=== PATIENT | male | born 1955 | race Caucasian/White ===

== ENCOUNTER 2017-06-04 13:10 | Inpatient (IN) | payer OTHER ==
[2017-06-04] MEDS ORDERED: HEPARIN SODIUM,PORCINE 5,000 UNIT/ML 1 ML VIAL IV ONE (22:07)
[2017-06-04] MEDS ORDERED: HEPARIN SODIUM,PORCINE 5,000 UNIT/ML 1 ML VIAL IV PRN (22:07)
[2017-06-04] MEDS: MIRTAZAPINE 45 MG TABLET PO SCH (22:37)
[2017-06-04] MEDS: HEPARIN SODIUM,PORCINE/D5W PMX 25,000 UNIT in DEXTROSE/WATER 1 500ML.BAG IV SCH (23:31)
[2017-06-05 04:40] LABS: Basophils # (A) 0.1 k/uL (0-0.2); Basophils % (A) 1 %; CH 32.1; CHCM 35.6; Eosinophils # (A) 0.2 k/uL (0-0.7); Eosinophils % (A) 4 %; HCT 38.9 % (39.0-53.0); HGB 13.9 gm/dL (13.0-17.5); Luc # (Auto) 0.07; Luc % (Auto) 2; Lymphocytes # (A) 1.2 k/uL (1.0-4.8); Lymphocytes % (A) 29 %; MCH 32.4 pg (25.0-35.0); MCHC 35.7 g/dL (31.0-37.0); MCV 90.7 fL (80.0-100.0); Mean Platelet Volume 7.1; Monocytes # (A) 0.3 k/uL (0-1.0); Monocytes % (A) 6 %; Neutrophils # (A) 2.5 k/uL (1.3-7.7); Neutrophils % (A) 59 %; RBC 4.29 m/uL (4.30-5.90); RDW 13.7 % (11.5-15.5); WBC 4.3 k/uL (3.8-10.6); WBC (Perox) 3.96
[2017-06-05 05:56] LABS: ALT 40 U/L (21-72); AST 45 U/L (17-59); Alkaline Phosphatase 79 U/L (38-126); Anion Gap 10 mmol/L; Blood Urea Nitrogen 19 mg/dL (9-20); Calcium 9.2 mg/dL (8.4-10.2); Carbon Dioxide 26 mmol/L (22-30); Chloride 106 mmol/L (98-107); Glucose 102 mg/dL (74-99); Non-African American GFR(MDRD) >60 (>60 ml/min/1.73 sqM); Sodium 142 mmol/L (137-145); Total Bilirubin 0.7 mg/dL (0.2-1.3); Total Protein 7.1 g/dL (6.3-8.2)
[2017-06-05] MEDS: LISINOPRIL 10 MG TAB PO SCH (05:57)
[2017-06-05] MEDS: ATENOLOL 50 MG TAB PO SCH (05:57)
[2017-06-05] MEDS: CHLORTHALIDONE 25 MG TAB PO SCH (05:57)
[2017-06-05] MEDS: amLODIPine 5 MG TAB PO SCH (05:58)
[2017-06-05] MEDS ORDERED: ASPIRIN 325 MG TAB PO ONE (07:25)
[2017-06-05] MEDS ORDERED: SODIUM CHLORIDE 0.9% 1,000 ML IV ONE (07:33)
[2017-06-05] MEDS ORDERED: diphenhydrAMINE 50 MG/ML 1 ML VIAL IVP ONE (07:35)
[2017-06-05] MEDS ORDERED: LIDOCAINE 2% INJ 20 MG/ML SQ ONE (07:40)
[2017-06-05] MEDS ORDERED: MIDAZOLAM 2 MG/2 ML VIAL IV ONE (07:40)
[2017-06-05] MEDS: VERAPAMIL SYRINGE (5 MG/10 ML) INTRAARTER ONE ×2 (07:42→07:59)
[2017-06-05] MEDS ORDERED: IOHEXOL 350 MG/ML 125ML BOTTLE INJ ONE ×2 (07:57)
[2017-06-05] MEDS ORDERED: RX INFO: IV CONTRAST WAS GIVEN 1 EACH MISC MISCELLANE PRN (08:07)
--- NOTE | 2017-06-05 08:22 | P.PCN ---
Date of Procedure: 06/05/17 Preoperative Diagnosis: Postoperative Diagnosis: Procedure(s) Performed: Implants: Indications for Procedure: Operative Findings: CARDIAC CATHETERIZATION PERFORMING PHYSICIAN: Chris Saravia MD, RPVI PROCEDURE PERFORMED: 1. Selective right and left coronary angiogram INDICATION: This is a pleasant 62-year-old gentleman with a known hypertension, dyslipidemia , significant history of smoking, and hepatitis C presented to the hospital with a chest discomfort and was ruled in for acute non-STEMI. APPROACH: Right radial artery PROCEDURE DESCRIPTION: After obtaining an informed consent and explaining the procedure benefits, risks , and complications, the patient was brought to cardiac medical lab tech instructor. Local anesthesia was performed using lidocaine subcutaneously. The right radial artery was cannulated using Seldinger technique, the guidewire passed easily, following that we advanced a 6-Chinese sheath dilator assembly, the wire and dilator were removed and sheath was flushed. Following that, 2 mg of verapamil along with 3000 unit heparin were given. Selective right and left coronary angiogram using a 6-Chinese JR4 and JL 3.5 catheters. The procedure was completed there was no complication. SELECTIVE CORONARY ANGIOGRAM: The right coronary artery: Is a large caliber vessel and its a dominant vessel. The right coronary artery is totally occluded in the midportion and fills by collateral from the left coronary system. Left main: Is heavily calcified with disease distally appears to be in the range of 60-70% . The disease involving the ostial left circumflex and LAD. The left circumflex: Is a moderate caliber vessel and its and on dominant vessel. The ostial left circumflex appeared to be disease in the range of 70%. The mid left circumflex appears to be occluded this is just after the bifurcation of the first obtuse marginal branch which is a large caliber vessel with disease in the proximal portion appears to be in the range of 70-80%. The left circumflex also gives rises into second and third obtuse marginal branches which they seemed to be subtotally occluded. The left anterior descending artery: Is a large caliber vessel. Its heavily calcified. The LAD is diffusely diseased. The proximal portion of the LAD appeared to have disease up to about 70-80%. The mid LAD has a focal lesion seems to be in the range of 90-95%. The LAD distally appears to be angiographically normal. CONCLUSION: Heavily calcified right and left coronary systems Severe triple-vessel CAD Occluded large dominant RCA fills by collaterals from the left coronary system Severe disease involving the distal left main Occluded mid left circumflex Severe disease involving the proximal and mid LAD POSTPROCEDURE MANAGEMENT: Consult surgeon for evaluation of CABG. Description of Procedure:
[2017-06-05] MEDS: SODIUM CHLORIDE 0.9% 1,000 ML IV SCH ×2 (08:28→20:24)
--- NOTE | 2017-06-05 09:24 | P.HPIM ---
History of Present Illness H&P Date: 06/05/17 Chief Complaint: chest pain 62-year-old male was transferred from [facility] for higher level of care in a patient who ruled in for non-ST elevated CA. Patient reportedly was seen in the emergency room on June 04 at [facility] facility after patient activated the EMS system the patient stated that he developed chest pain. Patient stated that for the last several months he has had intermittent episodes of anterior chest wall pain. He states the pain seemed to get worse if he exerted himself. Did indicate that the pain did radiate to the left side of his neck and did have episodes of severe diaphoresis with the last episode. He stated he also felt sensation of nausea but did not actually vomit. Patient stated the pain this time was so severe different from his other episodes in the past. Patient was seen at [facility] facility the 12-lead EKG showed evidence of ischemic changes in a mildly elevated troponin. Patient initially was admitted to the telemetry unit started on IV heparin a cardiology consultation requested. Patient does have a past medical history significant for hepatitis C active tobacco abuse hypertension. Additionally patient states he's on Suboxone for heroin addiction. Patient states he has not used heroin "in years" but does state that he sees Dr. Niels Sweeney psychiatrist who prescribes Suboxone cardiology recommended that the patient be transferred to the [facility] heart catheterization patient was transferred did undergo heart catheterization on June 05 it showed three-vessel disease 60% left main disease . Currently the patient is being seen this morning postprocedure awake alert states he is not having any chest pain is stating anxious to be discharged stating that he cannot stay in the hospital Review of Systems Essentially unremarkable except as mentioned in the present illness Past Medical History Past Medical History: Cancer, Osteoarthritis (OA) Additional Past Medical History / Comment(s): "TX FOR BOWEL INFECTION IN PAST . " ONE DR TOLD ME I HAD COLITIS BUT ANOTHER DR TOLD ME I DID'NT", "COLON CANCER" , oCC TROUBLE SWALLOWING, BROKEN RT LEG IN PAST. History of Any Multi-Drug Resistant Organisms: None Reported Past Surgical History: Bowel Resection, Hernia Repair, Orthopedic Surgery Additional Past Surgical History / Comment(s): RT LEG, LT KNEE SX D/R "BROKEN KNEE CAP", PARTIAL LT HIP REPLACEMENT Past Anesthesia/Blood Transfusion Reactions: Previous Problems w/ Anesthesia Additional Past Anesthesia/Blood Transfusion Reaction / Comment(s): DIFFICULTY WAKING Smoking Status: Current every day smoker - Past Family History Mother Family Medical History: Cancer Additional Family Medical History / Comment(s): BREAST CANCER Father Family Medical History: Congestive Heart Failure (CHF), Coronary Artery Disease (CAD) Medications and Allergies Home Medications Medication Instructions Recorded Confirmed Type Atenolol/Chlorthalidone 1 tab PO DAILY 06/04/17 06/04/17 History [Atenolol-Chlorthalidone 50-25] Buprenorphine HCl/Naloxone HCl 1.5 film SUBLINGUAL DAILY 06/04/17 06/04/17 History [Suboxone 8 mg-2 mg Sl Film] Lisinopril [Zestril] 10 mg PO DAILY 06/04/17 06/04/17 History Mirtazapine [Remeron] 45 mg PO HS 06/04/17 06/04/17 History amLODIPine [Norvasc] 5 mg PO DAILY 06/04/17 06/04/17 History Allergies Allergy/AdvReac Type Severity Reaction Status Date / Time Penicillins Allergy Unknown Verified 06/04/17 19:23 Physical Exam Vitals: Vital Signs Temp Pulse Pulse Resp BP Pulse Ox 06/05/17 08:29 97.5 F L 57 L 16 144/75 98 06/05/17 08:25 57 L 16 144/75 98 06/05/17 04:00 97.1 F L 62 18 152/79 99 06/05/17 00:00 65 16 121/71 97 06/04/17 20:00 97.2 F L 68 18 139/76 96 06/04/17 18:52 97.8 F 69 16 135/76 96 Intake and Output 06/04/17 06/05/17 06/05/17 22:59 06:59 14:59 Intake Total 100 Balance 100 Intake: IV 100 Other: # Voids 1 Weight 70.7 kg 70 kg GENERAL APPEARANCE: 62 year old patient is alert, oriented, in no acute distress. VITAL SIGNS: Reviewed HEENT: Head is normocephalic and atraumatic. Pupils are equal and reactive. The nares are patent. Oropharynx is clear without lesions. NECK: Supple without lymphadenopathy. Traches midline. HEART: S1, S2. Regular rate and rhythm. No murmur noted currently denying chest pain monitor sinus rhythm LUNGS: No crackles or wheezes are heard. Adequate air entry bilaterally no cough noted no shortness of breath on room air sats are 9193% ABDOMEN: Soft, nontender, nondistended with good bowel sounds. No peritoneal signs. No palpable organomegaly or masses. EXTREMITIES: Normal skin color and turgor. No cyanosis, rash, ulceration, clubbing or edema. Radial pedal pulses are 2/4 bilaterally. No hematoma noted NEUROLOGICAL: No focal deficits. Strength and sensation are grossly intact. Results CBC & Chem 7: 06/05/17 04:25 06/05/17 05:32 Labs: Abnormal Lab Results - Last 24 Hours (Table) 06/04/17 06/05/17 06/05/17 Range/Units 22:23 04:25 04:25 RBC 4.29 L (4.30-5.90) m/uL Hct 38.9 L (39.0-53.0) % APTT 37.1 H 53.8 H (22.0-30.0) sec Glucose (74-99) mg/dL 06/05/17 Range/Units 05:32 RBC (4.30-5.90) m/uL Hct (39.0-53.0) % APTT (22.0-30.0) sec Glucose 102 H (74-99) mg/dL Thrombosis Risk Factor Assmnt - Choose All That Apply Any of the Below Risk Factors Present?: Yes Each Factor Represents 1 point: Acute CA Other Risk Factors: Yes Each Risk Factor Represents 2 Points: Age 61-74 years, Malignancy Other congenital or acquired thrombophilia - If yes, enter type in comment: No Thrombosis Risk Factor Assessment Total Risk Factor Score: 5 Thrombosis Risk Factor Assessment Level: High Risk Assessment and Plan Plan: Impression Present on admission chest pain suspect due to acute non-ST elevated CA 3 vessel coronary artery disease per heart catheterization done 06/05/2017 Current every day smoker 1 pack a day on Suboxone for heroin addiction in remission History of hepatitis C Hypertension Present on admission hypokalemia potassium 3.3 corrected History of illicit drug use marijuana Hyperlipidemia Plan Await cardiology input pending Resume home meds as appropriate DVT and GI prophylaxis Patient's been advised to stop smoking cigarettes smoking cessation information will be provided repeat labs in the morning Further recommendations pending will follow The above impression and plan of care have been discussed and directed by signing physician. Nelly Guo nurse practitioner acting as scribe for signing physician.
[2017-06-05 10:45] LABS: Cholesterol 178 mg/dL (<200); HDL Cholesterol 59 mg/dL (40-60); Triglycerides 118 mg/dL (<150)
[2017-06-05] MEDS: FAMOTIDINE 20 MG TAB PO SCH ×2 (12:03→20:24)
[2017-06-05] MEDS ORDERED: MD COMMUNICATION TO PHARMACY 1 EACH MISC PO ONE (14:15)
--- NOTE | 2017-06-05 14:45 | P.GSCN ---
<Felicia Restrepo - Last Filed: 06/05/17 14:30> History of Present Illness Consult date: 06/05/17 Reason for Consult: Severe triple vessel coronary artery disease, need for surgical revascularization. Requesting physician: Chris Saravia History of present illness: This 62 year old gentleman presented to [facility] emergency room with complaints of anterior chest pain. Apparently he's had this pain off and on for several months however he felt it was getting worse and that he needed to come to the emergency room. He does state that its worse with exertion, he did have some radiation to his left neck, as well as diaphoresis and nausea with this episode. At [facility] he was ruled in for non-STEMI with elevated troponins of 0.54 and 1.090. He was transferred to [facility] for heart catheterization with Dr. Saravia. Heart catheterization reveals a total occlusion of the RCA with collateral circulation , left main disease 60-70%, ostial circumflex with 70% stenosis, mid circumflex occluded after the bifurcation of OM1 which was 70-80% stenosed, OM 2 and OM3 with total occlusion, proximal LAD 70-80%, mid LAD 90-95%. Because of the nature of his disease process, Dr. Larson from cardiothoracic surgery was consulted for surgical revascularization. Review of Systems 14 point review of systems was completed was negative except as noted. - Cardiovascular Reports as per HPI - Respiratory Reports as per HPI - Musculoskeletal Musculoskeleta Comment(s): Lower extremity pain with ambulation relieved with rest - Psychiatric Reports anxiety Past Medical History Past Medical History: Coronary Artery Disease (CAD), Cancer, Hyperlipidemia, Hypertension, Osteoarthritis (OA) Additional Past Medical History / Comment(s): "TX FOR BOWEL INFECTION IN PAST . " ONE DR TOLD ME I HAD COLITIS BUT ANOTHER DR TOLD ME I DID'NT", "COLON CANCER" , oCC TROUBLE SWALLOWING, BROKEN RT LEG IN PAST. Hepatitis C positive History of Any Multi-Drug Resistant Organisms: None Reported Past Surgical History: Bowel Resection, Hernia Repair, Orthopedic Surgery Additional Past Surgical History / Comment(s): RT LEG, LT KNEE SX D/R "BROKEN KNEE CAP", PARTIAL LT HIP REPLACEMENT Past Anesthesia/Blood Transfusion Reactions: Previous Problems w/ Anesthesia Additional Past Anesthesia/Blood Transfusion Reaction / Comm: DIFFICULTY WAKING Smoking Status: Current every day smoker Additional Drug Use History / Comment(s): History of heroin addiction, clean for 4 years, currently on Suboxone - Past Family History Mother Family Medical History: Cancer Additional Family Medical History / Comment(s): BREAST CANCER Father Family Medical History: Congestive Heart Failure (CHF), Coronary Artery Disease (CAD), Myocardial Infarction (OR) Additional Family Medical History / Comment(s): Father of myocardial infarction in his 50s Medications and Allergies Home Medications Medication Instructions Recorded Confirmed Type Atenolol/Chlorthalidone 1 tab PO DAILY 06/04/17 06/04/17 History [Atenolol-Chlorthalidone 50-25] Buprenorphine HCl/Naloxone HCl 1.5 film SUBLINGUAL DAILY 06/04/17 06/04/17 History [Suboxone 8 mg-2 mg Sl Film] Lisinopril [Zestril] 10 mg PO DAILY 06/04/17 06/04/17 History Mirtazapine [Remeron] 45 mg PO HS 06/04/17 06/04/17 History amLODIPine [Norvasc] 5 mg PO DAILY 06/04/17 06/04/17 History Allergies Allergy/AdvReac Type Severity Reaction Status Date / Time Penicillins Allergy Unknown Verified 06/04/17 19:23 Surgical - Exam Vital Signs Temp Pulse Resp BP Pulse Ox 97.8 F 69 16 135/76 96 06/04/17 18:52 06/04/17 18:52 06/04/17 18:52 06/04/17 18:52 06/04/17 18:52 - General no distress, no pain - Eyes PERRL, normal ocular movement - ENT no hearing loss - Neck trachea midline - Respiratory Lungs sounds diminished bilaterally. Respirations even, nonlabored. Currently on room air. - Cardiovascular Rhythm: regular Heart Sounds: normal: S1, S2 - Abdomen Abdomen: soft, non tender, bowel sounds - Genitourinary Deferred - Rectum Deferred - Integumentary no rash - Neurologic normal coordination, normal sensation - Musculoskeletal normal gait, normal posture - Psychiatric oriented to time, oriented to person, oriented to place, speech is normal, memory intact Results - Labs 06/05/17 04:25 06/05/17 05:32 Abnormal Lab Results - Last 24 Hours (Table) 06/04/17 06/05/17 06/05/17 Range/Units 22:23 04:25 04:25 RBC 4.29 L (4.30-5.90) m/uL Hct 38.9 L (39.0-53.0) % APTT 37.1 H 53.8 H (22.0-30.0) sec Glucose (74-99) mg/dL 06/05/17 Range/Units 05:32 RBC (4.30-5.90) m/uL Hct (39.0-53.0) % APTT (22.0-30.0) sec Glucose 102 H (74-99) mg/dL Diabetes panel 06/05/17 06/05/17 Range/Units 05:32 05:32 Sodium 142 (137-145) mmol/L Potassium 4.0 (3.5-5.1) mmol/L Chloride 106 (98-107) mmol/L Carbon Dioxide 26 (22-30) mmol/L BUN 19 (9-20) mg/dL Creatinine 1.20 (0.66-1.25) mg/dL Glucose 102 H (74-99) mg/dL Calcium 9.2 (8.4-10.2) mg/dL AST 45 (17-59) U/L ALT 40 (21-72) U/L Alkaline Phosphatase 79 (38-126) U/L Total Protein 7.1 (6.3-8.2) g/dL Albumin 3.9 (3.5-5.0) g/dL Triglycerides 118 (<150) mg/dL HDL Cholesterol 59 (40-60) mg/dL Calcium panel 06/05/17 Range/Units 05:32 Calcium 9.2 (8.4-10.2) mg/dL Albumin 3.9 (3.5-5.0) g/dL Pituitary panel 06/05/17 Range/Units 05:32 Sodium 142 (137-145) mmol/L Potassium 4.0 (3.5-5.1) mmol/L Chloride 106 (98-107) mmol/L Carbon Dioxide 26 (22-30) mmol/L BUN 19 (9-20) mg/dL Creatinine 1.20 (0.66-1.25) mg/dL Glucose 102 H (74-99) mg/dL Calcium 9.2 (8.4-10.2) mg/dL Adrenal panel 07/06/17 Range/Units 05:32 Sodium 142 (137-145) mmol/L Potassium 4.0 (3.5-5.1) mmol/L Chloride 106 (98-107) mmol/L Carbon Dioxide 26 (22-30) mmol/L BUN 19 (9-20) mg/dL Creatinine 1.20 (0.66-1.25) mg/dL Glucose 102 H (74-99) mg/dL Calcium 9.2 (8.4-10.2) mg/dL Total Bilirubin 0.7 (0.2-1.3) mg/dL AST 45 (17-59) U/L ALT 40 (21-72) U/L Alkaline Phosphatase 79 (38-126) U/L Total Protein 7.1 (6.3-8.2) g/dL Albumin 3.9 (3.5-5.0) g/dL - Imaging Additional studies: Cardiac cath films reviewed. Assessment and Plan (1) Hypertension Status: Acute (2) Coronary artery disease Status: Acute (3) Hyperlipidemia Status: Acute (4) Tobacco dependence Status: Acute (5) Hepatitis C Status: Acute (6) Heroin addiction Status: Acute (7) Family history of myocardial infarction in first degree male relative Status: Acute Plan: The patient was seen and examined. Chart/diagnostics were reviewed. Cardiac catheterization films were reviewed by Dr. Larson. Our recommendations are for surgical revascularization. This was discussed at length with the patient. All risks and benefits were explained in detail to the patient and he is agreeable to surgery. Preoperative testing was ordered. Preoperative teaching initiated. Our plan is for coronary artery bypass graft surgery on 06/09/2017 pending the outcome of preoperative testing. Thank you Dr. Saravia for this consult. We look forward to working with you in the care of your patient. Time with Patient: Greater than 30 <Royal Larson - Last Filed: 06/05/17 17:39> Surgical - Exam Vital Signs Temp Pulse Resp BP Pulse Ox 97.8 F 69 16 135/76 96 06/04/17 18:52 06/04/17 18:52 06/04/17 18:52 06/04/17 18:52 06/04/17 18:52 Results - Labs 06/05/17 04:25 06/05/17 05:32 Abnormal Lab Results - Last 24 Hours (Table) 0706/05/17 06/05/17 Range/Units 22:23 04:25 04:25 RBC 4.29 L (4.30-5.90) m/uL Hct 38.9 L (39.0-53.0) % APTT 37.1 H 53.8 H (22.0-30.0) sec Glucose (74-99) mg/dL Magnesium (1.6-2.3) mg/dL Troponin I (0.000-0.034) ng/mL Triglycerides (<150) mg/dL 06/05/17 06/05/17 06/05/17 Range/Units 05:32 16:26 16:26 RBC (4.30-5.90) m/uL Hct (39.0-53.0) % APTT (22.0-30.0) sec Glucose 102 H (74-99) mg/dL Magnesium 1.4 L (1.6-2.3) mg/dL Troponin I 0.299 H* (0.000-0.034) ng/mL Triglycerides 216 H (<150) mg/dL Diabetes panel 06/05/17 06/05/17 06/05/17 Range/Units 05:32 05:32 16:26 Sodium 142 (137-145) mmol/L Potassium 4.0 (3.5-5.1) mmol/L Chloride 106 (98-107) mmol/L Carbon Dioxide 26 (22-30) mmol/L BUN 19 (9-20) mg/dL Creatinine 1.20 (0.66-1.25) mg/dL Glucose 102 H (74-99) mg/dL Calcium 9.2 (8.4-10.2) mg/dL AST 45 (17-59) U/L ALT 40 (21-72) U/L Alkaline Phosphatase 79 (38-126) U/L Total Protein 7.1 (6.3-8.2) g/dL Albumin 3.9 (3.5-5.0) g/dL Triglycerides 118 216 H (<150) mg/dL HDL Cholesterol 59 56 (40-60) mg/dL Thyroid panel 06/05/17 Range/Units 16:26 TSH 0.692 (0.465-4.680) mIU/L Calcium panel 06/05/17 Range/Units 05:32 Calcium 9.2 (8.4-10.2) mg/dL Albumin 3.9 (3.5-5.0) g/dL Pituitary panel 06/05/17 06/05/17 Range/Units 05:32 16:26 Sodium 142 (137-145) mmol/L Potassium 4.0 (3.5-5.1) mmol/L Chloride 106 (98-107) mmol/L Carbon Dioxide 26 (22-30) mmol/L BUN 19 (9-20) mg/dL Creatinine 1.20 (0.66-1.25) mg/dL Glucose 102 H (74-99) mg/dL Calcium 9.2 (8.4-10.2) mg/dL TSH 0.692 (0.465-4.680) mIU/L Adrenal panel 06/05/17 Range/Units 05:32 Sodium 142 (137-145) mmol/L Potassium 4.0 (3.5-5.1) mmol/L Chloride 106 (98-107) mmol/L Carbon Dioxide 26 (22-30) mmol/L BUN 19 (9-20) mg/dL Creatinine 1.20 (0.66-1.25) mg/dL Glucose 102 H (74-99) mg/dL Calcium 9.2 (8.4-10.2) mg/dL Total Bilirubin 0.7 (0.2-1.3) mg/dL AST 45 (17-59) U/L ALT 40 (21-72) U/L Alkaline Phosphatase 79 (38-126) U/L Total Protein 7.1 (6.3-8.2) g/dL Albumin 3.9 (3.5-5.0) g/dL Assessment and Plan Plan: The patient was seen and examined. I agree with the above assessment and plan. Apparently he's been having chest pain for several months now. Cardiac catheterization performed today reveals multivessel coronary artery disease including left main disease. A coronary artery bypass is recommended. The risks, benefits, and alternatives to this procedure were discussed at length with the patient. All his questions were answered. We have initiated preoperative workup. He is currently hemodynamically stable and chest pain- free. We have scheduled him for surgery on 06/09/2017.
[2017-06-05 16:47] LABS: Partial Thromboplastin Time 24.2 sec (22.0-30.0)
[2017-06-05 16:52] LABS: INR 1.1 (<1.1); Prothrombin Time 10.6 sec (9.0-12.0)
[2017-06-05 17:00] LABS: Cholesterol 195 mg/dL (<200); HDL Cholesterol 56 mg/dL (40-60); Magnesium 1.4 mg/dL (1.6-2.3); Triglycerides 216 mg/dL (<150)
--- NOTE | 2017-06-05 17:12 | XR ---
EXAMINATION TYPE: XR chest 2V DATE OF EXAM: 06/05/2017 COMPARISON: NONE HISTORY: Pain TECHNIQUE: Frontal and lateral views of the chest are obtained. FINDINGS: Heart is normal. Lungs are clear of consolidation. There are no hilar masses. Thoracic aor ta is atheromatous. There is no pleural effusion. There are chest leads. Bones are osteopenic. IMPRESSION: No active cardiopulmonary disease. Normal heart.
[2017-06-05 17:28] LABS: Hepatitis B Surface Ag Index 0.06
[2017-06-05 17:33] LABS: Hepatitis B Core IgM Index 0.07
[2017-06-05 17:45] LABS: Hepatitis C Virus IgG Ab Reactive (Negative)
[2017-06-05 19:01] LABS: Appearance,Urine Clear (Clear); Bilirubin,Urine Negative (Negative); Glucose,Urine (UA) Negative (Negative); Ketones,Urine Negative (Negative); Leukocyte Esterase,Urine Negative (Negative); Nitrite,Urine Negative (Negative); Protein,Urine Negative (Negative); Specific Gravity,Urine 1.012 (1.001-1.035); UA Billing (MACRO vs. MICRO) CHEM; Urobilinogen,Urine <2.0 mg/dL (<2.0)
[2017-06-05] MEDS ORDERED: Magnesium Replacement Protocol 1 EACH MISC MISCELLANE PRN (19:55)
[2017-06-05] MEDS: MAGNESIUM SULFATE-D5W PMX 1 GM in DEXTROSE/WATER 1 100ML.BAG IVPB SCH ×2 (20:24→23:11)
[2017-06-05] MEDS: ATORVASTATIN 80 MG TAB PO SCH (20:24)
[2017-06-05] MEDS: MIRTAZAPINE 45 MG TABLET PO SCH (20:24)
[2017-06-05] MEDS: ALPRAZolam 0.25 MG TAB PO PRN (20:24)
[2017-06-05 21:08] LABS: Hemoglobin A1C 5.4 % (4.2-6.1)
--- NOTE | 2017-06-05 22:46 | P.CNPUL ---
History of Present Illness Consult date: 06/05/17 Requesting physician: Royal Larson Reason for consult: other (Preoperative pulmonary clearance, patient may undergo myocardial revascularization.) Chief complaint: Chest pain History of present illness: This is a 62-year-old white male, heavy smoker, no documented history of COPD, patient presented initially to [facility] facility with acute onset of chest pain. Pain was felt to be cardiac in nature, and the patient was felt to have non-ST elevation myocardial infarction. According to the patient he had intermittent episodes of chest pains over the anterior chest intermittently for the last few months. However this time, the pain was more severe. It was associated with radiation to the neck, also assure initiated with diaphoresis. Patient was found to have ischemic changes in his 12-lead EKG , troponin was mildly elevated. Started on IV heparin, and he was transferred to [facility] and cardiac catheterization was done, and it showed three-vessel coronary artery disease with 60% left main, patient was seen by surgery on consultation, and he may be scheduled for cardiac bypass surgery soon. Considering his smoking history, considering his history of nicotine addiction as well as previous history of heroin addiction, I was asked to see the patient on consultation for preoperative pulmonary clearance. Presently, the patient denies any headaches, no blurred vision, no dizziness, no chest pain no nausea no vomiting no abdominal pain. Patient denies dyspnea on exertion, he is relatively active in spite of his significant smoking history. Bedside PFT is pending at the time of this dictation. Review of Systems 14 point review of systems were obtained, please refer to pertinent positives and negatives in HPI. Past Medical History Past Medical History: Coronary Artery Disease (CAD), Cancer, Hyperlipidemia, Hypertension, Osteoarthritis (OA) Additional Past Medical History / Comment(s): "TX FOR BOWEL INFECTION IN PAST . " ONE DR TOLD ME I HAD COLITIS BUT ANOTHER DR TOLD ME I DID'NT", "COLON CANCER" , oCC TROUBLE SWALLOWING, BROKEN RT LEG IN PAST. Hepatitis C positive History of Any Multi-Drug Resistant Organisms: None Reported Past Surgical History: Bowel Resection, Hernia Repair, Orthopedic Surgery Additional Past Surgical History / Comment(s): RT LEG, LT KNEE SX D/R "BROKEN KNEE CAP", PARTIAL LT HIP REPLACEMENT Past Anesthesia/Blood Transfusion Reactions: Previous Problems w/ Anesthesia Additional Past Anesthesia/Blood Transfusion Reaction / Comment(s): DIFFICULTY WAKING Smoking Status: Current every day smoker Additional Drug Use History / Comment(s): History of heroin addiction, clean for 4 years, currently on Suboxone - Past Family History Mother Family Medical History: Cancer Additional Family Medical History / Comment(s): BREAST CANCER Father Family Medical History: Congestive Heart Failure (CHF), Coronary Artery Disease (CAD), Myocardial Infarction (AR) Additional Family Medical History / Comment(s): Father of myocardial infarction in his 50s Medications and Allergies Home Medications Medication Instructions Recorded Confirmed Type Atenolol/Chlorthalidone 1 tab PO DAILY 06/04/17 06/04/17 History [Atenolol-Chlorthalidone 50-25] Buprenorphine HCl/Naloxone HCl 1.5 film SUBLINGUAL DAILY 06/04/17 06/04/17 History [Suboxone 8 mg-2 mg Sl Film] Lisinopril [Zestril] 10 mg PO DAILY 06/04/17 06/04/17 History Mirtazapine [Remeron] 45 mg PO HS 06/04/17 06/04/17 History amLODIPine [Norvasc] 5 mg PO DAILY 06/04/17 06/04/17 History Allergies Allergy/AdvReac Type Severity Reaction Status Date / Time Penicillins Allergy Unknown Verified 06/04/17 19:23 Physical Exam Vitals: Vital Signs Temp Pulse Pulse Resp BP Pulse Ox 06/05/17 20:27 97.0 F L 76 16 137/61 97 06/05/17 16:50 97.7 F 48 L 16 113/56 96 06/05/17 12:25 64 16 152/88 98 06/05/17 12:19 56 L 16 06/05/17 11:25 56 L 16 161/89 99 06/05/17 10:49 64 16 151/66 98 06/05/17 10:25 63 16 146/89 97 06/05/17 09:25 66 16 149/89 98 06/05/17 09:10 64 16 151/87 98 06/05/17 08:55 63 16 146/85 98 06/05/17 08:40 68 16 151/90 99 06/05/17 08:29 97.5 F L 57 L 16 144/75 98 06/05/17 08:25 57 L 16 144/75 98 06/05/17 04:00 97.1 F L 62 18 152/79 99 06/05/17 00:00 65 16 121/71 97 Intake and Output 06/05/17 06/05/17 06/05/17 06:59 14:59 22:59 Intake Total 100 Output Total 700 525 Balance -600 -525 Intake: IV 100 Oral 0 Output: Urine 700 525 Other: # Voids 1 1 2 # Bowel Movements 0 0 Weight 70 kg GENERAL APPEARANCE: 62 year old patient, in no form of respiratory distress. VITAL SIGNS: Reviewed, as noted above. HEENT: Head is normocephalic and atraumatic. Pupils are equal and reactive. The nares are patent. Oropharynx is clear without lesions. NECK: Supple without lymphadenopathy. Traches midline. HEART: S1, S2. Regular rate and rhythm. No gallop, no murmur. LUNGS: Clear bilaterally, no crackles or rhonchi or wheezes ABDOMEN: Soft, nontender, nondistended with good bowel sounds. No peritoneal signs. No palpable organomegaly or masses. EXTREMITIES: Normal skin color and turgor. No cyanosis, rash, ulceration, clubbing or edema. Radial pedal pulses are 2/4 bilaterally. No hematoma noted NEUROLOGICAL: No gross focal neurologic deficit. Results - Laboratory Findings CBC and BMP: 06/05/17 04:25 06/05/17 05:32 PT/INR, D-dimer PT 10.6 sec (9.0-12.0) 06/05/17 16:26 INR 1.1 (<1.1) 06/05/17 16:26 Abnormal lab findings: Abnormal Labs 06/04/17 06/05/17 06/05/17 22:23 04:25 04:25 RBC 4.29 L Hct 38.9 L APTT 37.1 H 53.8 H Glucose Magnesium Troponin I Triglycerides 06/05/17 06/05/17 06/05/17 05:32 16:26 16:26 RBC Hct APTT Glucose 102 H Magnesium 1.4 L Troponin I 0.299 H* Triglycerides 216 H - Diagnostic Findings Chest x-ray: image reviewed Assessment and Plan Plan: Impression: 1 acute non-ST elevation myocardial infarction 2 3 vessel coronary artery disease based on cardiac catheterization from 2016. 3 history of nicotine dependence syndrome, however the patient does not have significant symptoms to suggest significant COPD, a bedside PFT will be ordered. 4 history of hepatitis C 5 history of heroin addiction! 6 history of hyperlipidemia. 7 history of hypertension 8 family history of premature coronary artery disease. Recommendation: Patient is tentatively cleared for myocardial revascularization , he is considered low to moderate operative risk, a bedside PFT will be done, chest x-ray was reviewed, patient is tentatively scheduled for bypass surgery on 06/09/2017. Preoperative testing is pending. Time with Patient: Greater than 30
[2017-06-05] MEDS: HEPARIN SODIUM,PORCINE/D5W PMX 25,000 UNIT in DEXTROSE/WATER 1 500ML.BAG IV SCH (23:26)
[2017-06-06] MEDS: MAGNESIUM SULFATE-D5W PMX 1 GM in DEXTROSE/WATER 1 100ML.BAG IVPB SCH (00:37)
[2017-06-06] MEDS: ALPRAZolam 0.25 MG TAB PO PRN ×3 (05:56→23:13)
[2017-06-06 06:02] LABS: Basophils % (A) 1 %; CHCM 35.9; Eosinophils # (A) 0.1 k/uL (0-0.7); Eosinophils % (A) 2 %; HCT 39.8 % (39.0-53.0); HDW 3.01; HGB 14.3 gm/dL (13.0-17.5); Luc # (Auto) 0.13; Luc % (Auto) 3; Lymphocytes # (A) 0.9 k/uL (1.0-4.8); Lymphocytes % (A) 18 %; MCH 32.1 pg (25.0-35.0); MCHC 35.9 g/dL (31.0-37.0); MCV 89.5 fL (80.0-100.0); Mean Platelet Volume 6.6; Monocytes # (A) 0.4 k/uL (0-1.0); Monocytes % (A) 8 %; Neutrophils # (A) 3.6 k/uL (1.3-7.7); Neutrophils % (A) 69 %; RBC 4.45 m/uL (4.30-5.90); RDW 13.5 % (11.5-15.5); WBC 5.2 k/uL (3.8-10.6); WBC (Perox) 5.15
[2017-06-06] MEDS: SODIUM CHLORIDE 0.9% 1,000 ML IV SCH ×2 (06:05→16:34)
[2017-06-06 06:27] LABS: ALT 49 U/L (21-72); AST 63 U/L (17-59); Alkaline Phosphatase 75 U/L (38-126); Anion Gap 7 mmol/L; Blood Urea Nitrogen 15 mg/dL (9-20); Calcium 9.1 mg/dL (8.4-10.2); Carbon Dioxide 27 mmol/L (22-30); Chloride 107 mmol/L (98-107); Glucose 113 mg/dL (74-99); Magnesium 2.2 mg/dL (1.6-2.3); Non-African American GFR(MDRD) >60 (>60 ml/min/1.73 sqM); Potassium 3.7 mmol/L (3.5-5.1); Sodium 141 mmol/L (137-145); Total Bilirubin 1.1 mg/dL (0.2-1.3)
--- NOTE | 2017-06-06 07:04 | US ---
EXAMINATION TYPE: US carotid duplex BILAT DATE OF EXAM: 06/05/2017 COMPARISON: NONE CLINICAL HISTORY: Ankle Brachial Index (NURY) . EXAM MEASUREMENTS: RIGHT: Peak Systolic Velocity (PSV) cm/sec ----- Right CCA: 79.0 ----- Right ICA: 85.3 ----- Right ECA: 110.4 ICA/CCA ratio: 1.1 RIGHT: End Diastole cm/sec ----- Right CCA: 12.0 ----- Right ICA: 14.9 ----- Right ECA: 0.0 LEFT: Peak Systolic Velocity (PSV) cm/sec ----- Left CCA: 83.3 ----- Left ICA: 65.1 ----- Left ECA: 161.3 ICA/CCA ratio: 0.8 LEFT: End Diastole cm/sec ----- Left CCA: 11.7 ----- Left ICA: 18.9 ----- Left ECA: 7.1 VERTEBRALS (direction of flow): Right Vertebral: Antegrade Left Vertebral: Antegrade No elevated velocities, moderate plaque. IMPRESSION: 1. I DO NOT SEE EVIDENCE OF A HEMODYNAMICALLY SIGNIFICANT STENOSIS IN EITHER CAROTID SYSTEM. 2. ELEVATED FLOW VELOCITY, LEFT ECA Criteria for Assigning % of Stenosis / Diameter reduction (Estimation based on the indirect measurements of the internal carotid artery velocities (ICA PSV). 1. Normal (no stenosis)=ICA PSV < 125 cm/s: ratio < 2.0: ICA EDV<40 cm/s. 2. Less than 50% stenosis=ICA PSV < 125 cm/s: ratio < 2.0: ICA EDV<40 cm/s. 3. 50 to 69% stenosis=ICA PSV of 125 to 230 cm/s: ration 2.0 ? 4.0: ICA EDV 40-100 cm/s. 4. Greater than 70% stenosis to near occlusion= ICA PSV > 230 cm/s: ratio > 4.0: ICA EDV > 100 cm/s. 5. Near occlusion= ICA PSV velocities may be low or undetectable: variable ratio and ICA EDV. 6. Total occlusion=unable to detect flow.
[2017-06-06] MEDS: LISINOPRIL 10 MG TAB PO SCH (08:09)
[2017-06-06] MEDS: ATENOLOL 50 MG TAB PO SCH (08:09)
[2017-06-06] MEDS: FAMOTIDINE 20 MG TAB PO SCH ×2 (08:09→20:41)
[2017-06-06] MEDS: CHLORTHALIDONE 25 MG TAB PO SCH (08:09)
[2017-06-06] MEDS: amLODIPine 5 MG TAB PO SCH (08:09)
--- NOTE | 2017-06-06 09:53 | P.PN ---
Subjective Patient is concerned about his Suboxone states he takes it 3 times at home. Instructed patient to bring his Suboxone from home will set it up that he can take his home dose of Suboxone. Patient states he does see a psychiatrist the outpatient setting is a history of anxiety and depression 62-year-old male seen and evaluated. Currently sitting up on the edge of the bed. Patient states "he feels anxious about everything that is happening" Patients being followed by pulmonary and cardiovascular surgery. Patient is scheduled surgical revascularization coronary artery bypass surgery tentatively scheduled for June 09 patient currently is denying any chest pain or shortness of breath. Patient is able to use the incentive spirometer can achieve 1500 Objective - Vital Signs Vital signs: Vital Signs Temp 97.7 F 06/06/17 08:12 Pulse 78 06/06/17 08:12 Resp 18 06/06/17 08:12 BP 137/86 06/06/17 08:12 Pulse Ox 96 06/06/17 08:12 Intake & Output 06/05/17 06/06/17 06/06/17 18:59 06:59 18:59 Intake Total 100 900 Output Total 1225 1200 Balance -1125 -300 Weight 70.2 kg Intake: IV 100 Intake, IV Titration 900 Amount Magnesium Sulfate-D5w Pmx 300 1 gm In Dextrose/Water 1 100ml.bag @ 100 mls/hr IVPB Q1H SOM Rx#: [id number] Sodium Chloride 0.9% 1, 600 000 ml @ 100 mls/hr IV . Q10H SOM Rx#:[id number] Oral 0 Output: Urine 1225 1200 Other: # Voids 2 2 # Bowel Movements 0 - Exam Physical exam 62-year-old male sitting up on the edge of the bed pleasant oriented 3 states feels anxious currently cooperative aware the plan of care Lungs essentially clear with adequate air movement on room air no cough noted Heart S1-S2 audible and regular monitor sinus rhythm no murmur denying chest pain Abdomen soft nontender reports no nausea vomiting Extremities no edema noted to the lower extremities bilateral radial pulses palpable - Labs CBC & Chem 7: 06/06/17 05:42 06/06/17 05:42 Labs: Abnormal Lab Results - Last 24 Hours (Table) 06/05/17 06/05/17 06/06/17 Range/Units 16:26 16:26 05:42 Lymphocytes # 0.9 L (1.0-4.8) k/uL Glucose (74-99) mg/dL Magnesium 1.4 L (1.6-2.3) mg/dL AST (17-59) U/L Troponin I 0.299 H* (0.000-0.034) ng/mL Triglycerides 216 H (<150) mg/dL 06/06/17 Range/Units 05:42 Lymphocytes # (1.0-4.8) k/uL Glucose 113 H (74-99) mg/dL Magnesium (1.6-2.3) mg/dL AST 63 H (17-59) U/L Troponin I (0.000-0.034) ng/mL Triglycerides (<150) mg/dL Microbiology - Last 24 Hours (Table) 06/05/17 18:30 Urine Culture - Preliminary Urine,Voided 06/05/17 16:35 Nasal Screen MRSA/MSSA (PARVEZ) - Preliminary Nasopharyngeal Swab Assessment and Plan Plan: Impression Present on admission chest pain suspect due to acute non-ST elevated UT 3 vessel coronary artery disease per heart catheterization done 06/05/2017 Current every day smoker 1 pack a day on Suboxone for heroin addiction in remission History of hepatitis C Hypertension Present on admission hypokalemia potassium 3.3 corrected History of illicit drug use marijuana Hyperlipidemia Family history of myocardial infarction in first degree male relative Heroin addiction in remission Plan Psychiatric eval requested recommendations on Suboxone anxiety Resume home meds as appropriate DVT and GI prophylaxis Patient's been advised to stop smoking cigarettes smoking cessation information will be provided repeat labs in the morning recommendations by pulmonary and cardiovascular surgery Tentatively scheduled for coronary artery bypass grafting June 09 Encourage use of incentive spirometer The above impression and plan of care have been discussed and directed by signing physician. Nelly Guo nurse practitioner acting as scribe for signing physician.
--- NOTE | 2017-06-06 11:07 | P.PN ---
Subjective This is a 62-year-old white male, heavy smoker, no documented history of COPD, patient presented initially to [facility] facility with acute onset of chest pain. Pain was felt to be cardiac in nature, and the patient was felt to have non-ST elevation myocardial infarction. According to the patient he had intermittent episodes of chest pains over the anterior chest intermittently for the last few months. However this time, the pain was more severe. It was associated with radiation to the neck, also assure initiated with diaphoresis. Patient was found to have ischemic changes in his 12-lead EKG , troponin was mildly elevated. Started on IV heparin, and he was transferred to [facility] and cardiac catheterization was done, and it showed three-vessel coronary artery disease with 60% left main, patient was seen by surgery on consultation, and he may be scheduled for cardiac bypass surgery soon. Considering his smoking history, considering his history of nicotine addiction as well as previous history of heroin addiction, I was asked to see the patient on consultation for preoperative pulmonary clearance. Presently, the patient denies any headaches, no blurred vision, no dizziness, no chest pain no nausea no vomiting no abdominal pain. Patient denies dyspnea on exertion, he is relatively active in spite of his significant smoking history. Bedside PFT is pending at the time of this dictation. The patient was seen again today in follow-up 06/06/2017 on the selective care unit. He is awake and alert in no acute distress. His bedside spirometry did reveal a FEV1 value of 79% of predicted. He denies any chest pain currently. He denies any worsening shortness of breath, cough or congestion. He is maintaining good O2 saturations in the 90s on room air. He has been hemodynamically stable. Lab results within normal limits. His chest x-ray revealed no acute cardiopulmonary disease. He is currently being worked up for possible coronary artery bypass grafting early next week. Objective - Vital Signs Vital signs: Vital Signs Temp 97.7 F 06/06/17 08:12 Pulse 78 06/06/17 08:12 Resp 18 06/06/17 08:12 BP 137/86 06/06/17 08:12 Pulse Ox 96 06/06/17 08:12 Intake & Output 06/05/17 06/06/17 06/06/17 18:59 06:59 18:59 Intake Total 100 900 120 Output Total 1225 1200 Balance -1125 -300 120 Weight 70.2 kg Intake: IV 100 Intake, IV Titration 900 Amount Magnesium Sulfate-D5w Pmx 300 1 gm In Dextrose/Water 1 100ml.bag @ 100 mls/hr IVPB Q1H SOM Rx#: [id number] Sodium Chloride 0.9% 1, 600 000 ml @ 100 mls/hr IV . Q10H SOM Rx#:[id number] Oral 0 120 Output: Urine 1225 1200 Other: # Voids 2 2 # Bowel Movements 0 - Exam GENERAL EXAM: Alert, active, comfortable in no apparent distress. HEAD: Normocephalic. EYES: Normal reaction of pupils, equal size. NOSE: Clear with pink turbinates. THROAT: No erythema or exudates. NECK: No masses, no JVD. CHEST: No chest wall deformity. LUNGS: Equal air entry with no crackles, wheeze, rhonchi or dullness. CVS: S1 and S2 normal with no audible mumurs, regular rhythm. ABDOMEN: No hepatosplenomegaly, normal bowel sounds, no guarding or rigidity. SPINE: No scoliosis or deformity SKIN: No rashes CENTRAL NERVOUS SYSTEM: No focal deficits, tone is normal in all 4 extremities. Extremities: There is no significant peripheral edema. No clubbing, no cyanosis. Peripheral pulses are intact. - Labs CBC & Chem 7: 06/06/17 05:42 06/06/17 05:42 Labs: Abnormal Lab Results - Last 24 Hours (Table) 06/05/17 06/05/17 06/06/17 Range/Units 16:26 16:26 05:42 Lymphocytes # 0.9 L (1.0-4.8) k/uL Glucose (74-99) mg/dL Magnesium 1.4 L (1.6-2.3) mg/dL AST (17-59) U/L Troponin I 0.299 H* (0.000-0.034) ng/mL Triglycerides 216 H (<150) mg/dL 06/06/17 Range/Units 05:42 Lymphocytes # (1.0-4.8) k/uL Glucose 113 H (74-99) mg/dL Magnesium (1.6-2.3) mg/dL AST 63 H (17-59) U/L Troponin I (0.000-0.034) ng/mL Triglycerides (<150) mg/dL Microbiology - Last 24 Hours (Table) 06/05/17 18:30 Urine Culture - Preliminary Urine,Voided 06/05/17 16:35 Nasal Screen MRSA/MSSA (PARVEZ) - Preliminary Nasopharyngeal Swab Assessment and Plan Plan: Impression: 1 acute non-ST elevation myocardial infarction 2 3 vessel coronary artery disease based on cardiac catheterization from 2016. 3 history of nicotine dependence syndrome, however the patient does not have significant symptoms to suggest significant COPD, FEV1 value 79% of predicted. 4 history of hepatitis C 5 history of heroin addiction 6 history of hyperlipidemia. 7 history of hypertension 8 family history of premature coronary artery disease. Plan: The patient was seen and evaluated by Dr. Meadows. His PFTs were reviewed. The patient is cleared for surgery from the pulmonary standpoint. He is again educated regarding the use of the incentive spirometer and the importance of cough and deep breathing exercises postoperatively. He is also educated regarding the importance of complete smoking cessation. We will continue to follow and make further recommendations based on his clinical status.
--- NOTE | 2017-06-06 12:57 | P.PN ---
Subjective Principal diagnosis: Severe multivessel coronary artery disease. Hypertension. Hyperlipidemia. History of colon cancer with resection and radiation. Hepatitis C positive. Current tobacco abuse. History of heroin addiction, clean for 4 years, currently on Suboxone. Family history of early age from myocardial infarction. Patient currently sitting up in bed in no acute distress. States he had no chest pain overnight, no shortness of breath. No questions at this time regarding his pending surgery. Brother is at the bedside, all of his questions answered. Objective - Vital Signs Vital signs: Vital Signs Temp 97.7 F 06/06/17 11:44 Pulse 78 06/06/17 11:44 Resp 18 06/06/17 11:44 BP 135/73 06/06/17 11:44 Pulse Ox 97 06/06/17 11:44 Intake & Output 06/05/17 06/06/17 06/06/17 18:59 06:59 18:59 Intake Total 100 900 120 Output Total 1225 1200 Balance -1125 -300 120 Weight 70.2 kg Intake: IV 100 Intake, IV Titration 900 Amount Magnesium Sulfate-D5w Pmx 300 1 gm In Dextrose/Water 1 100ml.bag @ 100 mls/hr IVPB Q1H SOM Rx#: [id number] Sodium Chloride 0.9% 1, 600 000 ml @ 100 mls/hr IV . Q10H SOM Rx#:[id number] Oral 0 120 Output: Urine 1225 1200 Other: # Voids 2 2 # Bowel Movements 0 - Constitutional General appearance: Present: cooperative, no acute distress - Respiratory Details: Lungs sounds diminished bilaterally. Respirations even, nonlabored. Currently on room air with oxygen saturation 97%. - Cardiovascular Details: S1, S2 present. Regular rate and rhythm, normal sinus rhythm on telemetry. - Gastrointestinal Gastrointestinal Comment(s): Abdomen soft, nontender, nondistended. Active bowel sounds 4 quadrants. Tolerating diet. - Genitourinary Genitourinary Comment(s): Continues to void clear, yellow urine. - Musculoskeletal Musculoskeletal: Present: gait normal, strength equal bilaterally - Psychiatric Psychiatric: Present: A&O x's 3, appropriate affect, intact judgment & insight - Allied health notes Allied health notes reviewed: nursing - Labs CBC & Chem 7: 06/06/17 05:42 06/06/17 05:42 Labs: Abnormal Lab Results - Last 24 Hours (Table) 06/05/17 06/05/17 06/06/17 Range/Units 16:26 16:26 05:42 Lymphocytes # 0.9 L (1.0-4.8) k/uL Glucose (74-99) mg/dL Magnesium 1.4 L (1.6-2.3) mg/dL AST (17-59) U/L Troponin I 0.299 H* (0.000-0.034) ng/mL Triglycerides 216 H (<150) mg/dL 06/06/17 Range/Units 05:42 Lymphocytes # (1.0-4.8) k/uL Glucose 113 H (74-99) mg/dL Magnesium (1.6-2.3) mg/dL AST 63 H (17-59) U/L Troponin I (0.000-0.034) ng/mL Triglycerides (<150) mg/dL Microbiology - Last 24 Hours (Table) 06/05/17 18:30 Urine Culture - Preliminary Urine,Voided 06/05/17 16:35 Nasal Screen MRSA/MSSA (PARVEZ) - Preliminary Nasopharyngeal Swab - Imaging and Cardiology PFTs, chest x-ray reviewed. Assessment and Plan (1) Hypertension Status: Acute (2) Coronary artery disease Status: Acute (3) Hyperlipidemia Status: Acute (4) Tobacco dependence Status: Acute (5) Hepatitis C Status: Acute (6) Heroin addiction Status: Acute (7) Family history of myocardial infarction in first degree male relative Status: Acute Plan: 1. Continue current medications. 2. Encourage incentive spirometry use. 3. Encourage ambulation. 4. Preoperative teaching reinforced. All questions answered. 5. Anticipate coronary artery bypass graft surgery on 06/09/2017. Will need to hold heparin drip pressurised container filler to the OR. Time with Patient: Greater than 30
--- NOTE | 2017-06-06 15:45 | P.CN ---
Psychiatric Consult - . Consult date: 06/06/17 Consult:: DATE OF SERVICE: 06/06/2017 IDENTIFYING DATA: This patient is a 62-year-old male on the medical floor. . HISTORY OF PRESENT ILLNESS: The patient with multivessel coronary artery disease , admitted to the medical floor for assessment and now for possible CABG. Consulted because patient is on Suboxone. Patient reports that he has been on Suboxone for approximately 7 months, prior to that he had been on methadone for 3 years. States he has now been sober from heroin for 3 years with 1 or 2 relapses. Reports that he feels it's working well and no problems with the dose. States that he takes 1-1/2 slip. States he is in treatment at [facility] and . Patient denies any other psychiatric problems states he has never been admitted to a psychiatric hospital, has been to [place]. Denies ever making a suicide attempt. Feels that he has made the right decision to have the surgery, views it as if he doesn't have the surgery he may knowing that he may also while having the surgery. . PAST PSYCHIATRIC HISTORY: Patient denies other psychiatric problems, has never been admitted to a psychiatric inpatient hospital, has not taken other medicines other than Suboxone and methadone.. PAST MEDICAL HISTORY: Per record. ALLERGIES: Penicillin. CHEMICAL DEPENDENCY HISTORY: As above patient has a history of heroin use, severe in remission. Sober for 3 years on opioid antagonist therapy OAT. FAMILY PSYCHIATRIC HISTORY: States his grandmother was "crazy" does not know any diagnosis or any medication. States that she did try to kill her self wants but she was not successful. No other family member with problems or suicide.. SOCIAL HISTORY: States that he was marriedX1 reconciled with her and then she . He is currently in a relationship, and his S so has a grandchild who he now looks at is his grandchild. MENTAL STATUS EXAM: Patient alert and oriented 3, good eye contact, poorly groomed in hospital attire. Speech normal volume, rate and production. Coherent, logical and goal directed thought process. No DONTE, no FOI. No TB/TW/ TI Denied auditory and visual hallucinations. Denied paranoid ideation, delusions or IOR. Memory intact Cognition average Mood euthymic, affect full range normal intensity, congruent with mood. Denies suicidal ideation, denies homicidal ideation. Insight partial; Judgment grossly intact for treatment purposes IMPRESSIONS: 62-year-old male with history of heroin use disorder, in remission. Was treated with methadone for several years and then in the last 7 months was involved with [facility] and now treated with Suboxone. Has been doing well has avoided use of heroin. No affective disorder, no history of leo/hypomania, no history of psychosis. No suicidal/homicidal ideation. Stable. Opioid use disorder, in remission. OAT PLAN: [Continue his buprenorphine from his home supply, states that he is taking 1-1/2 per day equaling 12 mg/3 mg. No further psychiatric issues. Please reconsult if needed
--- NOTE | 2017-06-06 15:59 | P.PN ---
Subjective Principal diagnosis: Non-STEMI this is a 62-year-old gentleman with known history of hypertension, hyperlipidemia, nicotine dependence and hepatitis C who presented to the hospital with a non-ST elevation myocardial infarction. He underwent a cardiac catheterization by Dr. Saravia and was found to have multivessel coronary artery disease. He was seen by cardiothoracic surgeon and is scheduled to undergo coronary bypass grafting surgery on Friday. was seen and examined this morning, denies any chest pain or difficulty in breathing. He has been up ambulating without any difficulty. Blood pressure 134/70 with a heart rate in the 50s. Objective - Vital Signs Vital signs: Vital Signs Temp 97.7 F 06/06/17 11:44 Pulse 78 06/06/17 11:44 Resp 18 06/06/17 11:44 BP 135/73 06/06/17 11:44 Pulse Ox 97 06/06/17 11:44 Intake & Output 06/05/17 06/06/17 06/06/17 18:59 06:59 18:59 Intake Total 100 900 120 Output Total 1225 1200 250 Balance -1125 -300 -130 Weight 70.2 kg Intake: IV 100 Intake, IV Titration 900 Amount Magnesium Sulfate-D5w Pmx 300 1 gm In Dextrose/Water 1 100ml.bag @ 100 mls/hr IVPB Q1H SOM Rx#: [id number] Sodium Chloride 0.9% 1, 600 000 ml @ 100 mls/hr IV . Q10H SOM Rx#:[id number] Oral 0 120 Output: Urine 1225 1200 250 Other: # Voids 2 2 1 # Bowel Movements 0 0 - Exam PHYSICAL EXAMINATION: HEENT: [Head is atraumatic, normocephalic. Pupils equal, round. Neck is supple. There is no elevated jugular venous pressure.] HEART EXAMINATION: [Heart S1, S2 normal. No murmur or gallop heard.] CHEST EXAMINATION:[ Lungs are clear to auscultation and precussion. No chest wall tenderness is noted on palpation or with deep breathing.] ABDOMEN: [ Soft, nontender. Bowel sounds are heard. No organomegaly noted]. EXTREMITIES:[ 2+ peripheral pulses with no evidence of peripheral edema and no calf tenderness noted]. Right radial site clean and dry, good distal pulse. NEUROLOGIC [patient is awake, alert and oriented -3.] . - Labs CBC & Chem 7: 06/06/17 05:42 06/06/17 05:42 Labs: Abnormal Lab Results - Last 24 Hours (Table) 06/05/17 06/05/17 06/06/17 Range/Units 16:26 16:26 05:42 Lymphocytes # 0.9 L (1.0-4.8) k/uL Glucose (74-99) mg/dL Magnesium 1.4 L (1.6-2.3) mg/dL AST (17-59) U/L Troponin I 0.299 H* (0.000-0.034) ng/mL Triglycerides 216 H (<150) mg/dL 06/06/17 Range/Units 05:42 Lymphocytes # (1.0-4.8) k/uL Glucose 113 H (74-99) mg/dL Magnesium (1.6-2.3) mg/dL AST 63 H (17-59) U/L Troponin I (0.000-0.034) ng/mL Triglycerides (<150) mg/dL Microbiology - Last 24 Hours (Table) 06/05/17 18:30 Urine Culture - Preliminary Urine,Voided 06/05/17 16:35 Nasal Screen MRSA/MSSA (PARVEZ) - Preliminary Nasopharyngeal Swab Assessment and Plan (1) NSTEMI (non-ST elevated myocardial infarction) Status: Acute (2) S/P cardiac cath Status: Acute (3) Triple vessel coronary artery disease Status: Acute (4) Hepatitis C Status: Acute (5) History of heroin abuse Status: Acute (6) Hyperlipemia Status: Acute (7) HTN (hypertension) Status: Acute Plan: Patient is scheduled to undergo coronary artery bypass grafting surgery Friday. We will continue to follow along with you. DNP note has been reviewed, I agree with a documented findings and plan of care. Patient was seen and examined.
[2017-06-06] MEDS: MUPIROCIN 2% OINT 22 GM TUBE NASAL SCH (20:41)
[2017-06-06] MEDS: ATORVASTATIN 80 MG TAB PO SCH (20:41)
[2017-06-06] MEDS: HEPARIN SODIUM,PORCINE/D5W PMX 25,000 UNIT in DEXTROSE/WATER 1 500ML.BAG IV SCH (20:55)
[2017-06-06] MEDS: MIRTAZAPINE 45 MG TABLET PO SCH (23:14)
[2017-06-07 06:37] LABS: Basophils % (A) 1 %; CH 31.5; CHCM 34.6; Eosinophils # (A) 0.2 k/uL (0-0.7); Eosinophils % (A) 3 %; HCT 41.5 % (39.0-53.0); HDW 3.06; HGB 14.6 gm/dL (13.0-17.5); Luc # (Auto) 0.18; Luc % (Auto) 3; Lymphocytes # (A) 1.2 k/uL (1.0-4.8); Lymphocytes % (A) 21 %; MCH 32.2 pg (25.0-35.0); MCHC 35.3 g/dL (31.0-37.0); MCV 91.4 fL (80.0-100.0); Mean Platelet Volume 6.7; Monocytes # (A) 0.4 k/uL (0-1.0); Monocytes % (A) 7 %; Neutrophils # (A) 3.7 k/uL (1.3-7.7); Neutrophils % (A) 66 %; RBC 4.54 m/uL (4.30-5.90); RDW 13.6 % (11.5-15.5); WBC 5.6 k/uL (3.8-10.6); WBC (Perox) 5.57
[2017-06-07 06:49] LABS: ALT 55 U/L (21-72); AST 67 U/L (17-59); Alkaline Phosphatase 75 U/L (38-126); Anion Gap 12 mmol/L; Blood Urea Nitrogen 25 mg/dL (9-20); Calcium 9.1 mg/dL (8.4-10.2); Carbon Dioxide 21 mmol/L (22-30); Chloride 109 mmol/L (98-107); Glucose 106 mg/dL (74-99); Non-African American GFR(MDRD) >60 (>60 ml/min/1.73 sqM); Potassium 3.9 mmol/L (3.5-5.1); Sodium 142 mmol/L (137-145); Total Bilirubin 0.9 mg/dL (0.2-1.3); Total Protein 7.3 g/dL (6.3-8.2)
[2017-06-07] MEDS: FAMOTIDINE 20 MG TAB PO SCH ×2 (08:14→22:13)
[2017-06-07] MEDS: CHLORTHALIDONE 25 MG TAB PO SCH (08:14)
[2017-06-07] MEDS: LISINOPRIL 10 MG TAB PO SCH (08:14)
[2017-06-07] MEDS: MUPIROCIN 2% OINT 22 GM TUBE NASAL SCH ×2 (08:14→22:13)
[2017-06-07] MEDS: amLODIPine 5 MG TAB PO SCH (08:14)
[2017-06-07] MEDS: ATENOLOL 50 MG TAB PO SCH (08:14)
[2017-06-07] MEDS ORDERED: IPRATROPIUM-ALBUTEROL 3 ML NEB INHALATION PRN (11:03)
--- NOTE | 2017-06-07 11:06 | P.PN ---
Subjective Principal diagnosis: Triple-vessel coronary artery disease This is a 62-year-old white male, heavy smoker, no documented history of COPD, patient presented initially to [facility] facility with acute onset of chest pain. Pain was felt to be cardiac in nature, and the patient was felt to have non-ST elevation myocardial infarction. According to the patient he had intermittent episodes of chest pains over the anterior chest intermittently for the last few months. However this time, the pain was more severe. It was associated with radiation to the neck, also assure initiated with diaphoresis. Patient was found to have ischemic changes in his 12-lead EKG , troponin was mildly elevated. Started on IV heparin, and he was transferred to [facility] and cardiac catheterization was done, and it showed three-vessel coronary artery disease with 60% left main, patient was seen by surgery on consultation, and he may be scheduled for cardiac bypass surgery soon. Considering his smoking history, considering his history of nicotine addiction as well as previous history of heroin addiction, I was asked to see the patient on consultation for preoperative pulmonary clearance. Presently, the patient denies any headaches, no blurred vision, no dizziness, no chest pain no nausea no vomiting no abdominal pain. Patient denies dyspnea on exertion, he is relatively active in spite of his significant smoking history. Bedside PFT is pending at the time of this dictation. The patient was seen again today in follow-up 06/06/2017 on the selective care unit. He is awake and alert in no acute distress. His bedside spirometry did reveal a FEV1 value of 79% of predicted. He denies any chest pain currently. He denies any worsening shortness of breath, cough or congestion. He is maintaining good O2 saturations in the 90s on room air. He has been hemodynamically stable. Lab results within normal limits. His chest x-ray revealed no acute cardiopulmonary disease. He is currently being worked up for possible coronary artery bypass grafting early next week. Patient was seen again on follow-up on 06/07/2017, doing quite well, relatively asymptomatic, bedside spirometry has been reviewed, patient is scheduled to undergo myocardial revascularization early Friday. Chest x-ray showed no acute pulmonary process. CBC is normal basic metabolic profile is normal creatinine however is 1.20. Objective - Vital Signs Vital signs: Vital Signs Temp 97.6 F 06/07/17 08:00 Pulse 58 L 06/07/17 08:22 Resp 17 06/07/17 08:22 BP 139/74 06/07/17 08:00 Pulse Ox 97 06/07/17 08:00 Intake & Output 06/06/17 06/07/17 06/07/17 18:59 06:59 18:59 Intake Total 340 230 Output Total 550 Balance -210 230 Weight 69.7 kg Intake: Oral 340 230 Output: Urine 550 Other: # Voids 1 0 # Bowel Movements 0 - Exam GENERAL EXAM: Alert, active, comfortable in no apparent distress. HEAD: Normocephalic. EYES: Normal reaction of pupils, equal size. NOSE: Clear with pink turbinates. THROAT: No erythema or exudates. NECK: No masses, no JVD. CHEST: No chest wall deformity. LUNGS: Equal air entry with no crackles, wheeze, rhonchi or dullness. CVS: S1 and S2 normal with no audible mumurs, regular rhythm. ABDOMEN: No hepatosplenomegaly, normal bowel sounds, no guarding or rigidity. SPINE: No scoliosis or deformity SKIN: No rashes CENTRAL NERVOUS SYSTEM: No focal deficits, tone is normal in all 4 extremities. Extremities: There is no significant peripheral edema. No clubbing, no cyanosis. Peripheral pulses are intact. - Labs CBC & Chem 7: 06/07/17 06:10 06/07/17 06:10 Labs: Abnormal Lab Results - Last 24 Hours (Table) 06/07/17 Range/Units 06:10 Chloride 109 H (98-107) mmol/L Carbon Dioxide 21 L (22-30) mmol/L BUN 25 H (9-20) mg/dL Glucose 106 H (74-99) mg/dL AST 67 H (17-59) U/L Microbiology - Last 24 Hours (Table) 06/05/17 18:30 Urine Culture - Final Urine,Voided Assessment and Plan Plan: Impression: 1 acute non-ST elevation myocardial infarction 2 3 vessel coronary artery disease based on cardiac catheterization from 2016. 3 history of nicotine dependence syndrome, however the patient does not have significant symptoms to suggest significant COPD, a bedside PFT will be ordered. 4 history of hepatitis C 5 history of heroin addiction! 6 history of hyperlipidemia. 7 history of hypertension 8 family history of premature coronary artery disease. Recommendation: Clear for CABG, patient is scheduled to have CABG on Friday. We 'll continue to follow. Time with Patient: Less than 30
--- NOTE | 2017-06-07 12:03 | P.PN ---
Subjective Principal diagnosis: Severe multivessel coronary artery disease. Hypertension. Hyperlipidemia. History of colon cancer with resection and radiation. Hepatitis C positive. Current tobacco abuse. History of heroin addiction, clean for 4 years, currently on Suboxone. Family history of early age from myocardial infarction. Patient currently sitting up in bed in no acute distress. States he had no chest pain overnight, no shortness of breath. No questions about upcoming surgery. Objective - Vital Signs Vital signs: Vital Signs Temp 97.6 F 06/07/17 11:26 Pulse 62 06/07/17 11:26 Resp 18 06/07/17 11:26 BP 118/65 06/07/17 11:26 Pulse Ox 96 06/07/17 11:26 Intake & Output 06/06/17 06/07/17 06/07/17 18:59 06:59 18:59 Intake Total 340 410 Output Total 550 Balance -210 410 Weight 69.7 kg Intake: Oral 340 410 Output: Urine 550 Other: # Voids 1 0 # Bowel Movements 0 - Constitutional General appearance: Present: cooperative, no acute distress - Respiratory Details: Lungs sounds diminished bilaterally. Respirations even, nonlabored. Currently on room air with oxygen saturation 97%. Able to achieve 2500 mL on his incentive spirometer. - Cardiovascular Details: S1, S2 present. Regular rate and rhythm, normal sinus rhythm on telemetry. No edema present. - Gastrointestinal Gastrointestinal Comment(s): Abdomen soft, nontender, nondistended. Active bowel sounds 4 quadrants. Tolerating diet. - Genitourinary Genitourinary Comment(s): Continue to void clear, yellow urine. - Musculoskeletal Musculoskeletal: Present: gait normal, strength equal bilaterally - Psychiatric Psychiatric: Present: A&O x's 3, appropriate affect, intact judgment & insight - Allied health notes Allied health notes reviewed: nursing - Labs CBC & Chem 7: 06/07/17 06:10 06/07/17 06:10 Labs: Abnormal Lab Results - Last 24 Hours (Table) 06/07/17 Range/Units 06:10 Chloride 109 H (98-107) mmol/L Carbon Dioxide 21 L (22-30) mmol/L BUN 25 H (9-20) mg/dL Glucose 106 H (74-99) mg/dL AST 67 H (17-59) U/L Microbiology - Last 24 Hours (Table) 06/05/17 18:30 Urine Culture - Final Urine,Voided - Imaging and Cardiology Venous mapping, arterial studies reviewed. Assessment and Plan (1) Hypertension Status: Acute (2) Coronary artery disease Status: Acute (3) Hyperlipidemia Status: Acute (4) Tobacco dependence Status: Acute (5) Hepatitis C Status: Acute (6) Heroin addiction Status: Acute (7) Family history of myocardial infarction in first degree male relative Status: Acute Plan: 1. Continue current medications. Discontinue Tay, calcium channel leonor. Change beta leonor to Lopressor. Add aspirin. 2. Encourage incentive spirometry use. 3. Encourage ambulation. 4. Preoperative teaching reinforced. All questions answered. 5. Anticipate coronary artery bypass graft surgery on 06/09/2017. Time with Patient: Greater than 30
[2017-06-07] MEDS: ASPIRIN 81 MG CHEW PO SCH (12:25)
[2017-06-07] MEDS ORDERED: HEPARIN SODIUM,PORCINE 5,000 UNIT/ML 1 ML VIAL IV PRN (13:47)
--- NOTE | 2017-06-07 13:47 | P.PN ---
Subjective Principal diagnosis: Non-STEMI this is a 62-year-old gentleman with known history of hypertension, hyperlipidemia, nicotine dependence and hepatitis C who presented to the hospital with a non-ST elevation myocardial infarction. He underwent a cardiac catheterization by Dr. Saravia and was found to have multivessel coronary artery disease. He was seen by cardiothoracic surgeon and is scheduled to undergo coronary bypass grafting surgery on Friday. was seen and examined this morning, denies any chest pain or difficulty in breathing. He has been up ambulating without any difficulty. Blood pressure 118/65 with a heart rate in the 50s. Objective - Vital Signs Vital signs: Vital Signs Temp 97.6 F 06/07/17 11:26 Pulse 62 06/07/17 11:26 Resp 18 06/07/17 11:26 BP 118/65 06/07/17 11:26 Pulse Ox 96 06/07/17 11:26 Intake & Output 06/06/17 06/07/17 06/07/17 18:59 06:59 18:59 Intake Total 340 410 Output Total 550 Balance -210 410 Weight 69.7 kg Intake: Oral 340 410 Output: Urine 550 Other: # Voids 1 0 # Bowel Movements 0 - Exam PHYSICAL EXAMINATION: HEENT: [Head is atraumatic, normocephalic. Pupils equal, round. Neck is supple. There is no elevated jugular venous pressure.] HEART EXAMINATION: [Heart S1, S2 normal. No murmur or gallop heard.] CHEST EXAMINATION:[ Lungs are clear to auscultation and precussion. No chest wall tenderness is noted on palpation or with deep breathing.] ABDOMEN: [ Soft, nontender. Bowel sounds are heard. No organomegaly noted]. EXTREMITIES:[ 2+ peripheral pulses with no evidence of peripheral edema and no calf tenderness noted]. Right radial site clean and dry, good distal pulse. NEUROLOGIC [patient is awake, alert and oriented -3.] . - Labs CBC & Chem 7: 06/07/17 06:10 06/07/17 06:10 Labs: Abnormal Lab Results - Last 24 Hours (Table) 06/07/17 Range/Units 06:10 Chloride 109 H (98-107) mmol/L Carbon Dioxide 21 L (22-30) mmol/L BUN 25 H (9-20) mg/dL Glucose 106 H (74-99) mg/dL AST 67 H (17-59) U/L Microbiology - Last 24 Hours (Table) 06/05/17 18:30 Urine Culture - Final Urine,Voided Assessment and Plan (1) NSTEMI (non-ST elevated myocardial infarction) Status: Acute (2) S/P cardiac cath Status: Acute (3) Triple vessel coronary artery disease Status: Acute (4) Hepatitis C Status: Acute (5) History of heroin abuse Status: Acute (6) Hyperlipemia Status: Acute (7) HTN (hypertension) Status: Acute Plan: Patient is scheduled to undergo coronary artery bypass grafting surgery Friday. Start the patient on a baby aspirin daily and initiate IV heparin drip. We will continue to follow along with you. DNP note has been reviewed, I agree with a documented findings and plan of care. Patient was seen and examined.
[2017-06-07 14:23] LABS: Basophils % (A) 1 %; CH 32.4; CHCM 36.1; Eosinophils # (A) 0.1 k/uL (0-0.7); Eosinophils % (A) 2 %; HCT 38.8 % (39.0-53.0); HDW 2.98; HGB 14.3 gm/dL (13.0-17.5); Luc % (Auto) 2; Lymphocytes # (A) 1.1 k/uL (1.0-4.8); Lymphocytes % (A) 19 %; MCH 33.2 pg (25.0-35.0); MCHC 36.9 g/dL (31.0-37.0); MCV 90.1 fL (80.0-100.0); Mean Platelet Volume 6.8; Monocytes # (A) 0.4 k/uL (0-1.0); Monocytes % (A) 7 %; Neutrophils # (A) 3.9 k/uL (1.3-7.7); Neutrophils % (A) 70 %; RBC 4.31 m/uL (4.30-5.90); RDW 13.7 % (11.5-15.5); WBC 5.6 k/uL (3.8-10.6); WBC (Perox) 5.68
[2017-06-07 14:26] LABS: INR 1.1 (<1.1); Partial Thromboplastin Time 23.7 sec (22.0-30.0)
--- NOTE | 2017-06-07 14:44 | HP ---
DATE OF ADMISSION: 06/04/2017 CHIEF COMPLAINT: Chest pain. HISTORY OF PRESENT ILLNESS: This gentleman was transferred from [facility] where he was admitted and treated for acute MT. He was transferred to [facility] for Cardiac Cath. This was done in my absence when I was out of town and he since has had the cardiac cath. RENE
--- NOTE | 2017-06-07 14:46 | PN ---
DATE OF SERVICE: 06/05/2017 CHIEF COMPLAINT: Acute myocardial infarction. HISTORY OF PRESENT ILLNESS: This gentleman underwent cardiac cath and he was found to have severe three vessel coronary artery obstructive disease and will be scheduled for open heart surgery on Friday. PHYSICAL EXAM: Chest is fairly clear. Cardiac exam is normal. Abdomen soft and nontender. He is depressed and he is also very anxious. IMPRESSION: 1. Acute myocardial infarction. 2. Coronary artery disease. 3. Anxiety. 4. Chronic obstructive pulmonary disease. PLAN: Prepare for open heart surgery on Friday. RENE
--- NOTE | 2017-06-07 14:49 | PN ---
DATE OF SERVICE: 06/06/17 CHIEF COMPLAINT: Coronary artery disease, acute [place] and anxiety. HISTORY OF PRESENT ILLNESS: This gentleman is comfortable and he is having no chest pain. He is anxious. PHYSICAL EXAM: Color is poor. Chest is clear and cardiac exam is normal sinus rhythm. Abdomen soft, nontender. IMPRESSION: 1. Acute myocardial infarction. 2. Coronary artery disease. 3. Chronic obstructive pulmonary disease. 4. Anxiety. PLAN: 1. Prescribe a sedative. 2. Psyche consult. 3. Surgery Friday. RENE
[2017-06-07] MEDS: HEPARIN SODIUM,PORCINE/D5W PMX 25,000 UNIT in DEXTROSE/WATER 1 500ML.BAG IV SCH (15:25)
[2017-06-07] MEDS: ATORVASTATIN 80 MG TAB PO SCH (22:13)
[2017-06-07] MEDS: MIRTAZAPINE 45 MG TABLET PO SCH (22:13)
[2017-06-07] MEDS: METOPROLOL TARTRATE 12.5 MG TAB PO SCH (22:13)
[2017-06-07] MEDS: ALPRAZolam 0.25 MG TAB PO PRN (22:18)
[2017-06-08 06:07] LABS: Basophils % (A) 1 %; CH 32.5; CHCM 36.3; Eosinophils # (A) 0.2 k/uL (0-0.7); Eosinophils % (A) 4 %; HCT 39.2 % (39.0-53.0); HDW 2.97; HGB 14.2 gm/dL (13.0-17.5); Luc % (Auto) 2; Lymphocytes # (A) 1.2 k/uL (1.0-4.8); Lymphocytes % (A) 23 %; MCH 32.7 pg (25.0-35.0); MCHC 36.3 g/dL (31.0-37.0); MCV 90.1 fL (80.0-100.0); Mean Platelet Volume 6.8; Monocytes # (A) 0.3 k/uL (0-1.0); Monocytes % (A) 7 %; Neutrophils # (A) 3.1 k/uL (1.3-7.7); Neutrophils % (A) 63 %; RBC 4.35 m/uL (4.30-5.90); RDW 13.7 % (11.5-15.5); WBC (Perox) 4.98
[2017-06-08 07:07] LABS: ALT 57 U/L (21-72); AST 66 U/L (17-59); Alkaline Phosphatase 74 U/L (38-126); Anion Gap 12 mmol/L; Blood Urea Nitrogen 23 mg/dL (9-20); Calcium 9.1 mg/dL (8.4-10.2); Carbon Dioxide 23 mmol/L (22-30); Chloride 106 mmol/L (98-107); Glucose 105 mg/dL (74-99); Non-African American GFR(MDRD) >60 (>60 ml/min/1.73 sqM); Potassium 3.7 mmol/L (3.5-5.1); Sodium 141 mmol/L (137-145); Total Bilirubin 0.9 mg/dL (0.2-1.3); Total Protein 6.9 g/dL (6.3-8.2)
[2017-06-08] MEDS ORDERED: MIDAZOLAM 2 MG/2 ML VIAL IV PRN (07:22)
[2017-06-08] MEDS: ASPIRIN 81 MG CHEW PO SCH (08:50)
[2017-06-08] MEDS: METOPROLOL TARTRATE 12.5 MG TAB PO SCH ×2 (08:51→22:40)
[2017-06-08] MEDS: MUPIROCIN 2% OINT 22 GM TUBE NASAL SCH ×2 (08:51→22:40)
[2017-06-08] MEDS: CHLORTHALIDONE 25 MG TAB PO SCH (08:51)
[2017-06-08] MEDS: FAMOTIDINE 20 MG TAB PO SCH ×2 (08:51→22:41)
[2017-06-08] MEDS ORDERED: LISINOPRIL 2.5 MG TAB PO SCH (09:00)
[2017-06-08] MEDS: LACTATED RINGERS 1,000 ML IV SCH (09:06)
[2017-06-08] MEDS ORDERED: SUBOXONE 8MG-2MG FILM SUBLINGUAL SCH (09:15)
--- NOTE | 2017-06-08 09:29 | P.PN ---
<Felicia Restrepo - Last Filed: 06/08/17 09:24> Subjective Principal diagnosis: Severe multivessel coronary artery disease, non-STEMI. Hypertension. Hyperlipidemia. History of colon cancer with resection and radiation. Hepatitis C positive. Current tobacco abuse. History of heroin addiction, clean for 4 years, currently on Suboxone. Family history of early age from myocardial infarction. Preoperative nasal swab positive for MSSA. Patient currently sitting up in bed in no acute distress. States he had no chest pain overnight, no shortness of breath. No questions about upcoming surgery. Objective - Vital Signs Vital signs: Vital Signs Temp 96.2 F L 06/08/17 04:00 Pulse 60 06/08/17 04:00 Resp 18 06/08/17 04:00 BP 153/76 06/08/17 04:00 Pulse Ox 98 06/08/17 04:00 Intake & Output 06/07/17 06/08/17 06/08/17 18:59 06:59 18:59 Intake Total 410 223.859 Output Total 900 Balance 410 -676.141 Weight 69.1 kg Intake: IV 94 Heparin Sodium,Porcine/ 94 D5w Pmx 25,000 unit In Dextrose/Water 1 500ml. bag @ 12 UNITS/KG/HR 16. 72 mls/hr IV .Q24H SOM Rx #:[id number] Intake, IV Titration 129.859 Amount Heparin Sodium,Porcine/ 129.859 D5w Pmx 25,000 unit In Dextrose/Water 1 500ml. bag @ 12 UNITS/KG/HR 16. 72 mls/hr IV .Q24H SOM Rx #:[id number] Oral 410 Output: Urine 900 Other: # Voids 1 - Constitutional General appearance: Present: cooperative, no acute distress - Respiratory Details: Lungs sounds diminished bilaterally. Respirations even, nonlabored. Currently on room air with suction saturation 90%. - Cardiovascular Details: S1, S2 present. Regular rate and rhythm, normal sinus rhythm on telemetry. - Gastrointestinal Gastrointestinal Comment(s): Abdomen soft, nontender, nondistended. Active bowel sounds 4 quadrants. Tolerating diet. - Genitourinary Genitourinary Comment(s): Continues to void clear, yellow urine. - Musculoskeletal Musculoskeletal: Present: gait normal, strength equal bilaterally - Psychiatric Psychiatric: Present: A&O x's 3, appropriate affect, intact judgment & insight - Allied health notes Allied health notes reviewed: nursing - Labs CBC & Chem 7: 06/08/17 05:32 06/08/17 05:32 Labs: Abnormal Lab Results - Last 24 Hours (Table) 06/07/17 06/08/17 06/08/17 Range/Units 14:09 05:32 05:32 Hct 38.8 L (39.0-53.0) % APTT 53.2 H (22.0-30.0) sec BUN 23 H (9-20) mg/dL Glucose 105 H (74-99) mg/dL AST 66 H (17-59) U/L Microbiology - Last 24 Hours (Table) 06/05/17 16:35 Nasal Screen MRSA/MSSA ([facility]VEZ) - Final Nasopharyngeal Swab Staphylococcus aureus,Not MRSA Assessment and Plan (1) Hypertension Status: Acute (2) Coronary artery disease Status: Acute (3) Hyperlipidemia Status: Acute (4) Tobacco dependence Status: Acute (5) Hepatitis C Status: Acute (6) Heroin addiction Status: Acute (7) Family history of myocardial infarction in first degree male relative Status: Acute Plan: 1. Continue aspirin, Lopressor, statin, heparin drip. Heparin drip to be discontinued [facility] to the OR tomorrow morning. Tay, calcium channel leonor discontinued preoperatively. 2. Encourage incentive spirometry use. 3. Encourage ambulation. 4. Preoperative teaching reinforced. All questions answered. 5. Anticipate coronary artery bypass graft surgery on 06/09/2017. 6. Per RN, patient stated he doesn't want surgery if he can't have his Suboxone after surgery. We will discuss with patient that Suboxone counteracts the pain medication he will need and that we will work with him in his best interest. Time with Patient: Greater than 30 <Royal Larson - Last Filed: 06/08/17 10:58> Objective - Vital Signs Vital signs: Vital Signs Temp 98.1 F 06/08/17 08:45 Pulse 62 06/08/17 08:45 Resp 18 06/08/17 08:45 BP 153/94 06/08/17 08:45 Pulse Ox 97 06/08/17 08:45 Intake & Output 06/07/17 06/08/17 06/08/17 18:59 06:59 18:59 Intake Total 410 223.859 Output Total 900 Balance 410 -676.141 Weight 69.1 kg Intake: IV 94 Heparin Sodium,Porcine/ 94 D5w Pmx 25,000 unit In Dextrose/Water 1 500ml. bag @ 12 UNITS/KG/HR 16. 72 mls/hr IV .Q24H SOM Rx #:[id number] Intake, IV Titration 129.859 Amount Heparin Sodium,Porcine/ 129.859 D5w Pmx 25,000 unit In Dextrose/Water 1 500ml. bag @ 12 UNITS/KG/HR 16. 72 mls/hr IV .Q24H SOM Rx #:[id number] Oral 410 Output: Urine 900 Other: # Voids 1 - Labs CBC & Chem 7: 06/08/17 05:32 06/08/17 05:32 Labs: Abnormal Lab Results - Last 24 Hours (Table) 06/07/17 06/08/17 06/08/17 Range/Units 14:09 05:32 05:32 Hct 38.8 L (39.0-53.0) % APTT (22.0-30.0) sec BUN 23 H (9-20) mg/dL Glucose 105 H (74-99) mg/dL AST 66 H (17-59) U/L Crossmatch See Detail 06/08/17 Range/Units 05:32 Hct (39.0-53.0) % APTT 53.2 H (22.0-30.0) sec BUN (9-20) mg/dL Glucose (74-99) mg/dL AST (17-59) U/L Crossmatch Microbiology - Last 24 Hours (Table) 06/05/17 16:35 Nasal Screen MRSA/MSSA (PARVEZ) - Final Nasopharyngeal Swab Staphylococcus aureus,Not MRSA Assessment and Plan Plan: Plans surgery in the morning.
--- NOTE | 2017-06-08 09:40 | P.PN ---
Subjective Principal diagnosis: Triple-vessel coronary artery disease This is a 62-year-old white male, heavy smoker, no documented history of COPD, patient presented initially to [facility] facility with acute onset of chest pain. Pain was felt to be cardiac in nature, and the patient was felt to have non-ST elevation myocardial infarction. According to the patient he had intermittent episodes of chest pains over the anterior chest intermittently for the last few months. However this time, the pain was more severe. It was associated with radiation to the neck, also assure initiated with diaphoresis. Patient was found to have ischemic changes in his 12-lead EKG , troponin was mildly elevated. Started on IV heparin, and he was transferred to [facility] and cardiac catheterization was done, and it showed three-vessel coronary artery disease with 60% left main, patient was seen by surgery on consultation, and he may be scheduled for cardiac bypass surgery soon. Considering his smoking history, considering his history of nicotine addiction as well as previous history of heroin addiction, I was asked to see the patient on consultation for preoperative pulmonary clearance. Presently, the patient denies any headaches, no blurred vision, no dizziness, no chest pain no nausea no vomiting no abdominal pain. Patient denies dyspnea on exertion, he is relatively active in spite of his significant smoking history. Bedside PFT is pending at the time of this dictation. The patient was seen again today in follow-up 06/06/2017 on the selective care unit. He is awake and alert in no acute distress. His bedside spirometry did reveal a FEV1 value of 79% of predicted. He denies any chest pain currently. He denies any worsening shortness of breath, cough or congestion. He is maintaining good O2 saturations in the 90s on room air. He has been hemodynamically stable. Lab results within normal limits. His chest x-ray revealed no acute cardiopulmonary disease. He is currently being worked up for possible coronary artery bypass grafting early next week. Patient was seen again on follow-up on 06/07/2017, doing quite well, relatively asymptomatic, bedside spirometry has been reviewed, patient is scheduled to undergo myocardial revascularization early Friday. Chest x-ray showed no acute pulmonary process. CBC is normal basic metabolic profile is normal creatinine however is 1.20. Reevaluated today on 06/08/2017, patient seems to be doing well, asymptomatic, no shortness of breath no cough no wheezing and no chest pain. Labs were reviewed they seem to be unremarkable. PTT is 53 basic metabolic profile is normal renal profile is normalizing. Objective - Vital Signs Vital signs: Vital Signs Temp 98.1 F 06/08/17 08:45 Pulse 62 06/08/17 08:45 Resp 18 06/08/17 08:45 BP 153/94 06/08/17 08:45 Pulse Ox 97 06/08/17 08:45 Intake & Output 06/07/17 06/08/17 06/08/17 18:59 06:59 18:59 Intake Total 410 223.859 Output Total 900 Balance 410 -676.141 Weight 69.1 kg Intake: IV 94 Heparin Sodium,Porcine/ 94 D5w Pmx 25,000 unit In Dextrose/Water 1 500ml. bag @ 12 UNITS/KG/HR 16. 72 mls/hr IV .Q24H SOM Rx #:[id number] Intake, IV Titration 129.859 Amount Heparin Sodium,Porcine/ 129.859 D5w Pmx 25,000 unit In Dextrose/Water 1 500ml. bag @ 12 UNITS/KG/HR 16. 72 mls/hr IV .Q24H SOM Rx #:[id number] Oral 410 Output: Urine 900 Other: # Voids 1 - Exam GENERAL EXAM: Alert, active, comfortable in no apparent distress. HEAD: Normocephalic. EYES: Normal reaction of pupils, equal size. NOSE: Clear with pink turbinates. THROAT: No erythema or exudates. NECK: No masses, no JVD. CHEST: No chest wall deformity. LUNGS: Equal air entry with no crackles, wheeze, rhonchi or dullness. CVS: S1 and S2 normal with no audible mumurs, regular rhythm. ABDOMEN: No hepatosplenomegaly, normal bowel sounds, no guarding or rigidity. SPINE: No scoliosis or deformity SKIN: No rashes CENTRAL NERVOUS SYSTEM: No focal deficits, tone is normal in all 4 extremities. Extremities: There is no significant peripheral edema. No clubbing, no cyanosis. Peripheral pulses are intact. - Labs CBC & Chem 7: 06/08/17 05:32 06/08/17 05:32 Labs: Abnormal Lab Results - Last 24 Hours (Table) 06/07/17 06/08/17 06/08/17 Range/Units 14:09 05:32 05:32 Hct 38.8 L (39.0-53.0) % APTT 53.2 H (22.0-30.0) sec BUN 23 H (9-20) mg/dL Glucose 105 H (74-99) mg/dL AST 66 H (17-59) U/L Microbiology - Last 24 Hours (Table) 06/05/17 16:35 Nasal Screen MRSA/MSSA (PARVEZ) - Final Nasopharyngeal Swab Staphylococcus aureus,Not MRSA Assessment and Plan Plan: Impression: 1 acute non-ST elevation myocardial infarction 2 3 vessel coronary artery disease based on cardiac catheterization from 2016. 3 history of nicotine dependence syndrome, however the patient does not have significant symptoms to suggest significant COPD, a bedside PFT will be ordered. 4 history of hepatitis C 5 history of heroin addiction! 6 history of hyperlipidemia. 7 history of hypertension 8 family history of premature coronary artery disease. Recommendation: Plans for CABG in a.m., patient was cleared from the pulmonary perspective. Time with Patient: Less than 30
[2017-06-08] MEDS: ALPRAZolam 0.25 MG TAB PO PRN ×2 (15:25→22:40)
[2017-06-08] MEDS: HEPARIN SODIUM,PORCINE/D5W PMX 25,000 UNIT in DEXTROSE/WATER 1 500ML.BAG IV SCH (16:43)
[2017-06-08] MEDS: MIRTAZAPINE 45 MG TABLET PO SCH (22:40)
[2017-06-08] MEDS: ATORVASTATIN 80 MG TAB PO SCH (22:41)
[2017-06-08] MEDS: BUPRENORPHINE HCL SUBLINGUAL SCH (22:46)
[2017-06-08] MEDS: NALOXONE HCL SUBLINGUAL SCH (22:46)
[2017-06-09] MEDS ORDERED: CHLORHEXIDINE GLUCONATE 15 ML CUP MUCOUS MEM ONE (05:00)
[2017-06-09] MEDS ORDERED: ALBUMIN HUMAN 25% 50 ML in EMPTY BAG 1 BAG IVPB ONE (05:00)
[2017-06-09] MEDS ORDERED: ceFAZolin 1,000 MG in SODIUM CHLORIDE 0.9% IRRIGATIO 1,000 ML IRRIGATION ONE (05:00)
[2017-06-09] MEDS ORDERED: ASPIRIN 325 MG TAB PO ONE (05:00)
[2017-06-09] MEDS ORDERED: ceFAZolin 2 GM in SODIUM CHLORIDE 0.9% 30 ML IVPB ONE (05:00)
[2017-06-09] MEDS ORDERED: DEXTROSE 5% IN WATER 1,000 ML with POTASSIUM CHLORIDE 25 MEQ, SODIUM CHLORIDE 4MEQ/ML V... IV SCH ×6 (05:00)
[2017-06-09] MEDS ORDERED: MANNITOL 25% 12.5 GM/50 ML VIAL IV ONE ×2 (05:00)
[2017-06-09] MEDS ORDERED: NITROGLYCERIN-D5W PMX 25 MG/250 ML BTL IV ONE (05:00)
[2017-06-09] MEDS ORDERED: PHENYLEPHRINE 40 MG in SODIUM CHLORIDE 0.9% 250 ML IV ONE (05:00)
[2017-06-09] MEDS ORDERED: ATORVASTATIN 10 MG TAB PO ONE (05:00)
[2017-06-09] MEDS ORDERED: HEPARIN SODIUM 1,000 UN/ML (10ML VL) IV ONE (05:00)
[2017-06-09] MEDS ORDERED: PAPAVERINE 360 MG in SODIUM CHLORIDE 0.9% 90 ML IV ONE (05:00)
[2017-06-09] MEDS ORDERED: CLEVIDIPINE BUTYRATE 25 MG in EMPTY BAG 1 BAG IV ONE (05:00)
[2017-06-09] MEDS ORDERED: AMINOCAPROIC ACID 250 MG/ML 20 ML VIAL IV ONE (05:00)
[2017-06-09] MEDS ORDERED: PROTAMINE SULFATE 250 MG in EMPTY BAG 1 BAG IV ONE (05:00)
[2017-06-09] MEDS ORDERED: PROPOFOL 500 MG in EMPTY BAG 1 BAG IV ONE (05:00)
[2017-06-09] MEDS ORDERED: PROTAMINE SULFATE 10 MG/ML 25 ML VIAL IV ONE ×2 (05:00→08:13)
[2017-06-09] MEDS ORDERED: ALBUMIN HUMAN 5% 500 ML in EMPTY BAG 1 BAG IVPB ONE ×6 (05:00)
[2017-06-09] MEDS ORDERED: METOPROLOL TARTRATE 12.5 MG TAB PO ONE (05:00)
[2017-06-09] MEDS ORDERED: CALCIUM CHLORIDE 100 MG/ML 10 ML SYRINGE IVP ONE (05:00)
[2017-06-09] MEDS ORDERED: PHENYLEPHRINE-0.9% NACL SYG 1 MG/10 ML SYRINGE IV ONE ×4 (05:00)
[2017-06-09] MEDS ORDERED: ceFAZolin 2,000 MG in SODIUM CHLORIDE 0.9% 30 ML IVPB ONE (05:00)
[2017-06-09] MEDS ORDERED: AMINOCAPROIC ACID 5,000 MG in DEXTROSE 5% IN WATER 50 ML IV ONE ×4 (05:00)
[2017-06-09] MEDS ORDERED: INSULIN REGULAR 100 UNIT in SODIUM CHLORIDE 0.9% 100 ML IV ONE (05:00)
[2017-06-09] MEDS ORDERED: NOREPINEPHRIN 4 MG-0.9% NS PMX 4 MG/250 ML ML IV SCH (05:00)
[2017-06-09] MEDS ORDERED: MAGNESIUM SULFATE SYG 4.06 MEQ/ML SYRINGE IV ONE (05:00)
[2017-06-09] MEDS ORDERED: HEPARIN SODIUM,PORCINE 5,000 UNIT in SODIUM CHLORIDE 0.9% 500 ML IV ONE (05:00)
[2017-06-09] MEDS ORDERED: DEXTROSE 5% IN WATER 1,000 ML with POTASSIUM CHLORIDE 110 MEQ, MAGNESIUM SULFATE 16 MEQ... IV SCH ×5 (05:00)
[2017-06-09] MEDS ORDERED: NITROGLYCERIN-D5W PMX 50 MG in DEXTROSE/WATER 1 250ML.BAG IV ONE (05:00)
[2017-06-09 06:20] LABS: Basophils % (A) 1 %; CH 32.5; CHCM 36.4; Eosinophils # (A) 0.2 k/uL (0-0.7); Eosinophils % (A) 4 %; HCT 38.3 % (39.0-53.0); HDW 3.04; HGB 14.1 gm/dL (13.0-17.5); Luc # (Auto) 0.14; Luc % (Auto) 3; Lymphocytes # (A) 1.3 k/uL (1.0-4.8); Lymphocytes % (A) 25 %; MCHC 36.7 g/dL (31.0-37.0); MCV 89.9 fL (80.0-100.0); Mean Platelet Volume 7.2; Monocytes # (A) 0.4 k/uL (0-1.0); Monocytes % (A) 8 %; Neutrophils # (A) 3.2 k/uL (1.3-7.7); Neutrophils % (A) 60 %; RBC 4.26 m/uL (4.30-5.90); RDW 13.8 % (11.5-15.5); WBC 5.4 k/uL (3.8-10.6); WBC (Perox) 5.12
[2017-06-09 06:48] LABS: Anion Gap 12 mmol/L; Blood Urea Nitrogen 24 mg/dL (9-20); Calcium 8.9 mg/dL (8.4-10.2); Carbon Dioxide 24 mmol/L (22-30); Chloride 104 mmol/L (98-107); Glucose 103 mg/dL (74-99); Non-African American GFR(MDRD) >60 (>60 ml/min/1.73 sqM); Potassium 3.9 mmol/L (3.5-5.1); Sodium 140 mmol/L (137-145)
[2017-06-09] MEDS ORDERED: fentaNYL (PF) 50 MCG/ML 2 ML AMP ONE (08:13)
[2017-06-09] MEDS ORDERED: MIDAZOLAM 2 MG/2 ML VIAL ONE (08:13)
[2017-06-09] MEDS ORDERED: PROPOFOL 10 MG/ML 20 ML VIAL IV ONE (08:13)
[2017-06-09] MEDS ORDERED: HEPARIN SODIUM,PORCINE 10,000 UNIT/ML 1 ML VIAL ONE (08:13)
[2017-06-09] MEDS ORDERED: VECURONIUM 10 MG VIAL IV ONE (08:13)
[2017-06-09] MEDS ORDERED: ELECTROLYTE-R (PH 7.4) 1,000 ML IV.SOLN IV ONE (08:13)
[2017-06-09] MEDS ORDERED: LIDOCAINE 2% SYG (PF) 100 MG/5 ML ONE (08:13)
[2017-06-09] MEDS ORDERED: ePHEDrine 50 MG/ML 1 ML AMP ONE (08:13)
[2017-06-09] MEDS ORDERED: fentaNYL (PF) 50 MCG/ML 50 ML VIAL ONE (08:13)
[2017-06-09] MEDS ORDERED: SODIUM CHLORIDE 0.9% IRRIG 1,000 ML BTL IRRIGATION ONE (08:13)
[2017-06-09] MEDS ORDERED: PHENYLEPHRINE-0.9% NACL SYG 1 MG/10 ML SYRINGE ONE (08:13)
[2017-06-09 09:00] LABS: Glucose,Whole Blood 136 mg/dL (75-99)
[2017-06-09] MEDS ORDERED: SUBOXONE 8MG-2MG FILM SUBLINGUAL SCH (09:00)
[2017-06-09] MEDS ORDERED: SODIUM CHLORIDE 0.9% 500 ML with HEPARIN SODIUM,PORCINE 5,000 UNIT IRRIGATION ONE ×2 (09:40)
[2017-06-09] MEDS ORDERED: PAPAVERINE 360 MG in SODIUM CHLORIDE 0.9% 90 ML IRRIGATION ONE (09:40)
[2017-06-09 10:24] LABS: Glucose,Whole Blood 158 mg/dL (75-99)
[2017-06-09 11:24] LABS: Glucose,Whole Blood 276 mg/dL (75-99)
[2017-06-09 12:15] LABS: Glucose,Whole Blood 263 mg/dL (75-99)
[2017-06-09 13:38] LABS: Glucose,Whole Blood 184 mg/dL (75-99)
--- NOTE | 2017-06-09 13:43 | PN ---
DATE OF SERVICE: 06/07/2017 CHIEF COMPLAINT: Acute NM and coronary artery disease. HISTORY OF PRESENT ILLNESS: This gentleman is doing fairly well. He has been seen by Psychiatry and he has been started on something for his anxiety and is feeling better. He is having no problems otherwise. PHYSICAL EXAM: Chest is clear. Cardiac exam is normal. Abdomen is soft, nontender. IMPRESSION: 1. Acute myocardial infarction. 2. Coronary artery disease. 3. Chronic obstructive pulmonary disease. 4. History of heroin addiction. PLAN: No change in program and surgery on Friday. RENE
[2017-06-09] MEDS ORDERED: INSULIN REGULAR 100 UNIT in SODIUM CHLORIDE 0.9% 100 ML IV SCH (14:45)
[2017-06-09] MEDS ORDERED: Phosphorus Replacement Protoco 1 EACH MISC MISCELLANE PRN (14:45)
[2017-06-09] MEDS ORDERED: Potassium Replacement Protocol 1 EACH MISC MISCELLANE PRN (14:45)
[2017-06-09] MEDS ORDERED: NITROGLYCERIN-D5W PMX 50 MG in DEXTROSE/WATER 1 250ML.BAG IV SCH (14:45)
[2017-06-09] MEDS ORDERED: METOCLOPRAMIDE 5 MG/ML 2 ML VIAL IVP PRN (14:45)
[2017-06-09] MEDS ORDERED: BENZOCAINE/MENTHOL LOZENG 1 EACH LOZENGE MUCOUS MEM PRN (14:45)
[2017-06-09] MEDS ORDERED: ALBUMIN HUMAN 5% 250 ML in EMPTY BAG 1 BAG IVPB PRN (14:45)
[2017-06-09] MEDS ORDERED: ONDANSETRON 4 MG/2 ML VIAL IVP PRN (14:45)
[2017-06-09] MEDS ORDERED: Magnesium Replacement Protocol 1 EACH MISC MISCELLANE PRN (14:45)
[2017-06-09] MEDS ORDERED: PROPOFOL 500 MG in EMPTY BAG 1 BAG IV SCH (14:45)
[2017-06-09] MEDS ORDERED: CALCIUM GLUCONATE 2,000 MG in SODIUM CHLORIDE 0.9% 100 ML IVPB PRN (14:45)
[2017-06-09 14:47] LABS: Glucose,Whole Blood 119 mg/dL (75-99)
[2017-06-09 15:07] LABS: Basophils % (A) 0 %; CH 31.6; CHCM 35.8; Eosinophils % (A) 0 %; HCT 30.9 % (39.0-53.0); HDW 3.09; HGB 11.2 gm/dL (13.0-17.5); Luc # (Auto) 0.07; Luc % (Auto) 1; Lymphocytes # (A) 0.5 k/uL (1.0-4.8); Lymphocytes % (A) 5 %; MCH 32.1 pg (25.0-35.0); MCHC 36.1 g/dL (31.0-37.0); MCV 88.7 fL (80.0-100.0); Monocytes # (A) 0.5 k/uL (0-1.0); Monocytes % (A) 6 %; Neutrophils # (A) 7.8 k/uL (1.3-7.7); Neutrophils % (A) 88 %; RBC 3.48 m/uL (4.30-5.90); RDW 13.5 % (11.5-15.5); WBC 8.9 k/uL (3.8-10.6); WBC (Perox) 8.75
--- NOTE | 2017-06-09 15:07 | XR ---
EXAMINATION TYPE: XR chest 1V portable DATE OF EXAM: 06/09/2017 Comparison: 06/05/2017 Clinical History: 62-year-old male Post Operative Cardiac Surgery Findings: ET tube is satisfactory. Mediastinal drains are present. Left-sided chest tube is seen without apprec iable pneumothorax. Right IJ Radcliff-Jabier catheter with tip at the proximal most right main pulmonary ar lorena. Median sternotomy wires. Heart is normal size. Strandy opacities at the peripheral left mid and lower lung and some patchy left basilar opacity suggests atelectasis. No significant pleural effusio n seen. Impression: Strandy and patchy areas of atelectasis in the mid and lower left lung.
[2017-06-09 15:12] LABS: Ionized Calcium 5.3 mg/dL (4.5-5.3)
[2017-06-09 15:16] LABS: INR 1.2 (<1.1); Prothrombin Time 11.7 sec (9.0-12.0)
[2017-06-09 15:18] LABS: ABG Base Excess -0.8 mmol/L; ABG HCO3 26 mmol/L (21-25); ABG PCO2 64 mmHg (35-45); ABG PH 7.23 (7.35-7.45); ABG PO2 396 mmHg (83-108); ABG TCO2 28 mmol/L (19-24)
[2017-06-09 15:24] LABS: ALT 33 U/L (21-72); AST 53 U/L (17-59); Alkaline Phosphatase 47 U/L (38-126); Anion Gap 6 mmol/L; Blood Urea Nitrogen 18 mg/dL (9-20); Calcium 8.5 mg/dL (8.4-10.2); Carbon Dioxide 25 mmol/L (22-30); Chloride 105 mmol/L (98-107); Glucose 101 mg/dL (74-99); Magnesium 2.2 mg/dL (1.6-2.3); Non-African American GFR(MDRD) >60 (>60 ml/min/1.73 sqM); Potassium 3.7 mmol/L (3.5-5.1); Sodium 136 mmol/L (137-145); Total Bilirubin 0.7 mg/dL (0.2-1.3)
[2017-06-09] MEDS: CLEVIDIPINE BUTYRATE 25 MG in EMPTY BAG 1 BAG IV SCH ×2 (15:25→21:16)
[2017-06-09] MEDS: HEPARIN SODIUM,PORCINE/D5W PMX 25,000 UNIT in DEXTROSE/WATER 1 500ML.BAG IV SCH (15:28)
[2017-06-09] MEDS: LACTATED RINGERS 1,000 ML IV SCH ×2 (15:28→15:30)
[2017-06-09] MEDS: MORPHINE SULFATE 2 MG/ML SYRINGE IVP PRN ×3 (15:30→20:10)
[2017-06-09] MEDS: IPRATROPIUM-ALBUTEROL 3 ML NEB INHALATION SCH ×2 (15:44→19:29)
[2017-06-09 16:02] LABS: Glucose,Whole Blood 112 mg/dL (75-99)
--- NOTE | 2017-06-09 16:06 | PN ---
Mr. Jimenes is a 62 year old male with history of severe triple vessel coronary artery disease scheduled to undergo coronary artery bypass grafting tomorrow. He is doing well this morning. He denies any symptoms of chest pain. His breathing has been stable. He denies any dizziness. He has been ambulating in the room without any difficulty. He is maintained on IV heparin at this point. He continues to be on aspirin, IV heparin, Lipitor 80 mg daily, Chlorthalidone 25 mg daily, Metoprolol tartrate 12.5 mg twice a day. Physical examination: Blood pressure running in the 130s with a heart rate in the 60s. Lungs clear. Heart regular rate and rhythm. S1, S2, no S3, no rub. Abdomen soft and nontender. Extremities no edema. Lab data revealed BUN and creatinine 23 and 1.04. Potassium 3.7. IMPRESSION: 1. Triple vessel coronary artery disease scheduled for coronary artery bypass grafting. 2. Status non-ST elevation myocardial infarction. 3. History of hyperlipidemia. 4. Hypertension. 5. Prior history of heroin intake. RECOMMENDATIONS: The patient will proceed with coronary artery bypass grafting tomorrow and depending on his progress, further recommendations will be made. RENE
[2017-06-09] MEDS: ceFAZolin 2 GM in SODIUM CHLORIDE 0.9% 100 ML IVPB SCH (16:25)
[2017-06-09] MEDS: POTASSIUM CHLORIDE 10 MEQ in WATER FOR INJECTION 1 100ML.BAG IVPB SCH ×2 (16:45→18:14)
[2017-06-09 17:03] LABS: Glucose,Whole Blood 124 mg/dL (75-99)
[2017-06-09 17:54] LABS: Basophils % (A) 0 %; CH 32.8; Eosinophils % (A) 0 %; HCT 34.8 % (39.0-53.0); HDW 3.06; HGB 12.5 gm/dL (13.0-17.5); Luc # (Auto) 0.14; Luc % (Auto) 1; Lymphocytes # (A) 0.7 k/uL (1.0-4.8); Lymphocytes % (A) 5 %; MCV 91.7 fL (80.0-100.0); Mean Platelet Volume 7.5; Monocytes # (A) 0.8 k/uL (0-1.0); Monocytes % (A) 6 %; Neutrophils # (A) 11.6 k/uL (1.3-7.7); Neutrophils % (A) 87 %; RBC 3.79 m/uL (4.30-5.90); WBC 13.2 k/uL (3.8-10.6); WBC (Perox) 13.44
[2017-06-09 18:10] LABS: Glucose,Whole Blood 139 mg/dL (75-99)
[2017-06-09] MEDS: ACETAMINOPHEN IV (For NPO) 1,000 MG in EMPTY BAG 1 BAG IVPB SCH (18:14)
[2017-06-09] MEDS ORDERED: DEXMEDETOMIDINE IN 0.9 % NACL 400 MCG in EMPTY BAG 1 BAG IV SCH (18:36)
[2017-06-09 18:55] LABS: Glucose,Whole Blood 168 mg/dL (75-99)
[2017-06-09 20:04] LABS: Glucose,Whole Blood 164 mg/dL (75-99)
[2017-06-09 21:01] LABS: Glucose,Whole Blood 157 mg/dL (75-99)
[2017-06-09 21:36] LABS: ABG Base Excess -4.8 mmol/L; ABG HCO3 20 mmol/L (21-25); ABG PCO2 38 mmHg (35-45); ABG PH 7.34 (7.35-7.45); ABG PO2 149 mmHg (83-108); ABG TCO2 21 mmol/L (19-24)
[2017-06-09 21:43] LABS: Basophils % (A) 0 %; CH 32.7; CHCM 36.1; Eosinophils % (A) 0 %; HCT 34.5 % (39.0-53.0); HDW 3.04; HGB 12.4 gm/dL (13.0-17.5); Luc % (Auto) 1; Lymphocytes # (A) 0.4 k/uL (1.0-4.8); Lymphocytes % (A) 3 %; MCH 32.6 pg (25.0-35.0); MCHC 35.9 g/dL (31.0-37.0); MCV 90.9 fL (80.0-100.0); Mean Platelet Volume 7.4; Monocytes # (A) 0.7 k/uL (0-1.0); Monocytes % (A) 5 %; Neutrophils % (A) 91 %; RBC 3.79 m/uL (4.30-5.90); RDW 13.8 % (11.5-15.5); WBC 14.3 k/uL (3.8-10.6); WBC (Perox) 14.36
[2017-06-09 21:53] LABS: Partial Thromboplastin Time 24.9 sec (22.0-30.0); Prothrombin Time 10.5 sec (9.0-12.0)
[2017-06-09 21:58] LABS: Glucose,Whole Blood 138 mg/dL (75-99)
[2017-06-09 22:00] LABS: Anion Gap 12 mmol/L; Blood Urea Nitrogen 19 mg/dL (9-20); Calcium 8.6 mg/dL (8.4-10.2); Carbon Dioxide 20 mmol/L (22-30); Chloride 103 mmol/L (98-107); Glucose 137 mg/dL (74-99); Non-African American GFR(MDRD) 59 (>60 ml/min/1.73 sqM); Potassium 4.7 mmol/L (3.5-5.1); Sodium 135 mmol/L (137-145)
[2017-06-09] MEDS: MUPIROCIN 2% OINT 22 GM TUBE NASAL SCH (22:31)
[2017-06-09] MEDS: HEPARIN SODIUM,PORCINE 5,000 UNIT/ML 1 ML VIAL SQ SCH (22:57)
[2017-06-09 22:58] LABS: Glucose,Whole Blood 121 mg/dL (75-99)
[2017-06-10] MEDS: ceFAZolin 2 GM in SODIUM CHLORIDE 0.9% 100 ML IVPB SCH ×2 (00:06→08:11)
[2017-06-10] MEDS: ACETAMINOPHEN IV (For NPO) 1,000 MG in EMPTY BAG 1 BAG IVPB SCH ×4 (00:08→17:12)
[2017-06-10 00:09] LABS: Glucose,Whole Blood 98 mg/dL (75-99)
[2017-06-10 01:15] LABS: Glucose,Whole Blood 101 mg/dL (75-99)
[2017-06-10 02:15] LABS: Glucose,Whole Blood 109 mg/dL (75-99)
[2017-06-10 03:22] LABS: Glucose,Whole Blood 129 mg/dL (75-99)
[2017-06-10 04:10] LABS: Glucose,Whole Blood 122 mg/dL (75-99)
[2017-06-10 04:23] LABS: Basophils % (A) 0 %; CHCM 36.1; Eosinophils % (A) 0 %; HCT 27.6 % (39.0-53.0); HDW 3.01; Luc # (Auto) 0.12; Luc % (Auto) 2; Lymphocytes # (A) 0.6 k/uL (1.0-4.8); Lymphocytes % (A) 11 %; Mean Platelet Volume 7.6; Monocytes # (A) 0.4 k/uL (0-1.0); Monocytes % (A) 7 %; Neutrophils # (A) 4.5 k/uL (1.3-7.7); Neutrophils % (A) 79 %; RDW 13.5 % (11.5-15.5); WBC 5.7 k/uL (3.8-10.6); WBC (Perox) 5.74
[2017-06-10 04:27] LABS: HGB 9.9 gm/dL (13.0-17.5)
[2017-06-10 04:32] LABS: Ionized Calcium 4.9 mg/dL (4.5-5.3)
[2017-06-10 04:35] LABS: INR 1.1 (<1.1); Partial Thromboplastin Time 29.7 sec (22.0-30.0); Prothrombin Time 10.7 sec (9.0-12.0)
[2017-06-10 04:38] LABS: ALT 43 U/L (21-72); AST 50 U/L (17-59); Alkaline Phosphatase 48 U/L (38-126); Anion Gap 8 mmol/L; Blood Urea Nitrogen 18 mg/dL (9-20); Calcium 8.4 mg/dL (8.4-10.2); Carbon Dioxide 23 mmol/L (22-30); Chloride 104 mmol/L (98-107); Glucose 109 mg/dL (74-99); Magnesium 1.6 mg/dL (1.6-2.3); Non-African American GFR(MDRD) >60 (>60 ml/min/1.73 sqM); Potassium 4.7 mmol/L (3.5-5.1); Sodium 135 mmol/L (137-145); Total Bilirubin 0.6 mg/dL (0.2-1.3); Total Protein 5.1 g/dL (6.3-8.2)
[2017-06-10 05:40] LABS: Glucose,Whole Blood 103 mg/dL (75-99)
[2017-06-10] MEDS: MAGNESIUM SULFATE-D5W PMX 1 GM in DEXTROSE/WATER 1 100ML.BAG IVPB SCH ×2 (06:21→06:46)
[2017-06-10 06:29] LABS: Glucose,Whole Blood 103 mg/dL (75-99)
--- NOTE | 2017-06-10 06:56 | XR ---
EXAMINATION TYPE: XR chest 1V portable DATE OF EXAM: 06/10/2017 CLINICAL HISTORY: Difficulty breathing progress study. Post open cardiac surgery. TECHNIQUE: Single AP portable upright view of the chest is obtained. COMPARISON: Chest x-ray from one day earlier FINDINGS: There are 2 mediastinal drainage catheters, left-sided chest tube, and right internal jugu lar [place]-Jabier catheter all redemonstrated. Post CABG changes with mediastinal clips and sternal wires is again seen. Underlying emphysematous change is felt present. There is increasing elevated left hemidiaphragm. The re is left midlung linear scarring or atelectasis and patchy left basilar atelectasis and/or infiltra te. Right lung remains clear. Trachea remains midline. Cardiac silhouette size is stable and upper li mits of normal. Old bilateral clavicular fractures are redemonstrated. IMPRESSION: Chronic emphysematous change with left mid lateral atelectasis and/or scarring and left b asilar atelectasis and/or infiltrate all redemonstrated. Increasing elevated left hemidiaphragm could reflect development of small subpulmonic effusion. No significant mediastinal shift is seen to sugge st worsening atelectatic change.
[2017-06-10 07:12] LABS: Glucose,Whole Blood 134 mg/dL (75-99)
[2017-06-10 08:07] LABS: Glucose,Whole Blood 171 mg/dL (75-99)
[2017-06-10] MEDS: ASPIRIN 325 MG TAB PO SCH (08:09)
[2017-06-10] MEDS: HEPARIN SODIUM,PORCINE 5,000 UNIT/ML 1 ML VIAL SQ SCH ×2 (08:09→17:15)
[2017-06-10] MEDS: MUPIROCIN 2% OINT 22 GM TUBE NASAL SCH ×2 (08:10→20:02)
[2017-06-10] MEDS: CLOPIDOGREL 75 MG TAB PO SCH (08:10)
[2017-06-10] MEDS ORDERED: METOPROLOL TARTRATE 12.5 MG TAB PO SCH (09:00)
[2017-06-10] MEDS ORDERED: PANTOPRAZOLE 40 MG/10 ML VIAL IVP SCH (09:00)
[2017-06-10] MEDS ORDERED: METOPROLOL TARTRATE 12.5 MG TAB PO STA (09:09)
[2017-06-10 09:11] LABS: Glucose,Whole Blood 169 mg/dL (75-99)
--- NOTE | 2017-06-10 09:49 | PN ---
DATE OF SERVICE: 06/08/2017 CHIEF COMPLAINT: Acute GA and coronary artery disease. HISTORY OF PRESENT ILLNESS: This gentleman is stable and awaits surgery tomorrow. He is having no problems. He has not pain or shortness of breath. PHYSICAL EXAM: Chest is clear. Cardiac exam is normal. Abdomen is soft and nontender. IMPRESSION: 1. Acute myocardial infarction. 2. Coronary artery disease. 3. Chronic obstructive pulmonary disease. 4. Substance abuse. PLAN: Surgery tomorrow. RENE
[2017-06-10 10:06] LABS: Glucose,Whole Blood 141 mg/dL (75-99)
--- NOTE | 2017-06-10 10:06 | P.PN ---
Subjective Principal diagnosis: Severe multivessel coronary artery disease, non-STEMI. Hypertension. Hyperlipidemia. History of colon cancer with resection and radiation. Hepatitis C positive. Current tobacco abuse. History of heroin addiction, clean for 4 years, currently on Suboxone. Family history of early age from myocardial infarction. Preoperative nasal swab positive for MSSA. POD #1 coronary artery bypass grafting, left internal mammary artery to the left anterior descending artery, reverse saphenous vein graft to the obtuse marginal artery, reverse saphenous vein graft to the posterior descending artery , endoscopic vein harvest, epi-aortic scanning, intraoperative transesophageal echocardiogram. Patient currently sitting up in a recliner in no acute distress. He was extubated last night at 2117. States his pain is controlled. Doing very well. Objective - Vital Signs Vital signs: Vital Signs Temp 97.7 F 06/09/17 23:00 Pulse 78 06/10/17 07:00 Resp 19 06/10/17 07:00 BP 122/68 06/09/17 20:30 Pulse Ox 99 06/10/17 07:00 Intake & Output 06/09/17 06/10/17 06/10/17 18:59 06:59 18:59 Intake Total 064.666 7204.507 411.703 Output Total 1583 1574 215 Balance -1077.768 -211.493 196.703 Weight 69.2 kg Intake: IV 500 1272 359 ACETAMINOPHEN IV (For NPO 100 100 100 ) 1,000 mg In Empty Bag 1 bag @ 400 mls/hr IVPB Q6HR SOM Rx#:[id number] Albumin 250 CO/CI Fluid flush 100 CeFAZolin 2gm in 0.9 NaCl 100 - Lactated Ringers 1,000 ml 200 650 50 @ 50 mls/hr IV .Q20H SOM Rx#:[id number] Magnesium 200 Potassium Chloride 10 meq 200 In Water For Injection 1 100ml.bag @ 100 mls/hr IVPB Q1H SOM Rx#: [id number] Pressure bag, 0.9NaCl- 72 9 Intake, IV Titration 5.232 90.507 52.703 Amount Clevidipine Butyrate 25 0.200 70.467 0 mg In Empty Bag 1 bag @ 1 MG/HR 2 mls/hr IV .Q24H SOM Rx#:[id number] Insulin Regular 100 unit 2.607 20.040 5.903 In Sodium Chloride 0.9% 100 ml @ Per Protocol IV .Q0M SOM Rx#:[id number] Nitroglycerin-D5w Pmx 50 2.425 46.8 mg In Dextrose/Water 1 250ml.bag @ 5 MCG/MIN 1.5 mls/hr IV .Q24H SOM Rx#: [id number] Output: Chest Tube Drainage 218 349 95 Chest Tube Bilateral 130 320 20 Mediastinal Chest Tube Left Lateral 88 29 75 Chest Urine 1165 1225 120 Estimated Blood Loss 200 Other: Voiding Method Indwelling Catheter Indwelling Catheter # Bowel Movements 0 ABP, PAP, CO, CI - Last Documented Arterial Blood Pressure 122/45 Pulmonary Artery Pressure 12/4 Cardiac Output 4.6 Cardiac Index 2.5 - Constitutional General appearance: Present: cooperative, no acute distress - Respiratory Details: Lungs sounds diminished bilaterally. Respirations even, nonlabored. Currently on 2 L nasal cannula with oxygen saturation 97%. Able to achieve 1750 mL on his incentive spirometry. Mediastinal chest tube to -20 cm wall suction, 160 mL drainage overnight, 520 mL since surgery. Left pleural chest tube to -20 cm wall suction, 10 mL drainage overnight, 165 mL since surgery. No air leaks present. - Cardiovascular Details: S1, S2 present. Regular rate and rhythm, normal sinus rhythm on telemetry. Sternum stable. Epicardial pacemaker wires present, connected to generator, VVI with a backup rate 50 bpm. Heart hugger in place with patient demonstrating appropriate use. Teds/SCDs present. No edema present. - Gastrointestinal Gastrointestinal Comment(s): Abdomen soft, nontender, nondistended. Active bowel sounds 4 quadrants. Negative for flatus yet. Tolerating diet. - Genitourinary Genitourinary Comment(s): Godoy present draining clear, yellow urine. Output 40-245 mL per hour overnight. - Integumentary Integumentary Comment(s): Anterior chest incision well approximated and covered with dry intact dressing. - Musculoskeletal Musculoskeletal: Present: gait normal, strength equal bilaterally - Psychiatric Psychiatric: Present: A&O x's 3, appropriate affect, intact judgment & insight - Allied health notes Allied health notes reviewed: nursing - Labs CBC & Chem 7: 06/10/17 04:08 06/10/17 04:08 Labs: Abnormal Lab Results - Last 24 Hours (Table) 0706/09/17 06/09/17 Range/Units 05:32 10:10 11:11 WBC (3.8-10.6) k/uL RBC (4.30-5.90) m/uL Hgb (13.0-17.5) gm/dL Hct (39.0-53.0) % Plt Count (150-450) k/uL Neutrophils # (1.3-7.7) k/uL Lymphocytes # (1.0-4.8) k/uL ABG pH (7.35-7.45) ABG pCO2 (35-45) mmHg ABG pO2 (83-108) mmHg ABG HCO3 (21-25) mmol/L ABG Total CO2 (19-24) mmol/L ABG O2 Saturation (94-97) % Sodium (137-145) mmol/L Carbon Dioxide (22-30) mmol/L Glucose (74-99) mg/dL POC Glucose (mg/dL) 158 H 276 H (75-99) mg/dL Total Protein (6.3-8.2) g/dL Albumin (3.5-5.0) g/dL Crossmatch See Detail 06/09/17 06/09/17 06/09/17 Range/Units 12:01 13:35 14:40 WBC (3.8-10.6) k/uL RBC 3.48 L (4.30-5.90) m/uL Hgb 11.2 L (13.0-17.5) gm/dL Hct 30.9 L (39.0-53.0) % Plt Count 101 L (150-450) k/uL Neutrophils # 7.8 H (1.3-7.7) k/uL Lymphocytes # 0.5 L (1.0-4.8) k/uL ABG pH (7.35-7.45) ABG pCO2 (35-45) mmHg ABG pO2 (83-108) mmHg ABG HCO3 (21-25) mmol/L ABG Total CO2 (19-24) mmol/L ABG O2 Saturation (94-97) % Sodium (137-145) mmol/L Carbon Dioxide (22-30) mmol/L Glucose (74-99) mg/dL POC Glucose (mg/dL) 263 H 184 H (75-99) mg/dL Total Protein (6.3-8.2) g/dL Albumin (3.5-5.0) g/dL Crossmatch 06/09/17 06/09/17 06/09/17 Range/Units 14:40 14:43 15:05 WBC (3.8-10.6) k/uL RBC (4.30-5.90) m/uL Hgb (13.0-17.5) gm/dL Hct (39.0-53.0) % Plt Count (150-450) k/uL Neutrophils # (1.3-7.7) k/uL Lymphocytes # (1.0-4.8) k/uL ABG pH 7.23 L (7.35-7.45) ABG pCO2 64 H (35-45) mmHg ABG pO2 396 H (83-108) mmHg ABG HCO3 26 H (21-25) mmol/L ABG Total CO2 28 H (19-24) mmol/L ABG O2 Saturation 100.0 H (94-97) % Sodium 136 L (137-145) mmol/L Carbon Dioxide (22-30) mmol/L Glucose 101 H (74-99) mg/dL POC Glucose (mg/dL) 119 H (75-99) mg/dL Total Protein 5.0 L (6.3-8.2) g/dL Albumin 2.6 L (3.5-5.0) g/dL Crossmatch 06/09/17 06/09/17 06/09/17 Range/Units 15:59 17:01 17:48 WBC 13.2 H (3.8-10.6) k/uL RBC 3.79 L (4.30-5.90) m/uL Hgb 12.5 L (13.0-17.5) gm/dL Hct 34.8 L (39.0-53.0) % Plt Count 144 L (150-450) k/uL Neutrophils # 11.6 H (1.3-7.7) k/uL Lymphocytes # 0.7 L (1.0-4.8) k/uL ABG pH (7.35-7.45) ABG pCO2 (35-45) mmHg ABG pO2 (83-108) mmHg ABG HCO3 (21-25) mmol/L ABG Total CO2 (19-24) mmol/L ABG O2 Saturation (94-97) % Sodium (137-145) mmol/L Carbon Dioxide (22-30) mmol/L Glucose (74-99) mg/dL POC Glucose (mg/dL) 112 H 124 H (75-99) mg/dL Total Protein (6.3-8.2) g/dL Albumin (3.5-5.0) g/dL Crossmatch 06/09/17 06/09/17 06/09/17 Range/Units 18:08 18:54 20:01 WBC (3.8-10.6) k/uL RBC (4.30-5.90) m/uL Hgb (13.0-17.5) gm/dL Hct (39.0-53.0) % Plt Count (150-450) k/uL Neutrophils # (1.3-7.7) k/uL Lymphocytes # (1.0-4.8) k/uL ABG pH (7.35-7.45) ABG pCO2 (35-45) mmHg ABG pO2 (83-108) mmHg ABG HCO3 (21-25) mmol/L ABG Total CO2 (19-24) mmol/L ABG O2 Saturation (94-97) % Sodium (137-145) mmol/L Carbon Dioxide (22-30) mmol/L Glucose (74-99) mg/dL POC Glucose (mg/dL) 139 H 168 H 164 H (75-99) mg/dL Total Protein (6.3-8.2) g/dL Albumin (3.5-5.0) g/dL Crossmatch 06/09/17 06/09/17 06/09/17 Range/Units 20:52 20:59 21:00 WBC 14.3 H (3.8-10.6) k/uL RBC 3.79 L (4.30-5.90) m/uL Hgb 12.4 L (13.0-17.5) gm/dL Hct 34.5 L (39.0-53.0) % Plt Count (150-450) k/uL Neutrophils # 13.0 H (1.3-7.7) k/uL Lymphocytes # 0.4 L (1.0-4.8) k/uL ABG pH 7.34 L (7.35-7.45) ABG pCO2 (35-45) mmHg ABG pO2 149 H (83-108) mmHg ABG HCO3 20 L (21-25) mmol/L ABG Total CO2 (19-24) mmol/L ABG O2 Saturation 99.0 H (94-97) % Sodium (137-145) mmol/L Carbon Dioxide (22-30) mmol/L Glucose (74-99) mg/dL POC Glucose (mg/dL) 157 H (75-99) mg/dL Total Protein (6.3-8.2) g/dL Albumin (3.5-5.0) g/dL Crossmatch 06/09/17 06/09/17 06/09/17 Range/Units 21:00 21:56 22:56 WBC (3.8-10.6) k/uL RBC (4.30-5.90) m/uL Hgb (13.0-17.5) gm/dL Hct (39.0-53.0) % Plt Count (150-450) k/uL Neutrophils # (1.3-7.7) k/uL Lymphocytes # (1.0-4.8) k/uL ABG pH (7.35-7.45) ABG pCO2 (35-45) mmHg ABG pO2 (83-108) mmHg ABG HCO3 (21-25) mmol/L ABG Total CO2 (19-24) mmol/L ABG O2 Saturation (94-97) % Sodium 135 L (137-145) mmol/L Carbon Dioxide 20 L (22-30) mmol/L Glucose 137 H (74-99) mg/dL POC Glucose (mg/dL) 138 H 121 H (75-99) mg/dL Total Protein (6.3-8.2) g/dL Albumin (3.5-5.0) g/dL Crossmatch 06/10/17 06/10/17 06/10/17 Range/Units 01:13 02:13 03:19 WBC (3.8-10.6) k/uL RBC (4.30-5.90) m/uL Hgb (13.0-17.5) gm/dL Hct (39.0-53.0) % Plt Count (150-450) k/uL Neutrophils # (1.3-7.7) k/uL Lymphocytes # (1.0-4.8) k/uL ABG pH (7.35-7.45) ABG pCO2 (35-45) mmHg ABG pO2 (83-108) mmHg ABG HCO3 (21-25) mmol/L ABG Total CO2 (19-24) mmol/L ABG O2 Saturation (94-97) % Sodium (137-145) mmol/L Carbon Dioxide (22-30) mmol/L Glucose (74-99) mg/dL POC Glucose (mg/dL) 101 H 109 H 129 H (75-99) mg/dL Total Protein (6.3-8.2) g/dL Albumin (3.5-5.0) g/dL Crossmatch 06/10/17 06/10/17 06/10/17 Range/Units 04:08 04:08 04:08 WBC (3.8-10.6) k/uL RBC 3.10 L (4.30-5.90) m/uL Hgb 9.9 L D (13.0-17.5) gm/dL Hct 27.6 L (39.0-53.0) % Plt Count 110 L (150-450) k/uL Neutrophils # (1.3-7.7) k/uL Lymphocytes # 0.6 L (1.0-4.8) k/uL ABG pH (7.35-7.45) ABG pCO2 (35-45) mmHg ABG pO2 (83-108) mmHg ABG HCO3 (21-25) mmol/L ABG Total CO2 (19-24) mmol/L ABG O2 Saturation (94-97) % Sodium 135 L (137-145) mmol/L Carbon Dioxide (22-30) mmol/L Glucose 109 H (74-99) mg/dL POC Glucose (mg/dL) 122 H (75-99) mg/dL Total Protein 5.1 L (6.3-8.2) g/dL Albumin 2.9 L (3.5-5.0) g/dL Crossmatch 06/10/17 06/10/17 06/10/17 Range/Units 05:37 06:27 07:10 WBC (3.8-10.6) k/uL RBC (4.30-5.90) m/uL Hgb (13.0-17.5) gm/dL Hct (39.0-53.0) % Plt Count (150-450) k/uL Neutrophils # (1.3-7.7) k/uL Lymphocytes # (1.0-4.8) k/uL ABG pH (7.35-7.45) ABG pCO2 (35-45) mmHg ABG pO2 (83-108) mmHg ABG HCO3 (21-25) mmol/L ABG Total CO2 (19-24) mmol/L ABG O2 Saturation (94-97) % Sodium (137-145) mmol/L Carbon Dioxide (22-30) mmol/L Glucose (74-99) mg/dL POC Glucose (mg/dL) 103 H 103 H 134 H (75-99) mg/dL Total Protein (6.3-8.2) g/dL Albumin (3.5-5.0) g/dL Crossmatch 06/10/17 06/10/17 Range/Units 08:03 09:09 WBC (3.8-10.6) k/uL RBC (4.30-5.90) m/uL Hgb (13.0-17.5) gm/dL Hct (39.0-53.0) % Plt Count (150-450) k/uL Neutrophils # (1.3-7.7) k/uL Lymphocytes # (1.0-4.8) k/uL ABG pH (7.35-7.45) ABG pCO2 (35-45) mmHg ABG pO2 (83-108) mmHg ABG HCO3 (21-25) mmol/L ABG Total CO2 (19-24) mmol/L ABG O2 Saturation (94-97) % Sodium (137-145) mmol/L Carbon Dioxide (22-30) mmol/L Glucose (74-99) mg/dL POC Glucose (mg/dL) 171 H 169 H (75-99) mg/dL Total Protein (6.3-8.2) g/dL Albumin (3.5-5.0) g/dL Crossmatch - Imaging and Cardiology Chest x-ray: report reviewed, image reviewed Assessment and Plan (1) Hypertension Status: Acute (2) Coronary artery disease Status: Acute (3) Hyperlipidemia Status: Acute (4) Tobacco dependence Status: Acute (5) Hepatitis C Status: Acute (6) Heroin addiction Status: Acute (7) Family history of myocardial infarction in first degree male relative Status: Acute Plan: 1. Continue aspirin, Plavix, Lopressor, statin. Will maximize beta leonor therapy. Will re-add SCOTT inhibitor. 2. Wean O2. Encourage incentive spirometry use. 3. Increase activity, out of bed to chair. Physical therapy to follow. 4. Will discontinue [place]. 5. Discontinue Cleviprex, nitro drip, Precedex. 6. GI/DVT prophylaxis. 7. Will monitor daily labs, x-rays. 8. More recommendations as patient progresses. Time with Patient: Greater than 30
--- NOTE | 2017-06-10 10:13 | PN ---
DATE OF SERVICE: 06/09/2017 CHIEF COMPLAINT: Coronary artery disease and acute OH. HISTORY OF PRESENT ILLNESS: This gentleman is to undergo today CABG. Physical exam is unchanged. IMPRESSION: 1. Acute myocardial infarction. 2. Triple vessel coronary artery disease. 3. Chronic obstructive pulmonary disease. 4. History of substance abuse. PLAN: CABG today. RENE
--- NOTE | 2017-06-10 10:25 | PN ---
This is a 62-year-old patient who is undergoing bypass surgery today. He is doing relatively well. He was admitted back on 06/04. He is a 62-year-old white male who is a heavy smoker. No documented history of COPD. Presented to [facility] with acute onset of chest pain. Pain was felt to be cardiac in nature and the patient was felt to have a [id number] elevation myocardial infarction. The patient was evaluated initially there and had catheterization. He is in the operating room currently. We will see him after surgery to adjust the ventilator. He is doing well and was comfortable prior to surgery. He has been seen by partner, Dr. Meadows. His bedside spirometry did reveal an FEV1 that was 79% of predicted. The patient is otherwise doing reasonably well. Current vital signs include a temperature is 98, heart rate 67, respiratory rate 18, blood pressure 126/72 and room air saturation 97%. He appears in no acute distress. HEENT examination is grossly unremarkable. Mucous membranes are moist. No oral lesions. NECK; Supple. Full range of motion. No adenopathy or thyromegaly. Neck veins are flat. Cardiovascular examination reveals regular rhythm and rate. S1, S2 normal. No S3 , S4 or murmur. Lungs reveal diminished breath sounds. No wheezes or rhonchi. Breath sounds are equal. ABDOMEN: Soft. Bowel sounds are heard. No masses or tenderness. Extremities are intact. No cyanosis, clubbing or edema. ASSESSMENT: 1. Anticipated bypass grafting. 2. Acute [id number]-[id number] elevation myocardial infarction. 3. Three-vessel coronary artery disease based on cardiac catheterization dated June 05. 4. History of nicotine dependence with minimal mild ( ) chronic obstructive pulmonary disease. 5 History of hepatitis C. 6. History of heroin addiction. 7. Hyperlipidemia. 8. Hypertension. 9. History of premature coronary artery disease. PLAN: The patient will be seen and the ventilator will be adjusted accordingly after surgery. The patient will get DuoNeb added at q.4 hours around the clock and p.r.n. No additional recommendations are made. Will continue to follow closely. Prognosis is guarded. MTDD
[2017-06-10 11:08] LABS: Glucose,Whole Blood 122 mg/dL (75-99)
[2017-06-10] MEDS: KETOROLAC 30 MG/ML 1 ML VIAL IVP SCH ×2 (11:08→17:52)
[2017-06-10 12:15] LABS: Glucose,Whole Blood 91 mg/dL (75-99)
--- NOTE | 2017-06-10 12:28 | P.PN ---
Subjective This is a 62-year-old white male, heavy smoker, no documented history of COPD, patient presented initially to [facility] facility with acute onset of chest pain. Pain was felt to be cardiac in nature, and the patient was felt to have non-ST elevation myocardial infarction. According to the patient he had intermittent episodes of chest pains over the anterior chest intermittently for the last few months. However this time, the pain was more severe. It was associated with radiation to the neck, also assure initiated with diaphoresis. Patient was found to have ischemic changes in his 12-lead EKG , troponin was mildly elevated. Started on IV heparin, and he was transferred to [facility] and cardiac catheterization was done, and it showed three-vessel coronary artery disease with 60% left main, patient was seen by surgery on consultation, and he may be scheduled for cardiac bypass surgery soon. Considering his smoking history, considering his history of nicotine addiction as well as previous history of heroin addiction, I was asked to see the patient on consultation for preoperative pulmonary clearance. Presently, the patient denies any headaches, no blurred vision, no dizziness, no chest pain no nausea no vomiting no abdominal pain. Patient denies dyspnea on exertion, he is relatively active in spite of his significant smoking history. Bedside PFT is pending at the time of this dictation. The patient was seen again today in follow-up 06/06/2017 on the selective care unit. He is awake and alert in no acute distress. His bedside spirometry did reveal a FEV1 value of 79% of predicted. He denies any chest pain currently. He denies any worsening shortness of breath, cough or congestion. He is maintaining good O2 saturations in the 90s on room air. He has been hemodynamically stable. Lab results within normal limits. His chest x-ray revealed no acute cardiopulmonary disease. He is currently being worked up for possible coronary artery bypass grafting early next week. Patient was seen again on follow-up on 06/07/2017, doing quite well, relatively asymptomatic, bedside spirometry has been reviewed, patient is scheduled to undergo myocardial revascularization early Friday. Chest x-ray showed no acute pulmonary process. CBC is normal basic metabolic profile is normal creatinine however is 1.20. Reevaluated today on 06/08/2017, patient seems to be doing well, asymptomatic, no shortness of breath no cough no wheezing and no chest pain. Labs were reviewed they seem to be unremarkable. PTT is 53 basic metabolic profile is normal renal profile is normalizing. The patient is seen again today 06/10/2017 in follow-up in the intensive care unit. He is status post coronary artery bypass grafting utilizing a MURO to the LAD, reverse saphenous vein graft to the obtuse marginal and posterior descending arteries. This is postoperative day #1. He was successfully extubated last evening. He is currently sitting up in a chair at the bedside. He is awake and alert in no acute distress. He is maintaining good O2 saturations in the 90s on 2 L/m per nasal cannula. He is doing well with the incentive spirometer pulling greater than 1500 MLS. Chest tubes remain in place to the mediastinum and left chest. Pacer wires in place. He is receiving lactated Ringer's at 50 MLS per hour. He has been on Precedex at 0.2 mg. He is also on a insulin drip at 4 units per hour. His chest x-ray shows chronic and somatic changes with left mid lateral atelectasis and basilar atelectasis/infiltrate. There is increased elevation of left hemidiaphragm. There is no leukocytosis. Hemoglobin 9.9. Objective - Vital Signs Vital signs: Vital Signs Temp 97.7 F 06/09/17 23:00 Pulse 72 06/10/17 10:00 Resp 9 L 06/10/17 10:00 BP 122/68 06/09/17 20:30 Pulse Ox 99 06/10/17 10:00 Intake & Output 06/09/17 06/10/17 06/10/17 18:59 06:59 18:59 Intake Total 999.772 8577.507 918.763 Output Total 1583 1574 750 Balance -1077.768 -211.493 168.763 Weight 69.2 kg 69.2 kg Intake: IV 500 1272 616 ACETAMINOPHEN IV (For NPO 100 100 100 ) 1,000 mg In Empty Bag 1 bag @ 400 mls/hr IVPB Q6HR SOM Rx#:[id number] Albumin 250 CO/CI Fluid flush 100 10 CeFAZolin 2gm in 0.9 NaCl 100 100 - Lactated Ringers 1,000 ml 200 650 170 @ 20 mls/hr IV .Q24H S[facility] Rx#:[id number] Magnesium 200 Potassium Chloride 10 meq 200 In Water For Injection 1 100ml.bag @ 100 mls/hr IVPB Q1H S[facility] Rx#: [id number] Pressure bag, 0.9NaCl- 72 36 Intake, IV Titration 5.232 90.507 62.763 Amount Clevidipine Butyrate 25 0.200 70.467 0 mg In Empty Bag 1 bag @ 1 MG/HR 2 mls/hr IV .Q24H S[facility] Rx#:[id number] Insulin Regular 100 unit 2.607 20.040 15.963 In Sodium Chloride 0.9% 100 ml @ Per Protocol IV .Q0M SOM Rx#:[id number] Nitroglycerin-D5w Pmx 50 2.425 46.8 mg In Dextrose/Water 1 250ml.bag @ 5 MCG/MIN 1.5 mls/hr IV .Q24H [facility] Rx#: [id number] Oral 240 Output: Chest Tube Drainage 218 349 125 Chest Tube Bilateral 130 320 40 Mediastinal Chest Tube Left Lateral 88 29 85 Chest Urine 1165 1225 625 Estimated Blood Loss 200 Other: Voiding Method Indwelling Catheter Indwelling Catheter Indwelling Catheter # Bowel Movements 0 0 ABP, PAP, CO, CI - Last Documented Arterial Blood Pressure 107/38 Pulmonary Artery Pressure 8/1 Cardiac Output 4.6 Cardiac Index 2.5 - Exam GENERAL EXAM: Alert, active, comfortable in no apparent distress. HEAD: Normocephalic. EYES: Normal reaction of pupils, equal size. NOSE: Clear with pink turbinates. THROAT: No erythema or exudates. NECK: No masses, no JVD. CHEST: Sternal dressing dry and intact. Heart hugger place. LUNGS: Equal air entry with crackles in the posterior bases. Mediastinal and left chest tubes in place. CVS: S1 and S2 normal with no audible murmurs, regular rhythm. ABDOMEN: No hepatosplenomegaly, normal bowel sounds, no guarding or rigidity. SPINE: No scoliosis or deformity SKIN: No rashes CENTRAL NERVOUS SYSTEM: No focal deficits, tone is normal in all 4 extremities. Extremities: There is no significant peripheral edema. No clubbing, no cyanosis. Peripheral pulses are intact. - Labs CBC & Chem 7: 06/10/17 04:08 06/10/17 04:08 Labs: Abnormal Lab Results - Last 24 Hours (Table) 06/08/17 06/09/17 06/09/17 Range/Units 05:32 13:35 14:40 WBC (3.8-10.6) k/uL RBC 3.48 L (4.30-5.90) m/uL Hgb 11.2 L (13.0-17.5) gm/dL Hct 30.9 L (39.0-53.0) % Plt Count 101 L (150-450) k/uL Neutrophils # 7.8 H (1.3-7.7) k/uL Lymphocytes # 0.5 L (1.0-4.8) k/uL ABG pH (7.35-7.45) ABG pCO2 (35-45) mmHg ABG pO2 (83-108) mmHg ABG HCO3 (21-25) mmol/L ABG Total CO2 (19-24) mmol/L ABG O2 Saturation (94-97) % Sodium (137-145) mmol/L Carbon Dioxide (22-30) mmol/L Glucose (74-99) mg/dL POC Glucose (mg/dL) 184 H (75-99) mg/dL Total Protein (6.3-8.2) g/dL Albumin (3.5-5.0) g/dL Crossmatch See Detail 06/09/17 06/09/17 06/09/17 Range/Units 14:40 14:43 15:05 WBC (3.8-10.6) k/uL RBC (4.30-5.90) m/uL Hgb (13.0-17.5) gm/dL Hct (39.0-53.0) % Plt Count (150-450) k/uL Neutrophils # (1.3-7.7) k/uL Lymphocytes # (1.0-4.8) k/uL ABG pH 7.23 L (7.35-7.45) ABG pCO2 64 H (35-45) mmHg ABG pO2 396 H (83-108) mmHg ABG HCO3 26 H (21-25) mmol/L ABG Total CO2 28 H (19-24) mmol/L ABG O2 Saturation 100.0 H (94-97) % Sodium 136 L (137-145) mmol/L Carbon Dioxide (22-30) mmol/L Glucose 101 H (74-99) mg/dL POC Glucose (mg/dL) 119 H (75-99) mg/dL Total Protein 5.0 L (6.3-8.2) g/dL Albumin 2.6 L (3.5-5.0) g/dL Crossmatch 06/09/17 06/09/17 06/09/17 Range/Units 15:59 17:01 17:48 WBC 13.2 H (3.8-10.6) k/uL RBC 3.79 L (4.30-5.90) m/uL Hgb 12.5 L (13.0-17.5) gm/dL Hct 34.8 L (39.0-53.0) % Plt Count 144 L (150-450) k/uL Neutrophils # 11.6 H (1.3-7.7) k/uL Lymphocytes # 0.7 L (1.0-4.8) k/uL ABG pH (7.35-7.45) ABG pCO2 (35-45) mmHg ABG pO2 (83-108) mmHg ABG HCO3 (21-25) mmol/L ABG Total CO2 (19-24) mmol/L ABG O2 Saturation (94-97) % Sodium (137-145) mmol/L Carbon Dioxide (22-30) mmol/L Glucose (74-99) mg/dL POC Glucose (mg/dL) 112 H 124 H (75-99) mg/dL Total Protein (6.3-8.2) g/dL Albumin (3.5-5.0) g/dL Crossmatch 06/09/17 06/09/17 06/09/17 Range/Units 18:08 18:54 20:01 WBC (3.8-10.6) k/uL RBC (4.30-5.90) m/uL Hgb (13.0-17.5) gm/dL Hct (39.0-53.0) % Plt Count (150-450) k/uL Neutrophils # (1.3-7.7) k/uL Lymphocytes # (1.0-4.8) k/uL ABG pH (7.35-7.45) ABG pCO2 (35-45) mmHg ABG pO2 (83-108) mmHg ABG HCO3 (21-25) mmol/L ABG Total CO2 (19-24) mmol/L ABG O2 Saturation (94-97) % Sodium (137-145) mmol/L Carbon Dioxide (22-30) mmol/L Glucose (74-99) mg/dL POC Glucose (mg/dL) 139 H 168 H 164 H (75-99) mg/dL Total Protein (6.3-8.2) g/dL Albumin (3.5-5.0) g/dL Crossmatch 06/09/17 06/09/17 06/09/17 Range/Units 20:52 20:59 21:00 WBC 14.3 H (3.8-10.6) k/uL RBC 3.79 L (4.30-5.90) m/uL Hgb 12.4 L (13.0-17.5) gm/dL Hct 34.5 L (39.0-53.0) % Plt Count (150-450) k/uL Neutrophils # 13.0 H (1.3-7.7) k/uL Lymphocytes # 0.4 L (1.0-4.8) k/uL ABG pH 7.34 L (7.35-7.45) ABG pCO2 (35-45) mmHg ABG pO2 149 H (83-108) mmHg ABG HCO3 20 L (21-25) mmol/L ABG Total CO2 (19-24) mmol/L ABG O2 Saturation 99.0 H (94-97) % Sodium (137-145) mmol/L Carbon Dioxide (22-30) mmol/L Glucose (74-99) mg/dL POC Glucose (mg/dL) 157 H (75-99) mg/dL Total Protein (6.3-8.2) g/dL Albumin (3.5-5.0) g/dL Crossmatch 06/09/17 06/09/17 06/09/17 Range/Units 21:00 21:56 22:56 WBC (3.8-10.6) k/uL RBC (4.30-5.90) m/uL Hgb (13.0-17.5) gm/dL Hct (39.0-53.0) % Plt Count (150-450) k/uL Neutrophils # (1.3-7.7) k/uL Lymphocytes # (1.0-4.8) k/uL ABG pH (7.35-7.45) ABG pCO2 (35-45) mmHg ABG pO2 (83-108) mmHg ABG HCO3 (21-25) mmol/L ABG Total CO2 (19-24) mmol/L ABG O2 Saturation (94-97) % Sodium 135 L (137-145) mmol/L Carbon Dioxide 20 L (22-30) mmol/L Glucose 137 H (74-99) mg/dL POC Glucose (mg/dL) 138 H 121 H (75-99) mg/dL Total Protein (6.3-8.2) g/dL Albumin (3.5-5.0) g/dL Crossmatch 06/10/17 06/10/17 06/10/17 Range/Units 01:13 02:13 03:19 WBC (3.8-10.6) k/uL RBC (4.30-5.90) m/uL Hgb (13.0-17.5) gm/dL Hct (39.0-53.0) % Plt Count (150-450) k/uL Neutrophils # (1.3-7.7) k/uL Lymphocytes # (1.0-4.8) k/uL ABG pH (7.35-7.45) ABG pCO2 (35-45) mmHg ABG pO2 (83-108) mmHg ABG HCO3 (21-25) mmol/L ABG Total CO2 (19-24) mmol/L ABG O2 Saturation (94-97) % Sodium (137-145) mmol/L Carbon Dioxide (22-30) mmol/L Glucose (74-99) mg/dL POC Glucose (mg/dL) 101 H 109 H 129 H (75-99) mg/dL Total Protein (6.3-8.2) g/dL Albumin (3.5-5.0) g/dL Crossmatch 06/10/17 06/10/17 06/10/17 Range/Units 04:08 04:08 04:08 WBC (3.8-10.6) k/uL RBC 3.10 L (4.30-5.90) m/uL Hgb 9.9 L D (13.0-17.5) gm/dL Hct 27.6 L (39.0-53.0) % Plt Count 110 L (150-450) k/uL Neutrophils # (1.3-7.7) k/uL Lymphocytes # 0.6 L (1.0-4.8) k/uL ABG pH (7.35-7.45) ABG pCO2 (35-45) mmHg ABG pO2 (83-108) mmHg ABG HCO3 (21-25) mmol/L ABG Total CO2 (19-24) mmol/L ABG O2 Saturation (94-97) % Sodium 135 L (137-145) mmol/L Carbon Dioxide (22-30) mmol/L Glucose 109 H (74-99) mg/dL POC Glucose (mg/dL) 122 H (75-99) mg/dL Total Protein 5.1 L (6.3-8.2) g/dL Albumin 2.9 L (3.5-5.0) g/dL Crossmatch 06/10/17 06/10/17 06/10/17 Range/Units 05:37 06:27 07:10 WBC (3.8-10.6) k/uL RBC (4.30-5.90) m/uL Hgb (13.0-17.5) gm/dL Hct (39.0-53.0) % Plt Count (150-450) k/uL Neutrophils # (1.3-7.7) k/uL Lymphocytes # (1.0-4.8) k/uL ABG pH (7.35-7.45) ABG pCO2 (35-45) mmHg ABG pO2 (83-108) mmHg ABG HCO3 (21-25) mmol/L ABG Total CO2 (19-24) mmol/L ABG O2 Saturation (94-97) % Sodium (137-145) mmol/L Carbon Dioxide (22-30) mmol/L Glucose (74-99) mg/dL POC Glucose (mg/dL) 103 H 103 H 134 H (75-99) mg/dL Total Protein (6.3-8.2) g/dL Albumin (3.5-5.0) g/dL Crossmatch 06/10/17 06/10/17 06/10/17 Range/Units 08:03 09:09 10:05 WBC (3.8-10.6) k/uL RBC (4.30-5.90) m/uL Hgb (13.0-17.5) gm/dL Hct (39.0-53.0) % Plt Count (150-450) k/uL Neutrophils # (1.3-7.7) k/uL Lymphocytes # (1.0-4.8) k/uL ABG pH (7.35-7.45) ABG pCO2 (35-45) mmHg ABG pO2 (83-108) mmHg ABG HCO3 (21-25) mmol/L ABG Total CO2 (19-24) mmol/L ABG O2 Saturation (94-97) % Sodium (137-145) mmol/L Carbon Dioxide (22-30) mmol/L Glucose (74-99) mg/dL POC Glucose (mg/dL) 171 H 169 H 141 H (75-99) mg/dL Total Protein (6.3-8.2) g/dL Albumin (3.5-5.0) g/dL Crossmatch 06/10/17 Range/Units 11:05 WBC (3.8-10.6) k/uL RBC (4.30-5.90) m/uL Hgb (13.0-17.5) gm/dL Hct (39.0-53.0) % Plt Count (150-450) k/uL Neutrophils # (1.3-7.7) k/uL Lymphocytes # (1.0-4.8) k/uL ABG pH (7.35-7.45) ABG pCO2 (35-45) mmHg ABG pO2 (83-108) mmHg ABG HCO3 (21-25) mmol/L ABG Total CO2 (19-24) mmol/L ABG O2 Saturation (94-97) % Sodium (137-145) mmol/L Carbon Dioxide (22-30) mmol/L Glucose (74-99) mg/dL POC Glucose (mg/dL) 122 H (75-99) mg/dL Total Protein (6.3-8.2) g/dL Albumin (3.5-5.0) g/dL Crossmatch Assessment and Plan Plan: Impression: 1 acute non-ST elevation myocardial infarction with significant coronary artery disease. Status post coronary artery bypass grafting utilizing a MURO to the LAD, reverse saphenous vein grafts to the obtuse marginal and PDA arteries. Postoperative day #1. 2 ventilator management as an expected outcome post surgical. Successfully extubated 06/09/2017. 3 history of nicotine dependence syndrome, however the patient does not have significant symptoms to suggest significant COPD, FEV1 value 79% of predicted. 4 history of hepatitis C 5 history of heroin addiction 6 history of hyperlipidemia. 7 history of hypertension 8 family history of premature coronary artery disease. Plan: The patient was seen and evaluated by Dr. Cutler. His chest x-ray and labs were reviewed. The patient is again encouraged regarding the increased use of the incentive spirometer and cough and deep breathing exercises. We'll continue with his current medications including bronchodilators 4 times a day and when necessary. We will increase his activity as tolerated. We'll continue to follow. Time with Patient: Greater than 30
[2017-06-10] MEDS: ATORVASTATIN 40 MG TAB PO SCH (13:12)
[2017-06-10 13:16] LABS: Glucose,Whole Blood 126 mg/dL (75-99)
[2017-06-10] MEDS ORDERED: MAGNESIUM HYDROXIDE 2,400 MG/10 ML CUP PO PRN (13:19)
[2017-06-10] MEDS ORDERED: BISACODYL 10 MG SUPP RECTAL PRN (13:19)
[2017-06-10] MEDS ORDERED: IPRATROPIUM-ALBUTEROL 3 ML NEB INHALATION PRN (13:20)
[2017-06-10 14:09] LABS: Glucose,Whole Blood 134 mg/dL (75-99)
--- NOTE | 2017-06-10 14:13 | P.PN ---
Subjective 62-year-old being seen in the intensive care unit this morning sitting up in a chair. Pleasant oriented 3 patient is status post coronary artery bypass grafting postop day 1. Patient is awake and alert maintaining currently on nasal cannula at 2 L with a sat in the 90s. Patient needs encouragement but will use the incentive spirometer can achieve 1500. Chest tubes remain in place. Patient currently is on an insulin drip with blood sugars being followed per protocol Objective - Vital Signs Vital signs: Vital Signs Temp 97.7 F 06/09/17 23:00 Pulse 83 06/10/17 13:00 Resp 17 06/10/17 13:00 BP 122/68 06/09/17 20:30 Pulse Ox 96 06/10/17 13:00 Intake & Output 06/09/17 06/10/17 06/10/17 18:59 06:59 18:59 Intake Total 303.300 6637.507 1478.763 Output Total 1583 1574 1095 Balance -1077.768 -211.493 383.763 Weight 69.2 kg 69.2 kg Intake: IV 500 1272 816 ACETAMINOPHEN IV (For NPO 100 100 200 ) 1,000 mg In Empty Bag 1 bag @ 400 mls/hr IVPB Q6HR SOM Rx#:[id number] Albumin 250 CO/CI Fluid flush 100 10 CeFAZolin 2gm in 0.9 NaCl 100 100 - Lactated Ringers 1,000 ml 200 650 270 @ 20 mls/hr IV .Q24H SOM Rx#:[id number] Magnesium 200 Potassium Chloride 10 meq 200 In Water For Injection 1 100ml.bag @ 100 mls/hr IVPB Q1H SOM Rx#: [id number] Pressure bag, 0.9NaCl- 72 36 Intake, IV Titration 5.232 90.507 62.763 Amount Clevidipine Butyrate 25 0.200 70.467 0 mg In Empty Bag 1 bag @ 1 MG/HR 2 mls/hr IV .Q24H SOM Rx#:[id number] Insulin Regular 100 unit 2.607 20.040 15.963 In Sodium Chloride 0.9% 100 ml @ Per Protocol IV .Q0M SOM Rx#:[id number] Nitroglycerin-D5w Pmx 50 2.425 46.8 mg In Dextrose/Water 1 250ml.bag @ 5 MCG/MIN 1.5 mls/hr IV .Q24H [facility] Rx#: [id number] Oral 600 Output: Chest Tube Drainage 218 349 185 Chest Tube Bilateral 130 320 90 Mediastinal Chest Tube Left Lateral 88 29 95 Chest Urine 1165 1225 910 Estimated Blood Loss 200 Other: Voiding Method Indwelling Catheter Indwelling Catheter Indwelling Catheter # Bowel Movements 0 0 ABP, PAP, CO, CI - Last Documented Arterial Blood Pressure 129/47 Pulmonary Artery Pressure 12/1 Cardiac Output 4.6 Cardiac Index 2.5 - Exam Physical exam 62-year-old male sitting up in a chair in the intensive care unit appears in no acute distress Lungs bilateral crackles at the bases upper airways adequate air movement mediastinal left chest tube in place nasal cannula 2 L keeping a sat greater than 90 Heart S1-S2 audible and regular no murmur Abdomen soft nontender reports no nausea vomiting Extremities no edema noted to the lower extremities - Labs CBC & Chem 7: 06/10/17 04:08 06/10/17 04:08 Labs: Abnormal Lab Results - Last 24 Hours (Table) 06/08/17 06/09/17 06/09/17 Range/Units 05:32 14:40 14:40 WBC (3.8-10.6) k/uL RBC 3.48 L (4.30-5.90) m/uL Hgb 11.2 L (13.0-17.5) gm/dL Hct 30.9 L (39.0-53.0) % Plt Count 101 L (150-450) k/uL Neutrophils # 7.8 H (1.3-7.7) k/uL Lymphocytes # 0.5 L (1.0-4.8) k/uL ABG pH (7.35-7.45) ABG pCO2 (35-45) mmHg ABG pO2 (83-108) mmHg ABG HCO3 (21-25) mmol/L ABG Total CO2 (19-24) mmol/L ABG O2 Saturation (94-97) % Sodium 136 L (137-145) mmol/L Carbon Dioxide (22-30) mmol/L Glucose 101 H (74-99) mg/dL POC Glucose (mg/dL) (75-99) mg/dL Total Protein 5.0 L (6.3-8.2) g/dL Albumin 2.6 L (3.5-5.0) g/dL Crossmatch See Detail 06/09/17 06/09/17 06/09/17 Range/Units 14:43 15:05 15:59 WBC (3.8-10.6) k/uL RBC (4.30-5.90) m/uL Hgb (13.0-17.5) gm/dL Hct (39.0-53.0) % Plt Count (150-450) k/uL Neutrophils # (1.3-7.7) k/uL Lymphocytes # (1.0-4.8) k/uL ABG pH 7.23 L (7.35-7.45) ABG pCO2 64 H (35-45) mmHg ABG pO2 396 H (83-108) mmHg ABG HCO3 26 H (21-25) mmol/L ABG Total CO2 28 H (19-24) mmol/L ABG O2 Saturation 100.0 H (94-97) % Sodium (137-145) mmol/L Carbon Dioxide (22-30) mmol/L Glucose (74-99) mg/dL POC Glucose (mg/dL) 119 H 112 H (75-99) mg/dL Total Protein (6.3-8.2) g/dL Albumin (3.5-5.0) g/dL Crossmatch 06/09/17 06/09/17 06/09/17 Range/Units 17:01 17:48 18:08 WBC 13.2 H (3.8-10.6) k/uL RBC 3.79 L (4.30-5.90) m/uL Hgb 12.5 L (13.0-17.5) gm/dL Hct 34.8 L (39.0-53.0) % Plt Count 144 L (150-450) k/uL Neutrophils # 11.6 H (1.3-7.7) k/uL Lymphocytes # 0.7 L (1.0-4.8) k/uL ABG pH (7.35-7.45) ABG pCO2 (35-45) mmHg ABG pO2 (83-108) mmHg ABG HCO3 (21-25) mmol/L ABG Total CO2 (19-24) mmol/L ABG O2 Saturation (94-97) % Sodium (137-145) mmol/L Carbon Dioxide (22-30) mmol/L Glucose (74-99) mg/dL POC Glucose (mg/dL) 124 H 139 H (75-99) mg/dL Total Protein (6.3-8.2) g/dL Albumin (3.5-5.0) g/dL Crossmatch 06/09/17 06/09/17 06/09/17 Range/Units 18:54 20:01 20:52 WBC (3.8-10.6) k/uL RBC (4.30-5.90) m/uL Hgb (13.0-17.5) gm/dL Hct (39.0-53.0) % Plt Count (150-450) k/uL Neutrophils # (1.3-7.7) k/uL Lymphocytes # (1.0-4.8) k/uL ABG pH 7.34 L (7.35-7.45) ABG pCO2 (35-45) mmHg ABG pO2 149 H (83-108) mmHg ABG HCO3 20 L (21-25) mmol/L ABG Total CO2 (19-24) mmol/L ABG O2 Saturation 99.0 H (94-97) % Sodium (137-145) mmol/L Carbon Dioxide (22-30) mmol/L Glucose (74-99) mg/dL POC Glucose (mg/dL) 168 H 164 H (75-99) mg/dL Total Protein (6.3-8.2) g/dL Albumin (3.5-5.0) g/dL Crossmatch 06/09/17 06/09/17 06/09/17 Range/Units 20:59 21:00 21:00 WBC 14.3 H (3.8-10.6) k/uL RBC 3.79 L (4.30-5.90) m/uL Hgb 12.4 L (13.0-17.5) gm/dL Hct 34.5 L (39.0-53.0) % Plt Count (150-450) k/uL Neutrophils # 13.0 H (1.3-7.7) k/uL Lymphocytes # 0.4 L (1.0-4.8) k/uL ABG pH (7.35-7.45) ABG pCO2 (35-45) mmHg ABG pO2 (83-108) mmHg ABG HCO3 (21-25) mmol/L ABG Total CO2 (19-24) mmol/L ABG O2 Saturation (94-97) % Sodium 135 L (137-145) mmol/L Carbon Dioxide 20 L (22-30) mmol/L Glucose 137 H (74-99) mg/dL POC Glucose (mg/dL) 157 H (75-99) mg/dL Total Protein (6.3-8.2) g/dL Albumin (3.5-5.0) g/dL Crossmatch 06/09/17 06/09/17 06/10/17 Range/Units 21:56 22:56 01:13 WBC (3.8-10.6) k/uL RBC (4.30-5.90) m/uL Hgb (13.0-17.5) gm/dL Hct (39.0-53.0) % Plt Count (150-450) k/uL Neutrophils # (1.3-7.7) k/uL Lymphocytes # (1.0-4.8) k/uL ABG pH (7.35-7.45) ABG pCO2 (35-45) mmHg ABG pO2 (83-108) mmHg ABG HCO3 (21-25) mmol/L ABG Total CO2 (19-24) mmol/L ABG O2 Saturation (94-97) % Sodium (137-145) mmol/L Carbon Dioxide (22-30) mmol/L Glucose (74-99) mg/dL POC Glucose (mg/dL) 138 H 121 H 101 H (75-99) mg/dL Total Protein (6.3-8.2) g/dL Albumin (3.5-5.0) g/dL Crossmatch 06/10/17 06/10/17 06/10/17 Range/Units 02:13 03:19 04:08 WBC (3.8-10.6) k/uL RBC 3.10 L (4.30-5.90) m/uL Hgb 9.9 L D (13.0-17.5) gm/dL Hct 27.6 L (39.0-53.0) % Plt Count 110 L (150-450) k/uL Neutrophils # (1.3-7.7) k/uL Lymphocytes # 0.6 L (1.0-4.8) k/uL ABG pH (7.35-7.45) ABG pCO2 (35-45) mmHg ABG pO2 (83-108) mmHg ABG HCO3 (21-25) mmol/L ABG Total CO2 (19-24) mmol/L ABG O2 Saturation (94-97) % Sodium (137-145) mmol/L Carbon Dioxide (22-30) mmol/L Glucose (74-99) mg/dL POC Glucose (mg/dL) 109 H 129 H (75-99) mg/dL Total Protein (6.3-8.2) g/dL Albumin (3.5-5.0) g/dL Crossmatch 06/10/17 06/10/17 06/10/17 Range/Units 04:08 04:08 05:37 WBC (3.8-10.6) k/uL RBC (4.30-5.90) m/uL Hgb (13.0-17.5) gm/dL Hct (39.0-53.0) % Plt Count (150-450) k/uL Neutrophils # (1.3-7.7) k/uL Lymphocytes # (1.0-4.8) k/uL ABG pH (7.35-7.45) ABG pCO2 (35-45) mmHg ABG pO2 (83-108) mmHg ABG HCO3 (21-25) mmol/L ABG Total CO2 (19-24) mmol/L ABG O2 Saturation (94-97) % Sodium 135 L (137-145) mmol/L Carbon Dioxide (22-30) mmol/L Glucose 109 H (74-99) mg/dL POC Glucose (mg/dL) 122 H 103 H (75-99) mg/dL Total Protein 5.1 L (6.3-8.2) g/dL Albumin 2.9 L (3.5-5.0) g/dL Crossmatch 06/10/17 06/10/17 06/10/17 Range/Units 06:27 07:10 08:03 WBC (3.8-10.6) k/uL RBC (4.30-5.90) m/uL Hgb (13.0-17.5) gm/dL Hct (39.0-53.0) % Plt Count (150-450) k/uL Neutrophils # (1.3-7.7) k/uL Lymphocytes # (1.0-4.8) k/uL ABG pH (7.35-7.45) ABG pCO2 (35-45) mmHg ABG pO2 (83-108) mmHg ABG HCO3 (21-25) mmol/L ABG Total CO2 (19-24) mmol/L ABG O2 Saturation (94-97) % Sodium (137-145) mmol/L Carbon Dioxide (22-30) mmol/L Glucose (74-99) mg/dL POC Glucose (mg/dL) 103 H 134 H 171 H (75-99) mg/dL Total Protein (6.3-8.2) g/dL Albumin (3.5-5.0) g/dL Crossmatch 06/10/17 06/10/17 06/10/17 Range/Units 09:09 10:05 11:05 WBC (3.8-10.6) k/uL RBC (4.30-5.90) m/uL Hgb (13.0-17.5) gm/dL Hct (39.0-53.0) % Plt Count (150-450) k/uL Neutrophils # (1.3-7.7) k/uL Lymphocytes # (1.0-4.8) k/uL ABG pH (7.35-7.45) ABG pCO2 (35-45) mmHg ABG pO2 (83-108) mmHg ABG HCO3 (21-25) mmol/L ABG Total CO2 (19-24) mmol/L ABG O2 Saturation (94-97) % Sodium (137-145) mmol/L Carbon Dioxide (22-30) mmol/L Glucose (74-99) mg/dL POC Glucose (mg/dL) 169 H 141 H 122 H (75-99) mg/dL Total Protein (6.3-8.2) g/dL Albumin (3.5-5.0) g/dL Crossmatch 06/10/17 Range/Units 13:15 WBC (3.8-10.6) k/uL RBC (4.30-5.90) m/uL Hgb (13.0-17.5) gm/dL Hct (39.0-53.0) % Plt Count (150-450) k/uL Neutrophils # (1.3-7.7) k/uL Lymphocytes # (1.0-4.8) k/uL ABG pH (7.35-7.45) ABG pCO2 (35-45) mmHg ABG pO2 (83-108) mmHg ABG HCO3 (21-25) mmol/L ABG Total CO2 (19-24) mmol/L ABG O2 Saturation (94-97) % Sodium (137-145) mmol/L Carbon Dioxide (22-30) mmol/L Glucose (74-99) mg/dL POC Glucose (mg/dL) 126 H (75-99) mg/dL Total Protein (6.3-8.2) g/dL Albumin (3.5-5.0) g/dL Crossmatch Assessment and Plan Plan: Impression Present on admission chest pain suspect due to acute non-ST elevated [place] 3 vessel coronary artery disease per heart catheterization done 06/05/2017 Current every day smoker 1 pack a day on Suboxone for heroin addiction in remission History of hepatitis C Hypertension Present on admission hypokalemia potassium 3.3 corrected History of illicit drug use marijuana Hyperlipidemia Family history of myocardial infarction in first degree male relative Heroin addiction in remission Status post coronary artery bypass grafting done on 06/09/2017 for three-vessel coronary artery disease Plan Continue postop surgical care Resume home meds as appropriate DVT and GI prophylaxis Patient's been advised to stop smoking cigarettes smoking cessation information will be provided Continue ICU care per the commercial manager Encourage use of incentive spirometer Monitor blood sugars address as indicated The above impression and plan of care have been discussed and directed by signing physician. Nelly Guo nurse practitioner acting as scribe for signing physician.
--- NOTE | 2017-06-10 14:28 | OP ---
DATE OF SERVICE: 06/09/2017 PREOPERATIVE DIAGNOSIS: Coronary artery disease. POSTOPERATIVE DIAGNOSIS: Coronary artery disease. PROCEDURE: 1. Coronary bypass grafting x3 vessels (left internal mammary artery to left anterior descending artery, saphenous vein graft to obtuse marginal artery, saphenous vein graft to posterior descending artery). 2. Endoscopic vein harvest right greater saphenous vein. 3. Epiaortic ultrasound. SURGEON: Royal Larson MD BOATHOUSE KEEPER: 1. Oswaldo Leahy NP. 2. CORDELL Yates. ANESTHESIA: General. SPECIMENS: None. COMPLICATIONS: None. INDICATION: The patient is a 62-year-old male with a history of multiple medical problems including a history of IVDA and heroin abuse with current hepatitis C who presented to the hospital with chest pain. Workup revealed multivessel coronary artery disease including left main disease. A coronary artery bypass was recommended. The risk, benefits, and alternatives to the procedure were discussed with the patient. All questions were answered. Consent was obtained. FINDINGS: The left internal mammary artery was a good conduit with brisk flow. The saphenous vein was a good conduit though it did get small in diameter distally. The LAD contained diffuse, heavily calcified disease and measured 1.5 mm. The OM contained diffuse calcified disease and also measured 1.5 mm. The posterior descending artery measured 1.3 cm. Of note, both the patient's upper extremities were radial dependent so the radial artery could not be utilized. In addition, multiple attempts at placing a transesophageal echocardiogram probe along with an orogastric tube were attempted by the Anesthesia Service but these were unsuccessful. PROCEDURE IN DETAIL: The patient was taken to the Operating Room and placed supine on the operating room table. After introduction of general anesthesia, he was prepped and draped in the usual sterile fashion. Multiple attempts were made by the Anesthesia Service for placing a transesophageal probe; however, this was unsuccessful. Additionally, placement of an orogastric tube was also attempted and unsuccessful. For this reason, no FABIAN was used. The patient did have a previous 2D echo which showed a preserved ejection fraction with only trace to mild mitral regurgitation. A coudet adams catheter was used as a standard catheter could not be advanced into the bladder. A median sternotomy was performed. The left internal mammary artery was harvested in the standard fashion, taking are to clip all branches. Intravenous heparin was administered and the vessel was transected distally revealing brisk flow. Simultaneously, greater saphenous vein was harvested from the right lower extremity using endoscopic technique. All branches were tied. The vein was a good conduit. A pericardial cradle was created. The ascending aorta was palpated and appeared to be soft without obvious calcific disease. Epiortic ultrasound was performed in the ascending aorta. There was some atheromatous disease but no calcified plaque noted. A soft spot was selected and an arterial cannula was placed in the distal ascending aorta. A venous cannula was placed through the right radial appendage and directed into the IVC. Both antegrade and retrograde catheters were placed as well. The patient was placed on cardiopulmonary bypass with good decompression of the heart. The aortic crossclamp was applied. Cold blood potassium cardioplegia was delivered in both retrograde and antegrade fashion to achieve arrest of the heart. Of note, cardioplegia was delivered every 15 to 20 minutes which the patient remained under crossclamp. We began by inspecting the lateral wall. The obtuse marginal #1 was identified. It did contain diffuse calcific disease but a soft spot for bypass was identified. A small arteriotomy was created. It accepted a 1.5 mm probe both proximally and distally. Using saphenous vein in a reverse fashion, an anastomosis was created. This was performed using a running 7-0 Prolene suture. The graft was hemostatic and had great flow. Additional obtuse marginal artery branches were also visualized and appeared to be too small for bypass. Next, the inferior wall was inspected. A branch of the right coronary artery system, was identified and appeared to be amenable to bypass. A small arteriotomy was created. This vessel accepted a 1.0 mm probe both proximally and distally. Using saphenous vein in a reverse fashion, an anastomosis was created. This was performed with a running 7-0 Prolene suture. The graft was hemostatic and had great flow. The anterior wall was then inspected. The LAD contained diffuse calcific disease. A soft spot for bypass was noted in the mid to distal portion. A small arteriotomy was created. This vessel accepted a 1.5 mm probe. Using the left internal mammary artery, an end-to-side anastomosis was created. This was performed using running 8-0 Prolene suture. The graft was hemostatic. The mammary pedicle was then tacked down onto the anterior surface of the heart. Attention was then turned to the proximal anastomoses. These were performed in an end-to-side fashion using running 6-0 Prolene sutures to the ascending aorta. Both grafts were hemostatic. One liter of warm blood was delivered in a retrograde fashion. Lidocaine and magnesium were administered as well. The aortic crossclamp was removed. The grafts were deaired in the standard fashion. Distal anastomoses were inspected and appeared to be hemostatic. The retrograde catheter was removed. Temporary atrial and ventricular pacing wires were placed and brought through the skin. The patient was then weaned off cardiopulmonary bypass. He without difficulty. The venous cannula was removed. Protamine was administered. There were no adverse reactions. The antegrade catheter was removed. The arterial cannula was then removed. The mediastinum was then copiously irrigated with warm saline solution. All surgical sites were inspected. Reinforcement sutures were placed as needed. Soft tissues were approximated over the ascending aorta as well over the apex of the heart. A straight 32 Surinamese chest tube was placed and directed into the left pleural space. Two additional straight 32 [place]amese chest tubes were placed and directed into the mediastinum. These were all secured to the skin using sutures. The sternum was then reapproximated with stainless steel wires in a [id number] fashion. The remainder of the wound was closed in layers. A sterile dressing was applied. The patient appeared to tolerate the procedure well. There were no immediate complications. The patient then returned to the ICU in critical but stable condition. RENE
[2017-06-10 15:29] LABS: Glucose,Whole Blood 87 mg/dL (75-99)
[2017-06-10] MEDS: LISINOPRIL 2.5 MG TAB PO SCH (16:03)
[2017-06-10 16:10] LABS: Glucose,Whole Blood 118 mg/dL (75-99)
[2017-06-10] MEDS: IPRATROPIUM-ALBUTEROL 3 ML NEB INHALATION SCH ×2 (16:54→20:07)
[2017-06-10] MEDS: LACTATED RINGERS 1,000 ML IV SCH (17:11)
[2017-06-10 17:12] LABS: Glucose,Whole Blood 118 mg/dL (75-99)
[2017-06-10 17:57] LABS: Glucose,Whole Blood 127 mg/dL (75-99)
[2017-06-10] MEDS ORDERED: HYDROcodone/APAP 5-325MG 1 EACH TAB PO PRN ×2 (18:00)
[2017-06-10 19:09] LABS: Glucose,Whole Blood 132 mg/dL (75-99)
[2017-06-10] MEDS ORDERED: HYDROcodone/APAP 7.5-325MG 1 EACH TAB PO PRN (19:49)
[2017-06-10] MEDS: METOPROLOL TARTRATE 25 MG TAB PO SCH (20:02)
[2017-06-10] MEDS: SENNOSIDES-DOCUSATE SODIUM 1 EACH TAB PO SCH (20:02)
[2017-06-10] MEDS: HYDROcodone/APAP 7.5-325MG 1 EACH TAB PO PRN ×2 (20:02→20:09)
[2017-06-10 20:08] LABS: Glucose,Whole Blood 145 mg/dL (75-99)
[2017-06-10 22:04] LABS: Glucose,Whole Blood 113 mg/dL (75-99)
[2017-06-10 23:05] LABS: Glucose,Whole Blood 130 mg/dL (75-99)
[2017-06-11] MEDS: KETOROLAC 30 MG/ML 1 ML VIAL IVP SCH ×3 (00:12→07:31)
[2017-06-11] MEDS: HEPARIN SODIUM,PORCINE 5,000 UNIT/ML 1 ML VIAL SQ SCH ×4 (00:21→23:08)
[2017-06-11 00:22] LABS: Glucose,Whole Blood 137 mg/dL (75-99)
[2017-06-11 02:03] LABS: Glucose,Whole Blood 113 mg/dL (75-99)
[2017-06-11] MEDS: ALPRAZolam 0.25 MG TAB PO PRN (02:05)
[2017-06-11 03:08] LABS: Glucose,Whole Blood 133 mg/dL (75-99)
[2017-06-11 04:46] LABS: Glucose,Whole Blood 117 mg/dL (75-99)
[2017-06-11 05:08] LABS: Basophils % (A) 0 %; CH 31.7; CHCM 35.5; Eosinophils # (A) 0.1 k/uL (0-0.7); Eosinophils % (A) 2 %; HCT 25.1 % (39.0-53.0); HDW 2.94; HGB 9.1 gm/dL (13.0-17.5); Luc # (Auto) 0.11; Luc % (Auto) 2; Lymphocytes # (A) 0.6 k/uL (1.0-4.8); Lymphocytes % (A) 13 %; MCH 32.6 pg (25.0-35.0); MCHC 36.4 g/dL (31.0-37.0); MCV 89.5 fL (80.0-100.0); Monocytes # (A) 0.4 k/uL (0-1.0); Monocytes % (A) 8 %; Neutrophils # (A) 3.5 k/uL (1.3-7.7); Neutrophils % (A) 74 %; RBC 2.81 m/uL (4.30-5.90); RDW 13.6 % (11.5-15.5); WBC 4.7 k/uL (3.8-10.6); WBC (Perox) 4.74
[2017-06-11 05:10] LABS: ALT 26 U/L (21-72); AST 48 U/L (17-59); Alkaline Phosphatase 55 U/L (38-126); Anion Gap 7 mmol/L; Blood Urea Nitrogen 24 mg/dL (9-20); Calcium 8.4 mg/dL (8.4-10.2); Carbon Dioxide 26 mmol/L (22-30); Chloride 105 mmol/L (98-107); Glucose 102 mg/dL (74-99); Magnesium 1.7 mg/dL (1.6-2.3); Non-African American GFR(MDRD) 55 (>60 ml/min/1.73 sqM); Potassium 4.3 mmol/L (3.5-5.1); Sodium 138 mmol/L (137-145); Total Bilirubin 0.9 mg/dL (0.2-1.3); Total Protein 5.3 g/dL (6.3-8.2)
[2017-06-11] MEDS: HYDROcodone/APAP 7.5-325MG 1 EACH TAB PO PRN ×5 (05:45→23:00)
[2017-06-11 06:01] LABS: Glucose,Whole Blood 127 mg/dL (75-99)
--- NOTE | 2017-06-11 07:20 | XR ---
EXAMINATION TYPE: XR chest 1V portable DATE OF EXAM: 06/11/2017 Comparison: 06/10/2017 Clinical History: 62-year-old male Post Operative Cardiac Surgery Findings: The heart remains borderline enlarged. Median sternotomy wires are present with post-CABG clips in th e mediastinum. Mediastinal drains remain in place as does a right IJ sheath after removal of the Compton -Jabier catheter. Left sided chest tube is also present. A trace left apical pneumothorax estimated at less than 5% is demonstrated. Some improved aeration at the left midlung though with increasing patch y left basilar retrocardiac opacity with continued elevation of the left hemidiaphragm. Impression: 1. Left-sided chest tube with trace left apical pneumothorax measured at less than 5%. This may have been present on prior exam as well in retrospect. 2. Increasing left basilar and retrocardiac atelectasis with continued asymmetric elevation of the le ft hemidiaphragm.
[2017-06-11 08:05] LABS: Glucose,Whole Blood 166 mg/dL (75-99)
[2017-06-11] MEDS: IPRATROPIUM-ALBUTEROL 3 ML NEB INHALATION SCH ×4 (08:06→20:46)
[2017-06-11] MEDS: CLOPIDOGREL 75 MG TAB PO SCH (08:09)
[2017-06-11] MEDS: ATORVASTATIN 40 MG TAB PO SCH (08:09)
[2017-06-11] MEDS: ASPIRIN 325 MG TAB PO SCH (08:09)
[2017-06-11] MEDS: METOPROLOL TARTRATE 25 MG TAB PO SCH ×2 (08:09→21:36)
[2017-06-11] MEDS: MAGNESIUM SULFATE-D5W PMX 1 GM in DEXTROSE/WATER 1 100ML.BAG IVPB SCH ×2 (08:10→10:11)
[2017-06-11] MEDS: MUPIROCIN 2% OINT 22 GM TUBE NASAL SCH ×3 (08:10→21:39)
[2017-06-11] MEDS: PANTOPRAZOLE 40 MG TABLET PO SCH (08:10)
[2017-06-11 08:49] LABS: ABG Base Excess 1.7 mmol/L; ABG HCO3 24 mmol/L (21-25); ABG Oxygen Saturation 99.9 % (94-97); ABG PCO2 32 mmHg (35-45); ABG PH 7.49 (7.35-7.45); ABG PO2 288 mmHg (83-108); ABG TCO2 25 mmol/L (19-24)
[2017-06-11 08:59] LABS: ABG Base Excess -0.7 mmol/L; ABG HCO3 24 mmol/L (21-25); ABG Oxygen Saturation 99.6 % (94-97); ABG PCO2 44 mmHg (35-45); ABG PH 7.36 (7.35-7.45); ABG PO2 187 mmHg (83-108); ABG TCO2 26 mmol/L (19-24)
[2017-06-11 09:00] LABS: ABG HCO3 24 mmol/L (21-25); ABG Oxygen Saturation 99.9 % (94-97); ABG PCO2 41 mmHg (35-45); ABG PH 7.38 (7.35-7.45); ABG PO2 290 mmHg (83-108); ABG TCO2 25 mmol/L (19-24)
[2017-06-11 09:01] LABS: ABG Base Excess -1.7 mmol/L; ABG HCO3 23 mmol/L (21-25); ABG Oxygen Saturation 99.9 % (94-97); ABG PCO2 44 mmHg (35-45); ABG PH 7.34 (7.35-7.45); ABG PO2 309 mmHg (83-108); ABG TCO2 25 mmol/L (19-24)
[2017-06-11 09:02] LABS: ABG Base Excess -2.1 mmol/L; ABG HCO3 23 mmol/L (21-25); ABG Oxygen Saturation 99.8 % (94-97); ABG PCO2 42 mmHg (35-45); ABG PH 7.35 (7.35-7.45); ABG PO2 229 mmHg (83-108); ABG TCO2 24 mmol/L (19-24)
[2017-06-11 09:03] LABS: ABG Base Excess -2.1 mmol/L; ABG HCO3 23 mmol/L (21-25); ABG Oxygen Saturation 99.8 % (94-97); ABG PCO2 42 mmHg (35-45); ABG PH 7.35 (7.35-7.45); ABG PO2 229 mmHg (83-108); ABG TCO2 24 mmol/L (19-24)
[2017-06-11 09:30] LABS: Glucose,Whole Blood 165 mg/dL (75-99)
--- NOTE | 2017-06-11 09:42 | P.PN ---
Subjective Principal diagnosis: Severe multivessel coronary artery disease, non-STEMI. Hypertension. Hyperlipidemia. History of colon cancer with resection and radiation. Hepatitis C positive. Current tobacco abuse. History of heroin addiction, clean for 4 years, currently on Suboxone. Family history of early age from myocardial infarction. Preoperative nasal swab positive for MSSA. POD #2 coronary artery bypass grafting, left internal mammary artery to the left anterior descending artery, reverse saphenous vein graft to the obtuse marginal artery, reverse saphenous vein graft to the posterior descending artery , endoscopic vein harvest, epi-aortic scanning, intraoperative transesophageal echocardiogram. Patient currently sitting up in a recliner in no acute distress. Had some pain issues last night, pain medication increased. Objective - Vital Signs Vital signs: Vital Signs Temp 98.2 F 06/11/17 08:00 Pulse 93 06/11/17 09:00 Resp 23 06/11/17 09:00 BP 128/69 06/11/17 09:00 Pulse Ox 93 L 06/11/17 09:00 Intake & Output 06/10/17 06/11/17 06/11/17 18:59 06:59 18:59 Intake Total 1726.113 615.298 211.323 Output Total 1481 1205 160 Balance 245.113 -589.702 51.323 Weight 69.2 kg 75.8 kg Intake: IV 1036 536 208 ACETAMINOPHEN IV (For NPO 300 ) 1,000 mg In Empty Bag 1 bag @ 400 mls/hr IVPB Q6HR SOM Rx#:[id number] CO/CI Fluid flush 10 CeFAZolin 2gm in 0.9 NaCl 100 - Lactated Ringers 1,000 ml 390 470 90 @ 20 mls/hr IV .Q24H SOM Rx#:[id number] Magnesium 200 100 Pressure bag, 0.9NaCl- 36 66 18 Intake, IV Titration 90.113 79.298 3.323 Amount Clevidipine Butyrate 25 0 mg In Empty Bag 1 bag @ 1 MG/HR 2 mls/hr IV .Q24H SOM Rx#:[id number] Insulin Regular 100 unit 23.313 19.298 3.323 In Sodium Chloride 0.9% 100 ml @ Per Protocol IV .Q0M SOM Rx#:[id number] Lactated Ringers 1,000 ml 20 @ 20 mls/hr IV .Q24H SOM Rx#:[id number] Magnesium Sulfate-D5w Pmx 60 1 gm In Dextrose/Water 1 100ml.bag @ 100 mls/hr IVPB Q1H SOM Rx#: [id number] Nitroglycerin-D5w Pmx 50 46.8 mg In Dextrose/Water 1 250ml.bag @ 5 MCG/MIN 1.5 mls/hr IV .Q24H SOM Rx#: [id number] Oral 600 Output: Chest Tube Drainage 261 270 40 Chest Tube Bilateral 150 180 30 Mediastinal Chest Tube Left Lateral 111 90 10 Chest Urine 1220 935 120 Other: Voiding Method Indwelling Catheter Indwelling Catheter Indwelling Catheter # Voids 2 # Bowel Movements 0 0 ABP, PAP, CO, CI - Last Documented Arterial Blood Pressure 145/51 Pulmonary Artery Pressure 12/1 Cardiac Output 4.6 Cardiac Index 2.5 - Constitutional General appearance: Present: cooperative, no acute distress - Respiratory Details: Lungs sounds was bilaterally. Respirations even, nonlabored. Currently on room air with oxygen saturation 94%. Able to achieve 1500 mL on his incentive spirometry. Mediastinal chest tube to -20 cm wall suction, 120 mL drainage overnight, 350 mL in the last 24 hours. Left pleural chest tube to -20 cm wall suction, 90 mL drainage overnight, 200 mL in the last 24 hours. No air leaks present. - Cardiovascular Details: S1, S2 present. Regular rate and rhythm, normal sinus rhythm on telemetry. Sternum stable. Heart hugger placed patient demonstrating appropriate use. Teds/SCDs present. No edema present. Epicardial pacemaker wires present, grounded. - Gastrointestinal Gastrointestinal Comment(s): Abdomen soft, nontender, nondistended. Active bowel sounds 4 quadrants. Tolerating diet. - Genitourinary Genitourinary Comment(s): Godoy present draining clear, yellow urine. Output 35-75 mL per hour. - Integumentary Integumentary Comment(s): Anterior chest incision well approximated, covered with dry intact dressing. - Musculoskeletal Musculoskeletal: Present: gait normal, strength equal bilaterally - Psychiatric Psychiatric: Present: A&O x's 3, appropriate affect, intact judgment & insight - Allied health notes Allied health notes reviewed: nursing - Labs CBC & Chem 7: 06/11/17 04:42 06/11/17 04:42 Labs: Abnormal Lab Results - Last 24 Hours (Table) 07/09/1606/09/17 06/09/17 Range/Units 08:58 10:08 11:11 RBC (4.30-5.90) m/uL Hgb (13.0-17.5) gm/dL Hct (39.0-53.0) % Plt Count (150-450) k/uL Lymphocytes # (1.0-4.8) k/uL ABG pH 7.49 H (7.35-7.45) ABG pCO2 32 L (35-45) mmHg ABG pO2 288 H 187 H 290 H (83-108) mmHg ABG Total CO2 25 H 26 H 25 H (19-24) mmol/L ABG O2 Saturation 99.9 H 99.6 H 99.9 H (94-97) % ABG Hematocrit 33 L 27 L (34.0-46.0) % ABG Potassium 4.6 H (3.4-4.5) mmol/L BUN (9-20) mg/dL Creatinine (0.66-1.25) mg/dL Glucose (74-99) mg/dL POC Glucose (mg/dL) (75-99) mg/dL Total Protein (6.3-8.2) g/dL Albumin (3.5-5.0) g/dL Arterial Blood Potassium 4.6 H (3.4-4.5) mmol/L 06/09/17 06/09/17 06/09/17 Range/Units 12:02 13:37 13:37 RBC (4.30-5.90) m/uL Hgb (13.0-17.5) gm/dL Hct (39.0-53.0) % Plt Count (150-450) k/uL Lymphocytes # (1.0-4.8) k/uL ABG pH 7.34 L (7.35-7.45) ABG pCO2 (35-45) mmHg ABG pO2 309 H 229 H 229 H (83-108) mmHg ABG Total CO2 25 H (19-24) mmol/L ABG O2 Saturation 99.9 H 99.8 H 99.8 H (94-97) % ABG Hematocrit 27 L 32 L 32 L (34.0-46.0) % ABG Potassium (3.4-4.5) mmol/L BUN (9-20) mg/dL Creatinine (0.66-1.25) mg/dL Glucose (74-99) mg/dL POC Glucose (mg/dL) (75-99) mg/dL Total Protein (6.3-8.2) g/dL Albumin (3.5-5.0) g/dL Arterial Blood Potassium (3.4-4.5) mmol/L 06/10/17 06/10/17 06/10/17 Range/Units 10:05 11:05 13:15 RBC (4.30-5.90) m/uL Hgb (13.0-17.5) gm/dL Hct (39.0-53.0) % Plt Count (150-450) k/uL Lymphocytes # (1.0-4.8) k/uL ABG pH (7.35-7.45) ABG pCO2 (35-45) mmHg ABG pO2 (83-108) mmHg ABG Total CO2 (19-24) mmol/L ABG O2 Saturation (94-97) % ABG Hematocrit (34.0-46.0) % ABG Potassium (3.4-4.5) mmol/L BUN (9-20) mg/dL Creatinine (0.66-1.25) mg/dL Glucose (74-99) mg/dL POC Glucose (mg/dL) 141 H 122 H 126 H (75-99) mg/dL Total Protein (6.3-8.2) g/dL Albumin (3.5-5.0) g/dL Arterial Blood Potassium (3.4-4.5) mmol/L 06/10/17 06/10/17 06/10/17 Range/Units 14:08 16:08 17:10 RBC (4.30-5.90) m/uL Hgb (13.0-17.5) gm/dL Hct (39.0-53.0) % Plt Count (150-450) k/uL Lymphocytes # (1.0-4.8) k/uL ABG pH (7.35-7.45) ABG pCO2 (35-45) mmHg ABG pO2 (83-108) mmHg ABG Total CO2 (19-24) mmol/L ABG O2 Saturation (94-97) % ABG Hematocrit (34.0-46.0) % ABG Potassium (3.4-4.5) mmol/L BUN (9-20) mg/dL Creatinine (0.66-1.25) mg/dL Glucose (74-99) mg/dL POC Glucose (mg/dL) 134 H 118 H 118 H (75-99) mg/dL Total Protein (6.3-8.2) g/dL Albumin (3.5-5.0) g/dL Arterial Blood Potassium (3.4-4.5) mmol/L 06/10/17 06/10/17 06/10/17 Range/Units 17:56 19:08 20:07 RBC (4.30-5.90) m/uL Hgb (13.0-17.5) gm/dL Hct (39.0-53.0) % Plt Count (150-450) k/uL Lymphocytes # (1.0-4.8) k/uL ABG pH (7.35-7.45) ABG pCO2 (35-45) mmHg ABG pO2 (83-108) mmHg ABG Total CO2 (19-24) mmol/L ABG O2 Saturation (94-97) % ABG Hematocrit (34.0-46.0) % ABG Potassium (3.4-4.5) mmol/L BUN (9-20) mg/dL Creatinine (0.66-1.25) mg/dL Glucose (74-99) mg/dL POC Glucose (mg/dL) 127 H 132 H 145 H (75-99) mg/dL Total Protein (6.3-8.2) g/dL Albumin (3.5-5.0) g/dL Arterial Blood Potassium (3.4-4.5) mmol/L 06/10/17 06/10/17 06/11/17 Range/Units 22:01 23:02 00:20 RBC (4.30-5.90) m/uL Hgb (13.0-17.5) gm/dL Hct (39.0-53.0) % Plt Count (150-450) k/uL Lymphocytes # (1.0-4.8) k/uL ABG pH (7.35-7.45) ABG pCO2 (35-45) mmHg ABG pO2 (83-108) mmHg ABG Total CO2 (19-24) mmol/L ABG O2 Saturation (94-97) % ABG Hematocrit (34.0-46.0) % ABG Potassium (3.4-4.5) mmol/L BUN (9-20) mg/dL Creatinine (0.66-1.25) mg/dL Glucose (74-99) mg/dL POC Glucose (mg/dL) 113 H 130 H 137 H (75-99) mg/dL Total Protein (6.3-8.2) g/dL Albumin (3.5-5.0) g/dL Arterial Blood Potassium (3.4-4.5) mmol/L 06/11/17 06/11/17 06/11/17 Range/Units 02:01 03:06 04:42 RBC (4.30-5.90) m/uL Hgb (13.0-17.5) gm/dL Hct (39.0-53.0) % Plt Count (150-450) k/uL Lymphocytes # (1.0-4.8) k/uL ABG pH (7.35-7.45) ABG pCO2 (35-45) mmHg ABG pO2 (83-108) mmHg ABG Total CO2 (19-24) mmol/L ABG O2 Saturation (94-97) % ABG Hematocrit (34.0-46.0) % ABG Potassium (3.4-4.5) mmol/L BUN 24 H (9-20) mg/dL Creatinine 1.32 H (0.66-1.25) mg/dL Glucose 102 H (74-99) mg/dL POC Glucose (mg/dL) 113 H 133 H (75-99) mg/dL Total Protein 5.3 L (6.3-8.2) g/dL Albumin 2.8 L (3.5-5.0) g/dL Arterial Blood Potassium (3.4-4.5) mmol/L 06/11/17 06/11/17 06/11/17 Range/Units 04:42 04:43 05:59 RBC 2.81 L (4.30-5.90) m/uL Hgb 9.1 L (13.0-17.5) gm/dL Hct 25.1 L (39.0-53.0) % Plt Count 103 L (150-450) k/uL Lymphocytes # 0.6 L (1.0-4.8) k/uL ABG pH (7.35-7.45) ABG pCO2 (35-45) mmHg ABG pO2 (83-108) mmHg ABG Total CO2 (19-24) mmol/L ABG O2 Saturation (94-97) % ABG Hematocrit (34.0-46.0) % ABG Potassium (3.4-4.5) mmol/L BUN (9-20) mg/dL Creatinine (0.66-1.25) mg/dL Glucose (74-99) mg/dL POC Glucose (mg/dL) 117 H 127 H (75-99) mg/dL Total Protein (6.3-8.2) g/dL Albumin (3.5-5.0) g/dL Arterial Blood Potassium (3.4-4.5) mmol/L 06/11/17 Range/Units 08:04 RBC (4.30-5.90) m/uL Hgb (13.0-17.5) gm/dL Hct (39.0-53.0) % Plt Count (150-450) k/uL Lymphocytes # (1.0-4.8) k/uL ABG pH (7.35-7.45) ABG pCO2 (35-45) mmHg ABG pO2 (83-108) mmHg ABG Total CO2 (19-24) mmol/L ABG O2 Saturation (94-97) % ABG Hematocrit (34.0-46.0) % ABG Potassium (3.4-4.5) mmol/L BUN (9-20) mg/dL Creatinine (0.66-1.25) mg/dL Glucose (74-99) mg/dL POC Glucose (mg/dL) 166 H (75-99) mg/dL Total Protein (6.3-8.2) g/dL Albumin (3.5-5.0) g/dL Arterial Blood Potassium (3.4-4.5) mmol/L - Imaging and Cardiology Chest x-ray: report reviewed, image reviewed Assessment and Plan (1) Hypertension Status: Acute (2) Coronary artery disease Status: Acute (3) Hyperlipidemia Status: Acute (4) Tobacco dependence Status: Acute (5) Hepatitis C Status: Acute (6) Heroin addiction Status: Acute (7) Family history of myocardial infarction in first degree male relative Status: Acute Plan: 1. Continue aspirin, Plavix, Lopressor, statin, SCOTT inhibitor. Will maximize beta leonor therapy. 2. Encourage incentive spirometry use. Encourage smoking cessation 3. Increase activity, ambulate in hallway. Physical therapy to follow. 4. Insulin drip/diabetic management per primary care service. 5. Discontinue Godoy. Discontinue arterial line, Cordis. 6. GI/DVT prophylaxis. 7. Will monitor daily labs, x-rays. 8. More recommendations as patient progresses. Anticipate transfer to [facility] later today. Time with Patient: Greater than 30
--- NOTE | 2017-06-11 10:17 | PN ---
Mr. Jimenes underwent aortocoronary bypass surgery yesterday with a MURO to LAD , vein graft to the obtuse marginal and also PDA branch of RCA. Post-procedure he is doing well. He is sinus rhythm, not on any pressors. He is extubated. Vital signs are stable. S1, S2, heard normally. No rub is audible. Lungs reveal fair air entry. Abdomen and lower extremities unchanged. Plan is to continue current medications, increase activity, incentive spirometry and pulmonary toilet. RENE
[2017-06-11 10:44] LABS: Glucose,Whole Blood 142 mg/dL (75-99)
--- NOTE | 2017-06-11 10:56 | P.ARTDOP ---
Arterial Doppler LOWER EXTREMITY ARTERIAL DOPPLER: DATE OF SERVICE: 06/05/2017 Reason for study: Pre-CABG. Doppler waveforms: Multiphasic throughout on the right. Multiphasic proximally on the left and atypical distally.. Pulse volume recording: Mild distal blunting, mainly on the left. Pressure gradients: None on the right and mild gradient on the left across the thigh. Ankle-brachial indices: 0.99 on the right and 0.80 and the left. Toe pressures: [] on the right, [] on the left Impression: Normal study on the right. Mild left SFA disease..
--- NOTE | 2017-06-11 11:03 | P.ARTDOP ---
Arterial Doppler Bilateral radial artery study. Date of study: 06/06/2017 Reason for study: Pre-CABG Findings: Doppler waveforms are multiphasic throughout and I find no right to left or segmental resting pressure gradients there is no specific gradient listed and I can therefore not give any specific judgment in regards to adequate perfusion if radial artery were utilized. There is no imaging given for redetermine adequacy of size for utilization. Cannot make a judgment call regarding use of radial artery as conduit based on this study
--- NOTE | 2017-06-11 11:06 | P.VSCSTY ---
Greater Saphenous Vein Mapping This is bilateral lower extremity greater saphenous vein mapping. Date of service 06/05/2017 Vein quality and ultrasound appearance normal. Vein size groin right 4.6 x 4.8 groin left 5.1 x 3.5 High thigh right 4.9 x 3.2 high thigh left 4.8 x 3.6 Mid thigh right 4.0 x 2.6 mid thigh left 3.8 x 3.5 Above-knee right 3.7 x 3.0 above- knee left 3.3 x 3.0 Below knee right 3.3 x 2.7 below-knee left 1.9 x 1.6 Mid calf right 2.2 x 1.7 mid calf left 3.6 x 2.2 Ankle right 2.8 x 2.3 ankle left 2.0 x 1.9 Impression usable bilateral greater saphenous vein. There may be areas in each lower leg to small for use..
--- NOTE | 2017-06-11 11:50 | P.PN ---
Subjective This is a 62-year-old white male, heavy smoker, no documented history of COPD, patient presented initially to [facility] facility with acute onset of chest pain. Pain was felt to be cardiac in nature, and the patient was felt to have non-ST elevation myocardial infarction. According to the patient he had intermittent episodes of chest pains over the anterior chest intermittently for the last few months. However this time, the pain was more severe. It was associated with radiation to the neck, also assure initiated with diaphoresis. Patient was found to have ischemic changes in his 12-lead EKG , troponin was mildly elevated. Started on IV heparin, and he was transferred to [facility] and cardiac catheterization was done, and it showed three-vessel coronary artery disease with 60% left main, patient was seen by surgery on consultation, and he may be scheduled for cardiac bypass surgery soon. Considering his smoking history, considering his history of nicotine addiction as well as previous history of heroin addiction, I was asked to see the patient on consultation for preoperative pulmonary clearance. Presently, the patient denies any headaches, no blurred vision, no dizziness, no chest pain no nausea no vomiting no abdominal pain. Patient denies dyspnea on exertion, he is relatively active in spite of his significant smoking history. Bedside PFT is pending at the time of this dictation. The patient was seen again today in follow-up 06/06/2017 on the selective care unit. He is awake and alert in no acute distress. His bedside spirometry did reveal a FEV1 value of 79% of predicted. He denies any chest pain currently. He denies any worsening shortness of breath, cough or congestion. He is maintaining good O2 saturations in the 90s on room air. He has been hemodynamically stable. Lab results within normal limits. His chest x-ray revealed no acute cardiopulmonary disease. He is currently being worked up for possible coronary artery bypass grafting early next week. Patient was seen again on follow-up on 06/07/2017, doing quite well, relatively asymptomatic, bedside spirometry has been reviewed, patient is scheduled to undergo myocardial revascularization early Friday. Chest x-ray showed no acute pulmonary process. CBC is normal basic metabolic profile is normal creatinine however is 1.20. Reevaluated today on 06/08/2017, patient seems to be doing well, asymptomatic, no shortness of breath no cough no wheezing and no chest pain. Labs were reviewed they seem to be unremarkable. PTT is 53 basic metabolic profile is normal renal profile is normalizing. The patient is seen again today 06/10/2017 in follow-up in the intensive care unit. He is status post coronary artery bypass grafting utilizing a MURO to the LAD, reverse saphenous vein graft to the obtuse marginal and posterior descending arteries. This is postoperative day #1. He was successfully extubated last evening. He is currently sitting up in a chair at the bedside. He is awake and alert in no acute distress. He is maintaining good O2 saturations in the 90s on 2 L/m per nasal cannula. He is doing well with the incentive spirometer pulling greater than 1500 MLS. Chest tubes remain in place to the mediastinum and left chest. Pacer wires in place. He is receiving lactated Ringer's at 50 MLS per hour. He has been on Precedex at 0.2 mg. He is also on a insulin drip at 4 units per hour. His chest x-ray shows chronic and somatic changes with left mid lateral atelectasis and basilar atelectasis/infiltrate. There is increased elevation of left hemidiaphragm. There is no leukocytosis. Hemoglobin 9.9. The patient was seen again today 06/11/2017 in follow-up in the intensive care unit. He is sitting up in a chair at the bed side currently. He is awake and alert in no acute distress. His pain is well controlled. He denies any worsening shortness of breath, cough or congestion. He is maintaining good O2 saturations in the mid 90s on room air. He is pulling approximately 1500 MLS on the incentive spirometer. Chest x-ray does show some basilar atelectasis left greater than right. He remains on the dilators 4 times a day and when necessary. His continuous a lactated Ringer's at 20 miles per hour. He has a insulin drip at 4 units per hour. He has been hemodynamically stable. Hemoglobin 9.1. Afebrile. Objective - Vital Signs Vital signs: Vital Signs Temp 98.2 F 06/11/17 08:00 Pulse 88 06/11/17 11:18 Resp 13 06/11/17 11:00 BP 108/62 06/11/17 11:00 Pulse Ox 96 06/11/17 11:00 Intake & Output 06/10/17 06/11/17 06/11/17 18:59 06:59 18:59 Intake Total 1726.113 615.298 437.464 Output Total 1481 1205 240 Balance 245.113 -589.702 197.464 Weight 69.2 kg 75.8 kg Intake: IV 1036 536 380 ACETAMINOPHEN IV (For NPO 300 ) 1,000 mg In Empty Bag 1 bag @ 400 mls/hr IVPB Q6HR SOM Rx#:[id number] CO/CI Fluid flush 10 CeFAZolin 2gm in 0.9 NaCl 100 - Lactated Ringers 1,000 ml 390 470 150 @ 20 mls/hr IV .Q24H SOM Rx#:[id number] Magnesium 200 200 Pressure bag, 0.9NaCl- 36 66 30 Intake, IV Titration 90.113 79.298 7.464 Amount Clevidipine Butyrate 25 0 mg In Empty Bag 1 bag @ 1 MG/HR 2 mls/hr IV .Q24H SOM Rx#:[id number] Insulin Regular 100 unit 23.313 19.298 7.464 In Sodium Chloride 0.9% 100 ml @ Per Protocol IV .Q0M SOM Rx#:[id number] Lactated Ringers 1,000 ml 20 @ 20 mls/hr IV .Q24H SOM Rx#:[id number] Magnesium Sulfate-D5w Pmx 60 1 gm In Dextrose/Water 1 100ml.bag @ 100 mls/hr IVPB Q1H SOM Rx#: [id number] Nitroglycerin-D5w Pmx 50 46.8 mg In Dextrose/Water 1 250ml.bag @ 5 MCG/MIN 1.5 mls/hr IV .Q24H SOM Rx#: [id number] Oral 600 50 Output: Chest Tube Drainage 261 270 120 Chest Tube Bilateral 150 180 50 Mediastinal Chest Tube Left Lateral 111 90 70 Chest Urine 1220 935 120 Other: Voiding Method Indwelling Catheter Indwelling Catheter Indwelling Catheter # Voids 2 0 # Bowel Movements 0 0 ABP, PAP, CO, CI - Last Documented Arterial Blood Pressure 108/40 Pulmonary Artery Pressure 12/1 Cardiac Output 4.6 Cardiac Index 2.5 - Exam GENERAL EXAM: Alert, active, comfortable in no apparent distress. HEAD: Normocephalic. EYES: Normal reaction of pupils, equal size. NOSE: Clear with pink turbinates. THROAT: No erythema or exudates. NECK: No masses, no JVD. CHEST: Sternal dressing dry and intact. Heart hugger place. LUNGS: Equal air entry with crackles in the posterior bases. Mediastinal and left chest tubes in place. CVS: S1 and S2 normal with no audible murmurs, regular rhythm. ABDOMEN: No hepatosplenomegaly, normal bowel sounds, no guarding or rigidity. SPINE: No scoliosis or deformity SKIN: No rashes CENTRAL NERVOUS SYSTEM: No focal deficits, tone is normal in all 4 extremities. Extremities: There is no significant peripheral edema. No clubbing, no cyanosis. Peripheral pulses are intact. - Labs CBC & Chem 7: 06/11/17 04:42 06/11/17 04:42 Labs: Abnormal Lab Results - Last 24 Hours (Table) 06/09/17 06/09/17 06/09/17 Range/Units 08:58 10:08 11:11 RBC (4.30-5.90) m/uL Hgb (13.0-17.5) gm/dL Hct (39.0-53.0) % Plt Count (150-450) k/uL Lymphocytes # (1.0-4.8) k/uL ABG pH 7.49 H (7.35-7.45) ABG pCO2 32 L (35-45) mmHg ABG pO2 288 H 187 H 290 H (83-108) mmHg ABG Total CO2 25 H 26 H 25 H (19-24) mmol/L ABG O2 Saturation 99.9 H 99.6 H 99.9 H (94-97) % ABG Hematocrit 33 L 27 L (34.0-46.0) % ABG Potassium 4.6 H (3.4-4.5) mmol/L BUN (9-20) mg/dL Creatinine (0.66-1.25) mg/dL Glucose (74-99) mg/dL POC Glucose (mg/dL) (75-99) mg/dL Total Protein (6.3-8.2) g/dL Albumin (3.5-5.0) g/dL Arterial Blood Potassium 4.6 H (3.4-4.5) mmol/L 06/09/17 06/09/17 06/09/17 Range/Units 12:02 13:37 13:37 RBC (4.30-5.90) m/uL Hgb (13.0-17.5) gm/dL Hct (39.0-53.0) % Plt Count (150-450) k/uL Lymphocytes # (1.0-4.8) k/uL ABG pH 7.34 L (7.35-7.45) ABG pCO2 (35-45) mmHg ABG pO2 309 H 229 H 229 H (83-108) mmHg ABG Total CO2 25 H (19-24) mmol/L ABG O2 Saturation 99.9 H 99.8 H 99.8 H (94-97) % ABG Hematocrit 27 L 32 L 32 L (34.0-46.0) % ABG Potassium (3.4-4.5) mmol/L BUN (9-20) mg/dL Creatinine (0.66-1.25) mg/dL Glucose (74-99) mg/dL POC Glucose (mg/dL) (75-99) mg/dL Total Protein (6.3-8.2) g/dL Albumin (3.5-5.0) g/dL Arterial Blood Potassium (3.4-4.5) mmol/L 06/10/17 06/10/17 06/10/17 Range/Units 13:15 14:08 16:08 RBC (4.30-5.90) m/uL Hgb (13.0-17.5) gm/dL Hct (39.0-53.0) % Plt Count (150-450) k/uL Lymphocytes # (1.0-4.8) k/uL ABG pH (7.35-7.45) ABG pCO2 (35-45) mmHg ABG pO2 (83-108) mmHg ABG Total CO2 (19-24) mmol/L ABG O2 Saturation (94-97) % ABG Hematocrit (34.0-46.0) % ABG Potassium (3.4-4.5) mmol/L BUN (9-20) mg/dL Creatinine (0.66-1.25) mg/dL Glucose (74-99) mg/dL POC Glucose (mg/dL) 126 H 134 H 118 H (75-99) mg/dL Total Protein (6.3-8.2) g/dL Albumin (3.5-5.0) g/dL Arterial Blood Potassium (3.4-4.5) mmol/L 06/10/17 06/10/17 06/10/17 Range/Units 17:10 17:56 19:08 RBC (4.30-5.90) m/uL Hgb (13.0-17.5) gm/dL Hct (39.0-53.0) % Plt Count (150-450) k/uL Lymphocytes # (1.0-4.8) k/uL ABG pH (7.35-7.45) ABG pCO2 (35-45) mmHg ABG pO2 (83-108) mmHg ABG Total CO2 (19-24) mmol/L ABG O2 Saturation (94-97) % ABG Hematocrit (34.0-46.0) % ABG Potassium (3.4-4.5) mmol/L BUN (9-20) mg/dL Creatinine (0.66-1.25) mg/dL Glucose (74-99) mg/dL POC Glucose (mg/dL) 118 H 127 H 132 H (75-99) mg/dL Total Protein (6.3-8.2) g/dL Albumin (3.5-5.0) g/dL Arterial Blood Potassium (3.4-4.5) mmol/L 06/10/17 06/10/17 06/10/17 Range/Units 20:07 22:01 23:02 RBC (4.30-5.90) m/uL Hgb (13.0-17.5) gm/dL Hct (39.0-53.0) % Plt Count (150-450) k/uL Lymphocytes # (1.0-4.8) k/uL ABG pH (7.35-7.45) ABG pCO2 (35-45) mmHg ABG pO2 (83-108) mmHg ABG Total CO2 (19-24) mmol/L ABG O2 Saturation (94-97) % ABG Hematocrit (34.0-46.0) % ABG Potassium (3.4-4.5) mmol/L BUN (9-20) mg/dL Creatinine (0.66-1.25) mg/dL Glucose (74-99) mg/dL POC Glucose (mg/dL) 145 H 113 H 130 H (75-99) mg/dL Total Protein (6.3-8.2) g/dL Albumin (3.5-5.0) g/dL Arterial Blood Potassium (3.4-4.5) mmol/L 06/11/17 06/11/17 06/11/17 Range/Units 00:20 02:01 03:06 RBC (4.30-5.90) m/uL Hgb (13.0-17.5) gm/dL Hct (39.0-53.0) % Plt Count (150-450) k/uL Lymphocytes # (1.0-4.8) k/uL ABG pH (7.35-7.45) ABG pCO2 (35-45) mmHg ABG pO2 (83-108) mmHg ABG Total CO2 (19-24) mmol/L ABG O2 Saturation (94-97) % ABG Hematocrit (34.0-46.0) % ABG Potassium (3.4-4.5) mmol/L BUN (9-20) mg/dL Creatinine (0.66-1.25) mg/dL Glucose (74-99) mg/dL POC Glucose (mg/dL) 137 H 113 H 133 H (75-99) mg/dL Total Protein (6.3-8.2) g/dL Albumin (3.5-5.0) g/dL Arterial Blood Potassium (3.4-4.5) mmol/L 06/11/17 06/11/17 06/11/17 Range/Units 04:42 04:42 04:43 RBC 2.81 L (4.30-5.90) m/uL Hgb 9.1 L (13.0-17.5) gm/dL Hct 25.1 L (39.0-53.0) % Plt Count 103 L (150-450) k/uL Lymphocytes # 0.6 L (1.0-4.8) k/uL ABG pH (7.35-7.45) ABG pCO2 (35-45) mmHg ABG pO2 (83-108) mmHg ABG Total CO2 (19-24) mmol/L ABG O2 Saturation (94-97) % ABG Hematocrit (34.0-46.0) % ABG Potassium (3.4-4.5) mmol/L BUN 24 H (9-20) mg/dL Creatinine 1.32 H (0.66-1.25) mg/dL Glucose 102 H (74-99) mg/dL POC Glucose (mg/dL) 117 H (75-99) mg/dL Total Protein 5.3 L (6.3-8.2) g/dL Albumin 2.8 L (3.5-5.0) g/dL Arterial Blood Potassium (3.4-4.5) mmol/L 06/11/17 06/11/17 06/11/17 Range/Units 05:59 08:04 09:28 RBC (4.30-5.90) m/uL Hgb (13.0-17.5) gm/dL Hct (39.0-53.0) % Plt Count (150-450) k/uL Lymphocytes # (1.0-4.8) k/uL ABG pH (7.35-7.45) ABG pCO2 (35-45) mmHg ABG pO2 (83-108) mmHg ABG Total CO2 (19-24) mmol/L ABG O2 Saturation (94-97) % ABG Hematocrit (34.0-46.0) % ABG Potassium (3.4-4.5) mmol/L BUN (9-20) mg/dL Creatinine (0.66-1.25) mg/dL Glucose (74-99) mg/dL POC Glucose (mg/dL) 127 H 166 H 165 H (75-99) mg/dL Total Protein (6.3-8.2) g/dL Albumin (3.5-5.0) g/dL Arterial Blood Potassium (3.4-4.5) mmol/L 06/11/17 Range/Units 10:42 RBC (4.30-5.90) m/uL Hgb (13.0-17.5) gm/dL Hct (39.0-53.0) % Plt Count (150-450) k/uL Lymphocytes # (1.0-4.8) k/uL ABG pH (7.35-7.45) ABG pCO2 (35-45) mmHg ABG pO2 (83-108) mmHg ABG Total CO2 (19-24) mmol/L ABG O2 Saturation (94-97) % ABG Hematocrit (34.0-46.0) % ABG Potassium (3.4-4.5) mmol/L BUN (9-20) mg/dL Creatinine (0.66-1.25) mg/dL Glucose (74-99) mg/dL POC Glucose (mg/dL) 142 H (75-99) mg/dL Total Protein (6.3-8.2) g/dL Albumin (3.5-5.0) g/dL Arterial Blood Potassium (3.4-4.5) mmol/L Assessment and Plan Plan: Impression: 1 acute non-ST elevation myocardial infarction with significant coronary artery disease. Status post coronary artery bypass grafting utilizing a MURO to the LAD, reverse saphenous vein grafts to the obtuse marginal and PDA arteries. Postoperative day #2. 2 ventilator management as an expected outcome post surgical. Successfully extubated 06/09/2017. 3 history of nicotine dependence syndrome, however the patient does not have significant symptoms to suggest significant COPD, FEV1 value 79% of predicted. 4 history of hepatitis C 5 history of heroin addiction 6 history of hyperlipidemia. 7 history of hypertension 8 family history of premature coronary artery disease. Plan: The patient was seen and evaluated by Dr. Beltran. His chest x-ray and labs were reviewed. The patient is again encouraged regarding the increased use of the incentive spirometer and cough and deep breathing exercises. We'll continue with his current medications including bronchodilators 4 times a day and when necessary. We will increase his activity as tolerated. He could be transferred out of the ICU later today. We'll continue to follow.
[2017-06-11 12:37] LABS: Glucose,Whole Blood 176 mg/dL (75-99)
[2017-06-11] MEDS: INSULIN LISPRO (humaLOG) 300 UNIT/3 ML VIAL SQ SCH ×3 (12:41→21:36)
[2017-06-11] MEDS: LISINOPRIL 2.5 MG TAB PO SCH (15:06)
[2017-06-11] MEDS: LACTATED RINGERS 1,000 ML IV SCH (15:06)
[2017-06-11 15:45] VITALS: BMI 24.6
--- NOTE | 2017-06-11 16:48 | PN ---
This is a gentleman with history of bypass surgery two days ago recovering nicely. Remains in sinus rhythm. Still has some chest tube that are probably going to come out today. Vital signs are stable. S1, S2 heard normally. Lungs reveal improved air entry. Abdomen and lower extremity exam is unchanged. Plan is to continue incentive spirometry. Pulmonary toilet. MTDD
[2017-06-11 17:55] LABS: Glucose,Whole Blood 125 mg/dL (75-99)
[2017-06-11] MEDS: FAMOTIDINE 20 MG TAB PO SCH (20:19)
[2017-06-11] MEDS: METOPROLOL TARTRATE 12.5 MG TAB PO SCH (20:19)
[2017-06-11] MEDS: ASPIRIN 81 MG CHEW PO SCH (20:20)
[2017-06-11] MEDS: NALOXONE HCL SUBLINGUAL SCH (20:20)
[2017-06-11] MEDS: BUPRENORPHINE HCL SUBLINGUAL SCH (20:20)
[2017-06-11] MEDS: CHLORTHALIDONE 25 MG TAB PO SCH (20:20)
[2017-06-11 20:22] VITALS: RESP 18
[2017-06-11 21:15] LABS: Glucose,Whole Blood 163 mg/dL (75-99)
[2017-06-11] MEDS: SENNOSIDES-DOCUSATE SODIUM 1 EACH TAB PO SCH (21:36)
[2017-06-12 02:13] LABS: Glucose,Whole Blood 135 mg/dL (75-99)
[2017-06-12] MEDS: HYDROcodone/APAP 7.5-325MG 1 EACH TAB PO PRN ×5 (03:18→20:41)
[2017-06-12 06:07] LABS: Glucose,Whole Blood 135 mg/dL (75-99)
[2017-06-12] MEDS: PANTOPRAZOLE 40 MG TABLET PO SCH (06:58)
[2017-06-12] MEDS: INSULIN LISPRO (humaLOG) 300 UNIT/3 ML VIAL SQ SCH ×4 (06:58→21:37)
[2017-06-12 07:28] LABS: CH 32.2; CHCM 36.5; HCT 30.5 % (39.0-53.0); HDW 2.98; HGB 11.2 gm/dL (13.0-17.5); MCH 32.6 pg (25.0-35.0); MCHC 36.7 g/dL (31.0-37.0); MCV 88.7 fL (80.0-100.0); Mean Platelet Volume 8.4; RBC 3.43 m/uL (4.30-5.90); RDW 13.7 % (11.5-15.5); WBC 10.7 k/uL (3.8-10.6)
[2017-06-12 07:51] LABS: ALT 34 U/L (21-72); AST 51 U/L (17-59); Alkaline Phosphatase 86 U/L (38-126); Anion Gap 10 mmol/L; Blood Urea Nitrogen 25 mg/dL (9-20); Calcium 9.1 mg/dL (8.4-10.2); Carbon Dioxide 25 mmol/L (22-30); Chloride 104 mmol/L (98-107); Glucose 130 mg/dL (74-99); Non-African American GFR(MDRD) 58 (>60 ml/min/1.73 sqM); Sodium 139 mmol/L (137-145); Total Bilirubin 1.5 mg/dL (0.2-1.3); Total Protein 6.7 g/dL (6.3-8.2)
[2017-06-12] MEDS: IPRATROPIUM-ALBUTEROL 3 ML NEB INHALATION SCH ×4 (07:55→20:31)
--- NOTE | 2017-06-12 08:10 | XR ---
EXAMINATION TYPE: XR chest 1V portable DATE OF EXAM: 06/12/2017 CLINICAL HISTORY: Difficulty breathing and left-sided chest tube progress study. Post open cardiac s urgery. TECHNIQUE: Single AP portable upright view of the chest is obtained. COMPARISON: Chest x-ray from one day earlier FINDINGS: There is persistent left-sided chest tube. There is interval removal of mediastinal draina ge catheters. Interval removal of right internal jugular cordis sheath. Sternal wires and mediastinal clips are redemonstrated. There is persistent elevated left hemidiaphragm with associated left basilar atelectasis and/or infil trate. Right lung is predominantly clear. No large pleural effusion or pneumothorax is seen. Cardiac silhouette size is stable and felt mildly enlarged. Osseous structures are intact. IMPRESSION: Interval removal of mediastinal drainage catheters. There is chronic emphysematous change and mild cardiomegaly with elevated left hemidiaphragm and left basilar atelectasis and/or infiltrat e all redemonstrated.
[2017-06-12 08:15] LABS: Potassium 5.5 mmol/L (3.5-5.1)
--- NOTE | 2017-06-12 08:34 | P.PN ---
<Felicia Restrepo - Last Filed: 06/12/17 08:28> Subjective Principal diagnosis: Severe multivessel coronary artery disease, non-STEMI. Hypertension. Hyperlipidemia. History of colon cancer with resection and radiation. Hepatitis C positive. Current tobacco abuse. History of heroin addiction, clean for 4 years, currently on Suboxone. Family history of early age from myocardial infarction. Preoperative nasal swab positive for MSSA. POD #3 coronary artery bypass grafting, left internal mammary artery to the left anterior descending artery, reverse saphenous vein graft to the obtuse marginal artery, reverse saphenous vein graft to the posterior descending artery , endoscopic vein harvest, epi-aortic scanning, intraoperative transesophageal echocardiogram. Patient currently sitting up in a chair eating breakfast in no acute distress. Transferred to [address] [place] [address] yesterday. States his pain is well- controlled during the day, does have more pain at night but tolerable. Ambulating in hallway. Objective - Vital Signs Vital signs: Vital Signs Temp 98.5 F 06/12/17 03:59 Pulse 100 06/12/17 08:09 Resp 18 06/12/17 03:59 BP 161/77 06/12/17 03:59 Pulse Ox 93 L 06/12/17 08:00 Intake & Output 06/11/17 06/12/17 06/12/17 18:59 06:59 18:59 Intake Total 637.464 Output Total 450 780 250 Balance 187.464 -780 -250 Weight 75.8 kg 71.8 kg Intake: IV 380 Lactated Ringers 1,000 ml 150 @ 20 mls/hr IV .Q24H SOM Rx#:[id number] Magnesium 200 Pressure bag, 0.9NaCl- 30 Intake, IV Titration 7.464 Amount Insulin Regular 100 unit 7.464 In Sodium Chloride 0.9% 100 ml @ Per Protocol IV .Q0M SOM Rx#:[id number] Oral 250 Output: Chest Tube Drainage 130 80 Chest Tube Bilateral 60 Mediastinal Chest Tube Left Lateral 70 80 Chest Urine 320 700 250 Other: Voiding Method Urinal Urinal # Voids 1 1 # Bowel Movements 0 ABP, PAP, CO, CI - Last Documented Arterial Blood Pressure 106/39 Pulmonary Artery Pressure 12/1 Cardiac Output 4.6 Cardiac Index 2.5 - Constitutional General appearance: Present: cooperative, no acute distress - Respiratory Details: Lungs sounds diminished bilaterally. Respirations even, nonlabored. Currently on room air with oxygen saturation 93%. Able to achieve 1500 mL on his incentive spirometer. Left pleural chest tube to -20 cm wall suction, 50 mL drainage overnight, 200 mL in 24 hours. No air leak present. - Cardiovascular Details: S1, S2 present. Regular rate and rhythm, normal sinus rhythm on telemetry. Sternum stable. Heart hugger in place patient demonstrating appropriate use. No edema present. Teds/SCDs present. - Gastrointestinal Gastrointestinal Comment(s): Abdomen soft, nontender, nondistended. Active bowel sounds 4 quadrants. Tolerating diet. - Genitourinary Genitourinary Comment(s): Continues to void clear, yellow urine. - Musculoskeletal Musculoskeletal: Present: gait normal, strength equal bilaterally - Psychiatric Psychiatric: Present: A&O x's 3, appropriate affect, intact judgment & insight - Allied health notes Allied health notes reviewed: nursing - Labs CBC & Chem 7: 06/12/17 07:00 06/12/17 07:00 Labs: Abnormal Lab Results - Last 24 Hours (Table) 06/09/17 06/09/17 06/09/17 Range/Units 08:58 10:08 11:11 WBC (3.8-10.6) k/uL RBC (4.30-5.90) m/uL Hgb (13.0-17.5) gm/dL Hct (39.0-53.0) % ABG pH 7.49 H (7.35-7.45) ABG pCO2 32 L (35-45) mmHg ABG pO2 288 H 187 H 290 H (83-108) mmHg ABG Total CO2 25 H 26 H 25 H (19-24) mmol/L ABG O2 Saturation 99.9 H 99.6 H 99.9 H (94-97) % ABG Hematocrit 33 L 27 L (34.0-46.0) % ABG Potassium 4.6 H (3.4-4.5) mmol/L Potassium (3.5-5.1) mmol/L BUN (9-20) mg/dL Glucose (74-99) mg/dL POC Glucose (mg/dL) (75-99) mg/dL Total Bilirubin (0.2-1.3) mg/dL Arterial Blood Potassium 4.6 H (3.4-4.5) mmol/L 06/09/17 06/09/17 06/09/17 Range/Units 12:02 13:37 13:37 WBC (3.8-10.6) k/uL RBC (4.30-5.90) m/uL Hgb (13.0-17.5) gm/dL Hct (39.0-53.0) % ABG pH 7.34 L (7.35-7.45) ABG pCO2 (35-45) mmHg ABG pO2 309 H 229 H 229 H (83-108) mmHg ABG Total CO2 25 H (19-24) mmol/L ABG O2 Saturation 99.9 H 99.8 H 99.8 H (94-97) % ABG Hematocrit 27 L 32 L 32 L (34.0-46.0) % ABG Potassium (3.4-4.5) mmol/L Potassium (3.5-5.1) mmol/L BUN (9-20) mg/dL Glucose (74-99) mg/dL POC Glucose (mg/dL) (75-99) mg/dL Total Bilirubin (0.2-1.3) mg/dL Arterial Blood Potassium (3.4-4.5) mmol/L 06/11/17 06/11/17 06/11/17 Range/Units 09:28 10:42 12:35 WBC (3.8-10.6) k/uL RBC (4.30-5.90) m/uL Hgb (13.0-17.5) gm/dL Hct (39.0-53.0) % ABG pH (7.35-7.45) ABG pCO2 (35-45) mmHg ABG pO2 (83-108) mmHg ABG Total CO2 (19-24) mmol/L ABG O2 Saturation (94-97) % ABG Hematocrit (34.0-46.0) % ABG Potassium (3.4-4.5) mmol/L Potassium (3.5-5.1) mmol/L BUN (9-20) mg/dL Glucose (74-99) mg/dL POC Glucose (mg/dL) 165 H 142 H 176 H (75-99) mg/dL Total Bilirubin (0.2-1.3) mg/dL Arterial Blood Potassium (3.4-4.5) mmol/L 06/11/17 06/11/17 06/12/17 Range/Units 17:44 21:12 02:11 WBC (3.8-10.6) k/uL RBC (4.30-5.90) m/uL Hgb (13.0-17.5) gm/dL Hct (39.0-53.0) % ABG pH (7.35-7.45) ABG pCO2 (35-45) mmHg ABG pO2 (83-108) mmHg ABG Total CO2 (19-24) mmol/L ABG O2 Saturation (94-97) % ABG Hematocrit (34.0-46.0) % ABG Potassium (3.4-4.5) mmol/L Potassium (3.5-5.1) mmol/L BUN (9-20) mg/dL Glucose (74-99) mg/dL POC Glucose (mg/dL) 125 H 163 H 135 H (75-99) mg/dL Total Bilirubin (0.2-1.3) mg/dL Arterial Blood Potassium (3.4-4.5) mmol/L 06/12/17 06/12/17 06/12/17 Range/Units 06:05 07:00 07:00 WBC 10.7 H (3.8-10.6) k/uL RBC 3.43 L (4.30-5.90) m/uL Hgb 11.2 L (13.0-17.5) gm/dL Hct 30.5 L (39.0-53.0) % ABG pH (7.35-7.45) ABG pCO2 (35-45) mmHg ABG pO2 (83-108) mmHg ABG Total CO2 (19-24) mmol/L ABG O2 Saturation (94-97) % ABG Hematocrit (34.0-46.0) % ABG Potassium (3.4-4.5) mmol/L Potassium 5.5 H (3.5-5.1) mmol/L BUN 25 H (9-20) mg/dL Glucose 130 H (74-99) mg/dL POC Glucose (mg/dL) 135 H (75-99) mg/dL Total Bilirubin 1.5 H (0.2-1.3) mg/dL Arterial Blood Potassium (3.4-4.5) mmol/L - Imaging and Cardiology Chest x-ray: report reviewed, image reviewed Assessment and Plan (1) Hypertension Status: Acute (2) Coronary artery disease Status: Acute (3) Hyperlipidemia Status: Acute (4) Tobacco dependence Status: Acute (5) Hepatitis C Status: Acute (6) Heroin addiction Status: Acute (7) Family history of myocardial infarction in first degree male relative Status: Acute Plan: 1. Continue aspirin, Plavix, statin, SCOTT inhibitor. Will increase Lopressor to 50 mg twice a day, will maximize beta leonor therapy. 2. Encourage incentive spirometry use. Encourage smoking cessation 3. Increase activity, ambulate in hallway. Physical therapy to follow. 4. Diabetic management per primary care service. 5. Will likely discontinue left pleural chest tube today. 6. GI/DVT prophylaxis. 7. Will monitor daily labs, x-rays. 8. More recommendations as patient progresses. Anticipate discharge to home with home care in 24-48 hours. Time with Patient: Greater than 30 <Royal Larson - Last Filed: 06/12/17 14:12> Objective - Vital Signs Vital signs: Vital Signs Temp 98.5 F 06/12/17 08:00 Pulse 96 06/12/17 11:20 Resp 18 06/12/17 11:00 BP 160/81 06/12/17 10:23 Pulse Ox 96 06/12/17 10:23 Intake & Output 06/11/17 06/12/17 06/12/17 18:59 06:59 18:59 Intake Total 637.464 237 Output Total 450 341 825 Balance 255.882 -720 -990 Weight 75.8 kg 71.8 kg Intake: IV 380 Lactated Ringers 1,000 ml 150 @ 20 mls/hr IV .Q24H SOM Rx#:[id number] Magnesium 200 Pressure bag, 0.9NaCl- 30 Intake, IV Titration 7.464 Amount Insulin Regular 100 unit 7.464 In Sodium Chloride 0.9% 100 ml @ Per Protocol IV .Q0M SOM Rx#:[id number] Oral 250 237 Output: Chest Tube Drainage 130 80 0 Chest Tube Bilateral 60 Mediastinal Chest Tube Left Lateral 70 80 0 Chest Urine 320 700 825 Other: Voiding Method Urinal Urinal # Voids 1 1 1 # Bowel Movements 0 ABP, PAP, CO, CI - Last Documented Arterial Blood Pressure 106/39 Pulmonary Artery Pressure 12/1 Cardiac Output 4.6 Cardiac Index 2.5 - Labs CBC & Chem 7: 06/12/17 07:00 06/12/17 07:00 Labs: Abnormal Lab Results - Last 24 Hours (Table) 06/11/17 06/11/17 06/12/17 Range/Units 17:44 21:12 02:11 WBC (3.8-10.6) k/uL RBC (4.30-5.90) m/uL Hgb (13.0-17.5) gm/dL Hct (39.0-53.0) % Potassium (3.5-5.1) mmol/L BUN (9-20) mg/dL Glucose (74-99) mg/dL POC Glucose (mg/dL) 125 H 163 H 135 H (75-99) mg/dL Total Bilirubin (0.2-1.3) mg/dL 06/12/17 06/12/17 06/12/17 Range/Units 06:05 07:00 07:00 WBC 10.7 H (3.8-10.6) k/uL RBC 3.43 L (4.30-5.90) m/uL Hgb 11.2 L (13.0-17.5) gm/dL Hct 30.5 L (39.0-53.0) % Potassium 5.5 H (3.5-5.1) mmol/L BUN 25 H (9-20) mg/dL Glucose 130 H (74-99) mg/dL POC Glucose (mg/dL) 135 H (75-99) mg/dL Total Bilirubin 1.5 H (0.2-1.3) mg/dL 06/12/17 Range/Units 11:40 WBC (3.8-10.6) k/uL RBC (4.30-5.90) m/uL Hgb (13.0-17.5) gm/dL Hct (39.0-53.0) % Potassium (3.5-5.1) mmol/L BUN (9-20) mg/dL Glucose (74-99) mg/dL POC Glucose (mg/dL) 170 H (75-99) mg/dL Total Bilirubin (0.2-1.3) mg/dL Assessment and Plan Plan: The patient was seen and examined. I agree with the above assessment and plan. We will remove his remaining chest tube today. We will also increase his Lopressor for better blood pressure control. Otherwise we will continue to encourage incentive spirometry and ambulation. He is currently on room air. His pain appears to be well controlled. He will likely be discharged home within the next 24-48 hours.
[2017-06-12] MEDS: ASPIRIN 325 MG TAB PO SCH (08:53)
[2017-06-12] MEDS: HEPARIN SODIUM,PORCINE 5,000 UNIT/ML 1 ML VIAL SQ SCH ×3 (08:53→22:37)
[2017-06-12] MEDS: ATORVASTATIN 40 MG TAB PO SCH (08:53)
[2017-06-12] MEDS: CLOPIDOGREL 75 MG TAB PO SCH (08:53)
[2017-06-12] MEDS: MUPIROCIN 2% OINT 22 GM TUBE NASAL SCH ×2 (08:54→20:42)
[2017-06-12] MEDS ORDERED: METOPROLOL TARTRATE 50 MG TAB PO SCH (09:00)
--- NOTE | 2017-06-12 11:49 | P.PN ---
Subjective Principal diagnosis: Non-STEMI this is a 62-year-old gentleman with known history of hypertension, hyperlipidemia, nicotine dependence and hepatitis C who presented to the hospital with a non-ST elevation myocardial infarction. He underwent a cardiac catheterization by Dr. Saravia and was found to have multivessel coronary artery disease. Patient underwent coronary artery bypass grafting surgery. Patient seen and examined this morning, sitting up in the chair at bedside. Denies any chest pain, breathing overall stable. He's been encouraged to use of his incentive spirometry. Remains in sinus but his heart rate appears to be in the mid 90s to low 100s. We will increase his dose of beta leonor to 75 mg one tablet by mouth twice a day. Objective - Vital Signs Vital signs: Vital Signs Temp 98.5 F 06/12/17 08:00 Pulse 96 06/12/17 11:20 Resp 18 06/12/17 08:00 BP 160/81 06/12/17 10:23 Pulse Ox 96 06/12/17 10:23 Intake & Output 06/11/17 06/12/17 06/12/17 18:59 06:59 18:59 Intake Total 637.464 237 Output Total 450 780 625 Balance 187.464 -780 -388 Weight 75.8 kg 71.8 kg Intake: IV 380 Lactated Ringers 1,000 ml 150 @ 20 mls/hr IV .Q24H SOM Rx#:[id number] Magnesium 200 Pressure bag, 0.9NaCl- 30 Intake, IV Titration 7.464 Amount Insulin Regular 100 unit 7.464 In Sodium Chloride 0.9% 100 ml @ Per Protocol IV .Q0M SOM Rx#:[id number] Oral 250 237 Output: Chest Tube Drainage 130 80 Chest Tube Bilateral 60 Mediastinal Chest Tube Left Lateral 70 80 Chest Urine 320 700 625 Other: Voiding Method Urinal Urinal # Voids 1 1 # Bowel Movements 0 ABP, PAP, CO, CI - Last Documented Arterial Blood Pressure 106/39 Pulmonary Artery Pressure 12/1 Cardiac Output 4.6 Cardiac Index 2.5 - Exam PHYSICAL EXAMINATION: HEENT: Head is atraumatic, normocephalic. Pupils equal, round. Neck is supple. There is no elevated jugular venous pressure. HEART EXAMINATION: Heart S1, S2 normal. No murmur or gallop heard. CHEST EXAMINATION: Lungs reveal diminished air entry to bilateral bases. ABDOMEN: Soft, nontender. Bowel sounds are heard. No organomegaly noted. EXTREMITIES: 2+ peripheral pulses with no evidence of peripheral edema and no calf tenderness noted. Right radial site clean and dry, good distal pulse. NEUROLOGIC patient is awake, alert and oriented -3. . - Labs CBC & Chem 7: 06/12/17 07:00 06/12/17 07:00 Labs: Abnormal Lab Results - Last 24 Hours (Table) 06/11/17 06/11/17 06/11/17 Range/Units 12:35 17:44 21:12 WBC (3.8-10.6) k/uL RBC (4.30-5.90) m/uL Hgb (13.0-17.5) gm/dL Hct (39.0-53.0) % Potassium (3.5-5.1) mmol/L BUN (9-20) mg/dL Glucose (74-99) mg/dL POC Glucose (mg/dL) 176 H 125 H 163 H (75-99) mg/dL Total Bilirubin (0.2-1.3) mg/dL 06/12/17 06/12/17 06/12/17 Range/Units 02:11 06:05 07:00 WBC (3.8-10.6) k/uL RBC (4.30-5.90) m/uL Hgb (13.0-17.5) gm/dL Hct (39.0-53.0) % Potassium 5.5 H (3.5-5.1) mmol/L BUN 25 H (9-20) mg/dL Glucose 130 H (74-99) mg/dL POC Glucose (mg/dL) 135 H 135 H (75-99) mg/dL Total Bilirubin 1.5 H (0.2-1.3) mg/dL 06/12/17 Range/Units 07:00 WBC 10.7 H (3.8-10.6) k/uL RBC 3.43 L (4.30-5.90) m/uL Hgb 11.2 L (13.0-17.5) gm/dL Hct 30.5 L (39.0-53.0) % Potassium (3.5-5.1) mmol/L BUN (9-20) mg/dL Glucose (74-99) mg/dL POC Glucose (mg/dL) (75-99) mg/dL Total Bilirubin (0.2-1.3) mg/dL Assessment and Plan (1) NSTEMI (non-ST elevated myocardial infarction) Status: Acute (2) S/P cardiac cath Status: Acute (3) Triple vessel coronary artery disease Status: Acute (4) Hepatitis C Status: Acute (5) History of heroin abuse Status: Acute (6) Hyperlipemia Status: Acute (7) HTN (hypertension) Status: Acute (8) S/P CABG (coronary artery bypass graft) Status: Acute Plan: From cardiology's perspective, patient has been encouraged regarding the use of his incentive spirometry. We will also increase his dose to 75 mg. DNP note has been reviewed, I agree with a documented findings and plan of care. Patient was seen and examined.
[2017-06-12 12:05] LABS: Glucose,Whole Blood 170 mg/dL (75-99)
[2017-06-12] MEDS: LISINOPRIL 2.5 MG TAB PO SCH (12:27)
--- NOTE | 2017-06-12 12:40 | PN ---
CHIEF COMPLAINT: Status post CABG. HISTORY OF PRESENT ILLNESS: This gentleman is doing fairly well. He is awake and alert. His ( ) has been stable and his pain is under good control. PHYSICAL EXAM: He remains pale. Head, ears, eyes, nose, mouth and throat are normal. Breath sounds are heard on both sides. He is in sinus rhythm. IMPRESSION: Status post coronary artery bypass graft. PLAN: Await return to [facility] at [facility] and in the meantime follow with Cardiology and Thoracic Surgery. RENE
--- NOTE | 2017-06-12 12:53 | PN ---
DATE OF SERVICE: 06/11/2017 CHIEF COMPLAINT: Status post CABG. HISTORY OF PRESENT ILLNESS: This gentleman is doing well without any complications so far. He remains alert and he is not particularly short of breath. PHYSICAL EXAM: His color remains poor. His chest demonstrates breath sounds on both sides with chest tubes in place. Cardiac exam is normal. IMPRESSION: 1. Status post coronary artery bypass graft. 2. Chronic obstructive pulmonary disease. 3. History of drug abuse. PLAN: No change in his medication program from my perspective at this time. RENE
--- NOTE | 2017-06-12 12:57 | PN ---
DATE OF SERVICE: 06/12/2017 CHIEF COMPLAINT: Status post CABG. HISTORY OF PRESENT ILLNESS: This gentleman is doing well. He still has one chest tube in place on the right. He is not complaining of any particular problems. PHYSICAL EXAM: Color is the same. Neck veins are distended. Breath sounds are heard on both sides. The cardiac exam is normal. The abdomen is soft. IMPRESSION: Status post coronary artery bypass graft. PLAN: Continue to follow. Hopefully, the right side chest tube will be removed today and his activity can be increased. RENE
--- NOTE | 2017-06-12 13:00 | P.PN ---
Subjective This is a 62-year-old white male, heavy smoker, no documented history of COPD, patient presented initially to [facility] facility with acute onset of chest pain. Pain was felt to be cardiac in nature, and the patient was felt to have non-ST elevation myocardial infarction. According to the patient he had intermittent episodes of chest pains over the anterior chest intermittently for the last few months. However this time, the pain was more severe. It was associated with radiation to the neck, also assure initiated with diaphoresis. Patient was found to have ischemic changes in his 12-lead EKG , troponin was mildly elevated. Started on IV heparin, and he was transferred to and cardiac catheterization was done, and it showed three-vessel coronary artery disease with 60% left main, patient was seen by surgery on consultation, and he may be scheduled for cardiac bypass surgery soon. Considering his smoking history, considering his history of nicotine addiction as well as previous history of heroin addiction, I was asked to see the patient on consultation for preoperative pulmonary clearance. Presently, the patient denies any headaches, no blurred vision, no dizziness, no chest pain no nausea no vomiting no abdominal pain. Patient denies dyspnea on exertion, he is relatively active in spite of his significant smoking history. Bedside PFT is pending at the time of this dictation. The patient was seen again today in follow-up 06/06/2017 on the selective care unit. He is awake and alert in no acute distress. His bedside spirometry did reveal a FEV1 value of 79% of predicted. He denies any chest pain currently. He denies any worsening shortness of breath, cough or congestion. He is maintaining good O2 saturations in the 90s on room air. He has been hemodynamically stable. Lab results within normal limits. His chest x-ray revealed no acute cardiopulmonary disease. He is currently being worked up for possible coronary artery bypass grafting early next week. Patient was seen again on follow-up on 06/07/2017, doing quite well, relatively asymptomatic, bedside spirometry has been reviewed, patient is scheduled to undergo myocardial revascularization early Friday. Chest x-ray showed no acute pulmonary process. CBC is normal basic metabolic profile is normal creatinine however is 1.20. Reevaluated today on 06/08/2017, patient seems to be doing well, asymptomatic, no shortness of breath no cough no wheezing and no chest pain. Labs were reviewed they seem to be unremarkable. PTT is 53 basic metabolic profile is normal renal profile is normalizing. The patient is seen again today 06/10/2017 in follow-up in the intensive care unit. He is status post coronary artery bypass grafting utilizing a MURO to the LAD, reverse saphenous vein graft to the obtuse marginal and posterior descending arteries. This is postoperative day #1. He was successfully extubated last evening. He is currently sitting up in a chair at the bedside. He is awake and alert in no acute distress. He is maintaining good O2 saturations in the 90s on 2 L/m per nasal cannula. He is doing well with the incentive spirometer pulling greater than 1500 MLS. Chest tubes remain in place to the mediastinum and left chest. Pacer wires in place. He is receiving lactated Ringer's at 50 MLS per hour. He has been on Precedex at 0.2 mg. He is also on a insulin drip at 4 units per hour. His chest x-ray shows chronic and somatic changes with left mid lateral atelectasis and basilar atelectasis/infiltrate. There is increased elevation of left hemidiaphragm. There is no leukocytosis. Hemoglobin 9.9. The patient was seen again today 06/11/2017 in follow-up in the intensive care unit. He is sitting up in a chair at the bed side currently. He is awake and alert in no acute distress. His pain is well controlled. He denies any worsening shortness of breath, cough or congestion. He is maintaining good O2 saturations in the mid 90s on room air. He is pulling approximately 1500 MLS on the incentive spirometer. Chest x-ray does show some basilar atelectasis left greater than right. He remains on the dilators 4 times a day and when necessary. His continuous a lactated Ringer's at 20 miles per hour. He has a insulin drip at 4 units per hour. He has been hemodynamically stable. Hemoglobin 9.1. Afebrile. The patient is seen again today 06/12/2017 in follow-up on the selective care unit. He is currently sitting up in the chair at the bedside. He is awake and alert in no acute distress. He is breathing easier today as compared to yesterday. His pain is well controlled. A left pleural chest tube remains in place. He is maintaining good O2 saturations in the 90s on room air. Objective - Vital Signs Vital signs: Vital Signs Temp 98.5 F 06/12/17 08:00 Pulse 96 06/12/17 11:20 Resp 18 06/12/17 11:00 BP 160/81 06/12/17 10:23 Pulse Ox 96 06/12/17 10:23 Intake & Output 06/11/17 06/12/17 06/12/17 18:59 06:59 18:59 Intake Total 637.464 237 Output Total 450 780 825 Balance 187.464 -780 -588 Weight 75.8 kg 71.8 kg Intake: IV 380 Lactated Ringers 1,000 ml 150 @ 20 mls/hr IV .Q24H SOM Rx#:[id number] Magnesium 200 Pressure bag, 0.9NaCl- 30 Intake, IV Titration 7.464 Amount Insulin Regular 100 unit 7.464 In Sodium Chloride 0.9% 100 ml @ Per Protocol IV .Q0M SOM Rx#:[id number] Oral 250 237 Output: Chest Tube Drainage 130 80 0 Chest Tube Bilateral 60 Mediastinal Chest Tube Left Lateral 70 80 0 Chest Urine 320 700 825 Other: Voiding Method Urinal Urinal # Voids 1 1 1 # Bowel Movements 0 ABP, PAP, CO, CI - Last Documented Arterial Blood Pressure 106/39 Pulmonary Artery Pressure 12/1 Cardiac Output 4.6 Cardiac Index 2.5 - Exam GENERAL EXAM: Alert, active, comfortable in no apparent distress. HEAD: Normocephalic. EYES: Normal reaction of pupils, equal size. NOSE: Clear with pink turbinates. THROAT: No erythema or exudates. NECK: No masses, no JVD. CHEST: Sternal dressing dry and intact. Heart hugger place. LUNGS: Equal air entry with crackles in the posterior bases. Mediastinal and left chest tubes in place. CVS: S1 and S2 normal with no audible murmurs, regular rhythm. ABDOMEN: No hepatosplenomegaly, normal bowel sounds, no guarding or rigidity. SPINE: No scoliosis or deformity SKIN: No rashes CENTRAL NERVOUS SYSTEM: No focal deficits, tone is normal in all 4 extremities. Extremities: There is no significant peripheral edema. No clubbing, no cyanosis. Peripheral pulses are intact. - Labs CBC & Chem 7: 06/12/17 07:00 06/12/17 07:00 Labs: Abnormal Lab Results - Last 24 Hours (Table) 06/11/17 06/11/17 06/12/17 Range/Units 17:44 21:12 02:11 WBC (3.8-10.6) k/uL RBC (4.30-5.90) m/uL Hgb (13.0-17.5) gm/dL Hct (39.0-53.0) % Potassium (3.5-5.1) mmol/L BUN (9-20) mg/dL Glucose (74-99) mg/dL POC Glucose (mg/dL) 125 H 163 H 135 H (75-99) mg/dL Total Bilirubin (0.2-1.3) mg/dL 06/12/17 06/12/17 06/12/17 Range/Units 06:05 07:00 07:00 WBC 10.7 H (3.8-10.6) k/uL RBC 3.43 L (4.30-5.90) m/uL Hgb 11.2 L (13.0-17.5) gm/dL Hct 30.5 L (39.0-53.0) % Potassium 5.5 H (3.5-5.1) mmol/L BUN 25 H (9-20) mg/dL Glucose 130 H (74-99) mg/dL POC Glucose (mg/dL) 135 H (75-99) mg/dL Total Bilirubin 1.5 H (0.2-1.3) mg/dL 06/12/17 Range/Units 11:40 WBC (3.8-10.6) k/uL RBC (4.30-5.90) m/uL Hgb (13.0-17.5) gm/dL Hct (39.0-53.0) % Potassium (3.5-5.1) mmol/L BUN (9-20) mg/dL Glucose (74-99) mg/dL POC Glucose (mg/dL) 170 H (75-99) mg/dL Total Bilirubin (0.2-1.3) mg/dL Assessment and Plan Plan: Impression: 1 acute non-ST elevation myocardial infarction with significant coronary artery disease. Status post coronary artery bypass grafting utilizing a MURO to the LAD, reverse saphenous vein grafts to the obtuse marginal and PDA arteries. Postoperative day #3. 2 ventilator management as an expected outcome post surgical. Successfully extubated 06/09/2017. 3 history of nicotine dependence syndrome, however the patient does not have significant symptoms to suggest significant COPD, FEV1 value 79% of predicted. 4 history of hepatitis C 5 history of heroin addiction 6 history of hyperlipidemia. 7 history of hypertension 8 family history of premature coronary artery disease. Plan: The patient was seen and evaluated by Dr. Beltran. His chest x-ray and labs were reviewed. The patient is again encouraged regarding the increased use of the incentive spirometer and cough and deep breathing exercises. We'll continue with his current medications including bronchodilators 4 times a day and when necessary. We will increase his activity as tolerated. We'll continue to follow.
[2017-06-12 16:51] LABS: Glucose,Whole Blood 117 mg/dL (75-99)
[2017-06-12] MEDS: SENNOSIDES-DOCUSATE SODIUM 1 EACH TAB PO SCH (20:43)
[2017-06-12] MEDS ORDERED: METOPROLOL TARTRATE 25 MG TAB PO SCH (21:00)
[2017-06-12 21:15] LABS: Glucose,Whole Blood 219 mg/dL (75-99)
[2017-06-12] MEDS: ALPRAZolam 0.25 MG TAB PO PRN (22:37)
[2017-06-13 02:18] LABS: Glucose,Whole Blood 92 mg/dL (75-99)
[2017-06-13] MEDS: HYDROcodone/APAP 7.5-325MG 1 EACH TAB PO PRN ×2 (02:48→06:42)
[2017-06-13 06:18] LABS: Glucose,Whole Blood 111 mg/dL (75-99)
[2017-06-13] MEDS: INSULIN LISPRO (humaLOG) 300 UNIT/3 ML VIAL SQ SCH ×2 (06:22→12:13)
[2017-06-13] MEDS: PANTOPRAZOLE 40 MG TABLET PO SCH (06:43)
[2017-06-13 06:50] LABS: CH 31.9; CHCM 34.7; HCT 29.7 % (39.0-53.0); HDW 3.03; HGB 10.5 gm/dL (13.0-17.5); MCH 32.9 pg (25.0-35.0); MCHC 35.5 g/dL (31.0-37.0); MCV 92.7 fL (80.0-100.0); Mean Platelet Volume 7.9; WBC 7.7 k/uL (3.8-10.6)
[2017-06-13 07:23] LABS: ALT 36 U/L (21-72); AST 50 U/L (17-59); Alkaline Phosphatase 85 U/L (38-126); Anion Gap 10 mmol/L; Blood Urea Nitrogen 31 mg/dL (9-20); Calcium 8.8 mg/dL (8.4-10.2); Carbon Dioxide 26 mmol/L (22-30); Chloride 103 mmol/L (98-107); Glucose 106 mg/dL (74-99); Non-African American GFR(MDRD) 54 (>60 ml/min/1.73 sqM); Potassium 4.5 mmol/L (3.5-5.1); Sodium 139 mmol/L (137-145); Total Bilirubin 0.9 mg/dL (0.2-1.3); Total Protein 6.2 g/dL (6.3-8.2)
--- NOTE | 2017-06-13 08:11 | XR ---
EXAMINATION TYPE: XR chest 2V DATE OF EXAM: 06/13/2017 COMPARISON: 06/12/2017 HISTORY: 62 year-old male post cardiac surgery TECHNIQUE: Frontal and lateral views FINDINGS: Heart is borderline enlarged. Continued elevation of the left hemidiaphragm with patchy left basilar opacity and trace effusions on both sides. Pulmonary vasculature appears satisfactory. Removal of the left-sided chest tube without appreciable pneumothorax. Median sternotomy wires post-CABG clips. IMPRESSION: Continued small left and trace right pleural effusions with adjacent atelectasis and/or consolidation . Asymmetric elevation of the left hemidiaphragm also stable. Left chest tube removed without appreci able pneumothorax.
[2017-06-13] MEDS ORDERED: METOPROLOL TARTRATE 50 MG TAB PO SCH (08:13)
--- NOTE | 2017-06-13 08:22 | P.PN ---
Subjective Principal diagnosis: Severe multivessel coronary artery disease, non-STEMI. Hypertension. Hyperlipidemia. History of colon cancer with resection and radiation. Hepatitis C positive. Current tobacco abuse. History of heroin addiction, clean for 4 years, currently on Suboxone. Family history of early age from myocardial infarction. Preoperative nasal swab positive for MSSA. POD #4 coronary artery bypass grafting, left internal mammary artery to the left anterior descending artery, reverse saphenous vein graft to the obtuse marginal artery, reverse saphenous vein graft to the posterior descending artery , endoscopic vein harvest, epi-aortic scanning, intraoperative transesophageal echocardiogram. Patient currently sitting up in a chair eating breakfast in no acute distress. States his pain is well-controlled after chest tube removal yesterday. I did discuss patient's pain management and resumption of Suboxone with Dr. Sweeney yesterday. Patient will be discharged with pain medication, and will follow up with Dr. Sweeney to restart his Suboxone when narcotic pain medication is no longer needed. Objective - Vital Signs Vital signs: Vital Signs Temp 98.1 F 06/13/17 03:48 Pulse 96 06/13/17 03:48 Resp 18 06/13/17 03:48 BP 141/70 06/13/17 03:48 Pulse Ox 92 L 06/13/17 03:48 Intake & Output 06/12/17 06/13/17 06/13/17 18:59 06:59 18:59 Intake Total 237 237 Output Total 1200 Balance -963 237 Weight 71.4 kg Intake: Oral 237 237 Output: Chest Tube Drainage 0 Chest Tube Left Lateral 0 Chest Urine 1200 Other: # Voids 1 # Bowel Movements 1 ABP, PAP, CO, CI - Last Documented Arterial Blood Pressure 106/39 Pulmonary Artery Pressure 12/1 Cardiac Output 4.6 Cardiac Index 2.5 - Constitutional General appearance: Present: cooperative, no acute distress - Respiratory Details: Lungs sounds diminished bilaterally. Respirations even, nonlabored. Currently on room air with oxygen saturation 92%. Able to achieve 1750 mL on his incentive spirometer. - Cardiovascular Details: S1, S2 present. Regular rate and rhythm, normal sinus rhythm to sinus tach on telemetry. Epicardial pacemaker wires discontinued this morning without incident. Sternum stable. Heart hugger in place with patient demonstrating appropriate use. Teds/SCDs present. - Gastrointestinal Gastrointestinal Comment(s): Abdomen soft, nontender, nondistended. Active bowel sounds 4 quadrants. Tolerating diet. - Genitourinary Genitourinary Comment(s): Continues to void clear, yellow urine. - Integumentary Integumentary Comment(s): Anterior chest incision well approximated. - Musculoskeletal Musculoskeletal: Present: gait normal, strength equal bilaterally - Psychiatric Psychiatric: Present: A&O x's 3, appropriate affect, intact judgment & insight - Allied health notes Allied health notes reviewed: nursing - Labs CBC & Chem 7: 06/13/17 06:34 06/13/17 06:34 Labs: Abnormal Lab Results - Last 24 Hours (Table) 06/12/17 06/12/17 06/12/17 Range/Units 07:00 11:40 16:47 RBC (4.30-5.90) m/uL Hgb (13.0-17.5) gm/dL Hct (39.0-53.0) % Potassium 5.5 H (3.5-5.1) mmol/L BUN 25 H (9-20) mg/dL Creatinine (0.66-1.25) mg/dL Glucose 130 H (74-99) mg/dL POC Glucose (mg/dL) 170 H 117 H (75-99) mg/dL Total Bilirubin 1.5 H (0.2-1.3) mg/dL Total Protein (6.3-8.2) g/dL Albumin (3.5-5.0) g/dL 06/12/17 06/13/17 06/13/17 Range/Units 21:14 06:16 06:34 RBC (4.30-5.90) m/uL Hgb (13.0-17.5) gm/dL Hct (39.0-53.0) % Potassium (3.5-5.1) mmol/L BUN 31 H (9-20) mg/dL Creatinine 1.33 H (0.66-1.25) mg/dL Glucose 106 H (74-99) mg/dL POC Glucose (mg/dL) 219 H 111 H (75-99) mg/dL Total Bilirubin (0.2-1.3) mg/dL Total Protein 6.2 L (6.3-8.2) g/dL Albumin 3.3 L (3.5-5.0) g/dL 06/13/17 Range/Units 06:34 RBC 3.20 L (4.30-5.90) m/uL Hgb 10.5 L (13.0-17.5) gm/dL Hct 29.7 L (39.0-53.0) % Potassium (3.5-5.1) mmol/L BUN (9-20) mg/dL Creatinine (0.66-1.25) mg/dL Glucose (74-99) mg/dL POC Glucose (mg/dL) (75-99) mg/dL Total Bilirubin (0.2-1.3) mg/dL Total Protein (6.3-8.2) g/dL Albumin (3.5-5.0) g/dL - Imaging and Cardiology Chest x-ray: image reviewed Assessment and Plan (1) Hypertension Status: Acute (2) Coronary artery disease Status: Acute (3) Hyperlipidemia Status: Acute (4) Tobacco dependence Status: Acute (5) Hepatitis C Status: Acute (6) Heroin addiction Status: Acute (7) Family history of myocardial infarction in first degree male relative Status: Acute Plan: 1. Continue aspirin, Plavix, statin, SCOTT inhibitor. Will increase Lopressor to 100 mg twice a day, will maximize beta lenoor therapy. 2. Encourage incentive spirometry use. Encourage smoking cessation 3. Increase activity, ambulate in hallway. Physical therapy to follow. 4. Diabetic management per primary care service. 5. Epicardial pacemaker wires discontinued today. 6. GI/DVT prophylaxis. 7. Will monitor daily labs, x-rays. 8. Discharge planning in progress. Time with Patient: Greater than 30
[2017-06-13] MEDS: ATORVASTATIN 40 MG TAB PO SCH (08:23)
[2017-06-13] MEDS: CLOPIDOGREL 75 MG TAB PO SCH (08:23)
[2017-06-13] MEDS: ASPIRIN 325 MG TAB PO SCH (08:23)
[2017-06-13] MEDS: HEPARIN SODIUM,PORCINE 5,000 UNIT/ML 1 ML VIAL SQ SCH ×2 (08:23→14:26)
[2017-06-13] MEDS: MUPIROCIN 2% OINT 22 GM TUBE NASAL SCH (08:24)
[2017-06-13] MEDS: IPRATROPIUM-ALBUTEROL 3 ML NEB INHALATION SCH ×4 (09:44→15:38)
[2017-06-13 11:40] LABS: Glucose,Whole Blood 160 mg/dL (75-99)
--- NOTE | 2017-06-13 13:17 | P.PN ---
Subjective This is a 62-year-old white male, heavy smoker, no documented history of COPD, patient presented initially to [facility] facility with acute onset of chest pain. Pain was felt to be cardiac in nature, and the patient was felt to have non-ST elevation myocardial infarction. According to the patient he had intermittent episodes of chest pains over the anterior chest intermittently for the last few months. However this time, the pain was more severe. It was associated with radiation to the neck, also assure initiated with diaphoresis. Patient was found to have ischemic changes in his 12-lead EKG , troponin was mildly elevated. Started on IV heparin, and he was transferred to [facility] and cardiac catheterization was done, and it showed three-vessel coronary artery disease with 60% left main, patient was seen by surgery on consultation, and he may be scheduled for cardiac bypass surgery soon. Considering his smoking history, considering his history of nicotine addiction as well as previous history of heroin addiction, I was asked to see the patient on consultation for preoperative pulmonary clearance. Presently, the patient denies any headaches, no blurred vision, no dizziness, no chest pain no nausea no vomiting no abdominal pain. Patient denies dyspnea on exertion, he is relatively active in spite of his significant smoking history. Bedside PFT is pending at the time of this dictation. The patient was seen again today in follow-up 06/06/2017 on the selective care unit. He is awake and alert in no acute distress. His bedside spirometry did reveal a FEV1 value of 79% of predicted. He denies any chest pain currently. He denies any worsening shortness of breath, cough or congestion. He is maintaining good O2 saturations in the 90s on room air. He has been hemodynamically stable. Lab results within normal limits. His chest x-ray revealed no acute cardiopulmonary disease. He is currently being worked up for possible coronary artery bypass grafting early next week. Patient was seen again on follow-up on 06/07/2017, doing quite well, relatively asymptomatic, bedside spirometry has been reviewed, patient is scheduled to undergo myocardial revascularization early Friday. Chest x-ray showed no acute pulmonary process. CBC is normal basic metabolic profile is normal creatinine however is 1.20. Reevaluated today on 06/08/2017, patient seems to be doing well, asymptomatic, no shortness of breath no cough no wheezing and no chest pain. Labs were reviewed they seem to be unremarkable. PTT is 53 basic metabolic profile is normal renal profile is normalizing. The patient is seen again today 06/10/2017 in follow-up in the intensive care unit. He is status post coronary artery bypass grafting utilizing a MURO to the LAD, reverse saphenous vein graft to the obtuse marginal and posterior descending arteries. This is postoperative day #1. He was successfully extubated last evening. He is currently sitting up in a chair at the bedside. He is awake and alert in no acute distress. He is maintaining good O2 saturations in the 90s on 2 L/m per nasal cannula. He is doing well with the incentive spirometer pulling greater than 1500 MLS. Chest tubes remain in place to the mediastinum and left chest. Pacer wires in place. He is receiving lactated Ringer's at 50 MLS per hour. He has been on Precedex at 0.2 mg. He is also on a insulin drip at 4 units per hour. His chest x-ray shows chronic and somatic changes with left mid lateral atelectasis and basilar atelectasis/infiltrate. There is increased elevation of left hemidiaphragm. There is no leukocytosis. Hemoglobin 9.9. The patient was seen again today 06/11/2017 in follow-up in the intensive care unit. He is sitting up in a chair at the bed side currently. He is awake and alert in no acute distress. His pain is well controlled. He denies any worsening shortness of breath, cough or congestion. He is maintaining good O2 saturations in the mid 90s on room air. He is pulling approximately 1500 MLS on the incentive spirometer. Chest x-ray does show some basilar atelectasis left greater than right. He remains on the dilators 4 times a day and when necessary. His continuous a lactated Ringer's at 20 miles per hour. He has a insulin drip at 4 units per hour. He has been hemodynamically stable. Hemoglobin 9.1. Afebrile. The patient is seen again today 06/12/2017 in follow-up on the selective care unit. He is currently sitting up in the chair at the bedside. He is awake and alert in no acute distress. He is breathing easier today as compared to yesterday. His pain is well controlled. A left pleural chest tube remains in place. He is maintaining good O2 saturations in the 90s on room air. The patient was seen again today 06/13/2017 in follow-up on the selective care unit. He is awake and alert in no acute distress. The plan is for discharge to home today. Denies any worsening shortness of breath, cough or congestion. He is maintaining good O2 saturations in the 90s on room air. His chest x-ray reveals just trace pleural effusions. Hemoglobin stable at 10.5. Objective - Vital Signs Vital signs: Vital Signs Temp 98.2 F 06/13/17 08:00 Pulse 102 H 06/13/17 09:54 Resp 18 06/13/17 08:00 BP 134/78 06/13/17 08:00 Pulse Ox 94 L 06/13/17 08:00 Intake & Output 06/12/17 06/13/17 06/13/17 18:59 06:59 18:59 Intake Total 237 237 220 Output Total 1200 Balance -963 237 220 Weight 71.4 kg Intake: Oral 237 237 220 Output: Chest Tube Drainage 0 Chest Tube Left Lateral 0 Chest Urine 1200 Other: Voiding Method Urinal # Voids 1 # Bowel Movements 1 ABP, PAP, CO, CI - Last Documented Arterial Blood Pressure 106/39 Pulmonary Artery Pressure 12/1 Cardiac Output 4.6 Cardiac Index 2.5 - Exam GENERAL EXAM: Alert, active, comfortable in no apparent distress. HEAD: Normocephalic. EYES: Normal reaction of pupils, equal size. NOSE: Clear with pink turbinates. THROAT: No erythema or exudates. NECK: No masses, no JVD. CHEST: Sternal dressing dry and intact. Heart hugger place. LUNGS: Equal air entry with crackles in the posterior bases. CVS: S1 and S2 normal with no audible murmurs, regular rhythm. ABDOMEN: No hepatosplenomegaly, normal bowel sounds, no guarding or rigidity. SPINE: No scoliosis or deformity SKIN: No rashes CENTRAL NERVOUS SYSTEM: No focal deficits, tone is normal in all 4 extremities. Extremities: There is no significant peripheral edema. No clubbing, no cyanosis. Peripheral pulses are intact. - Labs CBC & Chem 7: 06/13/17 06:34 06/13/17 06:34 Labs: Abnormal Lab Results - Last 24 Hours (Table) 06/12/17 06/12/17 06/13/17 Range/Units 16:47 21:14 06:16 RBC (4.30-5.90) m/uL Hgb (13.0-17.5) gm/dL Hct (39.0-53.0) % BUN (9-20) mg/dL Creatinine (0.66-1.25) mg/dL Glucose (74-99) mg/dL POC Glucose (mg/dL) 117 H 219 H 111 H (75-99) mg/dL Total Protein (6.3-8.2) g/dL Albumin (3.5-5.0) g/dL 06/13/17 06/13/17 06/13/17 Range/Units 06:34 06:34 11:38 RBC 3.20 L (4.30-5.90) m/uL Hgb 10.5 L (13.0-17.5) gm/dL Hct 29.7 L (39.0-53.0) % BUN 31 H (9-20) mg/dL Creatinine 1.33 H (0.66-1.25) mg/dL Glucose 106 H (74-99) mg/dL POC Glucose (mg/dL) 160 H (75-99) mg/dL Total Protein 6.2 L (6.3-8.2) g/dL Albumin 3.3 L (3.5-5.0) g/dL Assessment and Plan Plan: Impression: 1 acute non-ST elevation myocardial infarction with significant coronary artery disease. Status post coronary artery bypass grafting utilizing a MURO to the LAD, reverse saphenous vein grafts to the obtuse marginal and PDA arteries. Postoperative day #3. 2 ventilator management as an expected outcome post surgical. Successfully extubated 06/09/2017. 3 history of nicotine dependence syndrome, however the patient does not have significant symptoms to suggest significant COPD, FEV1 value 79% of predicted. 4 history of hepatitis C 5 history of heroin addiction 6 history of hyperlipidemia. 7 history of hypertension 8 family history of premature coronary artery disease. Plan: The patient was seen and evaluated by Dr. Beltran. His chest x-ray and labs were reviewed. He is cleared for discharge from the pulmonary standpoint. He will follow-up in our office in 1-2 weeks' time. We'll repeat a chest x-ray then or call sooner with any questions or concerns.
--- NOTE | 2017-06-13 13:25 | P.DS ---
Providers Date of admission: 06/04/17 18:24 Attending physician: Royal Larson Consults: 06/04/17 22:08 Consult Physician Routine Consulting Provider: Chris Saravia Consult Reason/Comments: NSTEMI Do you want consulting provider notified?: Already Contacted 06/05/17 12:51 Consult Physician Urgent Consulting Provider: Royal Larson Consult Reason/Comments: triple vessel disease Do you want consulting provider notified?: Yes 06/05/17 14:16 Consult Anesthesia Routine Consulting Provider: Anesthesia,Services Consult Reason/Comments: Cardiac Surgery Pre-Op Consult Physician Routine Consulting Provider: Radha Meadows Consult Reason/Comments: pre-op cabg Do you want consulting provider notified?: Yes 06/06/17 09:21 Consult Physician Urgent Consulting Provider: Arianna Dang Consult Reason/Comments: psy recs Suboxone Do you want consulting provider notified?: Yes 06/09/17 14:45 Consult Physician Routine Consulting Provider: Agustin Baptiste Consult Reason/Comments: medical management Do you want consulting provider notified?: Already Contacted Primary care physician: Agustin Baptiste Hospital Course: FINAL DIAGNOSIS: 1.[ Symptomatic multivessel coronary artery disease] 2.[ Non-STEMI myocardial infarction this admission] 3.[ Hypertension] 4.[ Hyperlipidemia] 5.[ History of colon cancer with resection and radiation] 6.[ Hepatitis C positive] 7.[ Chronic nicotine dependence] 8.[ History of heroin addiction, currently on Suboxone treatment] 9.[ Family history of early H from myocardial infarction] 10.[ Positive for methicillin sensitive Staphylococcus aureus nasal swab preoperatively] PRINCIPAL PROCEDURE: 1.[ Urgent coronary artery bypass grafting 3 vessels with placement of his left internal mammary artery to left anterior descending coronary artery, a greater saphenous vein graft placed to his obtuse marginal coronary artery and a greater saphenous vein graft placed to his posterior descending coronary artery.] 2.[ Endoscopic vein harvesting of his right greater saphenous vein] 3.[ Intraoperative transesophageal echocardiogram] HISTORY OF PRESENT ILLNESS: [This is a 62-year-old gentleman who follows with Dr. Agustin Tripp on an outpatient basis. The patient has a past medical history of hypertension, hyperlipidemia, history of colon cancer with resection and radiation and is currently in remission, positive for hepatitis C, current every day smoker, and he history of heroin addiction who is currently on Suboxone treatment. The patient has been having complaints of intermittent episodes of chest pain which has been coming and going for the last several months. The episodes of chest pain were present with exertion and sometimes even at rest. On 06/03/2017 the patient presented to the emergency department at [facility] with complaints of intense chest pain associated with diaphoresis and nausea. While in the emergency Department the patient had a 12-lead EKG completed which demonstrated some ST segment changes in his lateral leads. The patient also had positive troponins as high as 0.299. Due to the patient's complaints, EKG changes, and positive troponins he was evaluated by Dr. Saravia from cardiology associates and a heart catheterization was recommended. The patient consented to a heart catheterization and was subsequently transferred here to [facility] to undergo the heart catheterization.] HOSPITAL COURSE:[ The patient was admitted to the hospital and after obtaining consent was taken to the [facility] where Dr. Saravia performed a selective right and left coronary angiogram. The heart catheterization results demonstrated a 60% stenosis to his left main coronary artery, a totally occluded right coronary artery, a 70% stenosis to a circumflex coronary artery, and 80% stenosis to his proximal left anterior descending coronary artery and a 70% stenosis to his mid left anterior descending coronary artery. Patient also underwent a 2-D echocardiogram which showed a normal left ventricular size size and left ventricular function with an ejection fraction of 55-60%. Due to the heart catheterization results Dr. Larson from cardiothoracic surgery was consult that and reviewed the results of the heart catheterization with the patient and Dr. Saravia. Treatment options were discussed with the patient by Dr. Larson and an urgent coronary artery bypass grafting surgery was recommended. After obtaining consent the patient was taken to the operating room where Dr. Larson performed an urgent coronary artery bypass grafting 3 vessels with placement of his left internal mammary artery to his left anterior descending coronary artery, a greater saphenous vein graft placed to his obtuse marginal coronary artery and a later saphenous vein graft placed to his posterior descending coronary artery. He also underwent endoscopic vein harvesting of his right greater saphenous vein, and an intraoperative transesophageal echocardiogram. The patient was subsequently transferred to the cardiovascular intensive care unit where he was recovered, monitored hemodynamically, and where he progressed to cardiac rehabilitation phase 1. He was extubated without difficulty, all lines, tubes, and drips were discontinued when appropriate and he was transferred to [address] [place] [address] for further monitoring and rehabilitation. He has subsequently been weaned off his oxygen and is maintaining oxygen saturation greater than 92% on room air, and he is tolerating walking in the hallway with physical therapy. Discharge instructions were reviewed with the patient and the importance of smoking cessation were reviewed with the patient. He'll be discharged home today and followed by [facility] visiting nurses.] COMPLICATIONS: [There were no postoperative complications.] CONSULTATIONS: 1.[ Dr. Saravia for cardiology management] 2.[ Dr. Agustin Tripp for medical management] 3.[ Dr. Meadows for pulmonary and ventilator management] 4.[ Dr. Sweeney for Suboxone and pain management] DISCHARGE INSTRUCTIONS: 1. No driving for 4 weeks, or until physician gives their ok. 2. The patient should sleep in their own bed, no medical bed needed. 3. Stairs are not an issue. If the bedroom is upstairs, it is advised that the patient go up at night and down in the morning for the first week. Go slowly, using handrail and take 1 step at a time. 4. CANDACE hose are to be worn for 30 days or until physician discontinues. 5. Heart hugger is to be worn 100% of the time until physician discontinues.( except when showering) 6. No lifting, pushing, or pulling more than 10 pounds for 12 weeks. The physician will advise of any restriction changes. 7. The patient is expected to continue the prescribed walking program. 8. Continue pain control per as needed orders. 9. Continue with incentive spirometry and splinting/heart hugger until otherwise directed by the physician. 10. Must shower daily using liquid antibacterial soap and a separate white washcloth for each individual incision. 11. Routine sternal incision care, no ointments, lotions or powders on the incisions. 12. Please notify surgeon/nurse practitioner for temperature greater than 101F or purulent drainage from incisions 13. Prescriptions for first 30 days given per cardiac surgery service. After 30 days, all prescription refills obtained through cardiology/primary care physician. 14. The importance of smoking cessation was reviewed with the patient and a smoking cessation pamphlet was given to the patient. 15. The patient will be discharged home with pain medication on a when necessary basis, and will follow-up with Dr. Mango to restart his Suboxone when his narcotic pain medication is no longer required. HOME HEALTH SERVICES TO PROVIDE: RN SKILLED HOME CARE SERVICES FOR POST-OP SURGICAL PATIENTS WITH THE FOLLOWING: Coronary Artery Bypass Surgery (CABG), Mitral Valve Replacement/ Repair ( MVR), Aortic Valve Replacement/Repair (AVR) RN TO CONTINUE EDUCATION FROM ``ROAD TO A HEALTH HEART PATIENT EDUCATION MANUAL" (GIVEN TO PATIENT IN THE HOSPITAL) MEDICATION RECONCILIATION WITH EDUCATION NEEDED ON FIRST HOME VISIT EMPHASIZE IMPORTANCE OF WEARING BREAST SUPPORT/HEART HUGGER ENCOURAGE USE OF INCENTIVE SPIROMETER 10 X EVERY HOUR WHILE AWAKE ENCOURAGE UTILIZATION OF LOWER EXTREMITY COMPRESSION STOCKINGS/CANDACE HOSE and ELEVATE LEGS ABOVE LEVEL OF HEART WHILE AT REST. ENCOURAGE AMBULATION 3-5x/day INCREASING TOLERATES, WHILE AVOID EXTREMES IN TEMPERATURE FREQUENCY: RN TO OPEN THE PATIENT WITHIN 24 HOURS OF DISCHARGE FROM THE HOSPITAL WITH TELEHEALTH INSTALLED AT [facility], RN TO VISIT 2-3 X A WEEK FOR 4 WEEKS ESTABLISHED BY PATIENT NEEDS. LABORATORY: CBC, CMP TO BE DRAWN ON THE THIRD DAY HOME, on 06/16/2017 (RAN STAT) FAX RESULTS TO [phone]. TELEHEALTH PARAMETERS: WEIGHT: NOTIFY MD OF WEIGHT GAIN OF 2 LBS IN 24 HOURS OR 5 LBS IN ONE WEEK HR: NOTIFY MD OF HR <55 BPM OR HR>100 BPM BP: NOTIFY MD IF BP <90/55 OR BP>140/100 O2 SAT: NOTIFY MD IF PO2<93% ON ROOM AIR SEND TELEHEALTH REPORT TO CAR COOPER AND CARDIOVASCULAR SURGEON THE FIRST WEEK OF CARE AND THEN BI-WEEKLY. PLEASE ADDITIONALLY COMMUNICATE ANY ABNORMALS AND NEW FINDINGS TO THE SURGEONS OFFICE. Plan - Discharge Summary New Discharge Prescriptions: No Action amLODIPine [Norvasc] 5 mg PO DAILY Mirtazapine [Remeron] 45 mg PO HS Lisinopril [Zestril] 10 mg PO DAILY Buprenorphine HCl/Naloxone HCl [Suboxone 8 mg-2 mg Sl Film] 1.5 film SUBLINGUAL DAILY Atenolol/Chlorthalidone [Atenolol-Chlorthalidone 50-25] 1 tab PO DAILY Discharge Medication List Atenolol/Chlorthalidone [Atenolol-Chlorthalidone 50-25] 1 tab PO DAILY 06/04/17 [History] Buprenorphine HCl/Naloxone HCl [Suboxone 8 mg-2 mg Sl Film] 1.5 film SUBLINGUAL DAILY 06/04/17 [History] Lisinopril [Zestril] 10 mg PO DAILY 06/04/17 [History] Mirtazapine [Remeron] 45 mg PO HS 06/04/17 [History] amLODIPine [Norvasc] 5 mg PO DAILY 06/04/17 [History] Follow up Appointment(s)/Referral(s): Radha Meadows MD [STAFF PHYSICIAN] - 1 Week Agustin Baptiste MD [Primary Care Provider] - 1 Week Felicia Restrepo NPC [Nurse Practitioner] - 06/17/17 11:00 am Chris Saravia MD [STAFF PHYSICIAN] - 06/27/17 4:00 pm Tin Sweeney MD [REFERRING] - As Needed (Please call for follow up appointment when ready to transition from pain medication back to Suboxone) Royal Larson MD [STAFF PHYSICIAN] - 07/11/17 10:00 am [facility] Visiting Nurse, [NON-STAFF] - Ambulatory/Diagnostic Orders: Complete Blood Count w/diff [LAB.AMB] Time Frame: 3 Days, Location: Determined By Patient Comprehensive Metabolic Panel [LAB.AMB] Time Frame: 3 Days, Location: Determined By Patient Activity/Diet/Wound Care/Special Instructions: DISCHARGE INSTRUCTIONS: 1. No driving for 4 weeks, or until physician gives their ok. 2. The patient should sleep in their own bed, no medical bed needed. 3. Stairs are not an issue. If the bedroom is upstairs, it is advised that the patient go up at night and down in the morning for the first week. Go slowly, using handrail and take 1 step at a time. 4. CANDACE hose are to be worn for 30 days or until physician discontinues. 5. Heart hugger is to be worn 100% of the time until physician discontinues.( except when showering) 6. No lifting, pushing, or pulling more than 10 pounds for 12 weeks. The physician will advise of any restriction changes. 7. The patient is expected to continue the prescribed walking program. 8. Continue pain control per as needed orders. Will resume Suboxone when able to stop narcotic pain medication. 9. Continue with incentive spirometry and splinting/heart hugger until otherwise directed by the physician. 10. Must shower daily using liquid antibacterial soap and a separate white washcloth for each individual incision. 11. Routine sternal incision care. No powders, lotions, ointments on incisions. 12. Please call surgeon/WEAVER TIRE CORD for temp greater than 101 F or purulent drainage from incisions. 13. All prescriptions given by surgeon for 30 days. Refills need to be filled through afterschool/primary care physician. HOME HEALTH SERVICES TO PROVIDE: RN SKILLED HOME CARE SERVICES FOR POST-OP SURGICAL PATIENTS WITH THE FOLLOWING: Coronary Artery Bypass Surgery (CABG), Mitral Valve Replacement/ Repair ( MVR), Aortic Valve Replacement/Repair (AVR) RN TO CONTINUE EDUCATION FROM ``ROAD TO A HEALTH HEART PATIENT EDUCATION MANUAL (GIVEN TO PATIENT IN THE HOSPITAL) MEDICATION RECONCILIATION WITH EDUCATION NEEDED ON FIRST HOME VISIT EMPHASIZE IMPORTANCE OF WEARING BREAST SUPPORT/HEART HUGGER ENCOURAGE USE OF INCENTIVE SPIROMETER 10 X EVERY HOUR WHILE AWAKE ENCOURAGE UTILIZATION OF LOWER EXTREMITY COMPRESSION STOCKINGS/CANDACE HOSE and ELEVATE LEGS ABOVE LEVEL OF HEART WHILE AT REST. ENCOURAGE AMBULATION 3-5x/day INCREASING TOLERATES, WHILE AVOID EXTREMES IN TEMPERATURE FREQUENCY: RN TO OPEN THE PATIENT WITHIN 24 HOURS OF DISCHARGE FROM THE HOSPITAL WITH TELEHEALTH INSTALLED AT [facility] [place], RN TO VISIT 2-3 X A WEEK FOR 4 WEEKS ESTABLISHED BY PATIENT NEEDS. LABORATORY: CBC, CMP TO BE DRAWN ON THE THIRD DAY HOME, 07/18/2016 (RAN STAT ) FAX RESULTS TO [phone]. WEIGHT: NOTIFY MD OF WEIGHT GAIN OF 2 LBS IN 24 HOURS OR 5 LBS IN ONE WEEK HR: NOTIFY MD OF HR <55 BPM OR HR>100 BPM BP: NOTIFY MD IF BP <90/55 OR BP>140/100 O2 SAT: NOTIFY MD IF PO2<93% ON ROOM AIR SEND TELEHEALTH REPORT TO CAR COOPER AND CARDIOVASCULAR SURGEON THE FIRST WEEK OF CARE AND THEN BI-WEEKLY. PLEASE ADDITIONALLY COMMUNICATE ANY ABNORMALS AND NEW FINDINGS TO THE SURGEONS OFFICE. Discharge Disposition: HOME WITH HOME HEALTH SERVICES
[2017-06-13 13:33] VITALS: BP 138/65; TEMP 98
[2017-06-13 13:44] VITALS: PULSE 92
--- NOTE | 2017-06-13 14:25 | PN ---
DATE OF SERVICE: 06/13/2017 Patient is postop coronary artery bypass graft. He is seen lying in bed. He is awake, alert, feels good, is up and ambulatory. The plan is for him to be discharged home later today. Patient is hemodynamically stable, afebrile in no acute distress. On physical exam, vital signs, temp is 98.2, heart rate is 102, respiratory rate is 18, blood pressure 134/78, O2 sats 94% on room air. HEENT: Head is normocephalic, atraumatic. Neck is supple. Trachea is midline. Lungs with decreased breath sounds and a few rales to the right base. HEART: S1, S2 are heard, non-tachycardic. Abdomen is soft, bowel sounds are positive. Extremities with no edema. NEUROLOGIC: Patient is awake, alert, oriented. LABS: White count is 7.7, hemoglobin is 10.5, hematocrit is 29.7 with 197,000 platelets. Sodium is 139, potassium is 4.5, chloride is 103, CO2 is 25, anion gap is 10, BUN is 31, creatinine is 1.33, glucose is 106, calcium 8.8. Total bilirubin 0.9, AST is 50, ALT is 36, alk phos is 85, total protein 6.2 and albumin is 3.3. IMAGING: Chest x-ray done this a.m. continues small left and trace right pleural effusion with adjacent atelectasis and/or consolidation. Asymmetric elevation of the left hemidiaphragm also stable. Left chest tube removed with appreciable pneumothorax. IMPRESSION: Status post coronary artery bypass graft. PLAN: Agree with discharge home per Surgery and patient will follow up in the office to see Dr. Baptiste in the next week to 10 days. RENE
[2017-06-13] MEDS: LISINOPRIL 2.5 MG TAB PO SCH (14:26)
--- NOTE | 2017-06-13 15:14 | PN ---
DATE OF SERVICE: 06/13/2017 CHIEF COMPLAINT: Acute [place]. HISTORY OF PRESENT ILLNESS: This gentleman is doing well and expects to go home today. PHYSICAL EXAM: Breath sounds are heard on both sides. Cardiac exam reveals sinus rhythm. The abdomen is soft. Dressing is dry on the sternal incision. IMPRESSION: 1. Status post coronary artery bypass grafting. 2. Chronic obstructive pulmonary disease. PLAN: Probably home today. RENE
--- NOTE | 2017-06-13 16:32 | PN ---
Mr. Jimenes is status post bypass surgery, recovering nicely, remains in sinus rhythm. Hemodynamically stable, doing well on incentive spirometry. S1, S2 heard normally. Lungs revealed improved air entry. Abdomen and lower extremity exam is unchanged. No JVD is evident. Plan is to continue current medications. MTDD
== END 2017-06-13 15:55 | disposition home health service (06) | DRG 234 ==
LOC: 6SEL 18:24 → 6ICU 06-09 08:48 → 6SEL 06-11 16:20
PROVIDERS: ADMIT Surgery; ATTEND Surgery
PROC: 4A023N7 Measurement of Cardiac Sampling and Pressure, Left Heart, Percutaneous Approach (ICD-10-PCS; 2017-06-05)
PROC: B2111ZZ Fluoroscopy of Multiple Coronary Arteries using Low Osmolar Contrast (ICD-10-PCS; 2017-06-05)
PROC: B2151ZZ Fluoroscopy of Left Heart using Low Osmolar Contrast (ICD-10-PCS; 2017-06-05)
PROC: 4A09X1Z Measurement of Respiratory Capacity, External Approach (ICD-10-PCS; 2017-06-06)
PROC: B54DZZZ Ultrasonography of Bilateral Lower Extremity Veins (ICD-10-PCS; 2017-06-06)
PROC: B44HZZZ Ultrasonography of Bilateral Lower Extremity Arteries (ICD-10-PCS; 2017-06-06)
PROC: B34KZZZ Ultrasonography of Bilateral Upper Extremity Arteries (ICD-10-PCS; 2017-06-06)
PROC: 021109W Bypass Coronary Artery, Two Arteries from Aorta with Autologous Venous Tissue, Open Approach (ICD-10-PCS; 2017-06-09)
PROC: 06BP0ZZ Excision of Right Saphenous Vein, Open Approach (ICD-10-PCS; 2017-06-09)
PROC: 5A1221Z Performance of Cardiac Output, Continuous (ICD-10-PCS; 2017-06-09)
PROC: 02100Z9 Bypass Coronary Artery, One Artery from Left Internal Mammary, Open Approach (ICD-10-PCS; principal; 2017-06-09 08:00)
DX: I21.4 Non-ST elevation (NSTEMI) myocardial infarction (principal); I25.82 Chronic total occlusion of coronary artery; J44.9 Chronic obstructive pulmonary disease, unspecified; I10 Essential (primary) hypertension; B19.20 Unspecified viral hepatitis C without hepatic coma; E78.5 Hyperlipidemia, unspecified; E87.6 Hypokalemia; I25.10 Atherosclerotic heart disease of native coronary artery without angina pectoris; F41.9 Anxiety disorder, unspecified; E78.00 Pure hypercholesterolemia, unspecified; I34.0 Nonrheumatic mitral (valve) insufficiency; M19.90 Unspecified osteoarthritis, unspecified site; J98.6 Disorders of diaphragm; F11.21 Opioid dependence, in remission; F32.9 Major depressive disorder, single episode, unspecified; F17.210 Nicotine dependence, cigarettes, uncomplicated; F12.90 Cannabis use, unspecified, uncomplicated; Z88.0 Allergy status to penicillin; Z79.899 Other long term (current) drug therapy; Z82.49 Family history of ischemic heart disease and other diseases of the circulatory system; Z80.3 Family history of malignant neoplasm of breast; Z85.038 Personal history of other malignant neoplasm of large intestine; Z96.642 Presence of left artificial hip joint; Z86.19 Personal history of other infectious and parasitic diseases; Z87.19 Personal history of other diseases of the digestive system; Z71.3 Dietary counseling and surveillance; Z71.6 Tobacco abuse counseling; Z90.49 Acquired absence of other specified parts of digestive tract; Z81.8 Family history of other mental and behavioral disorders; Z92.3 Personal history of irradiation; Z22.321 Carrier or suspected carrier of Methicillin susceptible Staphylococcus aureus
CPT/HCPCS: 36620; 71010; 71020; 80048; 80053; 80061; 80074; 81003; 82330; 82805; 83036; 83735; 83880; 84443; 84484; 85025; 85027; 85520; 85610; 85730; 86850; 86891; 86900; 86901; 86920; 87070; 87086; 93454; 93880; 93923; 93930; 93970; 94002; 94150; 94640; 94760

== ENCOUNTER 2017-06-17 17:00 | Observation (INO) | payer OTHER ==
[2017-06-17] MEDS ORDERED: ASPIRIN 81 MG CHEW PO STA (17:11)
[2017-06-17] MEDS ORDERED: SODIUM CHLORIDE 0.9% 1,000 ML IV STA (17:11)
[2017-06-17] MEDS ORDERED: NITROGLYCERIN OINT 1 INCH/GM PACKET TOPICAL STA (17:11)
[2017-06-17] MEDS ORDERED: DILTIAZEM 125 MG in SODIUM CHLORIDE 0.9% 100 ML IV ONE (17:15)
[2017-06-17 17:25] LABS: Basophils # (A) 0.1 k/uL (0-0.2); Basophils % (A) 1 %; CHCM 34.9; Eosinophils # (A) 0.1 k/uL (0-0.7); Eosinophils % (A) 1 %; HCT 31.5 % (39.0-53.0); HDW 3.59; HGB 10.6 gm/dL (13.0-17.5); Luc # (Auto) 0.23; Luc % (Auto) 2; Lymphocytes % (A) 8 %; MCH 31.1 pg (25.0-35.0); MCHC 33.7 g/dL (31.0-37.0); MCV 92.3 fL (80.0-100.0); Mean Platelet Volume 7.3; Monocytes # (A) 0.7 k/uL (0-1.0); Monocytes % (A) 6 %; Neutrophils # (A) 9.6 k/uL (1.3-7.7); Neutrophils % (A) 83 %; Poikilocytosis Slight; RBC 3.41 m/uL (4.30-5.90); WBC 11.7 k/uL (3.8-10.6); WBC (Perox) 11.43
[2017-06-17 17:33] LABS: ALT 44 U/L (21-72); AST 42 U/L (17-59); Alkaline Phosphatase 124 U/L (38-126); Anion Gap 12 mmol/L; Blood Urea Nitrogen 21 mg/dL (9-20); Calcium 9.1 mg/dL (8.4-10.2); Carbon Dioxide 25 mmol/L (22-30); Chloride 103 mmol/L (98-107); Glucose 118 mg/dL (74-99); Magnesium 1.7 mg/dL (1.6-2.3); Non-African American GFR(MDRD) 59 (>60 ml/min/1.73 sqM); Potassium 4.6 mmol/L (3.5-5.1); Sodium 140 mmol/L (137-145); Total Bilirubin 0.9 mg/dL (0.2-1.3); Total Protein 7.1 g/dL (6.3-8.2)
[2017-06-17 17:45] LABS: INR 1.1 (<1.2); Partial Thromboplastin Time 24.9 sec (22.0-30.0); Prothrombin Time 10.7 sec (9.0-12.0)
[2017-06-17 17:58] LABS: Creatine Kinase MB 1.2 ng/mL (0.0-2.4)
[2017-06-17 18:01] LABS: Troponin I 0.1 ng/mL (0.000-0.034)
[2017-06-17] MEDS ORDERED: RX INFO: IV CONTRAST WAS GIVEN 1 EACH MISC MISCELLANE PRN (18:19)
--- NOTE | 2017-06-17 18:47 | XR ---
EXAMINATION TYPE: XR chest 2V DATE OF EXAM: 06/17/2017 COMPARISON: 06/13/2017 HISTORY: Chest pain TECHNIQUE: Frontal and lateral views of the chest are obtained. FINDINGS: There is blunting of left costophrenic angle with infiltrate at the left lung base. There is no gross heart failure. There are sternal wires. There is coarsening of interstitial markings. The re are chest leads. Bony thorax is intact. There is slight blunting of the right posterior costophren ic angle. IMPRESSION: There is combined consolidation and atelectasis and pleural thickening at the left lung base that is the same as last exam. Small right pleural effusion is slightly improved. No gross heart failure.
--- NOTE | 2017-06-17 18:56 | ED ---
Chest Pain HPI - General Chief Complaint: Chest Pain Stated Complaint: Cardiac Issues Time Seen by Provider: 06/17/17 17:06 Source: EMS Mode of arrival: EMS - History of Present Illness Initial Comments: This 62-year-old white male presents with a complaint of some chest pain. This is described as a midsternal pressure type sensation. It occurred shortly prior to arrival. He also is complaining of some palpitations. EMS relates a significant tachycardia with heart rates in the 170s. He just got out of the hospital after having a CABG. He apparently had the open-heart surgery approximately 8 days ago. This was done by Dr. Larson. He denies any leg pain or swelling or history of DVT or PE. He also had some mild shortness of breath. He denies any fevers or chills. No other complaints or modifying factors. - Related Data Home Medications Medication Instructions Recorded Confirmed HYDROcodone/APAP 7.5-325MG [[place] 1 - 2 tab PO Q6H PRN 06/17/17 06/17/17 7.5-325] Previous Rx's Medication Instructions Recorded Aspirin 325 mg PO DAILY #30 tab 06/13/17 Atorvastatin [Lipitor] 40 mg PO DAILY #30 tab 06/13/17 Clopidogrel [Plavix] 75 mg PO DAILY #30 tab 06/13/17 Lisinopril [Zestril] 2.5 mg PO DAILY@1400 #30 tab 06/13/17 Metoprolol Tartrate [Lopressor] 100 mg PO BID #120 tab 06/13/17 Allergies Allergy/AdvReac Type Severity Reaction Status Date / Time Penicillins Allergy Unknown Verified 06/17/17 17:29 Review of Systems ROS Statement: Those systems with pertinent positive or pertinent negative responses have been documented in the HPI. ROS Other: All systems not noted in ROS Statement are negative. Past Medical History Past Medical History: Coronary Artery Disease (CAD), Cancer, Hyperlipidemia, Hypertension, Osteoarthritis (OA) Additional Past Medical History / Comment(s): "TX FOR BOWEL INFECTION IN PAST . " ONE DR TOLD ME I HAD COLITIS BUT ANOTHER DR TOLD ME I DID'NT", "COLON CANCER" , oCC TROUBLE SWALLOWING, BROKEN RT LEG IN PAST. Hepatitis C positive History of Any Multi-Drug Resistant Organisms: None Reported Past Surgical History: Bowel Resection, Hernia Repair, Orthopedic Surgery Additional Past Surgical History / Comment(s): RT LEG, LT KNEE SX D/R "BROKEN KNEE CAP", PARTIAL LT HIP REPLACEMENT Past Anesthesia/Blood Transfusion Reactions: Previous Problems w/ Anesthesia Additional Past Anesthesia/Blood Transfusion Reaction / Comment(s): DIFFICULTY WAKING Past Psychological History: No Psychological Hx Reported Smoking Status: Current every day smoker - Past Family History Mother Family Medical History: Cancer Additional Family Medical History / Comment(s): BREAST CANCER Father Family Medical History: Congestive Heart Failure (CHF), Coronary Artery Disease (CAD), Myocardial Infarction ([place]) Additional Family Medical History / Comment(s): Father of myocardial infarction in his 50s General Exam - General Exam Comments Initial Comments: GENERAL: The patient is well nourished and well hydrated. VITAL SIGNS: Heart rate, blood pressure, respiratory rate reviewed as recorded in nurse's notes. EYES: Pupils are round and reactive. Extraocular movements are intact. No conjunctival / lid redness or swelling. ENT: No external evidence of injury, swelling, or ecchymosis. Airway is patent. Throat is clear. NECK: Nontender. No swelling or evidence of injury. No subcutaneous emphysema. Trachea is midline. No thyroid mass. HEART: Significant tachycardic heart rate is noted. Good peripheral pulses. No peripheral edema is, swelling, or tenderness. LUNGS/CHEST: Breath sounds clear and equal bilaterally. No rales, rhonchi, or wheezes. No ecchymosis, subcutaneous emphysema, or tenderness. ABDOMEN: Abdomen soft without tenderness. No palpable masses or organomegaly. No peritoneal signs. No abdominal wall swelling or ecchymosis. EXTREMITIES: No extremity tenderness. Normal muscle tone and function. No thoracolumbar tenderness. NEUROLOGIC: Sensation is grossly intact. Cranial nerve exam reveals face is symmetrical, tongue is midline, speech is clear. SKIN: No abrasions or ecchymosis is noted. No induration or masses noted. There is a well-healing mid sternal CABG scar noted. PSYCHIATRIC: Alert and oriented. Appropriate behavior and judgment. Course Vital Signs 06/17/17 06/17/17 06/17/17 17:12 17:33 17:38 Temperature 99.9 F H Pulse Rate 170 H 166 H 166 H Respiratory 16 16 16 Rate Blood Pressure 108/68 94/68 96/70 O2 Sat by Pulse 94 L 98 98 Oximetry 06/17/17 06/17/17 06/17/17 17:43 17:48 17:54 Temperature Pulse Rate 164 H 164 H 160 H Respiratory 16 17 17 Rate Blood Pressure 98/63 100/66 99/75 O2 Sat by Pulse 97 98 97 Oximetry 06/17/17 06/17/17 06/17/17 18:18 18:23 18:28 Temperature Pulse Rate 74 80 76 Respiratory 16 17 18 Rate Blood Pressure 95/53 112/55 110/53 O2 Sat by Pulse 97 96 96 Oximetry 06/17/17 06/17/17 06/17/17 18:33 19:08 19:45 Temperature Pulse Rate 78 85 77 Respiratory 18 18 Rate Blood Pressure 117/64 110/59 110/67 O2 Sat by Pulse 96 96 97 Oximetry 06/17/17 20:18 Temperature Pulse Rate 73 Respiratory 18 Rate Blood Pressure 108/69 O2 Sat by Pulse 96 Oximetry Chest Pain MDM - MDM The patient was seen and examined. All diagnostics were reviewed. He is placed on a surveillance system monitor does show significant tachycardia which is regular. The EKG shows a supraventricular tachycardia versus atrial flutter. The heart rate is 173. There is some associated ST T-wave changes which is likely due to the tachycardia. The ME interval is 136, QRS duration is 80, and the QTc interval is 447. The patient is started on some Cardizem intravenously. Is rate is started at 5 initially and then increased to 10. Shortly after increasing to 10 he does convert to a normal sinus rhythm with a heart rate of 86. The EKG repeat shows a normal sinus rhythm at a rate of 86 with occasional PAC. There are no ST-T wave changes noted on this repeat EKG. The ME interval is 134, QRS duration is 70, and the QTc interval is 500. The EKG from EMS also is reviewed and is similar to the initial EKG that we have. The patient is feeling improved on recheck. The x-ray of the chest shows evidence of a left pleural effusion which is similar to last EKG in. The laboratories also reviewed. This does show significant elevation of the d-dimer. A CT angiogram of the chest is completed. This does not show any evidence of pulmonary embolism. It does show some bilateral pleural effusions versus infiltrate with atelectasis. There is some postsurgical and anterior mediastinal fluid changes. The case is discussed with Dr. Hankins for Dr. Baptiste and he is agreeable with admission with cardiology and cardiothoracic surgery to consult. Case is discussed with Dr. Larson. The patient's troponin is negative but his d-dimer is elevated. The patient is mildly anemic. He is doing quite well on recheck. All of his symptoms have resolved upon conversion. He will be admitted as a observation to the telemetry unit. Approximately 40 minutes critical care time was utilized and the treatment of the patient. The case is also discussed with cardiology after he converts and they would like to stop the Cardizem drip and continue him on the Lopressor 100 mg twice a day. Disposition Clinical Impression: SVT (supraventricular tachycardia), Chest pain, Triple vessel coronary artery disease, Hepatitis C, History of heroin abuse, Anemia, CHF (congestive heart failure), Bilateral pleural effusion, History of coronary artery bypass graft x 3 Disposition: ADMITTED IP TO THIS HOSP Condition: Fair Time of Disposition: 20:22 Decision Date: 06/17/17 Decision Time: 20:22
--- NOTE | 2017-06-17 20:05 | CT ---
EXAMINATION TYPE: CT angio chest DATE OF EXAM: 06/17/2017 7:48 PM COMPARISON: NONE HISTORY: Post OP CABG 1 week. Shortness of breath and chest pain CT DLP: 555 mGycm Automated exposure control for dose reduction was used. CONTRAST: CTA scan of the thorax is performed with IV Contrast, patient injected with 80 mL of Visipaque 320, p ulmonary embolism protocol. There are 3-D post processed images.. FINDINGS: There are bilateral pleural effusions and larger on the left side. There is some consolidation and at electasis at the lung bases bilaterally. Heart appears enlarged. I see no filling defects in the pulmonary arteries. There are sternal wires. There is anterior soft t issue air adjacent to the sternum. This is recent postsurgical changes. Thoracic aorta is atheromatou s. There is no evidence of aneurysm or dissection. There are no hilar masses. There is no sign of med iastinal adenopathy. There is a small fluid collection in the anterior mediastinum that measures 3.5 x 2 cm. There is no sign of pneumothorax. IMPRESSION: BILATERAL PLEURAL EFFUSIONS WITH BASILAR MILD ATELECTASIS AND INFILTRATE. THIS PROBABLY RELATES TO CO NGESTIVE HEART FAILURE. NO EVIDENCE OF PULMONARY EMBOLISM. RETROSTERNAL POSTSURGICAL CHANGES WITH FLUID AND AIR. SMALL ANTERIOR PERICARDIAL EFFUSION.
[2017-06-17] MEDS ORDERED: METOPROLOL TARTRATE 50 MG TAB PO STA (20:28)
[2017-06-17 21:41] VITALS: BMI 22.7
[2017-06-17] MEDS: NITROGLYCERIN OINT 1 INCH/GM PACKET TOPICAL SCH (23:10)
[2017-06-18 01:16] LABS: Troponin I 0.245 ng/mL (0.000-0.034)
[2017-06-18 01:45] LABS: Creatine Kinase MB 1.3 ng/mL (0.0-2.4)
[2017-06-18] MEDS: NITROGLYCERIN OINT 1 INCH/GM PACKET TOPICAL SCH (05:08)
[2017-06-18] MEDS: METOPROLOL TARTRATE 50 MG TAB PO SCH ×2 (05:34→17:28)
[2017-06-18 06:41] LABS: Creatine Kinase MB 1.6 ng/mL (0.0-2.4)
[2017-06-18 06:43] LABS: Troponin I 0.198 ng/mL (0.000-0.034)
[2017-06-18] MEDS: ASPIRIN 325 MG TAB PO SCH (09:02)
[2017-06-18] MEDS: CLOPIDOGREL 75 MG TAB PO SCH (09:02)
[2017-06-18] MEDS: ATORVASTATIN 40 MG TAB PO SCH (09:03)
[2017-06-18] MEDS: ENOXAPARIN 40 MG/0.4 ML SYRINGE SQ SCH (09:03)
--- NOTE | 2017-06-18 09:59 | P.GSCN ---
<Felicia Restrepo - Last Filed: 06/18/17 09:39> History of Present Illness Consult date: 06/18/17 Reason for Consult: Recent CABG, known to our service. Requesting physician: Tano Garcia History of present illness: This 62-year-old gentleman presented to the emergency department last night with complaints of chest pain and elevated heart rate. He was discharged last Friday after admission for urgent coronary artery bypass graft surgery. He was supposed to follow-up in the office with me yesterday but did not show and did not answer his telephone. Apparently yesterday he couldn't feel his heart racing and did develop midsternal chest pain. He also complained of some mild shortness of breath. He denied any other associated factors. Upon presentation to the emergency room his heart rate was quite elevated, documented as high as 170 bpm, ST with conversion to normal sinus rhythm with administration of Cardizem IV. Due to his symptoms and an elevated d-dimer a CAT scan of the chest was done which ruled out pulmonary embolism. Chest x-ray and CT do demonstrate a left pleural effusion which has improved since discharge last week. The case was discussed with Dr. Larson last night by the emergency room physician as well as primary care service and the patient was placed in observation status with a consult for Dr. Larson. Review of Systems 14 point review systems was completed was negative except as noted. - Cardiovascular Reports as per HPI - Respiratory Reports as per HPI Past Medical History Past Medical History: Coronary Artery Disease (CAD), Cancer, Hyperlipidemia, Hypertension, Osteoarthritis (OA) Additional Past Medical History / Comment(s): "TX FOR BOWEL INFECTION IN PAST . " ONE DR TOLD ME I HAD COLITIS BUT ANOTHER DR TOLD ME I DID'NT", "COLON CANCER" , oCC TROUBLE SWALLOWING, BROKEN RT LEG IN PAST. Hepatitis C positive History of Any Multi-Drug Resistant Organisms: None Reported Past Surgical History: Bowel Resection, Coronary Bypass/CABG, Hernia Repair, Orthopedic Surgery Additional Past Surgical History / Comment(s): RT LEG, LT KNEE SX D/R "BROKEN KNEE CAP", PARTIAL LT HIP REPLACEMENT Past Anesthesia/Blood Transfusion Reactions: Previous Problems w/ Anesthesia Additional Past Anesthesia/Blood Transfusion Reaction / Comm: DIFFICULTY WAKING Past Psychological History: No Psychological Hx Reported Additional Psychological History / Comment(s): PT STATED HE LIVES WITH HIS NEICE AND COUSIN IN A SINGLE LEVEL HOME THAT HAS 3 PORCH STEPS. 1 PET CAT. NO OUTSIDE SERVICES RECEIVED. NO MEDICAL EQUIPMENT. PT WORKS A [employer].. 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 Smoking Status: Current every day smoker Past Alcohol Use History: None Reported Additional Past Alcohol Use History / Comment(s): history of alcohol abuse Additional Drug Use History / Comment(s): Heroin - patient states last time was 3 or more years ago. - Past Family History Mother Family Medical History: Cancer Additional Family Medical History / Comment(s): BREAST CANCER Father Family Medical History: Congestive Heart Failure (CHF), Coronary Artery Disease (CAD), Myocardial Infarction ([place]) Additional Family Medical History / Comment(s): Father of myocardial infarction in his 50s Medications and Allergies Home Medications Medication Instructions Recorded Confirmed Type HYDROcodone/APAP 7.5-325MG [[place] 1 - 2 tab PO Q6H PRN 06/17/17 06/18/17 History 7.5-325] Allergies Allergy/AdvReac Type Severity Reaction Status Date / Time Penicillins Allergy Rash/Hives Verified 06/17/17 21:41 Surgical - Exam Vital Signs Temp Pulse Resp BP Pulse Ox 99.9 F H 170 H 16 108/68 94 L 06/17/17 17:12 06/17/17 17:12 06/17/17 17:12 06/17/17 17:12 06/17/17 17:12 - General well developed, well nourished, no distress, no pain - Eyes PERRL, normal ocular movement - ENT no hearing loss, poor fci - Neck trachea midline - Respiratory Lungs sounds diminished bilaterally. Respirations even, nonlabored. Currently on room air with oxygen saturations 95%. - Cardiovascular S1, S2 present. Regular rate and rhythm, normal sinus rhythm on telemetry. No edema present. - Abdomen Abdomen: soft, non tender, bowel sounds - Genitourinary Deferred - Rectum Deferred - Integumentary Anterior chest incision well approximated with Dermabond dressing. No redness, no drainage noted. - Neurologic normal coordination, normal sensation - Musculoskeletal normal gait - Psychiatric oriented to time, oriented to person, oriented to place, speech is normal, memory intact Results - Labs 06/17/17 17:12 06/17/17 17:12 Abnormal Lab Results - Last 24 Hours (Table) 06/17/17 06/17/17 06/17/17 Range/Units 17:12 17:12 17:12 WBC 11.7 H (3.8-10.6) k/uL RBC 3.41 L (4.30-5.90) m/uL Hgb 10.6 L (13.0-17.5) gm/dL Hct 31.5 L (39.0-53.0) % Plt Count 472 H D (150-450) k/uL Neutrophils # 9.6 H (1.3-7.7) k/uL D-Dimer (<0.60) mg/L FEU BUN 21 H (9-20) mg/dL Glucose 118 H (74-99) mg/dL Troponin I 0.100 H* (0.000-0.034) ng/mL 06/17/17 06/17/17 06/18/17 Range/Units 17:12 23:49 05:38 WBC (3.8-10.6) k/uL RBC (4.30-5.90) m/uL Hgb (13.0-17.5) gm/dL Hct (39.0-53.0) % Plt Count (150-450) k/uL Neutrophils # (1.3-7.7) k/uL D-Dimer 2.02 H (<0.60) mg/L FEU BUN (9-20) mg/dL Glucose (74-99) mg/dL Troponin I 0.245 H* 0.198 H* (0.000-0.034) ng/mL Diabetes panel 06/17/17 Range/Units 17:12 Sodium 140 (137-145) mmol/L Potassium 4.6 (3.5-5.1) mmol/L Chloride 103 (98-107) mmol/L Carbon Dioxide 25 (22-30) mmol/L BUN 21 H (9-20) mg/dL Creatinine 1.24 (0.66-1.25) mg/dL Glucose 118 H (74-99) mg/dL Calcium 9.1 (8.4-10.2) mg/dL AST 42 (17-59) U/L ALT 44 (21-72) U/L Alkaline Phosphatase 124 (38-126) U/L Total Protein 7.1 (6.3-8.2) g/dL Albumin 4.0 (3.5-5.0) g/dL Calcium panel 06/17/17 Range/Units 17:12 Calcium 9.1 (8.4-10.2) mg/dL Albumin 4.0 (3.5-5.0) g/dL Pituitary panel 06/17/17 Range/Units 17:12 Sodium 140 (137-145) mmol/L Potassium 4.6 (3.5-5.1) mmol/L Chloride 103 (98-107) mmol/L Carbon Dioxide 25 (22-30) mmol/L BUN 21 H (9-20) mg/dL Creatinine 1.24 (0.66-1.25) mg/dL Glucose 118 H (74-99) mg/dL Calcium 9.1 (8.4-10.2) mg/dL Adrenal panel 06/17/17 Range/Units 17:12 Sodium 140 (137-145) mmol/L Potassium 4.6 (3.5-5.1) mmol/L Chloride 103 (98-107) mmol/L Carbon Dioxide 25 (22-30) mmol/L BUN 21 H (9-20) mg/dL Creatinine 1.24 (0.66-1.25) mg/dL Glucose 118 H (74-99) mg/dL Calcium 9.1 (8.4-10.2) mg/dL Total Bilirubin 0.9 (0.2-1.3) mg/dL AST 42 (17-59) U/L ALT 44 (21-72) U/L Alkaline Phosphatase 124 (38-126) U/L Total Protein 7.1 (6.3-8.2) g/dL Albumin 4.0 (3.5-5.0) g/dL - Imaging Chest x-ray: report reviewed, image reviewed CT scan - chest: report reviewed, image reviewed Assessment and Plan (1) History of non-ST elevation myocardial infarction (NSTEMI) Status: Acute (2) Chest pain Status: Acute (3) History of heroin abuse Status: Acute (4) Triple vessel coronary artery disease Status: Acute (5) Family history of myocardial infarction in first degree male relative Status: Acute (6) HTN (hypertension) Status: Acute (7) Hepatitis C Status: Acute (8) Hyperlipemia Status: Acute (9) Hypertension Status: Acute (10) S/P CABG (coronary artery bypass graft) Status: Acute (11) S/P cardiac cath Status: Acute (12) Tobacco dependence Status: Acute Plan: 1. Continue aspirin, Lipitor, Plavix, lisinopril, Lopressor, Lovenox. 2. Appreciate cardiology recommendations. Cardizem discontinued per cardiology , continuous Lopressor. 3. Incentive spirometer ordered. Encourage incentive spirometry use. Encourage smoking cessation. 4. Patient may shower. 5. Ambulate in hallway. SCDs when patient is in bed. 6. Sternal precautions post CABG. 7. GI/DVT prophylaxis. 8. More recommendations to follow. Time with Patient: Greater than 30 <HabRoyal melendez - Last Filed: 06/18/17 13:59> Surgical - Exam Vital Signs Temp Pulse Resp BP Pulse Ox 99.9 F H 170 H 16 108/68 94 L 06/17/17 17:12 06/17/17 17:12 06/17/17 17:12 06/17/17 17:12 06/17/17 17:12 Results - Labs 06/17/17 17:12 06/17/17 17:12 Abnormal Lab Results - Last 24 Hours (Table) 06/17/17 06/17/17 06/17/17 Range/Units 17:12 17:12 17:12 WBC 11.7 H (3.8-10.6) k/uL RBC 3.41 L (4.30-5.90) m/uL Hgb 10.6 L (13.0-17.5) gm/dL Hct 31.5 L (39.0-53.0) % Plt Count 472 H D (150-450) k/uL Neutrophils # 9.6 H (1.3-7.7) k/uL D-Dimer (<0.60) mg/L FEU BUN 21 H (9-20) mg/dL Glucose 118 H (74-99) mg/dL Troponin I 0.100 H* (0.000-0.034) ng/mL 06/17/17 06/17/17 06/18/17 Range/Units 17:12 23:49 05:38 WBC (3.8-10.6) k/uL RBC (4.30-5.90) m/uL Hgb (13.0-17.5) gm/dL Hct (39.0-53.0) % Plt Count (150-450) k/uL Neutrophils # (1.3-7.7) k/uL D-Dimer 2.02 H (<0.60) mg/L FEU BUN (9-20) mg/dL Glucose (74-99) mg/dL Troponin I 0.245 H* 0.198 H* (0.000-0.034) ng/mL Diabetes panel 06/17/17 Range/Units 17:12 Sodium 140 (137-145) mmol/L Potassium 4.6 (3.5-5.1) mmol/L Chloride 103 (98-107) mmol/L Carbon Dioxide 25 (22-30) mmol/L BUN 21 H (9-20) mg/dL Creatinine 1.24 (0.66-1.25) mg/dL Glucose 118 H (74-99) mg/dL Calcium 9.1 (8.4-10.2) mg/dL AST 42 (17-59) U/L ALT 44 (21-72) U/L Alkaline Phosphatase 124 (38-126) U/L Total Protein 7.1 (6.3-8.2) g/dL Albumin 4.0 (3.5-5.0) g/dL Calcium panel 06/17/17 Range/Units 17:12 Calcium 9.1 (8.4-10.2) mg/dL Albumin 4.0 (3.5-5.0) g/dL Pituitary panel 06/17/17 Range/Units 17:12 Sodium 140 (137-145) mmol/L Potassium 4.6 (3.5-5.1) mmol/L Chloride 103 (98-107) mmol/L Carbon Dioxide 25 (22-30) mmol/L BUN 21 H (9-20) mg/dL Creatinine 1.24 (0.66-1.25) mg/dL Glucose 118 H (74-99) mg/dL Calcium 9.1 (8.4-10.2) mg/dL Adrenal panel 06/17/17 Range/Units 17:12 Sodium 140 (137-145) mmol/L Potassium 4.6 (3.5-5.1) mmol/L Chloride 103 (98-107) mmol/L Carbon Dioxide 25 (22-30) mmol/L BUN 21 H (9-20) mg/dL Creatinine 1.24 (0.66-1.25) mg/dL Glucose 118 H (74-99) mg/dL Calcium 9.1 (8.4-10.2) mg/dL Total Bilirubin 0.9 (0.2-1.3) mg/dL AST 42 (17-59) U/L ALT 44 (21-72) U/L Alkaline Phosphatase 124 (38-126) U/L Total Protein 7.1 (6.3-8.2) g/dL Albumin 4.0 (3.5-5.0) g/dL Assessment and Plan Plan: The patient was seen and examined. I agree with the above assessment and plan. He presented last night to the emergency department with tachycardia. He was diagnosed with SVT which was treated with Cardizem. This morning he is in normal sinus rhythm and feeling well. His surgical wounds appear to be clean dry and intact. His laboratory and radiological studies were reviewed. There is no need for intervention on my part. He'll be discharged back home when cleared by cardiology and his primary care physician.
[2017-06-18] MEDS ORDERED: ALPRAZolam 0.25 MG TAB PO PRN (12:13)
[2017-06-18] MEDS: LISINOPRIL 2.5 MG TAB PO SCH (13:14)
[2017-06-18] MEDS ORDERED: VERAPAMIL 40 MG TAB PO SCH (16:00)
[2017-06-18] MEDS: ALPRAZolam 0.5 MG TAB PO SCH ×2 (16:10→21:49)
--- NOTE | 2017-06-18 16:29 | P.CRDCN ---
History of Present Illness Consult date: 06/18/17 Reason for Consult (text): SVT, elevated troponin Chief complaint: shortness of breath, rapid heart beat History of present illness: This is a pleasant 62-year-old gentleman who recently underwent coronary artery bypass graft surgery. Presented to the emergency department last night with complaints of chest discomfort, palpitations and elevated heart rate. He described chest discomfort as an odd feeling in his chest that resolved once his heart rate normalized. On admission d-dimer was elevated and a CT of the chest was done that showed no evidence of dense for PE. BNP was elevated at 10, 200. Patient's troponins were also elevated at 0.100, 0.245, 0.198. On admission patient was in SVT and is since converted to sinus rhythm. He did have one episode of a wide QRS complex tachycardia at about 5:30 this morning as well as a 7 minute episode of SVT. He is currently on metoprolol. Upon examination, patient is feeling quite a bit better. He denies further complaints of chest discomfort, shortness of breath or palpitations. Past Medical History Past Medical History: Coronary Artery Disease (CAD), Cancer, Hyperlipidemia, Hypertension, Osteoarthritis (OA) Additional Past Medical History / Comment(s): "TX FOR BOWEL INFECTION IN PAST . " ONE DR TOLD ME I HAD COLITIS BUT ANOTHER DR TOLD ME I DID'NT", "COLON CANCER" , oCC TROUBLE SWALLOWING, BROKEN RT LEG IN PAST. Hepatitis C positive History of Any Multi-Drug Resistant Organisms: None Reported Past Surgical History: Bowel Resection, Coronary Bypass/CABG, Hernia Repair, Orthopedic Surgery Additional Past Surgical History / Comment(s): RT LEG, LT KNEE SX D/R "BROKEN KNEE CAP", PARTIAL LT HIP REPLACEMENT Past Anesthesia/Blood Transfusion Reactions: Previous Problems w/ Anesthesia Additional Past Anesthesia/Blood Transfusion Reaction / Comment(s): DIFFICULTY WAKING Past Psychological History: No Psychological Hx Reported Additional Psychological History / Comment(s): PT STATED HE LIVES WITH HIS NEICE AND COUSIN IN A SINGLE LEVEL HOME THAT HAS 3 PORCH STEPS. 1 PET CAT. NO OUTSIDE SERVICES RECEIVED. NO MEDICAL EQUIPMENT. PT WORKS A [employer].. 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 Smoking Status: Current every day smoker Past Alcohol Use History: None Reported Additional Past Alcohol Use History / Comment(s): history of alcohol abuse Additional Drug Use History / Comment(s): Heroin - patient states last time was 3 or more years ago. - Past Family History Mother Family Medical History: Cancer Additional Family Medical History / Comment(s): BREAST CANCER Father Family Medical History: Congestive Heart Failure (CHF), Coronary Artery Disease (CAD), Myocardial Infarction (IA) Additional Family Medical History / Comment(s): Father of myocardial infarction in his 50s Medications and Allergies Home Medications Medication Instructions Recorded Confirmed Type HYDROcodone/APAP 7.5-325MG [[place] 1 - 2 tab PO Q6H PRN 06/17/17 06/18/17 History 7.5-325] Allergies Allergy/AdvReac Type Severity Reaction Status Date / Time Penicillins Allergy Rash/Hives Verified 06/17/17 21:41 Physical Exam Vitals: Vital Signs Temp Pulse Pulse Resp BP BP Pulse Ox 06/18/17 11:22 83 16 06/18/17 11:17 97.6 F 83 16 138/69 96 06/18/17 08:00 98.3 F 75 16 132/72 97 06/18/17 05:39 89 06/18/17 05:36 162 H 146/91 06/18/17 04:00 98.6 F 68 16 120/71 95 06/18/17 00:00 97.6 F 78 18 105/67 96 06/17/17 21:20 98.5 F 70 18 105/57 96 06/17/17 21:04 97.8 F 73 18 139/48 98 06/17/17 20:41 69 18 110/57 97 06/17/17 20:18 73 18 108/69 96 06/17/17 19:45 77 18 110/67 97 06/17/17 19:08 85 18 110/59 96 06/17/17 18:33 78 117/64 96 06/17/17 18:28 76 18 110/53 96 06/17/17 18:23 80 17 112/55 96 06/17/17 18:18 74 16 95/53 97 06/17/17 17:54 160 H 17 99/75 97 06/17/17 17:48 164 H 17 100/66 98 06/17/17 17:43 164 H 16 98/63 97 06/17/17 17:38 166 H 16 96/70 98 06/17/17 17:33 166 H 16 94/68 98 06/17/17 17:12 99.9 F H 170 H 16 108/68 94 L Intake and Output 06/18/17 06/18/17 06/18/17 06:59 14:59 22:59 Intake Total 400 130 Output Total 250 Balance 150 130 Intake: IV 400 10 0.9 10 Sodium Chloride 0.9% 1, 400 000 ml @ 50 mls/hr IV . Q20H STA Rx#:[id number] Oral 120 Output: Urine 250 PHYSICAL EXAMINATION: HEENT: Head is atraumatic, normocephalic. Pupils equal, round. Neck is supple. There is no elevated jugular venous pressure. Poor dentition HEART EXAMINATION: Heart sounds regular, S1 and S2 normal. No murmur or gallop heard. CHEST EXAMINATION: Lungs diminished bilaterally. No chest wall tenderness is noted on palpation or with deep breathing. ABDOMEN: Soft, nontender. Bowel sounds are heard. No organomegaly noted. EXTREMITIES: 2+ peripheral pulses with evidence of trace peripheral edema and no calf tenderness noted. NEUROLOGIC patient is awake, alert and oriented x3. . Results 06/17/17 17:12 06/17/17 17:12 Cardiac Enzymes 06/17/17 06/17/17 06/17/17 Range/Units 17:12 17:12 23:49 AST 42 (17-59) U/L CK-MB (CK-2) 1.2 1.3 (0.0-2.4) ng/mL Troponin I 0.100 H* 0.245 H* (0.000-0.034) ng/mL 06/18/17 Range/Units 05:38 AST (17-59) U/L CK-MB (CK-2) 1.6 (0.0-2.4) ng/mL Troponin I 0.198 H* (0.000-0.034) ng/mL Coagulation 06/17/17 Range/Units 17:12 PT 10.7 (9.0-12.0) sec APTT 24.9 (22.0-30.0) sec CBC 06/17/17 Range/Units 17:12 WBC 11.7 H (3.8-10.6) k/uL RBC 3.41 L (4.30-5.90) m/uL Hgb 10.6 L (13.0-17.5) gm/dL Hct 31.5 L (39.0-53.0) % Plt Count 472 H D (150-450) k/uL Comprehensive Metabolic Panel 06/17/17 Range/Units 17:12 Sodium 140 (137-145) mmol/L Potassium 4.6 (3.5-5.1) mmol/L Chloride 103 (98-107) mmol/L Carbon Dioxide 25 (22-30) mmol/L BUN 21 H (9-20) mg/dL Creatinine 1.24 (0.66-1.25) mg/dL Glucose 118 H (74-99) mg/dL Calcium 9.1 (8.4-10.2) mg/dL AST 42 (17-59) U/L ALT 44 (21-72) U/L Alkaline Phosphatase 124 (38-126) U/L Total Protein 7.1 (6.3-8.2) g/dL Albumin 4.0 (3.5-5.0) g/dL Current Medications Generic Name Dose Route Start Last Admin Trade Name Freq PRN Reason Stop Dose Admin Hydrocodone Bitart/Acetaminophen 2 each 06/17/17 20:32 [place] 7.5-325 PO Q6H PRN Pain Scale 1 to 5 Alprazolam 0.5 mg 06/18/17 16:00 06/18/17 16:10 Xanax PO 0.5 mg TID SOM Administration Aspirin 325 mg 06/18/17 09:00 06/18/17 09:02 Aspirin PO 325 mg DAILY SOM Administration Atorvastatin Calcium 40 mg 06/18/17 09:00 06/18/17 09:03 Lipitor PO 40 mg DAILY SOM Administration Clopidogrel Bisulfate 75 mg 06/18/17 09:00 06/18/17 09:02 Plavix PO 75 mg DAILY SOM Administration Enoxaparin Sodium 40 mg 06/18/17 09:00 06/18/17 09:03 Lovenox SQ 40 mg DAILY SOM Administration Lisinopril 2.5 mg 06/18/17 14:00 06/18/17 13:14 Zestril PO 2.5 mg DAILY@1400 SOM Administration Metoprolol Tartrate 100 mg 06/18/17 09:00 06/18/17 05:34 Lopressor PO 100 mg BID SOM Administration Miscellaneous Information 1 each 06/17/17 18:19 Rx Info: Iv Contrast Was Given MISCELLANE 06/19/17 18:19 DAILY PRN Per Protocol Nitroglycerin 0.4 mg 06/17/17 20:29 Nitrostat SUBLINGUAL Q5M PRN Chest Pain Sodium Chloride 10 ml 06/18/17 09:00 06/18/17 09:03 Saline Flush IV 10 ml BID SOM Administration Verapamil HCl 40 mg 06/18/17 16:00 06/18/17 16:10 Isoptin PO 40 mg TID SOM Administration Intake and Output 06/18/17 06/18/17 06/18/17 06:59 14:59 22:59 Intake Total 400 130 Output Total 250 Balance 150 130 Intake: IV 400 10 0.9 10 Sodium Chloride 0.9% 1, 400 000 ml @ 50 mls/hr IV . Q20H STA Rx#:[id number] Oral 120 Output: Urine 250 06/17/17 17:12 06/17/17 17:12 EKG Interpretations (text) Initially showed SVT Assessment and Plan Plan: Assessment and plan #1 SVT, currently maintaining sinus rhythm #2 wide QRS complex tachycardia #3 recent history of an non-ST elevated IA with subsequent coronary artery bypass grafting surgery #4 hypertension #5 hyperlipidemia From cardiology perspective, we will obtain a 2-D echo with Doppler to assess LV systolic function. We will check a TSH and free T4. We'll start the patient on verapamil 40 mg 3 times a day. Continue metoprolol. Continue to monitor the patient overnight. Anticipate discharge home in the next 24-48 hours. Further recommendations to follow. COMFORT STATION ATTENDANT note has been reviewed, I agree with a documented findings and plan of care. Patient was seen and examined.
[2017-06-18] MEDS ORDERED: ADENOSINE 3 MG/ML 2 ML VIAL IVP STA ×3 (17:01→17:27)
[2017-06-18] MEDS ORDERED: ADENOSINE 3 MG/ML 2 ML VIAL IVP ONE (17:02)
[2017-06-18] MEDS: MAGNESIUM SULFATE-D5W PMX 1 GM in DEXTROSE/WATER 1 100ML.BAG IVPB SCH ×2 (17:09→17:33)
[2017-06-18] MEDS ORDERED: DEXTROSE 5% IN WATER 100 ML with AMIODARONE 300 MG IV ONE (18:19)
[2017-06-18] MEDS ORDERED: DEXTROSE 5% IN WATER 250 ML with AMIODARONE 300 MG IV ONE (18:23)
[2017-06-18] MEDS: HYDROcodone/APAP 7.5-325MG 1 EACH TAB PO PRN (20:10)
[2017-06-18] MEDS: NITROGLYCERIN SL TABS 0.4 MG TAB SUBLINGUAL PRN ×2 (20:15→20:20)
[2017-06-19] MEDS: HYDROcodone/APAP 7.5-325MG 1 EACH TAB PO PRN ×4 (04:21→22:39)
[2017-06-19] MEDS ORDERED: ADENOSINE 3 MG/ML 2 ML VIAL IVP STA (04:35)
[2017-06-19] MEDS ORDERED: DEXTROSE 5% IN WATER 250 ML with AMIODARONE 300 MG IV ONE (04:35)
[2017-06-19] MEDS: CLOPIDOGREL 75 MG TAB PO SCH (08:38)
[2017-06-19] MEDS: ATORVASTATIN 40 MG TAB PO SCH (08:38)
[2017-06-19] MEDS: ASPIRIN 325 MG TAB PO SCH (08:38)
[2017-06-19] MEDS: AMIODARONE 200 MG TAB PO SCH (08:38)
[2017-06-19] MEDS: ALPRAZolam 0.5 MG TAB PO SCH ×3 (08:38→20:45)
[2017-06-19] MEDS: ENOXAPARIN 40 MG/0.4 ML SYRINGE SQ SCH (08:38)
[2017-06-19] MEDS: METOPROLOL TARTRATE 50 MG TAB PO SCH ×2 (08:39→20:45)
--- NOTE | 2017-06-19 08:59 | HP ---
Omi Jimenes is a 62-year-old male who presented to the emergency room with chest pain. He has known history of coronary artery disease, underwent recent coronary artery bypass. He was found to have a heart rate of 170 with supraventricular tachycardia. He was started on Cardizem and subsequently converted to a sinus rhythm. He is admitted for further evaluation. Upon my arrival this evening, the patient was in again supraventricular tachycardia about 170 per minute. He was given Adenosine 6 mg and converted back to sinus rhythm. He complains of mild shortness of breath and chest pain. Past medical history is positive for coronary artery disease, status post coronary artery bypass, history of colon cancer, history of hernia repair, bowel resection, broken knee cap. Family history is positive for cancer in his mother in the from of breast cancer , father had a history of congestive heart failure, coronary artery disease and myocardial infarction. Father of an IN in his 50's. SOCIAL HISTORY: Patient is a current every day smoker. Medications prior to admission were: 1. Metoprolol. 2. Lisinopril. 3. Aspirin. 4. Atorvastatin. 5. Plavix. Review of systems is noncontributory. Patient is allergic to PENICILLIN. On physical examination, his blood pressure was 136/97, heart rate was 178, that came down to 92 after Adenosine. Respiratory rate is 16, temperature 98.7. HEENT reveals pupils that are equal. Chest with increased breath sounds at the bases. Cardiovascular system reveals and S1, S2. Abdomen is soft. There is no pedal edema. Chest x-ray shows bilateral pleural effusions. CT scan of the chest shows bilateral pleural effusions with small anterior pericardial effusion. Retrosternal postsurgical changes with fluid and air. Labs reveal a white count of 11.7, hemoglobin of 10.6, sodium 140, potassium 4.6, chloride 103, bicarb 25, BUN 21, creatinine 1.24, troponin of 0.198, FT4 of 2.26 that is just above the upper limit of normal; however, the TSH is normal. IMPRESSION: 1. Supraventricular tachycardia. 2. Coronary artery disease, status post coronary artery bypass. 3. Bilateral pleural effusion secondary to postsurgical changes. 4. Medical debility. At this point in time, Cardiology has further evaluated the patient along with Cardiothoracic Surgery. The patient is on a beta leonor and had been kept on a calcium channel leonor. Patient subsequently has been started on amiodarone. Appreciate Cardiology input and intervention. RENE
--- NOTE | 2017-06-19 09:18 | P.PN ---
Subjective Principal diagnosis: SVT. History of coronary artery disease with recent non-STEMI, hyperlipidemia, hypertension, hepatitis C, IV heroin use in remission, tobacco abuse, and family history of coronary artery disease with myocardial infarction at an early age. POD #10 coronary artery bypass grafting 3 vessels, left internal mammary artery to left anterior descending artery, reverse saphenous vein graft to obtuse marginal artery, reverse saphenous vein graft to posterior descending artery. Patient's currently sitting up in bed in no acute distress. Did have another episode of SVT last night, treated with IV adenosine and amiodarone per Dr. Alvarez. Currently normal sinus rhythm. Objective - Vital Signs Vital signs: Vital Signs Temp 99.1 F 06/19/17 04:04 Pulse 88 06/19/17 04:56 Resp 19 06/19/17 04:04 BP 146/75 06/19/17 04:56 Pulse Ox 94 L 06/19/17 04:04 Intake & Output 06/18/17 06/19/17 06/19/17 18:59 06:59 18:59 Intake Total 130 200 100 Output Total 350 Balance 130 -150 100 Weight 75 kg Intake: IV 10 0.9 10 Oral 120 200 100 Output: Urine 350 Other: # Voids 2 - Constitutional General appearance: Present: cooperative, no acute distress - Respiratory Details: Lungs sounds diminished bilaterally. Respirations even, nonlabored. Currently on room air with oxygen saturation 94%. Able to achieve 1500 mL on his incentive spirometry. - Cardiovascular Details: S1, S2 present. Regular rate and rhythm, normal sinus rhythm on telemetry. Sternum stable. Heart hugger in place with patient demonstrating appropriate use. SCDs present. - Gastrointestinal Gastrointestinal Comment(s): Abdomen soft, nontender, nondistended. Active bowel sounds 4 quadrants. Tolerating diet. - Genitourinary Genitourinary Comment(s): Continues to void clear, yellow urine. - Integumentary Integumentary Comment(s): Anterior chest incision well approximated with Dermabond dressing. No redness, drainage noted. - Musculoskeletal Musculoskeletal: Present: gait normal, strength equal bilaterally - Psychiatric Psychiatric: Present: A&O x's 3, appropriate affect, intact judgment & insight - Allied health notes Allied health notes reviewed: nursing - Labs CBC & Chem 7: 06/17/17 17:12 06/17/17 17:12 Labs: Abnormal Lab Results - Last 24 Hours (Table) 06/17/17 Range/Units 17:12 Free T4 2.26 H (0.78-2.19) ng/dL Microbiology - Last 24 Hours (Table) 06/17/17 18:12 Blood Culture - Preliminary Blood No Growth after 24 hours Assessment and Plan (1) History of non-ST elevation myocardial infarction (NSTEMI) Status: Acute (2) Chest pain Status: Acute (3) History of heroin abuse Status: Acute (4) Triple vessel coronary artery disease Status: Acute (5) Family history of myocardial infarction in first degree male relative Status: Acute (6) HTN (hypertension) Status: Acute (7) Hepatitis C Status: Acute (8) Hyperlipemia Status: Acute (9) Hypertension Status: Acute (10) S/P CABG (coronary artery bypass graft) Status: Acute (11) S/P cardiac cath Status: Acute (12) Tobacco dependence Status: Acute (13) SVT (supraventricular tachycardia) Status: Acute Plan: 1. Continue aspirin, Lipitor, Plavix, lisinopril, Lovenox. Lopressor increased 150 mg twice a day per Dr. Alvarez. 2. Continue amiodarone per Dr. Alvarez's recommendations. 3. Encourage incentive spirometry use. Encourage smoking cessation. 4. Patient may shower. 5. Ambulate in hallway. SCDs when patient is in bed. 6. Sternal precautions post CABG. 7. GI/DVT prophylaxis. 8. Will defer to cardiology/electrophysiology for treatment recommendations regarding heart rhythm. 9. More recommendations to follow. Time with Patient: Greater than 30
--- NOTE | 2017-06-19 11:01 | ECHOF ---
Referral Reason:wide complex tachycardia MEASUREMENTS -------- HEIGHT: 175.3 cm WEIGHT: 69.9 kg BP: 138/69 RVIDd: 2.9 cm (< 3.3) IVSd: 0.9 cm (0.6 - 1.1) LVIDd: 3.9 cm (3.9 - 5.3) LVPWd: 1.0 cm (0.6 - 1.1) IVSs: 1.3 cm LVIDs: 3.3 cm LVPWs: 1.2 cm LAESV Index (A-L): 42.72 ml/m Ao Diam: 3.7 cm (2.0 - 3.7) AV Cusp: 1.9 cm (1.5 - 2.6) LA Diam: 3.4 cm (2.7 - 3.8) MV EXCURSION: 13.189 mm (> 18.000) MV EF SLOPE: 61 mm/s (70 - 150) EPSS: 1.8 cm MV E Saroj: 1.01 m/s MV DecT: 238 ms MV A Saroj: 0.65 m/s MV E/A Ratio: 1.56 RAP: 5.00 mmHg RVSP: 23.47 mmHg FINDINGS -------- Sinus rhythm. This was a technically good study. The left ventricular size is normal. Overall left ventricular systolic function is mildly impaired with, an EF between 45 - 50 %. Basal inferior LV wall motion is hypokinetic. Mid inferior LV wall motion is hypokinetic. The right ventricle is normal in size and function. Normal LA size by volume 22+/-6 ml/m2. The right atrium is normal in size. The aortic valve is trileaflet, and appears structurally normal. No aortic stenosis or regurgitation. There is no evidence of aortic regurgitation. The aortic pressure half-time by doppler is {AR PHT}. The mitral valve is normal. Mild mitral regurgitation is present. Trace tricuspid regurgitation present. There is no evidence of pulmonary hypertension. The right ventricular systolic pressure, as measured by Doppler, is 23.47mmHg. There is no pulmonic regurgitation present. The aortic root size is normal. Normal inferior vena cava with normal inspiratory collapse consistent with estimated right atrial pressure of 5 mmHg. There is no pericardial effusion. CONCLUSIONS -------- 1. Sinus rhythm. 2. There is no evidence of pulmonary hypertension. 3. There is no pulmonic regurgitation present. 4. The aortic root size is normal. 5. There is no pericardial effusion. 6. This was a technically good study. 7. Overall left ventricular systolic function is mildly impaired with, an EF between 45 - 50 %. 8. Basal inferior LV wall motion is hypokinetic. 9. Mid inferior LV wall motion is hypokinetic. 10. Normal LA size by volume 22+/-6 ml/m2. 11. The aortic valve is trileaflet, and appears structurally normal. No aortic stenosis or regurgitation. 12. Mild mitral regurgitation is present. 13. Trace tricuspid regurgitation present. CUBE MACHINE TENDER: Serafin العراقي RDCS
[2017-06-19] MEDS: LISINOPRIL 2.5 MG TAB PO SCH (13:20)
--- NOTE | 2017-06-19 13:50 | P.PN ---
Progress Note - Text Please see full consultation dictated Impression Recurrent supraventricular tachycardia, narrow QRS, symptomatic at greater than 160 beats a minute Experiencing palpitations since his 30s, too many episodes heart account, frequently associated with presyncope and syncope Treated by medications and Valsalva maneuver Dr. Golden in [place] for many years Coronary artery disease status post coronary artery bypass grafting, very recent Inferobasal NV Normal TSH Nondiabetic History of smoking Suggest Metoprolol tartrate 150 g twice daily Amiodarone 400 mg daily with a stop date on 20 of July Follow-up with his primary cardiology is Dr. Capellan I will see him in August in the first 2 weeks I will schedule him for an EP study and ablation in August, Prior to the procedure he will hold metoprolol for 3 days He will start amiodarone on July 20
--- NOTE | 2017-06-19 14:09 | P.CRDCN ---
History of Present Illness Chief complaint: svt History of present illness: Asked to Evaluate this patient with drug refractory supraventricular tachycardia , recurrent This is a 62-year-old male patient who presents to the emergency room with feeling of palpitations tremulousness and a sensation the chest. Twelve-lead ECG showed supraventricular tachycardia. He has had multiple episodes of narrow complex supraventricular tachycardia without clear-cut P waves that are adenosine sensitive, 12 mg. He has had multiple such episodes despite metoprolol 100 mg twice daily as well as a few doses of verapamil. On detailed questioning he has had recurrent palpitations since his 30s. He was treated by Dr. Orellana with medications and Valsalva maneuver for palpitations associated with presyncope and syncope, a watchful observation strategy. He has had so many episodes over the last few decades that he can't count state the number of episodes. He also has had syncopal episodes in the past He was recently diagnosed with coronary artery disease and underwent coronary artery bypass grafting. He has had an inferior basal ID He is nondiabetic no hypertension he does smoke Review of systems: No fever chills or rigors, no cough, phlegm or expectoration , no nausea, vomiting or diarrhea, no hematuria, dysuria, no musculoskeletal complaints, no strokes or seizures, no skin lesions. Medications reviewed ALLERGIES reviewed and include penicillin 2-D echo report reviewed and shows ejection fraction of 45-50% with basal inferior and mid inferior wall hypokinesis Labs are reviewed and his TSH is normal him a normal electrolytes On examination he is resting comfortably in bed he is in sinus rhythm Temperature 97.4F, pulse rate in the 60s, respirations 16, blood pressure 124/ 75 mmHg And neck examination is normal. Heart sounds S1 and S2 are normal no murmurs no gallop Breath sounds are reduced bilaterally but there are no crackles no rhonchi Abdomen is soft nontender Extremities are warm, no edema Impression Recurrent drug refractory symptomatic SVT without clear-cut P waves adenosine sensitive him a normal TSH Coronary artery disease coronary artery bypass grafting Old inferior wall ID History of smoking Hospital course recurrent episodes of SVT despite 100 mg twice daily of metoprolol and some doses of verapamil. Given to IV boluses of amiodarone 300 mg each time, several adenosine boluses to terminate the arrhythmia which were all successful, now metoprolol has been increased to 150 g twice daily and a one -month course of oral amiodarone 400 mg by mouth daily to be stopped after a month Suggest Metoprolol 150 g twice daily no digoxin, no verapamil no Cardizem Oral amiodarone 400 mg by mouth daily which is to be stopped on July 20 He will follow with Dr. Capellan. He will see me in the first 2 weeks of August and I will schedule him for an EP study and ablation in August by the time amiodarone has washed out Past Medical History Past Medical History: Coronary Artery Disease (CAD), Cancer, Hyperlipidemia, Hypertension, Osteoarthritis (OA) Additional Past Medical History / Comment(s): "TX FOR BOWEL INFECTION IN PAST . " ONE DR TOLD ME I HAD COLITIS BUT ANOTHER DR TOLD ME I DID'NT", "COLON CANCER" , oCC TROUBLE SWALLOWING, BROKEN RT LEG IN PAST. Hepatitis C positive History of Any Multi-Drug Resistant Organisms: None Reported Past Surgical History: Bowel Resection, Coronary Bypass/CABG, Hernia Repair, Orthopedic Surgery Additional Past Surgical History / Comment(s): RT LEG, LT KNEE SX D/R "BROKEN KNEE CAP", PARTIAL LT HIP REPLACEMENT Past Anesthesia/Blood Transfusion Reactions: Previous Problems w/ Anesthesia Additional Past Anesthesia/Blood Transfusion Reaction / Comment(s): DIFFICULTY WAKING Past Psychological History: No Psychological Hx Reported Additional Psychological History / Comment(s): PT STATED HE LIVES WITH HIS NEICE AND COUSIN IN A SINGLE LEVEL HOME THAT HAS 3 PORCH STEPS. 1 PET CAT. NO OUTSIDE SERVICES RECEIVED. NO MEDICAL EQUIPMENT. PT WORKS A [employer].. 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 Smoking Status: Current every day smoker Past Alcohol Use History: None Reported Additional Past Alcohol Use History / Comment(s): history of alcohol abuse Additional Drug Use History / Comment(s): Heroin - patient states last time was 3 or more years ago. - Past Family History Mother Family Medical History: Cancer Additional Family Medical History / Comment(s): BREAST CANCER Father Family Medical History: Congestive Heart Failure (CHF), Coronary Artery Disease (CAD), Myocardial Infarction (ID) Additional Family Medical History / Comment(s): Father of myocardial infarction in his 50s Medications and Allergies Home Medications Medication Instructions Recorded Confirmed Type HYDROcodone/APAP 7.5-325MG [[place] 1 - 2 tab PO Q6H PRN 06/17/17 06/18/17 History 7.5-325] Allergies Allergy/AdvReac Type Severity Reaction Status Date / Time Penicillins Allergy Rash/Hives Verified 06/17/17 21:41 Physical Exam Vitals: Vital Signs Temp Pulse Resp BP Pulse Ox 06/19/17 12:00 97.4 F L 68 16 124/75 93 L 06/19/17 08:00 98.7 F 88 16 143/62 94 L 06/19/17 04:56 88 146/75 06/19/17 04:04 99.1 F 84 19 143/86 94 L 06/19/17 04:00 88 18 06/19/17 00:00 98.9 F 73 17 137/70 95 06/18/17 21:00 90 140/78 06/18/17 20:30 85 141/80 06/18/17 20:15 92 138/76 06/18/17 20:00 99.5 F 87 18 149/85 95 06/18/17 17:50 92 138/80 06/18/17 17:25 100 145/77 06/18/17 17:15 178 H 136/97 06/18/17 17:11 178 H 126/84 06/18/17 17:06 152/87 06/18/17 16:40 175 H 148/99 06/18/17 16:00 98.7 F 89 16 130/84 96 Intake and Output 06/18/17 06/19/17 06/19/17 22:59 06:59 14:59 Intake Total 0 200 230 Output Total 350 250 Balance -350 200 -20 Intake: IV 10 0.9 10 Oral 0 200 220 Output: Urine 350 250 Other: Voiding Method Toilet # Voids 2 Weight 75 kg Results 06/17/17 17:12 06/17/17 17:12 Current Medications Generic Name Dose Route Start Last Admin Trade Name Freq PRN Reason Stop Dose Admin Hydrocodone Bitart/Acetaminophen 2 each 06/17/17 20:32 06/19/17 10:14 [place] 7.5-325 PO 2 each Q6H PRN Administration Pain Scale 1 to 5 Alprazolam 0.5 mg 06/18/17 16:00 06/19/17 08:38 Xanax PO 0.5 mg TID SOM Administration Amiodarone HCl 400 mg 06/19/17 09:00 06/19/17 08:38 Cordarone PO 400 mg DAILY SOM Administration Aspirin 325 mg 06/18/17 09:00 06/19/17 08:38 Aspirin PO 325 mg DAILY [facility] Administration Atorvastatin Calcium 40 mg 06/18/17 09:00 06/19/17 08:38 Lipitor PO 40 mg DAILY SOM Administration Clopidogrel Bisulfate 75 mg 06/18/17 09:00 06/19/17 08:38 Plavix PO 75 mg DAILY [facility] Administration Enoxaparin Sodium 40 mg 06/18/17 09:00 06/19/17 08:38 Lovenox SQ 40 mg DAILY [facility] Administration Lisinopril 2.5 mg 06/18/17 14:00 06/19/17 13:20 Zestril PO 2.5 mg DAILY@1400 [facility] Administration Metoprolol Tartrate 150 mg 06/19/17 09:00 06/19/17 08:39 Lopressor PO 150 mg BID [facility] Administration Miscellaneous Information 1 each 06/17/17 18:19 Rx Info: Iv Contrast Was Given MISCELLANE 06/19/17 18:19 DAILY PRN Per Protocol Nitroglycerin 0.4 mg 06/17/17 20:29 06/18/17 20:20 Nitrostat SUBLINGUAL 0.4 mg Q5M PRN Administration Chest Pain Pantoprazole Sodium 40 mg 06/20/17 07:30 Protonix PO AC-BRKFST [facility] Sodium Chloride 10 ml 06/18/17 09:00 06/19/17 08:39 Saline Flush IV 10 ml BID [facility] Administration Intake and Output 06/18/17 06/19/17 06/19/17 22:59 06:59 14:59 Intake Total 0 200 230 Output Total 350 250 Balance -350 200 -20 Intake: IV 10 0.9 10 Oral 0 200 220 Output: Urine 350 250 Other: Voiding Method Toilet # Voids 2 Weight 75 kg 06/17/17 17:12 06/17/17 17:12
--- NOTE | 2017-06-19 14:55 | P.PN ---
Subjective This is a pleasant 62-year-old gentleman who recently underwent coronary artery bypass graft surgery. Presented to the emergency department last night with complaints of chest discomfort, palpitations and elevated heart rate. He described chest discomfort as an odd feeling in his chest that resolved once his heart rate normalized. On admission d-dimer was elevated and a CT of the chest was done that showed no evidence of dense for PE. BNP was elevated at 10, 200. Patient's troponins were also elevated at 0.100, 0.245, 0.198. On admission patient was in SVT and is since converted to sinus rhythm. He did have one episode of a wide QRS complex tachycardia at about 5:30 this morning as well as a 7 minute episode of SVT. Patient again had an episode of SVT yesterday evening which converted with 6 and 12 of adenosine. He was given a 300 mg amiodarone bolus. He was stable most of the night and again had SVT at around 4 this morning which was converted with adenosine and he was given yet another 300 mg amiodarone bolus. His metoprolol has been increased 250 mg by mouth twice a day and he has been started on amiodarone 400 mg daily. In further discussing with the patient, he has apparently had episodes of SVT for many years starting back in his 30s. Objective - Vital Signs Vital signs: Vital Signs Temp 97.4 F L 06/19/17 12:00 Pulse 68 06/19/17 12:00 Resp 16 06/19/17 12:00 BP 124/75 06/19/17 12:00 Pulse Ox 93 L 06/19/17 12:00 Intake & Output 06/18/17 06/19/17 06/19/17 18:59 06:59 18:59 Intake Total 130 200 230 Output Total 350 250 Balance 130 -150 -20 Weight 75 kg Intake: IV 10 10 0.9 10 10 Oral 120 200 220 Output: Urine 350 250 Other: Voiding Method Toilet # Voids 2 - Exam PHYSICAL EXAMINATION: HEENT: Head is atraumatic, normocephalic. Pupils equal, round. Neck is supple. There is no elevated jugular venous pressure. Poor dentition HEART EXAMINATION: Heart sounds regular, S1 and S2 normal. No murmur or gallop heard. CHEST EXAMINATION: Lungs diminished bilaterally. No chest wall tenderness is noted on palpation or with deep breathing. ABDOMEN: Soft, nontender. Bowel sounds are heard. No organomegaly noted. EXTREMITIES: 2+ peripheral pulses with evidence of trace peripheral edema and no calf tenderness noted. NEUROLOGIC patient is awake, alert and oriented x3. - Labs CBC & Chem 7: 06/17/17 17:12 06/17/17 17:12 Labs: Abnormal Lab Results - Last 24 Hours (Table) 06/17/17 Range/Units 17:12 Free T4 2.26 H (0.78-2.19) ng/dL Microbiology - Last 24 Hours (Table) 06/17/17 18:12 Blood Culture - Preliminary Blood No Growth after 24 hours Assessment and Plan Plan: Assessment and plan #1 AVNRT, currently maintaining sinus rhythm #2 wide QRS complex tachycardia #3 recent history of an non-ST elevated [place] with subsequent coronary artery bypass grafting surgery #4 hypertension #5 hyperlipidemia From cardiology perspective, continue metoprolol 100 mg by mouth twice a day and amiodarone 400 mg daily. Patient will be on amiodarone 400 mg daily for at least 1 month. He will follow up with Dr. Alvarez in the office was seen him this admission and likely be scheduled for an ablation to be done later this year. He'll monitor patient on telemetry tonight. We anticipate patient will be discharged home in the next 24-48 hours. ALARM ADJUSTER note has been reviewed, I agree with a documented findings and plan of care. Patient was seen and examined.
--- NOTE | 2017-06-19 14:56 | P.PN ---
Subjective Principal diagnosis: Supraventricular Tachycardia Patient seen and examined. Patient is lying in bed, awake, alert. Patient denies any pain, denies shortness of breath. Patient states that he did have an episode of SVT last night and Cardiology continues to adjust his medications. Patient is hemodynamically stable at this time, afebrile, in no acute distress. Objective - Vital Signs Vital signs: Vital Signs Temp 97.4 F L 06/19/17 12:00 Pulse 68 06/19/17 12:00 Resp 16 06/19/17 12:00 BP 124/75 06/19/17 12:00 Pulse Ox 93 L 06/19/17 12:00 Intake & Output 06/18/17 06/19/17 06/19/17 18:59 06:59 18:59 Intake Total 130 200 230 Output Total 350 250 Balance 130 -150 -20 Weight 75 kg Intake: IV 10 10 0.9 10 10 Oral 120 200 220 Output: Urine 350 250 Other: Voiding Method Toilet # Voids 2 - Constitutional General appearance: Present: cooperative, no acute distress - Neck Neck: Present: normal ROM - Respiratory Respiratory: bilateral: diminished, prolonged expiration, negative: rales, rhonchi, wheezing - Cardiovascular Rhythm: regular Heart sounds: normal: S1, S2 - Gastrointestinal General gastrointestinal: Present: normal bowel sounds, soft - Integumentary Integumentary: Present: normal - Neurologic Neurologic: Present: CNII-XII intact - Psychiatric Psychiatric: Present: A&O x's 3, appropriate affect - Labs CBC & Chem 7: 06/17/17 17:12 06/17/17 17:12 Labs: Abnormal Lab Results - Last 24 Hours (Table) 06/17/17 Range/Units 17:12 Free T4 2.26 H (0.78-2.19) ng/dL Microbiology - Last 24 Hours (Table) 06/17/17 18:12 Blood Culture - Preliminary Blood No Growth after 24 hours Assessment and Plan (1) SVT (supraventricular tachycardia) Status: Acute (2) Debility, unspecified Status: Acute (3) Bilateral pleural effusion Status: Acute (4) Coronary artery disease Status: Acute (5) History of coronary artery bypass graft x 3 Status: Acute Plan: Continue current medications which have been reviewed. Continue GI and DVT prophylaxis. Continue and appreciated Cardiology recommendations. Continue Incentive spirometry and pulmonary hygiene. Increase activity as tolerated. Will follow closely making further changes as necessary. Time with Patient: Less than 30
[2017-06-20 04:42] VITALS: RESP 16
[2017-06-20] MEDS: HYDROcodone/APAP 7.5-325MG 1 EACH TAB PO PRN (06:14)
[2017-06-20] MEDS ORDERED: PANTOPRAZOLE 40 MG TABLET PO SCH (07:30)
[2017-06-20 07:44] LABS: Basophils % (A) 0 %; CHCM 34.7; Eosinophils # (A) 0.1 k/uL (0-0.7); Eosinophils % (A) 1 %; HCT 27.6 % (39.0-53.0); HDW 3.87; HGB 9.5 gm/dL (13.0-17.5); Hypochromasia Slight; Luc % (Auto) 2; Lymphocytes # (A) 0.7 k/uL (1.0-4.8); Lymphocytes % (A) 8 %; MCHC 34.4 g/dL (31.0-37.0); Mean Platelet Volume 6.9; Monocytes # (A) 0.5 k/uL (0-1.0); Monocytes % (A) 6 %; Neutrophils # (A) 6.9 k/uL (1.3-7.7); Neutrophils % (A) 83 %; Poikilocytosis Slight; RBC 2.97 m/uL (4.30-5.90); RDW 13.7 % (11.5-15.5); WBC 8.3 k/uL (3.8-10.6); WBC (Perox) 8.49
[2017-06-20 08:04] LABS: ALT 38 U/L (21-72); AST 33 U/L (17-59); Alkaline Phosphatase 100 U/L (38-126); Anion Gap 12 mmol/L; Blood Urea Nitrogen 17 mg/dL (9-20); Calcium 8.7 mg/dL (8.4-10.2); Carbon Dioxide 22 mmol/L (22-30); Chloride 105 mmol/L (98-107); Glucose 101 mg/dL (74-99); Non-African American GFR(MDRD) >60 (>60 ml/min/1.73 sqM); Potassium 4.1 mmol/L (3.5-5.1); Sodium 139 mmol/L (137-145); Total Bilirubin 0.7 mg/dL (0.2-1.3); Total Protein 6.4 g/dL (6.3-8.2)
[2017-06-20] MEDS: ATORVASTATIN 40 MG TAB PO SCH (08:24)
[2017-06-20] MEDS: ALPRAZolam 0.5 MG TAB PO SCH (08:24)
[2017-06-20] MEDS: AMIODARONE 200 MG TAB PO SCH (08:24)
[2017-06-20] MEDS: ASPIRIN 325 MG TAB PO SCH (08:24)
[2017-06-20] MEDS: METOPROLOL TARTRATE 50 MG TAB PO SCH (08:25)
[2017-06-20] MEDS: ENOXAPARIN 40 MG/0.4 ML SYRINGE SQ SCH (08:25)
[2017-06-20] MEDS: CLOPIDOGREL 75 MG TAB PO SCH (08:25)
--- NOTE | 2017-06-20 09:16 | P.PN ---
<Felicia Restrepo - Last Filed: 06/20/17 09:09> Subjective Principal diagnosis: SVT. History of coronary artery disease with recent non-STEMI, hyperlipidemia, hypertension, hepatitis C, IV heroin use in remission, tobacco abuse, and family history of coronary artery disease with myocardial infarction at an early age. POD #11 coronary artery bypass grafting 3 vessels, left internal mammary artery to left anterior descending artery, reverse saphenous vein graft to obtuse marginal artery, reverse saphenous vein graft to posterior descending artery. Patient's currently sitting up in bed in no acute distress. No further episodes of SVT. Patient states he's had no chest pain or shortness of breath. Objective - Vital Signs Vital signs: Vital Signs Temp 97.5 F L 06/20/17 04:00 Pulse 72 06/20/17 04:00 Resp 16 06/20/17 04:00 BP 128/76 06/20/17 04:00 Pulse Ox 95 06/20/17 04:00 Intake & Output 06/19/17 06/20/17 06/20/17 18:59 06:59 18:59 Intake Total 350 360 Output Total 250 450 Balance 100 -90 Weight 67.1 kg Intake: IV 10 0.9 10 Oral 340 360 Output: Urine 250 450 Other: Voiding Method Toilet Toilet - Constitutional General appearance: Present: cooperative, no acute distress - Respiratory Details: Lung sounds much bilaterally. Respirations even, nonlabored. Currently on room air with oxygen saturation 95%. Able to achieve 1500 mL on his incentive spirometry. - Cardiovascular Details: S1, S2 present. Regular rate and rhythm, normal sinus rhythm on telemetry. No further episodes of SVT for greater than 24 hours. Sternum stable. Heart hugger in place with patient demonstrate appropriate use. SCDs present. - Gastrointestinal Gastrointestinal Comment(s): Abdomen soft, nontender, nondistended. Active bowel sounds 4 quadrants. Tolerating diet. - Genitourinary Genitourinary Comment(s): Continues to void clear, yellow urine. - Integumentary Integumentary Comment(s): Anterior chest wall approximated with Dermabond dressing. No drainage, redness noted. - Musculoskeletal Musculoskeletal: Present: gait normal, strength equal bilaterally - Psychiatric Psychiatric: Present: A&O x's 3, appropriate affect, intact judgment & insight - Allied health notes Allied health notes reviewed: nursing - Labs CBC & Chem 7: 06/20/17 06:48 06/20/17 06:48 Labs: Abnormal Lab Results - Last 24 Hours (Table) 06/20/17 06/20/17 Range/Units 06:48 06:48 RBC 2.97 L (4.30-5.90) m/uL Hgb 9.5 L (13.0-17.5) gm/dL Hct 27.6 L (39.0-53.0) % Lymphocytes # 0.7 L (1.0-4.8) k/uL Glucose 101 H (74-99) mg/dL Albumin 3.3 L (3.5-5.0) g/dL Microbiology - Last 24 Hours (Table) 06/17/17 18:12 Blood Culture - Preliminary Blood No Growth after 48 hours Assessment and Plan (1) History of non-ST elevation myocardial infarction (NSTEMI) Status: Acute (2) Chest pain Status: Acute (3) History of heroin abuse Status: Acute (4) Triple vessel coronary artery disease Status: Acute (5) Family history of myocardial infarction in first degree male relative Status: Acute (6) HTN (hypertension) Status: Acute (7) Hepatitis C Status: Acute (8) Hyperlipemia Status: Acute (9) Hypertension Status: Acute (10) S/P CABG (coronary artery bypass graft) Status: Acute (11) S/P cardiac cath Status: Acute (12) Tobacco dependence Status: Acute (13) SVT (supraventricular tachycardia) Status: Acute Plan: 1. Continue aspirin, Lipitor, Plavix, lisinopril, Lovenox, Lopressor, amiodarone. 2. Encourage incentive spirometry use. Encourage smoking cessation. 3. Patient may shower. 4. Ambulate in hallway. SCDs when patient is in bed. 5. Sternal precautions post CABG. 6. GI/DVT prophylaxis. 7. Will defer to cardiology/electrophysiology for treatment recommendations regarding heart rhythm. 8. Patient is to remain on amiodarone 1 month, we will follow with Dr. Alvarez in early August, will plan for possible ablation in August. 9. More recommendations to follow. Time with Patient: Greater than 30 <Royal Larson - Last Filed: 06/20/17 16:00> Objective - Vital Signs Vital signs: Vital Signs Temp 98.6 F 06/20/17 12:00 Pulse 73 06/20/17 12:00 Resp 16 06/20/17 12:00 BP 132/83 06/20/17 12:00 Pulse Ox 96 06/20/17 12:00 Intake & Output 06/19/17 06/20/17 06/20/17 18:59 06:59 18:59 Intake Total 350 360 135 Output Total 250 450 Balance 100 -90 135 Weight 67.1 kg Intake: IV 10 10 0.9 10 10 Oral 340 360 125 Output: Urine 250 450 Other: Voiding Method Toilet Toilet Toilet - Labs CBC & Chem 7: 06/20/17 06:48 06/20/17 06:48 Labs: Abnormal Lab Results - Last 24 Hours (Table) 06/20/17 06/20/17 Range/Units 06:48 06:48 RBC 2.97 L (4.30-5.90) m/uL Hgb 9.5 L (13.0-17.5) gm/dL Hct 27.6 L (39.0-53.0) % Lymphocytes # 0.7 L (1.0-4.8) k/uL Glucose 101 H (74-99) mg/dL Albumin 3.3 L (3.5-5.0) g/dL Microbiology - Last 24 Hours (Table) 06/17/17 18:12 Blood Culture - Preliminary Blood No Growth after 48 hours Assessment and Plan Plan: The patient remains in normal sinus rhythm this morning. He is being treated medically by cardiology. He is cleared to go from my standpoint when deemed appropriate by the medical service. He will follow up with Dr. Alvarez from EP for possible ablation as an outpatient.
--- NOTE | 2017-06-20 13:03 | P.PN ---
Subjective This is a pleasant 62-year-old gentleman who recently underwent coronary artery bypass graft surgery. Presented to the emergency department last night with complaints of chest discomfort, palpitations and elevated heart rate. He described chest discomfort as an odd feeling in his chest that resolved once his heart rate normalized. On admission d-dimer was elevated and a CT of the chest was done that showed no evidence of dense for PE. BNP was elevated at 10, 200. Patient's troponins were also elevated at 0.100, 0.245, 0.198. On admission patient was in SVT and is since converted to sinus rhythm. He did have one episode of a wide QRS complex tachycardia at about 5:30 this morning as well as a 7 minute episode of SVT. Patient again had an episode of SVT yesterday evening which converted with 6 and 12 of adenosine. He was given a 300 mg amiodarone bolus. He was stable most of the night and again had SVT at around 4 this morning which was converted with adenosine and he was given yet another 300 mg amiodarone bolus. His metoprolol has been increased 150 mg by mouth twice a day and he has been started on amiodarone 400 mg daily. In further discussing with the patient, he has apparently had episodes of SVT for many years starting back in his 30s. The patient has been on [place] 150 mg by mouth twice a day as well as amiodarone 40 mg daily and has not had SVT in over 24 hours. On examination this morning, he is feeling well. Objective - Vital Signs Vital signs: Vital Signs Temp 98.4 F 06/20/17 08:00 Pulse 82 06/20/17 08:00 Resp 16 06/20/17 08:00 BP 139/87 06/20/17 08:00 Pulse Ox 94 L 06/20/17 08:00 Intake & Output 06/19/17 06/20/17 06/20/17 18:59 06:59 18:59 Intake Total 350 360 Output Total 250 450 Balance 100 -90 Weight 67.1 kg Intake: IV 10 0.9 10 Oral 340 360 Output: Urine 250 450 Other: Voiding Method Toilet Toilet Toilet - Exam PHYSICAL EXAMINATION: HEENT: Head is atraumatic, normocephalic. Pupils equal, round. Neck is supple. There is no elevated jugular venous pressure. Poor dentition HEART EXAMINATION: Heart sounds regular, S1 and S2 normal. No murmur or gallop heard. CHEST EXAMINATION: Lungs diminished bilaterally. No chest wall tenderness is noted on palpation or with deep breathing. ABDOMEN: Soft, nontender. Bowel sounds are heard. No organomegaly noted. EXTREMITIES: 2+ peripheral pulses with evidence of trace peripheral edema and no calf tenderness noted. NEUROLOGIC patient is awake, alert and oriented x3. - Labs CBC & Chem 7: 06/20/17 06:48 06/20/17 06:48 Labs: Abnormal Lab Results - Last 24 Hours (Table) 06/20/17 06/20/17 Range/Units 06:48 06:48 RBC 2.97 L (4.30-5.90) m/uL Hgb 9.5 L (13.0-17.5) gm/dL Hct 27.6 L (39.0-53.0) % Lymphocytes # 0.7 L (1.0-4.8) k/uL Glucose 101 H (74-99) mg/dL Albumin 3.3 L (3.5-5.0) g/dL Microbiology - Last 24 Hours (Table) 06/17/17 18:12 Blood Culture - Preliminary Blood No Growth after 48 hours Assessment and Plan Plan: Assessment and plan #1 AVNRT, currently maintaining sinus rhythm #2 wide QRS complex tachycardia #3 recent history of an non-ST elevated [place] with subsequent coronary artery bypass grafting surgery #4 hypertension #5 hyperlipidemia From cardiology perspective, continue metoprolol 150 mg by mouth twice a day and amiodarone 400 mg daily for one month. He will follow up with Dr. Alvarez in the office was seen him this admission and likely be scheduled for an ablation to be done later this year. From our standpoint, patient is stable for discharge. The above dictated assessment and findings were discussed with signing physician. The impression and plan of care have been directed as dictated. Leana Do, Nurse Practitioner, acting as scribe for signing physician.
[2017-06-20 14:01] VITALS: BP 132/83; PULSE 73; TEMP 98.6
[2017-06-20] MEDS: LISINOPRIL 2.5 MG TAB PO SCH (14:17)
== END 2017-06-20 14:59 | disposition home or self-care (01) ==
LOC: EC 17:00 → 6SEL 20:29
PROVIDERS: ADMIT Family Medicine; ATTEND Family Medicine
DX: I47.1 Supraventricular tachycardia (principal); R07.9 Chest pain, unspecified; I25.10 Atherosclerotic heart disease of native coronary artery without angina pectoris; B19.20 Unspecified viral hepatitis C without hepatic coma; F11.10 Opioid abuse, uncomplicated; D64.9 Anemia, unspecified; I50.9 Heart failure, unspecified; E78.5 Hyperlipidemia, unspecified; Z95.1 Presence of aortocoronary bypass graft; I25.2 Old myocardial infarction; M19.90 Unspecified osteoarthritis, unspecified site; R00.2 Palpitations; Z79.82 Long term (current) use of aspirin; Z82.49 Family history of ischemic heart disease and other diseases of the circulatory system; Z85.038 Personal history of other malignant neoplasm of large intestine; Z88.0 Allergy status to penicillin; Z96.642 Presence of left artificial hip joint; R06.02 Shortness of breath; Z79.899 Other long term (current) drug therapy; Z79.02 Long term (current) use of antithrombotics/antiplatelets; F17.200 Nicotine dependence, unspecified, uncomplicated; Z80.3 Family history of malignant neoplasm of breast; I11.0 Hypertensive heart disease with heart failure
CPT/HCPCS: 96366 ×5; 96365 ×2; 99285 ×2; 96361 ×2; 96367; 96372 ×3; 36415; 93005; 93306; 85379; 84439; 83880; 80053 ×2; 82550 ×2; 82553 ×2; 83735; 84443; 84484 ×2; 85025 ×2; 85610; 85730; 87040; 71020; 71275; G0378 ×4; J0282 ×2; Q9967; J1650 ×3; J0153 ×2; J3475

== ENCOUNTER → 2017-08-21 | Outpatient (CLI) | payer OTHER ==
--- NOTE | 2017-08-21 15:02 | XR ---
EXAMINATION TYPE: XR chest 2V DATE OF EXAM: 08/21/2017 COMPARISON: NONE HISTORY: Localized edema. Effusions. TECHNIQUE: Frontal and lateral views of the chest are obtained. FINDINGS: Linear subsegmental left mid lung and left basilar atelectasis are seen, platelike. Simila r moderate peripheral lower lung platelike atelectasis is also present. There is resolution of the pr eviously seen small left pleural effusion and persistence of blunting of the right costophrenic angle compatible with a trace pleural effusion. Midline mediastinal clips and cardiomegaly remain. Lungs are hyperinflated with flattening of the carlos a phragms on lateral image compatible with underlying COPD. Degenerative changes are seen of the thorac ic spine. IMPRESSION: Resolution of the previously seen left pleural effusion with persistent trace right pleu ral effusion and new platelike subsegmental bibasilar scattered areas of atelectasis.
[2017-08-21 15:33] LABS: Anion Gap 11 mmol/L; Blood Urea Nitrogen 15 mg/dL (9-20); Carbon Dioxide 30 mmol/L (22-30); Chloride 100 mmol/L (98-107); Non-African American GFR(MDRD) >60 (>60 ml/min/1.73 sqM); Potassium 3.4 mmol/L (3.5-5.1); Sodium 141 mmol/L (137-145)
== END | disposition home or self-care (01) ==
LOC: RADXRMAIN 14:30
PROVIDERS: ATTEND Family Medicine
DX: R60.0 Localized edema (principal); R06.02 Shortness of breath
CPT/HCPCS: 36415; 71020; 80051; 82565; 83880; 84520

== ENCOUNTER 2020-08-10 17:26 | Observation (INO) | payer MEDICARE, OTHER ==
--- NOTE | 2020-08-10 17:49 | ED ---
Weakness HPI - General Chief complaint: Fall Stated complaint: Fall,Dizziness Time Seen by Provider: 08/10/20 17:45 Source: patient, EMS, RN notes reviewed, old records reviewed Mode of arrival: EMS Limitations: no limitations - History of Present Illness Initial comments: This is a 65-year-old male DF for evaluation patient was being severely weak possibly dehydrated. He does have a headache from a fall patient has syncopal event prior to arrival 5 for landing on his head hitting his head. Patient denying any fevers, other than the headache he has no chest pain shortness of breath or abdominal pain, does admit to diminished appetite MD Complaint: generalized weakness, lack of energy -: minutes(s) Location: generalized Severity: moderate Severity scale (1-10): 7 Improves with: none Worsens with: none Context: recent illness, trauma/injury (Patient did have a fall hitting himself in the face), history of similar Associated Symptoms: nausea/vomiting, syncope - Related Data Home Medications Medication Instructions Recorded Confirmed Buprenorphine HCl/Naloxone HCl 0.5 film SL DAILY 08/10/20 08/10/20 [Suboxone 2 mg-0.5 mg Sl Film] Doxazosin [Cardura] 4 mg PO DAILY 08/10/20 08/10/20 Multivitamins, Thera [Multivitamin 1 tab PO DAILY 08/10/20 08/10/20 (formulary)] lisinopriL 40 mg PO DAILY 08/10/20 08/10/20 Previous Rx's Medication Instructions Recorded Aspirin 81 mg PO DAILY #30 chewable 08/12/20 Atorvastatin Calcium [Lipitor] 40 mg PO HS #30 tablet 08/12/20 Metoprolol Tartrate [Lopressor] 50 mg PO BID #60 tab 08/12/20 Allergies Allergy/AdvReac Type Severity Reaction Status Date / Time Penicillins Allergy Rash/Hives Verified 08/10/20 20:55 Review of Systems ROS Statement: Those systems with pertinent positive or pertinent negative responses have been documented in the HPI. ROS Other: All systems not noted in ROS Statement are negative. Past Medical History Past Medical History: Coronary Artery Disease (CAD), Cancer, Hyperlipidemia, Hypertension, Osteoarthritis (OA) Additional Past Medical History / Comment(s): "TX FOR BOWEL INFECTION IN PAST ." ONE DR TOLD ME I HAD COLITIS BUT ANOTHER DR TOLD ME I DID'NT", "COLON CANCER", oCC TROUBLE SWALLOWING, BROKEN RT LEG IN PAST. Hepatitis C positive History of Any Multi-Drug Resistant Organisms: None Reported Past Surgical History: Bowel Resection, Coronary Bypass/CABG, Hernia Repair, Orthopedic Surgery Additional Past Surgical History / Comment(s): RT LEG, LT KNEE SX D/R "BROKEN KNEE CAP", PARTIAL LT HIP REPLACEMENT Past Anesthesia/Blood Transfusion Reactions: Previous Problems w/ Anesthesia Additional Past Anesthesia/Blood Transfusion Reaction / Comment(s): DIFFICULTY WAKING Past Psychological History: No Psychological Hx Reported Past Alcohol Use History: None Reported Past Drug Use History: Marijuana - Past Family History Mother Family Medical History: Cancer Additional Family Medical History / Comment(s): BREAST CANCER Father Family Medical History: Congestive Heart Failure (CHF), Coronary Artery Disease (CAD), Myocardial Infarction (DC) Additional Family Medical History / Comment(s): Father of myocardial infarction in his 50s General Exam Limitations: no limitations General appearance: alert, in no apparent distress Head exam: Present: atraumatic, normocephalic, normal inspection Eye exam: Present: normal appearance, PERRL, EOMI. Absent: scleral icterus, conjunctival injection, periorbital swelling ENT exam: Present: normal exam, mucous membranes moist Neck exam: Present: normal inspection. Absent: tenderness, meningismus, lymphadenopathy Respiratory exam: Present: normal lung sounds bilaterally. Absent: respiratory distress, wheezes, rales, rhonchi, stridor Cardiovascular Exam: Present: regular rate, normal rhythm, normal heart sounds. Absent: systolic murmur, diastolic murmur, rubs, gallop, clicks GI/Abdominal exam: Present: soft, normal bowel sounds. Absent: distended, tenderness, guarding, rebound, rigid Extremities exam: Present: normal inspection, full ROM, normal capillary refill. Absent: tenderness, pedal edema, joint swelling, calf tenderness Back exam: Present: normal inspection Neurological exam: Present: alert, oriented X3, CN II-XII intact Psychiatric exam: Present: normal affect, normal mood Skin exam: Present: warm, dry, intact, normal color. Absent: rash Course Vital Signs 08/10/20 08/10/20 17:41 20:28 Temperature 97.7 F 97.9 F Pulse Rate 76 72 Respiratory 18 18 Rate Blood Pressure 120/86 131/72 O2 Sat by Pulse 94 L 96 Oximetry - Reevaluation(s) Reevaluation #1: Medical record is reviewed Patient reevaluated, symptoms are significantly improved Patient informed of results and questions are answered EKG Findings - EKG Comments: EKG Findings:: EKG shows sinus rhythm 79 MN 158 QRS 72 QTC 452 Medical Decision Making - Medical Decision Making 65 male presents today for evaluation of a syncopal event syncope secondary to weakness of position change. No headache chest pain shortness with abdominal pain. Patient is significantly emaciated [place] for IV hydration and further monitoring - Lab Data Result diagrams: 08/11/20 05:41 08/11/20 05:41 Lab Results 08/10/20 08/10/20 08/10/20 Range/Units 17:51 17:51 17:51 WBC 11.4 H (3.8-10.6) k/uL RBC 3.70 L (4.30-5.90) m/uL Hgb 11.4 L (13.0-17.5) gm/dL Hct 35.2 L (39.0-53.0) % MCV 95.3 (80.0-100.0) fL MCH 30.9 (25.0-35.0) pg MCHC 32.4 (31.0-37.0) g/dL RDW 13.5 (11.5-15.5) % Plt Count 228 (150-450) k/uL Neutrophils % 88 % Lymphocytes % 6 % Monocytes % 5 % Eosinophils % 0 % Basophils % 0 % Neutrophils # 10.0 H (1.3-7.7) k/uL Lymphocytes # 0.7 L (1.0-4.8) k/uL Monocytes # 0.6 (0-1.0) k/uL Eosinophils # 0.1 (0-0.7) k/uL Basophils # 0.0 (0-0.2) k/uL PT 9.8 (9.0-12.0) sec INR 0.9 (<1.2) APTT 22.9 (22.0-30.0) sec D-Dimer 7.87 H (<0.60) mg/L FEU Sodium 137 (137-145) mmol/L Potassium 4.0 (3.5-5.1) mmol/L Chloride 102 (98-107) mmol/L Carbon Dioxide 21 L (22-30) mmol/L Anion Gap 14 mmol/L BUN 33 H (9-20) mg/dL Creatinine 1.92 H (0.66-1.25) mg/dL Est GFR (CKD-EPI)AfAm 41 (>60 ml/min/1.73 sqM) Est GFR (CKD-EPI)NonAf 36 (>60 ml/min/1.73 sqM) Glucose 155 H (74-99) mg/dL Calcium 9.5 (8.4-10.2) mg/dL Phosphorus 4.1 (2.5-4.5) mg/dL Magnesium 1.8 (1.6-2.3) mg/dL Total Bilirubin 1.3 (0.2-1.3) mg/dL AST 28 (17-59) U/L ALT 19 (4-49) U/L Alkaline Phosphatase 123 (38-126) U/L Creatine Kinase 58 (55-170) U/L Troponin I (0.000-0.034) ng/mL NT-Pro-B Natriuret Pep pg/mL Total Protein 7.6 (6.3-8.2) g/dL Albumin 4.3 (3.5-5.0) g/dL 08/10/20 08/10/20 Range/Units 17:51 17:52 WBC (3.8-10.6) k/uL RBC (4.30-5.90) m/uL Hgb (13.0-17.5) gm/dL Hct (39.0-53.0) % MCV (80.0-100.0) fL MCH (25.0-35.0) pg MCHC (31.0-37.0) g/dL RDW (11.5-15.5) % Plt Count (150-450) k/uL Neutrophils % % Lymphocytes % % Monocytes % % Eosinophils % % Basophils % % Neutrophils # (1.3-7.7) k/uL Lymphocytes # (1.0-4.8) k/uL Monocytes # (0-1.0) k/uL Eosinophils # (0-0.7) k/uL Basophils # (0-0.2) k/uL PT (9.0-12.0) sec INR (<1.2) APTT (22.0-30.0) sec D-Dimer (<0.60) mg/L FEU Sodium (137-145) mmol/L Potassium (3.5-5.1) mmol/L Chloride (98-107) mmol/L Carbon Dioxide (22-30) mmol/L Anion Gap mmol/L BUN (9-20) mg/dL Creatinine (0.66-1.25) mg/dL Est GFR (CKD-EPI)AfAm (>60 ml/min/1.73 sqM) Est GFR (CKD-EPI)NonAf (>60 ml/min/1.73 sqM) Glucose (74-99) mg/dL Calcium (8.4-10.2) mg/dL Phosphorus (2.5-4.5) mg/dL Magnesium (1.6-2.3) mg/dL Total Bilirubin (0.2-1.3) mg/dL AST (17-59) U/L ALT (4-49) U/L Alkaline Phosphatase (38-126) U/L Creatine Kinase (55-170) U/L Troponin I <0.012 (0.000-0.034) ng/mL NT-Pro-B Natriuret Pep 6030 pg/mL Total Protein (6.3-8.2) g/dL Albumin (3.5-5.0) g/dL - Radiology Data Radiology results: report reviewed (CT chest negative for acute disease CT brain C-spine negative for acute disease), image reviewed Disposition Clinical Impression: Fall, Syncope, Weakness, ARF (acute renal failure) Disposition: ADMITTED IP TO THIS HOSP Condition: Stable Is patient prescribed a controlled substance at d/c from ED?: No
[2020-08-10 18:23] LABS: Basophils % (A) 0 %; Eosinophils # (A) 0.1 k/uL (0-0.7); Eosinophils % (A) 0 %; HCT 35.2 % (39.0-53.0); HGB 11.4 gm/dL (13.0-17.5); Lymphocytes # (A) 0.7 k/uL (1.0-4.8); Lymphocytes % (A) 6 %; MCH 30.9 pg (25.0-35.0); MCHC 32.4 g/dL (31.0-37.0); MCV 95.3 fL (80.0-100.0); Mean Platelet Volume 7.2; Monocytes # (A) 0.6 k/uL (0-1.0); Monocytes % (A) 5 %; Neutrophils % (A) 88 %; Platelet Count 228 k/uL (150-450); RDW 13.5 % (11.5-15.5); WBC 11.4 k/uL (3.8-10.6)
[2020-08-10 18:36] LABS: Albumin 4.3 g/dL (3.5-5.0); Calcium 9.5 mg/dL (8.4-10.2); Magnesium 1.8 mg/dL (1.6-2.3); Phosphorus 4.1 mg/dL (2.5-4.5); Total Bilirubin 1.3 mg/dL (0.2-1.3); Total Protein 7.6 g/dL (6.3-8.2)
[2020-08-10 18:49] LABS: INR 0.9 (<1.2); Partial Thromboplastin Time 22.9 sec (22.0-30.0); Prothrombin Time 9.8 sec (9.0-12.0)
--- NOTE | 2020-08-10 18:50 | XR ---
EXAMINATION TYPE: XR chest 2V DATE OF EXAM: 08/10/2020 COMPARISON: 08/21/2017 HISTORY: Edema TECHNIQUE: 2 views FINDINGS: Heart is normal. Lungs are clear of infiltrate. There is no heart failure. There are sterna l wires. Costophrenic angles are clear. IMPRESSION: No active cardiopulmonary disease. There is clearing of the patchy atelectasis and pleura l reaction compared to old exam.
[2020-08-10 18:55] LABS: D-Dimer 7.87 mg/L FEU (<0.60)
--- NOTE | 2020-08-10 20:11 | CT ---
EXAMINATION TYPE: CT brain jemima platt con DATE OF EXAM: 08/10/2020 COMPARISON: None HISTORY: Fall and dizziness. CT DLP: 1388.8 mGycm Automated exposure control for dose reduction was used. There is some cerebral cortical atrophy. There is no mass effect nor midline shift. There is no sign of intracranial hemorrhage. Calvarium is intact. Cervical vertebra have normal alignment. There is disc space narrowing from C4 to C7 with mild spurri ng of the endplates. Posterior elements are intact. Facet joints are intact. There is normal aeration of the mastoid sinuses. Temporal bones appear normal. There is 5 mm lacunar infarct in the anterior left internal capsule. IMPRESSION: Spondylotic changes in the lower cervical spine. No fracture. Mild cerebral atrophy. No acute intracranial abnormality. Small lacunar infarct anterior left interna l capsule.
--- NOTE | 2020-08-10 20:16 | CT ---
EXAMINATION TYPE: CT angio chest DATE OF EXAM: 08/10/2020 COMPARISON: 06/17/2017 HISTORY: Fall and dizziness. CT DLP: 426.6 mGycm Automated exposure control for dose reduction was used. CONTRAST: Performed with IV Contrast, patient injected with 80ml mL of Isovue 370. There are 3-D post processed images. There is 1 cm noncalcified nodule in the anterior left upper lobe. There is minimal subsegmental atel ectasis at the lung bases. There is no pleural effusion. Heart is enlarged. There is no pericardial e ffusion. There is no mediastinal adenopathy. There is 3.6 cm ascending thoracic aorta. There is no aneurysm. T here is no evidence of aortic dissection. There are no hilar masses. There is normal contrast opacification of the pulmonary arteries. There ar e no filling defect. The bony thorax is intact. There are sternal wires. There is no thoracic alfreda deshaun fracture. The ribs appear intact. IMPRESSION: No evidence of pulmonary embolism. Small hiatal hernia. Left upper lobe nodule is nonspecific. Nodule appears new compared to old CT scan. Follow-up recommen ded.
[2020-08-10] MEDS ORDERED: ASPIRIN 81 MG PO STA (20:23)
[2020-08-10] MEDS ORDERED: NITROGLYCERIN SL TABS 0.4 MG TAB SUBLINGUAL PRN (20:23)
--- NOTE | 2020-08-11 04:56 | P.HPIM ---
History of Present Illness H&P Date: 08/10/20 The patient is a 65-year-old male with a PMH of coronary artery disease status post CABG, colon cancer (in remission), hypertension, and hyperlipidemia who presented to the ED after an episode of syncope and fall. The patient notes that he had not been eating well for the past several weeks and as a result had felt more tired over the past few days, with occasional palpitations. He was visiting a friend's home earlier today when he attempted to use the restroom, became severely dizzy while standing, and subsequently lost consciousness, for an unknown duration. She denied experiencing bladder or bowel incontinence, tongue biting, chest discomfort, shortness of breath, or diaphoresis. At time of interview, he reported that he continues to feel lethargic. He otherwise denied abdominal pain, nausea, vomiting, fever, or chills. In the emergency room, a CT angiogram of the chest revealed a left upper lobe nonspecific nodule with follow-up recommended and no evidence of PE. CT brain and cervical spine was unremarkable. Chest x-ray was also unremarkable with EKG showing normal sinus rhythm at 79 bpm with no acute ST/T-wave changes noted as reviewed by me. Laboratory evaluation revealed a troponin less than 0.012, WBC count 11.4, hemoglobin 11.4, BUN 33, creatinine 1.92, and d-dimer 7.87. Review of Systems Pertinent positives and negatives as discussed in HPI, a complete review of systems was performed and all other systems are negative. Past Medical History Past Medical History: Coronary Artery Disease (CAD), Cancer, Hyperlipidemia, Hypertension, Osteoarthritis (OA) Additional Past Medical History / Comment(s): "TX FOR BOWEL INFECTION IN PAST ." ONE DR TOLD ME I HAD COLITIS BUT ANOTHER DR TOLD ME I DID'NT", "COLON CANCER", oCC TROUBLE SWALLOWING, BROKEN RT LEG IN PAST. Hepatitis C positive History of Any Multi-Drug Resistant Organisms: None Reported Past Surgical History: Bowel Resection, Coronary Bypass/CABG, Hernia Repair, Orthopedic Surgery Additional Past Surgical History / Comment(s): RT LEG, LT KNEE SX D/R "BROKEN KNEE CAP", PARTIAL LT HIP REPLACEMENT Past Anesthesia/Blood Transfusion Reactions: Previous Problems w/ Anesthesia Additional Past Anesthesia/Blood Transfusion Reaction / Comment(s): DIFFICULTY WAKING Past Psychological History: No Psychological Hx Reported Past Alcohol Use History: None Reported Past Drug Use History: Marijuana - Past Family History Mother Family Medical History: Cancer Additional Family Medical History / Comment(s): BREAST CANCER Father Family Medical History: Congestive Heart Failure (CHF), Coronary Artery Disease (CAD), Myocardial Infarction ([place]) Additional Family Medical History / Comment(s): Father of myocardial infarction in his 50s Medications and Allergies Home Medications Medication Instructions Recorded Confirmed Type Buprenorphine HCl/Naloxone HCl 0.5 film SL DAILY 08/10/20 08/10/20 History [Suboxone 2 mg-0.5 mg Sl Film] Doxazosin [Cardura] 4 mg PO DAILY 08/10/20 08/10/20 History Metoprolol Tartrate [Lopressor] 100 mg PO BID 08/10/20 08/10/20 History Multivitamins, Thera [Multivitamin 1 tab PO DAILY 08/10/20 08/10/20 History (formulary)] amLODIPine [Norvasc] 5 mg PO BID 08/10/20 08/10/20 History cloNIDine HCL 0.3 mg PO HS 08/10/20 08/10/20 History hydrALAZINE HCL [Apresoline] 100 mg PO TID 08/10/20 08/10/20 History lisinopriL 40 mg PO DAILY 08/10/20 08/10/20 History Allergies Allergy/AdvReac Type Severity Reaction Status Date / Time Penicillins Allergy Rash/Hives Verified 08/10/20 20:55 Physical Exam Vitals: Vital Signs Temp Pulse Resp BP Pulse Ox 08/10/20 20:28 97.9 F 72 18 131/72 96 08/10/20 17:41 97.7 F 76 18 120/86 94 L Intake and Output 08/10/20 08/10/20 08/10/20 06:59 14:59 22:59 Other: Weight 64.864 kg General: non toxic, no distress, appears at stated age, normal weight Derm: Nasal bridge abrasion noted, no unusual ecchymoses, warm, dry Head: atraumatic, normocephalic, symmetric Eyes: EOMI, no lid lag, anicteric sclera, pupils equal round reactive to light ENT: Nose and ears atraumatic, no thrush, no pharyngeal erythema Neck: No thyromegaly, no cervical lymphadenopathy, trachea midline, supple Mouth: no lip lesion, mucus membranes moist Cardiovascular: S1S2 reg, no murmur, positive posterior tibial pulse bilateral, no edema, capillary refill less than 2 seconds Lungs: CTA bilateral, no rhonchi, no rales , no accessory muscle use Abdominal: soft, nontender to palpation, no guarding, no appreciable organom egaly, normal bowel sounds Ext: no gross muscle atrophy, muscle strength 4 out of 5 in all 4 extremities grossly, no contractures, Neuro: CN II-XI grossly intact, light touch intact all 4 extremities, finger to nose within normal limits, Psych: Alert, oriented, appropriate affect Results CBC & Chem 7: 08/10/20 17:51 08/10/20 17:51 Labs: Abnormal Lab Results - Last 24 Hours (Table) 08/10/20 08/10/20 08/10/20 Range/Units 17:51 17:51 17:51 WBC 11.4 H (3.8-10.6) k/uL RBC 3.70 L (4.30-5.90) m/uL Hgb 11.4 L (13.0-17.5) gm/dL Hct 35.2 L (39.0-53.0) % Neutrophils # 10.0 H (1.3-7.7) k/uL Lymphocytes # 0.7 L (1.0-4.8) k/uL D-Dimer 7.87 H (<0.60) mg/L FEU Carbon Dioxide 21 L (22-30) mmol/L BUN 33 H (9-20) mg/dL Creatinine 1.92 H (0.66-1.25) mg/dL Glucose 155 H (74-99) mg/dL Assessment and Plan Plan: Syncope, possibly orthostatic versus cardiogenic -Obtain echocardiogram -Cardiac monitoring -Fall precautions -Check orthostatics SALUD, likely due to poor oral intake -Continue with IV fluids -Monitor BMP Failure to thrive -Dietitian consult -Consult to physical therapy DVT prophylaxis -Heparin The patient is admitted with an anticipated greater than 2 midnight stay for evaluation of syncope CODE STATUS: Full Code Discussed with: Patient Anticipated discharge date: 2-[address]: Home A total of 40 minutes was spent on the care of this complex patient more than 50% of the time was spent in counseling and care coordination.
[2020-08-11 05:32] LABS: Appearance,Urine Clear (Clear); Bilirubin,Urine Negative (Negative); Blood,Urine Negative (Negative); Color,Urine Yellow; Glucose,Urine (UA) Negative (Negative); Ketones,Urine Negative (Negative); Leukocyte Esterase,Urine Negative (Negative); Nitrite,Urine Negative (Negative); Protein,Urine Trace (Negative); Specific Gravity,Urine 1.035 (1.001-1.035); Urobilinogen,Urine <2.0 mg/dL (<2.0)
[2020-08-11 06:33] LABS: HGB 10.1 gm/dL (13.0-17.5); MCH 31.9 pg (25.0-35.0); MCHC 33.6 g/dL (31.0-37.0); Mean Platelet Volume 7.4; Platelet Count 159 k/uL (150-450); RBC 3.16 m/uL (4.30-5.90); RDW 13.5 % (11.5-15.5); WBC 8.5 k/uL (3.8-10.6)
[2020-08-11 06:45] LABS: Calcium 8.8 mg/dL (8.4-10.2); Potassium 3.7 mmol/L (3.5-5.1)
[2020-08-11] MEDS: HEPARIN SODIUM,PORCINE 5,000 UNIT/ML 1 ML VIAL SQ SCH ×3 (09:05→23:50)
[2020-08-11] MEDS: ASPIRIN 325 MG TAB PO SCH (09:05)
--- NOTE | 2020-08-11 10:20 | ECHOF ---
Referral Reason:syncope MEASUREMENTS -------- HEIGHT: 175.3 cm WEIGHT: 56.7 kg BP: 122/64 IVSd: 0.9 cm (0.6 - 1.1) LVIDd: 5.0 cm (3.9 - 5.3) LVPWd: 0.7 cm (0.6 - 1.1) IVSs: 1.6 cm LVIDs: 3.8 cm LVPWs: 1.0 cm LAESV Index (A-L): 43.61 ml/m Ao Diam: 3.4 cm (2.0 - 3.7) AV Cusp: 1.8 cm (1.5 - 2.6) LA Diam: 2.8 cm (2.7 - 3.8) MV EXCURSION: 17.007 mm (> 18.000) MV EF SLOPE: 107 mm/s (70 - 150) EPSS: 0.9 cm MV E Saroj: 0.87 m/s MV DecT: 229 ms MV A Saroj: 1.02 m/s MV E/A Ratio: 0.85 RAP: 5.00 mmHg RVSP: 30.55 mmHg FINDINGS -------- This was a technically good study. The left ventricular size is normal. Left ventricular wall thickness is normal. Overall left vent ricular systolic function is low-normal with, an EF between 50 - 55 %. The right ventricle is normal in size. LA is severely dilated >40 ml/m2 The right atrial size is normal. The aortic valve is trileaflet and appears structurally normal. The mitral valve is normal. The mitral valve leaflets are mildly thickened. Mild mitral regurgita tion is present. The tricuspid valve appears structurally normal. Mild tricuspid regurgitation present. Right vent ricular systolic pressure is normal at < 35 mmHg. There is no pulmonic regurgitation present. The aortic root size is normal. IVC Not well visulized. There is no pericardial effusion. CONCLUSIONS -------- 1. The left ventricular size is normal. 2. Left ventricular wall thickness is normal. 3. Overall left ventricular systolic function is low-normal with, an EF between 50 - 55 %. 4. LA is severely dilated >40 ml/m2 5. The mitral valve leaflets are mildly thickened. 6. Mild mitral regurgitation is present. 7. Mild tricuspid regurgitation present. 8. There is no pericardial effusion. CASHIER WRAPPER: Felicia Lea RDCS
[2020-08-11 14:13] VITALS: BMI 18.5
[2020-08-11] MEDS ORDERED: NON FORMULARY DRUG (Buprenorphine Hcl/Naloxone Hcl [Suboxone 2 Mg-0.5 Mg Sl Film] 1 EACH F SUBLINGUAL SCH (15:15)
[2020-08-11] MEDS: NICOTINE 14MG/24HR PATCH TRANSDERM SCH (17:09)
--- NOTE | 2020-08-11 17:17 | P.PN ---
Subjective Progress Note Date: 08/11/20 Patient was seen and examined. No acute events overnight. Patient complains of fatigue. Requesting to start home medications Suboxone. He denies any dizziness. He denies any chest pain, shortness breath or palpitations. No nausea or vomiting. No fever chills. Objective - Vital Signs Vital signs: Vital Signs Temp 97.7 F 08/11/20 08:00 Pulse 77 08/11/20 15:02 Resp 16 08/11/20 16:00 BP 150/77 08/11/20 15:02 Pulse Ox 96 08/11/20 15:02 Intake & Output 08/10/20 08/11/20 08/11/20 18:59 06:59 18:59 Intake Total 1360 Output Total 300 300 Balance -300 1060 Weight 64.864 kg 57 kg 57 kg Intake: Intake, IV Titration 1000 Amount Sodium Chloride 0.9% 1, 1000 000 ml @ 100 mls/hr IV . Q10H [facility] Rx#:[id number] Oral 360 Output: Urine 300 300 Other: Voiding Method Diaper Diaper # Voids 1 1 # Bowel Movements 1 1 - Exam General: [non toxic], [no distress], [appears at stated age] Derm: [warm], [dry], abrasion over the nasal bridge Head: [atraumatic], [normocephalic], [symmetric] Eyes: [EOMI], [no lid lag], [anicteric sclera] Mouth: [no lip lesion], [mucus membranes moist] Cardiovascular: [S1S2 reg], [no murmur], [positive posterior tibial pulse bilateral], Lungs: [CTA bilateral], [no rhonchi, no rales] , [no accessory muscle use] Abdominal: [soft], [ nontender to palpation], [no guarding], [no appreciable organomegaly] Ext: [no gross muscle atrophy], [no edema], [no contractures] Neuro: [ CN II-XI grossly intact], [no focal neuro deficits] Psych: [Alert], [oriented], [appropriate affect] - Labs CBC & Chem 7: 08/11/20 05:41 08/11/20 05:41 Labs: Abnormal Lab Results - Last 24 Hours (Table) 08/10/20 08/10/20 08/10/20 Range/Units 17:51 17:51 17:51 WBC 11.4 H (3.8-10.6) k/uL RBC 3.70 L (4.30-5.90) m/uL Hgb 11.4 L (13.0-17.5) gm/dL Hct 35.2 L (39.0-53.0) % Neutrophils # 10.0 H (1.3-7.7) k/uL Lymphocytes # 0.7 L (1.0-4.8) k/uL D-Dimer 7.87 H (<0.60) mg/L FEU Sodium (137-145) mmol/L Carbon Dioxide 21 L (22-30) mmol/L BUN 33 H (9-20) mg/dL Creatinine 1.92 H (0.66-1.25) mg/dL Glucose 155 H (74-99) mg/dL Triglycerides (<150) mg/dL HDL Cholesterol (40-60) mg/dL Urine Protein (Negative) 08/11/20 08/11/20 08/11/20 Range/Units 05:15 05:41 05:41 WBC (3.8-10.6) k/uL RBC 3.16 L (4.30-5.90) m/uL Hgb 10.1 L (13.0-17.5) gm/dL Hct 30.0 L (39.0-53.0) % Neutrophils # (1.3-7.7) k/uL Lymphocytes # (1.0-4.8) k/uL D-Dimer (<0.60) mg/L FEU Sodium 134 L (137-145) mmol/L Carbon Dioxide (22-30) mmol/L BUN 33 H (9-20) mg/dL Creatinine 1.72 H (0.66-1.25) mg/dL Glucose 115 H (74-99) mg/dL Triglycerides 209 H (<150) mg/dL HDL Cholesterol 33 L (40-60) mg/dL Urine Protein Trace H (Negative) Assessment and Plan Assessment: Syncope, possibly orthostatic versus cardiogenic -Echocardiogram shows EF 50-55% -Cardiac monitoring -Fall precautions -Orthostats positive, 1 L bolus and continue normal saline at 100 mL/h SALUD, likely due to poor oral intake -Continue with IV fluids -Monitor BMP Failure to thrive -Dietitian consult -Consult to physical therapy DVT prophylaxis -Heparin [Patient admitted after syncopal episode. Appears to be vasovagal versus orthostatic. Continue IVF. Repeat orthostats tomorrow. He is pending clinical improvement. Likely DC in 1-2 days.]
[2020-08-11] MEDS: PATIENT'S OWN (Buprenorphine Hcl/Naloxone Hcl [Suboxone 2 Mg-0.5 Mg Sl Film] 1 EACH F SUBLINGUAL SCH (19:34)
[2020-08-11] MEDS: SODIUM CHLORIDE 0.9% 1,000 ML IV SCH ×2 (23:41→23:50)
[2020-08-12] MEDS ORDERED: ACETAMINOPHEN TAB 325 MG TAB PO PRN (00:26)
[2020-08-12 01:17] VITALS: RESP 17
[2020-08-12] MEDS: HEPARIN SODIUM,PORCINE 5,000 UNIT/ML 1 ML VIAL SQ SCH (09:53)
[2020-08-12] MEDS: ASPIRIN 325 MG TAB PO SCH (09:53)
[2020-08-12] MEDS: NICOTINE 14MG/24HR PATCH TRANSDERM SCH (09:53)
--- NOTE | 2020-08-12 11:33 | P.DS ---
Providers Date of admission: 08/10/20 20:23 Expected date of discharge: 08/12/20 Attending physician: Jeffry Ybarra MD Primary care physician: [facility] Hospital Course: The patient is a 65-year-old male with a PMH of coronary artery disease status post CABG, colon cancer (in remission), hypertension, and hyperlipidemia who presented to the ED after an episode of syncope and fall. The patient notes that he had not been eating well for the past several weeks and as a result had felt more tired over the past few days, with occasional palpitations. He was visiting a friend's home earlier today when he attempted to use the restroom, became severely dizzy while standing, and subsequently lost consciousness, for an unknown duration. She denied experiencing bladder or bowel incontinence, tongue biting, chest discomfort, shortness of breath, or diaphoresis. At time of interview, he reported that he continues to feel lethargic. He otherwise denied abdominal pain, nausea, vomiting, fever, or chills. In the emergency room, a CT angiogram of the chest revealed a left upper lobe nonspecific nodule with follow-up recommended and no evidence of PE. CT brain and cervical spine was unremarkable. Chest x-ray was also unremarkable with EKG showing normal sinus rhythm at 79 bpm with no acute ST/T-wave changes noted as reviewed by me. Laboratory evaluation revealed a troponin less than 0.012, WBC count 11.4, hemoglobin 11.4, BUN 33, creatinine 1.92, and d-dimer 7.87. Patient was orthostatic positive. He was started on 1 L bolus of normal saline at 100 mL per hour. Echocardiogram was ordered which showed EF50-55%. Repeat orthostats were negative. His antihypertensive medication or cut down for discharge. Patient was seen and examined. No acute events overnight. Patient denies any chest pain, shortness breath or palpitations. No nausea or vomiting. No fever or chills. Able to ambulate without any difficulties. Using the washroom without any difficulties. He denies any dizziness. General: [non toxic], [no distress], [appears at stated age] Derm: [warm], [dry], abrasion over the nasal bridge Head: [atraumatic], [normocephalic], [symmetric] Eyes: [EOMI], [no lid lag], [anicteric sclera] Mouth: [no lip lesion], [mucus membranes moist] Cardiovascular: [S1S2 reg], [no murmur], [positive posterior tibial pulse bilateral], Lungs: [CTA bilateral], [no rhonchi, no rales] , [no accessory muscle use] Abdominal: [soft], [ nontender to palpation], [no guarding], [no appreciable organomegaly] Ext: [no gross muscle atrophy], [no edema], [no contractures] Neuro: [no focal neuro deficits] Psych: [Alert], [oriented], [appropriate affect] Syncope, possibly orthostatic versus cardiogenic -Echocardiogram shows EF 50-55% -Cardiac monitoring -Fall precautions -Orthostats negative this morning SALUD, likely due to poor oral intake -Continue with IV fluids -Monitor BMP Failure to thrive -Dietitian consult -Consult to physical therapy DVT prophylaxis -Heparin [Patient admitted after syncopal episode. Appears to be vasovagal versus orthostatic. Continue IVF. Repeat orthostats negative. Will cut down BP meds for discharge. Advise follow-up with PCP within 3 days.] Pertinent Studies: Chest x-ray, head CT, CT C-spine, chest CTA, echocardiogram Patient Condition at Discharge: Stable Plan - Discharge Summary Discharge Rx Participant: No New Discharge Prescriptions: New Metoprolol Tartrate [Lopressor] 50 mg PO BID #60 tab Aspirin 81 mg PO DAILY #30 chewable Atorvastatin Calcium [Lipitor] 40 mg PO HS #30 tablet Continue lisinopriL 40 mg PO DAILY Buprenorphine HCl/Naloxone HCl [Suboxone 2 mg-0.5 mg Sl Film] 0.5 film SL DAILY Doxazosin [Cardura] 4 mg PO DAILY Multivitamins, Thera [Multivitamin (formulary)] 1 tab PO DAILY Discontinued hydrALAZINE HCL [Apresoline] 100 mg PO TID Metoprolol Tartrate [Lopressor] 100 mg PO BID cloNIDine HCL 0.3 mg PO HS amLODIPine [Norvasc] 5 mg PO BID Discharge Medication List Buprenorphine HCl/Naloxone HCl [Suboxone 2 mg-0.5 mg Sl Film] 0.5 film SL DAILY 08/10/20 [History] Doxazosin [Cardura] 4 mg PO DAILY 08/10/20 [History] Multivitamins, Thera [Multivitamin (formulary)] 1 tab PO DAILY 08/10/20 [History] lisinopriL 40 mg PO DAILY 08/10/20 [History] Aspirin 81 mg PO DAILY #30 chewable 08/12/20 [Rx] Atorvastatin Calcium [Lipitor] 40 mg PO HS #30 tablet 08/12/20 [Rx] Metoprolol Tartrate [Lopressor] 50 mg PO BID #60 tab 08/12/20 [Rx] Follow up Appointment(s)/Referral(s): Robert Carroll DO [Primary Care Provider] - 1-2 days Activity/Diet/Wound Care/Special Instructions: Diet: Cardiac Follow-up with PCP within 2 days of discharge. Take all medications as advised. Come back to the ED or call 911 for worsening chest pain, shortness breath, palpitations or dizziness. Discharge Disposition: HOME SELF-CARE
[2020-08-12 12:11] VITALS: BP 176/75; PULSE 82; TEMP 97.9
[2020-08-12] MEDS: SODIUM CHLORIDE 0.9% 1,000 ML IV SCH (12:11)
[2020-08-12] MEDS: PATIENT'S OWN (Buprenorphine Hcl/Naloxone Hcl [Suboxone 2 Mg-0.5 Mg Sl Film] 1 EACH F SUBLINGUAL SCH (12:11)
== END 2020-08-12 13:17 | disposition home or self-care (01) ==
LOC: EC 17:26 → INTOOBSV 20:23 → 3SCARD 20:23
PROVIDERS: ADMIT Internal Medicine; ATTEND Internal Medicine
DX: R55 Syncope and collapse (principal); N17.9 Acute kidney failure, unspecified; R62.7 Adult failure to thrive; E41 Nutritional marasmus; Z68.1 Body mass index [BMI] 19.9 or less, adult; I25.10 Atherosclerotic heart disease of native coronary artery without angina pectoris; I10 Essential (primary) hypertension; E78.5 Hyperlipidemia, unspecified; M19.90 Unspecified osteoarthritis, unspecified site; B19.20 Unspecified viral hepatitis C without hepatic coma; R13.10 Dysphagia, unspecified; R91.1 Solitary pulmonary nodule; K44.9 Diaphragmatic hernia without obstruction or gangrene; R42 Dizziness and giddiness; Z79.891 Long term (current) use of opiate analgesic; Z79.82 Long term (current) use of aspirin; Z79.899 Other long term (current) drug therapy; Z88.0 Allergy status to penicillin; Z85.038 Personal history of other malignant neoplasm of large intestine; Z95.1 Presence of aortocoronary bypass graft; Z96.642 Presence of left artificial hip joint; Z90.49 Acquired absence of other specified parts of digestive tract; Z82.49 Family history of ischemic heart disease and other diseases of the circulatory system; Z80.3 Family history of malignant neoplasm of breast; W19.XXXA Unspecified fall, initial encounter; Y92.002 Bathroom of unspecified non-institutional (private) residence as the place of occurrence of the external cause
CPT/HCPCS: 96372 ×2; 93005 ×2; 99285; 36415; 93306; 97161; 85379; 83880; 80061; 80053; 80048; 82550; 83735; 84100; 84484; 85025; 85027; 85610; 85730; 81003; 71046; 72125; 70450; 71275; G0378 ×2; S4990 ×2; J1644 ×2; Q9967

== ENCOUNTER → 2020-11-10 | Day surgery (SDC) | payer MEDICARE, OTHER ==
[2020-11-09 09:32] VITALS: BMI 21.2
[~2020-11-10] MED LIST: LACTATED RINGERS 1,000 ML IV ONE; LACTATED RINGERS 1,000 ML IV SCH; LIDOCAINE 1% (10MG/ML) FOR IV START INTRADERMA ONE; LIDOCAINE 1% (10MG/ML) FOR IV START INTRADERMA PRN; LIDOCAINE 1% INJ 10MG/ML (20 ML MDV) ONE; PROPOFOL 10 MG/ML 20 ML VIAL IV ONE
[2020-11-10 10:44] VITALS: TEMP 97.4
--- NOTE | 2020-11-10 11:45 | P.PCN ---
Date of Procedure: 11/10/20 Procedure(s) Performed: BRIEF HISTORY: Patient is a 65-year-old pleasant male scheduled for an elective colonoscopy as a part of evaluation of chronic diarrhea for the last 6 weeks duration. He has bowel movements anywhere from 8-10 a day which are loose to watery in consistency. He has prior history of rectal cancer in 2011 for which she underwent radiation and chemo followed by surgery. PROCEDURE PERFORMED: Colonoscopy. PREOPERATIVE DIAGNOSIS: Chronic diarrhea and prior history of colon cancer. IV sedation per Anesthesia. PROCEDURE: After informed consent was obtained, the patient, was brought into the endoscopy unit. IV sedation was administered by Anesthesia under continuous monitoring. Digital rectal examination was normal. Initially the Olympus CF-160 flexible video colonoscope was then inserted in the rectum, and there was no anastomotic stricture noted at 3-4 cm from the anal verge. The scope could not be advanced. At this time a pediatric colonoscopy was then inserted into the rectum and gradually advanced through the stricture upto 20 cm and I could not advance the scope any further. At this time the scope was removed and the upper endoscopy was introduced into the rectum gradually advanced into the hepatic flexure and further advancement was not possible as an upper scope was used. The visualized portions of the hepatic flexure, transverse colon, descending colon, appeared normal. Random biopsies were done from the descending colon and transverse colon. The sigmoid colon was extremely tortuous. There was anastomotic stricture located at 70 cm from the anal verge. The The mucosa at the anastomosis was extremely friable which was located about 7 cm from the anal verge with severe erythema friability and biopsies were done from this area. The distal rectum had severe scarring consistent with radiation proctitis. The patient tolerated the procedure well. IMPRESSION: Findings rectal anastomotic stricture with mucosal inflammation and friability, status post biopsy Tortous sigmoid colon Scarring of the distal rectum with mucosal erythema and friability. RECOMMENDATIONS: Findings of this examination were discussed with the patient as well as his family. He was advised to follow with the biopsy result. He'll be seen in office in one to 2 weeks.
[2020-11-10 11:46] VITALS: RESP 17
[2020-11-10 12:16] VITALS: BP 125/69; PULSE 62
== END ==
LOC: ORWHC2ENDO 09:11
PROVIDERS: ATTEND Internal Medicine Gastroenterology
DX: K52.9 Noninfective gastroenteritis and colitis, unspecified (principal); I25.10 Atherosclerotic heart disease of native coronary artery without angina pectoris; I10 Essential (primary) hypertension; E78.5 Hyperlipidemia, unspecified; K21.9 Gastro-esophageal reflux disease without esophagitis; Z86.19 Personal history of other infectious and parasitic diseases; Z85.048 Personal history of other malignant neoplasm of rectum, rectosigmoid junction, and anus; Z92.3 Personal history of irradiation; Q43.8 Other specified congenital malformations of intestine; Z95.1 Presence of aortocoronary bypass graft; K91.89 Other postprocedural complications and disorders of digestive system; K62.89 Other specified diseases of anus and rectum; Z79.899 Other long term (current) drug therapy; Z79.82 Long term (current) use of aspirin; Z88.0 Allergy status to penicillin
CPT/HCPCS: 45380; J2001; J2704; 88305

== ENCOUNTER → 2020-11-18 | Outpatient (CLI) | payer MEDICARE, OTHER ==
--- NOTE | 2020-11-22 17:07 | PE ---
Nuclear medicine PET/CT HISTORY: Colorectal carcinoma Patient received 13.2 mCi F-18 FDG intravenously and delayed scanning was performed from the skull ba se to the mid thighs. Localization and attenuation correction CT scan was performed. Correlation to CT of the chest 08/10/2020 Chest and neck: There is no suspicious uptake. No supraclavicular or cervical adenopathy. There is no mediastinal, axillary, or hilar adenopathy. Coronary artery calcifications are extensive, patient is post median sternotomy. No pleural or pericardial effusion. There is soft tissue mass present measur ing approximately 8 to 9 mm in the left upper lobe, axial image 91 with SUV of only 0.74 possibly due to small size, additional nodule is present in the left upper lobe towards the apex posterior to the left subclavian artery measuring 6 mm in size, no associated uptake. Subpleural focus of soft tissue on axial image 97 may represent some focal scarring Emphysematous changes are present within the raffi gs. Some basilar atelectatic changes are present. There are coronary artery calcifications. ABDOMEN: There is no evident liver mass. Gallbladder is somewhat hydropic. There is hydronephrosis bi laterally within the kidneys. Uptake along the right colon may be physiologic. There is abnormal upta ke associated with the patient's surgical bed at the rectosigmoid level, SUV is 6.2. Anterior abdomin al hernia contains fat at the level the umbilicus. Osseous structures: There is streak artifact due to patient's left hip arthroplasty. No suspicious up take. IMPRESSION: Findings compatible with patient's history of rectal carcinoma within the pelvis. Abnorma l uptake within the right colon is indeterminate. There are indeterminate pulmonary nodules which are too small to characterize, follow-up is recommended to assess for possible metastatic disease.
== END | disposition home or self-care (01) ==
LOC: RADPETMAIN 09:24
PROVIDERS: ATTEND Internal Medicine Gastroenterology
DX: C20 Malignant neoplasm of rectum (principal)
CPT/HCPCS: 78815; A9552

== ENCOUNTER 2021-02-17 13:48 | Inpatient (IN) | payer MEDICARE, OTHER ==
[2021-02-17] MEDS ORDERED: SODIUM CHLORIDE 0.9% 1,000 ML IV STA (14:22)
[2021-02-17] MEDS ORDERED: ONDANSETRON 4 MG/2 ML VIAL IVP STA (14:22)
[2021-02-17] MEDS ORDERED: PANTOPRAZOLE 40 MG/10 ML VIAL IVP STA (14:22)
[2021-02-17 15:07] LABS: Anisocytosis Moderate; Basophils % (A) 0 %; Eosinophils # (A) 0.1 k/uL (0-0.7); Eosinophils % (A) 2 %; Hypochromasia Marked; Lymphocytes # (A) 0.3 k/uL (1.0-4.8); Lymphocytes % (A) 6 %; MCH 22.5 pg (25.0-35.0); MCHC 29.3 g/dL (31.0-37.0); MCV 76.7 fL (80.0-100.0); Microcytosis Moderate; Monocytes # (A) 0.4 k/uL (0-1.0); Monocytes % (A) 8 %; Neutrophils # (A) 4.3 k/uL (1.3-7.7); Neutrophils % (A) 82 %; Platelet Count 325 k/uL (150-450); Poikilocytosis Slight; RBC 2.09 m/uL (4.30-5.90); RDW 21.4 % (11.5-15.5); WBC 5.2 k/uL (3.8-10.6)
[2021-02-17 15:14] LABS: Albumin 3.4 g/dL (3.5-5.0); Calcium 8.4 mg/dL (8.4-10.2); HGB 4.7 gm/dL (13.0-17.5); Potassium 4.1 mmol/L (3.5-5.1); Total Bilirubin 0.3 mg/dL (0.2-1.3); Total Protein 7.2 g/dL (6.3-8.2)
[2021-02-17] MEDS ORDERED: HYDROcodone/APAP 5-325MG 1 EACH TAB PO STA (16:11)
[2021-02-17 16:43] LABS: INR 0.9 (<1.2); Partial Thromboplastin Time 22.6 sec (22.0-30.0); Prothrombin Time 10.1 sec (9.0-12.0)
[2021-02-17] MEDS ORDERED: ONDANSETRON 4 MG/2 ML VIAL IVP PRN (17:02)
[2021-02-17] MEDS ORDERED: HYDROcodone/APAP 5-325MG 1 EACH TAB PO PRN (17:02)
[2021-02-17] MEDS ORDERED: MORPHINE SULFATE 4 MG/ML SYRINGE IV PRN (17:02)
[2021-02-17] MEDS ORDERED: traMADol 50 MG TAB PO PRN (17:02)
[2021-02-17] MEDS ORDERED: NALOXONE 0.4 MG/ML 1 ML VIAL IV PRN (17:02)
[2021-02-17] MEDS ORDERED: ACETAMINOPHEN TAB 325 MG TAB PO PRN (17:02)
--- NOTE | 2021-02-17 17:02 | ED ---
Nausea/Vomiting/Diarrhea HPI - General Chief complaint: Nausea/Vomiting/Diarrhea Stated complaint: Diarrhea,Hx Colon Ca Time Seen by Provider: 02/17/21 14:10 Source: patient Mode of arrival: ambulatory Limitations: no limitations - History of Present Illness Initial comments: 65-year-old male with history of rectal cancer presents to the emergency Depar tment with a chief complaint of abdominal pain and diarrhea. States the lower abdominal pain has been ongoing for the past 2 months with progressively feeling weaker. Patient is not been able to make it to his doctor's appointments due to increased weakness. Also reports continuous diarrhea but denies any nausea or vomiting. Denies any hematuria, hematochezia or melena. States the pain is not postprandial. Denies any fevers or chills. States the child surgeon recommended colostomy but he refused. Denies any chest pain back pain shortness of breath. - Related Data Home Medications Medication Instructions Recorded Confirmed Doxazosin [Cardura] 4 mg PO DAILY 08/10/20 11/10/20 Multivitamins, Thera [Multivitamin 1 tab PO DAILY 08/10/20 11/10/20 (formulary)] lisinopriL 40 mg PO DAILY 08/10/20 11/10/20 Previous Rx's Medication Instructions Recorded Aspirin 81 mg PO DAILY #30 chewable 08/12/20 Atorvastatin Calcium [Lipitor] 40 mg PO HS #30 tablet 08/12/20 Metoprolol Tartrate [Lopressor] 50 mg PO BID #60 tab 08/12/20 Allergies Allergy/AdvReac Type Severity Reaction Status Date / Time Penicillins Allergy Rash/Hives Verified 02/17/21 13:54 Review of Systems ROS Statement: Those systems with pertinent positive or pertinent negative responses have been documented in the HPI. ROS Other: All systems not noted in ROS Statement are negative. Past Medical History Past Medical History: Coronary Artery Disease (CAD), Cancer, GERD/Reflux, Hyperlipidemia, Hypertension, Osteoarthritis (OA) Additional Past Medical History / Comment(s): POSSIBLE COLITIS . "COLON CANCER", oCC TROUBLE SWALLOWING, BROKEN RT LEG IN PAST. Hepatitis C positive, History of Any Multi-Drug Resistant Organisms: None Reported Past Surgical History: Bowel Resection, Coronary Bypass/CABG, Heart Catheterization, Hernia Repair, Orthopedic Surgery Additional Past Surgical History / Comment(s): RT LEG, LT KNEE SX D/R "BROKEN KNEE CAP", PARTIAL LT HIP REPLACEMENT Past Anesthesia/Blood Transfusion Reactions: Previous Problems w/ Anesthesia Additional Past Anesthesia/Blood Transfusion Reaction / Comment(s): TOOK LONGER WAKING UP Past Psychological History: Depression Smoking Status: Current every day smoker Past Alcohol Use History: None Reported Past Drug Use History: Marijuana - Past Family History Mother Family Medical History: Cancer Additional Family Medical History / Comment(s): BREAST CANCER Father Family Medical History: Congestive Heart Failure (CHF), Coronary Artery Disease (CAD), Myocardial Infarction (DC) Additional Family Medical History / Comment(s): Father of myocardial infarction in his 50s General Exam Limitations: no limitations General appearance: alert, in no apparent distress Head exam: Present: atraumatic, normocephalic, normal inspection Eye exam: Present: normal appearance, PERRL, EOMI, other (pale conjunctiva and mucous membranes) Pupils: Present: normal accommodation ENT exam: Present: normal exam, normal oropharynx, mucous membranes moist Neck exam: Present: normal inspection, full ROM. Absent: tenderness Respiratory exam: Present: normal lung sounds bilaterally. Absent: respiratory distress Cardiovascular Exam: Present: regular rate, normal rhythm, normal heart sounds GI/Abdominal exam: Present: soft, tenderness (Mild lower abdominal tenderness). Absent: distended Extremities exam: Present: normal inspection, full ROM, normal capillary refill. Absent: tenderness Back exam: Present: normal inspection, full ROM. Absent: tenderness, CVA tenderness (R), CVA tenderness (L) Neurological exam: Present: alert, oriented X3 Psychiatric exam: Present: normal affect, normal mood Skin exam: Present: warm, dry, intact, normal color Course Vital Signs 02/17/21 02/17/21 02/17/21 13:49 14:52 16:15 Temperature 97.7 F 98.7 F 98.3 F Pulse Rate 85 80 85 Respiratory 18 16 18 Rate Blood Pressure 127/69 131/69 138/60 O2 Sat by Pulse 100 100 100 Oximetry 02/17/21 02/17/21 02/17/21 16:25 16:55 17:57 Temperature 98.2 F 98.4 F 98.5 F Pulse Rate 82 82 81 Respiratory 18 18 18 Rate Blood Pressure 137/76 155/88 136/76 O2 Sat by Pulse 100 100 100 Oximetry Medical Decision Making - Medical Decision Making 65-year-old male with history of rectal cancer presents to emergency Department with a chief complaint of abdominal pain and diarrhea. On physical examination, he has pale mucous membranes. I have a concern for anemia. Mild lower abdominal tenderness. CBC reveals a hemoglobin of 4.7, hematocrit of 16. Coags within normal limits. Negative troponin. Elevated BUN and creatinine compared to his most recent laboratory work. He still able to urinate. CT noncontrast of abdomen and pelvis reveals bilateral hydronephrosis. Possibility for a ureteral tumor causing the obstruction Which could explain the elevated BUN/creatinine levels. Was able to insert a Godoy catheter and appears to be draining pyuria. Patient will be started on 1 g of Rocephin. Urine culture is pending. Blood cultures pending. Patient was started on 2 units of blood transfusion. Patient also given IV fluids. Patient will be admitted for further medical management. Case discussed with I spoke with Radha Pope NP who will admit for Dr. Marcus. GI consult Nephrology consult Urology consult - Lab Data Result diagrams: 02/17/21 14:38 02/17/21 14:38 Lab Results 02/17/21 02/17/21 02/17/21 Range/Units 14:38 14:38 14:45 WBC 5.2 (3.8-10.6) k/uL RBC 2.09 L (4.30-5.90) m/uL Hgb 4.7 L* (13.0-17.5) gm/dL Hct 16.0 L* (39.0-53.0) % MCV 76.7 L (80.0-100.0) fL MCH 22.5 L (25.0-35.0) pg MCHC 29.3 L (31.0-37.0) g/dL RDW 21.4 H (11.5-15.5) % Plt Count 325 (150-450) k/uL MPV 6.0 Neutrophils % 82 % Lymphocytes % 6 % Monocytes % 8 % Eosinophils % 2 % Basophils % 0 % Neutrophils # 4.3 (1.3-7.7) k/uL Lymphocytes # 0.3 L (1.0-4.8) k/uL Monocytes # 0.4 (0-1.0) k/uL Eosinophils # 0.1 (0-0.7) k/uL Basophils # 0.0 (0-0.2) k/uL Hypochromasia Marked Poikilocytosis Slight Anisocytosis Moderate Microcytosis Moderate PT (9.0-12.0) sec INR (<1.2) APTT (22.0-30.0) sec Sodium 138 (137-145) mmol/L Potassium 4.1 (3.5-5.1) mmol/L Chloride 106 (98-107) mmol/L Carbon Dioxide 20 L (22-30) mmol/L Anion Gap 12 mmol/L BUN 62 H (9-20) mg/dL Creatinine 3.40 H (0.66-1.25) mg/dL Est GFR (CKD-EPI)AfAm 21 (>60 ml/min/1.73 sqM) Est GFR (CKD-EPI)NonAf 18 (>60 ml/min/1.73 sqM) Glucose 130 H (74-99) mg/dL Calcium 8.4 (8.4-10.2) mg/dL Total Bilirubin 0.3 (0.2-1.3) mg/dL AST 24 (17-59) U/L ALT 11 (4-49) U/L Alkaline Phosphatase 112 (38-126) U/L Troponin I (0.000-0.034) ng/mL Total Protein 7.2 (6.3-8.2) g/dL Albumin 3.4 L (3.5-5.0) g/dL Lipase 112 (23-300) U/L Urine Color Urine Appearance (Clear) Urine pH (5.0-8.0) Ur Specific Frederick (1.001-1.035) Urine Protein (Negative) Urine Glucose (UA) (Negative) Urine Ketones (Negative) Urine Blood (Negative) Urine Nitrite (Negative) Urine Bilirubin (Negative) Urine Urobilinogen (<2.0) mg/dL Ur Leukocyte Esterase (Negative) Urine WBC (0-5) /hpf Urine WBC Clumps (None) /hpf Blood Type A Positive Blood Type Recheck A Pos Bld Type Recheck Status No Antibody Screen NEGATIVE Crossmatch See Detail Spec Expiration Date 02/20/2021 - 234402/17/21 02/17/21 02/17/21 Range/Units 14:47 14:52 17:12 WBC (3.8-10.6) k/uL RBC (4.30-5.90) m/uL Hgb (13.0-17.5) gm/dL Hct (39.0-53.0) % MCV (80.0-100.0) fL MCH (25.0-35.0) pg MCHC (31.0-37.0) g/dL RDW (11.5-15.5) % Plt Count (150-450) k/uL MPV Neutrophils % % Lymphocytes % % Monocytes % % Eosinophils % % Basophils % % Neutrophils # (1.3-7.7) k/uL Lymphocytes # (1.0-4.8) k/uL Monocytes # (0-1.0) k/uL Eosinophils # (0-0.7) k/uL Basophils # (0-0.2) k/uL Hypochromasia Poikilocytosis Anisocytosis Microcytosis PT 10.1 (9.0-12.0) sec INR 0.9 (<1.2) APTT 22.6 (22.0-30.0) sec Sodium (137-145) mmol/L Potassium (3.5-5.1) mmol/L Chloride (98-107) mmol/L Carbon Dioxide (22-30) mmol/L Anion Gap mmol/L BUN (9-20) mg/dL Creatinine (0.66-1.25) mg/dL Est GFR (CKD-EPI)AfAm (>60 ml/min/1.73 sqM) Est GFR (CKD-EPI)NonAf (>60 ml/min/1.73 sqM) Glucose (74-99) mg/dL Calcium (8.4-10.2) mg/dL Total Bilirubin (0.2-1.3) mg/dL AST (17-59) U/L ALT (4-49) U/L Alkaline Phosphatase (38-126) U/L Troponin I <0.012 (0.000-0.034) ng/mL Total Protein (6.3-8.2) g/dL Albumin (3.5-5.0) g/dL Lipase (23-300) U/L Urine Color Yellow Urine Appearance Turbid (Clear) Urine pH 6.0 (5.0-8.0) Ur Specific Frederick >1.050 H (1.001-1.035) Urine Protein 2+ H (Negative) Urine Glucose (UA) Negative (Negative) Urine Ketones Negative (Negative) Urine Blood Moderate H (Negative) Urine Nitrite Positive (Negative) Urine Bilirubin Negative (Negative) Urine Urobilinogen <2.0 (<2.0) mg/dL Ur Leukocyte Esterase Large H (Negative) Urine WBC >182 H (0-5) /hpf Urine WBC Clumps Many H (None) /hpf Blood Type Blood Type Recheck Bld Type Recheck Status Antibody Screen Crossmatch Spec Expiration Date - EKG Data EKG Comments: Sinus rhythm A controlled rate 79, [place] 172, QRS 80, QTC 472. Disposition Clinical Impression: Symptomatic anemia, Weakness, Acute kidney injury, Hydronephrosis, Urinary tract infection Disposition: ADMITTED IP TO THIS HOSP Condition: Fair Is patient prescribed a controlled substance at d/c from ED?: No Referrals: Robert Carroll DO [Primary Care Provider] - 1-2 days Time of Disposition: 17:01
[2021-02-17 17:25] LABS: Appearance,Urine Turbid (Clear); Bilirubin,Urine Negative (Negative); Blood,Urine Moderate (Negative); Color,Urine Yellow; Glucose,Urine (UA) Negative (Negative); Ketones,Urine Negative (Negative); Leukocyte Esterase,Urine Large (Negative); Nitrite,Urine Positive (Negative); Protein,Urine 2+ (Negative); Specific Gravity,Urine >1.050 (1.001-1.035); Urobilinogen,Urine <2.0 mg/dL (<2.0); WBC,Urine >182 /hpf (0-5)
--- NOTE | 2021-02-17 17:30 | CT ---
EXAMINATION TYPE: CT abdomen pelvis wo con DATE OF EXAM: 02/17/2021 COMPARISON: PET CT scan 11/18/2020 HISTORY: Lower abdominal pain, diarrhea and weakness. CT DLP: 464.2 mGycm Automated exposure control for dose reduction was used. Images obtained from the diaphragm to the floor the pelvis with no contrast. There is some patchy linear infiltrate and atelectasis at the lung bases. There is no pleural effusio n. There is no pericardial effusion. Liver shows no focal defect. The bile ducts are not dilated. Spleen is intact. Stomach is intact. The re is no sign of pancreatic mass. There is extensive vascular calcification. There is no adrenal mass. There is bilateral hydronephrosis. There is fluid level in the urinary blad kristen apparently from catheterization. I see no free fluid in the pelvis. There is contrast material in the large bowel. There is no sign of a bowel obstruction. There is no mesenteric edema. There is no free air. There is right inguinal hernia contains apparently some distal small bowel. Unchanged. The lumbar vertebra have normal alignment. There is no compression fracture. Bony pelvis is intact. T he hip joints are intact. There is left hip prosthesis. I see no evidence of a pelvic mass. There is perirectal wall thickening. IMPRESSION: Perirectal thickening unchanged. There is bilateral moderate hydronephrosis without significant renal atrophy. This could relate to chronic bladder outlet obstruction. Kidneys unchanged compared to old exam. Tumor involvement of the distal ureters is possible. No bowel obstruction.
[2021-02-17] MEDS ORDERED: cefTRIAXone IN SWFI 1,000 MG/10 ML SYRINGE IVP STA (17:37)
[2021-02-17] MEDS: ATORVASTATIN 40 MG TAB PO SCH (21:48)
[2021-02-17] MEDS: METOPROLOL TARTRATE 50 MG TAB PO SCH (21:48)
[2021-02-18 00:10] LABS: Anisocytosis Moderate; Basophils % (A) 0 %; Eosinophils # (A) 0.2 k/uL (0-0.7); Eosinophils % (A) 3 %; HCT 22.5 % (39.0-53.0); Hypochromasia Marked; Lymphocytes # (A) 0.5 k/uL (1.0-4.8); Lymphocytes % (A) 9 %; MCH 25.1 pg (25.0-35.0); MCHC 30.6 g/dL (31.0-37.0); MCV 81.9 fL (80.0-100.0); Mean Platelet Volume 6.4; Microcytosis Slight; Monocytes # (A) 0.4 k/uL (0-1.0); Monocytes % (A) 8 %; Neutrophils # (A) 4.3 k/uL (1.3-7.7); Neutrophils % (A) 78 %; Platelet Count 295 k/uL (150-450); Poikilocytosis Moderate; RBC 2.75 m/uL (4.30-5.90); RDW 20.2 % (11.5-15.5); WBC 5.5 k/uL (3.8-10.6)
[2021-02-18 00:25] LABS: HGB 6.9 gm/dL (13.0-17.5)
[2021-02-18 08:36] LABS: Anisocytosis Slight; HCT 25.3 % (39.0-53.0); HGB 7.9 gm/dL (13.0-17.5); Hypochromasia Marked; MCH 25.2 pg (25.0-35.0); MCHC 31.1 g/dL (31.0-37.0); MCV 81.1 fL (80.0-100.0); Mean Platelet Volume 6.9; Microcytosis Slight; Platelet Count 315 k/uL (150-450); Poikilocytosis Moderate; RBC 3.13 m/uL (4.30-5.90); RDW 19.7 % (11.5-15.5); WBC 6.2 k/uL (3.8-10.6)
[2021-02-18 08:43] LABS: Albumin 3.1 g/dL (3.5-5.0); Calcium 8.5 mg/dL (8.4-10.2); Phosphorus 4.6 mg/dL (2.5-4.5); Potassium 4.3 mmol/L (3.5-5.1); Total Bilirubin 0.5 mg/dL (0.2-1.3); Total Protein 6.7 g/dL (6.3-8.2)
[2021-02-18] MEDS: METOPROLOL TARTRATE 50 MG TAB PO SCH ×2 (09:25→20:25)
[2021-02-18] MEDS: PANTOPRAZOLE 40 MG/10 ML VIAL IVP SCH ×2 (09:25→20:25)
[2021-02-18] MEDS: MULTIVITAMINS, THERA 1 EACH TAB PO SCH (09:25)
[2021-02-18] MEDS: SODIUM CHLORIDE 0.9% 1,000 ML IV SCH ×2 (09:26→20:21)
--- NOTE | 2021-02-18 10:10 | P.HPIM ---
History of Present Illness Patient is a 69-year-old male came in with complaints of dark tarry stools going on for about the few days she cannot give me the exact onset of symptoms multiple episodes a day. Patient is more found to be severely anemic with hemo globin of around 4.7 received a 3 units of PRBC transfusion after 2 units patient's immobility 6.8. Patient didn't have any dark stools today morning. Patient denied any hematemesis patient is comparing of lower abdominal pain mostly in the superpubic area and bilateral lower quadrants patient denied any nausea vomiting. Patient had a urinalysis which is significantly abnormal with hematuria found to have bilateral hydronephrosis and CT with perirectal thickening. And on the CT there is a possibility of tumor involvement of the distal ureters leading to bilateral hydronephrosis moderate hydronephrosis. Urinalysis is significant for large leukocyte esterase, white blood cells. Patient denied any dysuria doesn't have any fever doesn't have any leukocytosis. Patient is coming of generalized weakness patient the also has creatinine of 3.4 baseline is around 1. Nephrology, gastroenterology and urology were consulted. Patient had history of rectal cancer for which patient received r adiation therapy which was years ago. Review of Systems REVIEW OF SYSTEMS: CONSTITUTIONAL: No fever, no malaise, no fatigue. HEENT: No recent visual problems or hearing problems. Denied any sore throat. CARDIOVASCULAR: No chest pain, orthopnea, PND, no palpitations, no syncope. PULMONARY: No shortness of breath, no cough, no hemoptysis. GASTROINTESTINAL: As mentioned in HPI NEUROLOGICAL: No headaches, no weakness, no numbness. HEMATOLOGICAL: Denies any bleeding or petechiae. GENITOURINARY: Denies any burning micturition, frequency, or urgency. Patient does have suprapubic pain MUSCULOSKELETAL/RHEUMATOLOGICAL: Denies any joint pain, swelling, or any muscle pain. ENDOCRINE: Denies any polyuria or polydipsia. The rest of the 14-point review of systems is negative. Past Medical History Past Medical History: Coronary Artery Disease (CAD), Cancer, GERD/Reflux, Hyperlipidemia, Hypertension, Osteoarthritis (OA) Additional Past Medical History / Comment(s): POSSIBLE COLITIS . "COLON CA NCER", oCC TROUBLE SWALLOWING, BROKEN RT LEG IN PAST. Hepatitis C positive, History of Any Multi-Drug Resistant Organisms: None Reported Past Surgical History: Bowel Resection, Coronary Bypass/CABG, Heart Catheterization, Hernia Repair, Orthopedic Surgery Additional Past Surgical History / Comment(s): RT LEG, LT KNEE SX D/R "BROKEN KNEE CAP", PARTIAL LT HIP REPLACEMENT Past Anesthesia/Blood Transfusion Reactions: Previous Problems w/ Anesthesia Additional Past Anesthesia/Blood Transfusion Reaction / Comment(s): TOOK LONGER WAKING UP Past Psychological History: Depression Additional Psychological History / Comment(s): PT STATED HE LIVES WITH HIS NEICE AND COUSIN IN A SINGLE LEVEL HOME THAT HAS 3 PORCH STEPS. 1 PET CAT. NO OUTSIDE SERVICES RECEIVED. NO MEDICAL EQUIPMENT. PT WORKS A [employer].. 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 Smoking Status: Current every day smoker Past Alcohol Use History: None Reported Additional Past Alcohol Use History / Comment(s): history of alcohol abuse QUIT AT AGE 39. STARTED SMOKING AT AGE 14 SMOKED 1PPD Past Drug Use History: Marijuana Additional Drug Use History / Comment(s): Heroin - patient states last time was 2009. MARIJUANA DAILY - Past Family History Mother Family Medical History: Cancer Additional Family Medical History / Comment(s): BREAST CANCER Father Family Medical History: Congestive Heart Failure (CHF), Coronary Artery Disease (CAD), Myocardial Infarction ([place]) Additional Family Medical History / Comment(s): Father of myocardial infarction in his 50s Medications and Allergies Home Medications Medication Instructions Recorded Confirmed Type Doxazosin [Cardura] 4 mg PO DAILY 08/10/20 02/17/21 History Multivitamins, Thera [Multivitamin 1 tab PO DAILY 08/10/20 02/17/21 History (formulary)] lisinopriL 40 mg PO DAILY 08/10/20 02/17/21 History Aspirin 81 mg PO DAILY #30 chewable 08/12/20 02/17/21 Rx Atorvastatin Calcium [Lipitor] 40 mg PO HS #30 tablet 08/12/20 02/17/21 Rx Metoprolol Tartrate [Lopressor] 50 mg PO BID #60 tab 08/12/20 02/17/21 Rx Allergies Allergy/AdvReac Type Severity Reaction Status Date / Time Penicillins Allergy Rash/Hives Verified 02/17/21 19:43 Physical Exam Vitals: Vital Signs Temp Pulse Pulse Resp BP BP Pulse Ox 02/18/21 06:40 97.8 F 85 18 143/70 96 02/18/21 03:53 98.4 F 85 85 17 139/68 139/68 95 02/18/21 03:23 98.3 F 84 18 131/68 95 02/18/21 03:13 98.5 F 85 18 132/63 97 02/17/21 23:40 97.8 F 76 17 131/68 100 02/17/21 19:53 97.9 F 79 18 135/70 99 02/17/21 19:45 97.9 F 78 18 139/69 100 02/17/21 19:03 98.3 F 80 18 130/75 100 02/17/21 19:02 98.3 F 80 16 130/75 100 02/17/21 19:01 98.3 F 80 18 130/75 100 02/17/21 18:33 98.3 F 84 16 136/70 100 02/17/21 18:23 98.4 F 79 18 135/73 100 02/17/21 17:57 98.5 F 81 18 136/76 100 02/17/21 16:55 98.4 F 82 18 155/88 100 02/17/21 16:25 98.2 F 82 18 137/76 100 02/17/21 16:15 98.3 F 85 18 138/60 100 02/17/21 14:52 98.7 F 80 16 131/69 100 02/17/21 13:49 97.7 F 85 18 127/69 100 Intake and Output 02/17/21 02/18/21 02/18/21 22:59 06:59 14:59 Intake Total 620 310 Output Total 600 575 Balance 20 -265 Intake: Blood Product 620 310 As-1 Unit 310 [id number] As-1 Unit 310 [id number] As-1 Unit 310 [id number] Output: Urine 600 575 Other: Voiding Method Indwelling Catheter Indwelling Catheter # Bowel Movements 1 Weight 56.699 kg 59 kg PHYSICAL EXAMINATION: GENERAL: The patient is alert and oriented x3, not in any acute distress. Well developed, well nourished. HEENT: Pupils are round and equally reacting to light. EOMI. No scleral icterus. Does have conjunctival pallor. Normocephalic, atraumatic. No pharyngeal erythema. No thyromegaly. CARDIOVASCULAR: S1 and S2 present. No murmurs, rubs, or gallops. PULMONARY: Chest is clear to auscultation, no wheezing or crackles. ABDOMEN: Soft, nontender, nondistended, normoactive bowel sounds. No palpable organomegaly. MUSCULOSKELETAL: No joint swelling or deformity. EXTREMITIES: No cyanosis, clubbing, or pedal edema. NEUROLOGICAL: Gross neurological examination did not reveal any focal deficits. SKIN: No rashes. Results CBC & Chem 7: 02/18/21 08:16 02/18/21 08:16 Labs: Abnormal Lab Results - Last 24 Hours (Table) 02/17/21 02/17/21 02/17/21 Range/Units 14:38 14:38 14:45 RBC 2.09 L (4.30-5.90) m/uL Hgb 4.7 L* (13.0-17.5) gm/dL Hct 16.0 L* (39.0-53.0) % MCV 76.7 L (80.0-100.0) fL MCH 22.5 L (25.0-35.0) pg MCHC 29.3 L (31.0-37.0) g/dL RDW 21.4 H (11.5-15.5) % Lymphocytes # 0.3 L (1.0-4.8) k/uL Chloride (98-107) mmol/L Carbon Dioxide 20 L (22-30) mmol/L BUN 62 H (9-20) mg/dL Creatinine 3.40 H (0.66-1.25) mg/dL Glucose 130 H (74-99) mg/dL Phosphorus (2.5-4.5) mg/dL Albumin 3.4 L (3.5-5.0) g/dL Ur Specific [place] (1.001-1.035) Urine Protein (Negative) Urine Blood (Negative) Ur Leukocyte Esterase (Negative) Urine WBC (0-5) /hpf Urine WBC Clumps (None) /hpf Crossmatch See Detail 02/17/21 02/17/21 02/18/21 Range/Units 17:12 23:50 08:16 RBC 2.75 L 3.13 L (4.30-5.90) m/uL Hgb 6.9 L* D 7.9 L (13.0-17.5) gm/dL Hct 22.5 L 25.3 L (39.0-53.0) % MCV (80.0-100.0) fL MCH (25.0-35.0) pg MCHC 30.6 L (31.0-37.0) g/dL RDW 20.2 H 19.7 H (11.5-15.5) % Lymphocytes # 0.5 L (1.0-4.8) k/uL Chloride (98-107) mmol/L Carbon Dioxide (22-30) mmol/L BUN (9-20) mg/dL Creatinine (0.66-1.25) mg/dL Glucose (74-99) mg/dL Phosphorus (2.5-4.5) mg/dL Albumin (3.5-5.0) g/dL Ur Specific [place] >1.050 H (1.001-1.035) Urine Protein 2+ H (Negative) Urine Blood Moderate H (Negative) Ur Leukocyte Esterase Large H (Negative) Urine WBC >182 H (0-5) /hpf Urine WBC Clumps Many H (None) /hpf Crossmatch 02/18/21 Range/Units 08:16 RBC (4.30-5.90) m/uL Hgb (13.0-17.5) gm/dL Hct (39.0-53.0) % MCV (80.0-100.0) fL MCH (25.0-35.0) pg MCHC (31.0-37.0) g/dL RDW (11.5-15.5) % Lymphocytes # (1.0-4.8) k/uL Chloride 113 H (98-107) mmol/L Carbon Dioxide 17 L (22-30) mmol/L BUN 52 H (9-20) mg/dL Creatinine 3.28 H (0.66-1.25) mg/dL Glucose 100 H (74-99) mg/dL Phosphorus 4.6 H (2.5-4.5) mg/dL Albumin 3.1 L (3.5-5.0) g/dL Ur Specific [place] (1.001-1.035) Urine Protein (Negative) Urine Blood (Negative) Ur Leukocyte Esterase (Negative) Urine WBC (0-5) /hpf Urine WBC Clumps (None) /hpf Crossmatch Microbiology - Last 24 Hours (Table) 03/20/21 17:12 Urine Culture - Preliminary Urine,Voided Thrombosis Risk Factor Assmnt - Choose All That Apply Each Risk Factor Represents 2 Points: Age 61-74 years Thrombosis Risk Factor Assessment Total Risk Factor Score: 2 Thrombosis Risk Factor Assessment Level: Low Risk Assessment and Plan Plan: -Acute blood loss anemia from possibly acute upper GI bleed: Patient will be started on Protonix, gastric body will evaluated the patient patient received 2 units of PRBC transfusion of his hemoglobin has not to 7.9. Patient may need u pper GI endoscopy as well as colonoscopy patient does have colonic thickening with concerns of recurrence of rectal cancer/colon cancer. Patient may need biopsies. Patient may need oncology consultation or follow-up with oncology eventually as an outpatient. -Possible iron deficiency anemia patient has low MCV we'll obtain iron panel -Bilateral hydronephrosis: Neurology was consulted -Acute renal failure possibility of obstructive uropathy appears to be chronic obstruction with significant structural changes in the kidneys. Nephrology was consulted patient will be continued on IV fluids will monitor kidney function -Possibly of urinary tract infection considering his suprapubic pain and u rinalysis findings patient will be started on Rocephin. Patient may have colitis as well which I cannot completely rule out. -Coronary artery disease and CABG in the past -Gastroesophageal reflux disease -Hyperlipidemia -Hypertension -History of colon cancer. -History of hepatitis C
--- NOTE | 2021-02-18 10:53 | P.GSCN ---
History of Present Illness Consult date: 02/18/21 Reason for Consult: Bilateral hydronephrosis History of present illness: This is 65-year-old male with hx of rectal cancer presents to the emergency department with chief complaint of abdominal pain and diarrhea. He's also been complaining of worsening his for the past 2 months, on presentation his hemoglobin was 4.7. On presentation he underwent a CT scan that showed evidence of bilateral hydronephrosis. For his rectal cancer he underwent colon resection and radiation approximetely 10 years ago. Of note he had PET done in 10/2020 th at showed evidence of bilateral hydronephrosis. A Adams catheter was placed in the ED. Denies any dysuria or gross hematuria On presentation his UA is concerning for UTI. He indicated at baseline he is has urinary incontinence, but denies any difficulty voiding. He indicated this has been ongoing for more than 1 year. On presentation his creat was 3.4, repeat this a.m. is 3.28, of note his creat was 1.7 in 08/2020. a Adams catheter was placed in the ED Review of Systems - Constitutional Reports weakness, Denies chills, Denies fever - EENT Ears, nose, mouth and throat: Denies dysphagia - Cardiovascular Denies chest pain, Denies shortness of breath - Respiratory Denies cough, Denies 7 - Gastrointestinal Reports abdominal pain, Reports diarrhea - Genitourinary Reports incontinence, Denies dysuria, Denies flank pain - Neurological Denies headaches, Denies syncope - Hematologic/Lymphatic Denies easy bleeding, Denies easy bruising Past Medical History Past Medical History: Coronary Artery Disease (CAD), Cancer, GERD/Reflux, Hyperlipidemia, Hypertension, Osteoarthritis (OA) Additional Past Medical History / Comment(s): POSSIBLE COLITIS . "COLON CANCER", oCC TROUBLE SWALLOWING, BROKEN RT LEG IN PAST. Hepatitis C positive, History of Any Multi-Drug Resistant Organisms: None Reported Past Surgical History: Bowel Resection, Coronary Bypass/CABG, Heart Catheterization, Hernia Repair, Orthopedic Surgery Additional Past Surgical History / Comment(s): RT LEG, LT KNEE SX D/R "BROKEN KNEE CAP", PARTIAL LT HIP REPLACEMENT Past Anesthesia/Blood Transfusion Reactions: Previous Problems w/ Anesthesia Additional Past Anesthesia/Blood Transfusion Reaction / Comm: TOOK LONGER WAKING UP Past Psychological History: Depression Additional Psychological History / Comment(s): PT STATED HE LIVES WITH HIS NEICE AND COUSIN IN A SINGLE LEVEL HOME THAT HAS 3 PORCH STEPS. 1 PET CAT. NO OUTSIDE SERVICES RECEIVED. NO MEDICAL EQUIPMENT. PT WORKS A [employer].. 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 Smoking Status: Current every day smoker Past Alcohol Use History: None Reported Additional Past Alcohol Use History / Comment(s): history of alcohol abuse QUIT AT AGE 39. STARTED SMOKING AT AGE 14 SMOKED 1PPD Past Drug Use History: Marijuana Additional Drug Use History / Comment(s): Heroin - patient states last time was 2009. MARIJUANA DAILY - Past Family History Mother Family Medical History: Cancer Additional Family Medical History / Comment(s): BREAST CANCER Father Family Medical History: Congestive Heart Failure (CHF), Coronary Artery Disease (CAD), Myocardial Infarction ([place]) Additional Family Medical History / Comment(s): Father of myocardial infarction in his 50s Medications and Allergies Home Medications Medication Instructions Recorded Confirmed Type Doxazosin [Cardura] 4 mg PO DAILY 08/10/20 02/17/21 History Multivitamins, Thera [Multivitamin 1 tab PO DAILY 08/10/20 02/17/21 History (formulary)] lisinopriL 40 mg PO DAILY 08/10/20 02/17/21 History Aspirin 81 mg PO DAILY #30 chewable 08/12/20 02/17/21 Rx Atorvastatin Calcium [Lipitor] 40 mg PO HS #30 tablet 08/12/20 02/17/21 Rx Metoprolol Tartrate [Lopressor] 50 mg PO BID #60 tab 08/12/20 02/17/21 Rx Allergies Allergy/AdvReac Type Severity Reaction Status Date / Time Penicillins Allergy Rash/Hives Verified 02/17/21 19:43 Surgical - Exam Vital Signs Temp Pulse Resp BP Pulse Ox 97.7 F 85 18 127/69 100 02/17/21 13:49 02/17/21 13:49 02/17/21 13:49 02/17/21 13:49 02/17/21 13:49 - General no distress, no pain - Eyes PERRL, normal ocular movement - ENT normal nares, normal mucosa - Abdomen Abdomen: soft, non tender - Genitourinary adams draining clear yellow urine - Psychiatric oriented to time, oriented to person, oriented to place, speech is normal Results - Labs 02/18/21 08:16 02/18/21 08:16 Abnormal Lab Results - Last 24 Hours (Table) 02/17/21 02/17/21 02/17/21 Range/Units 14:38 14:38 14:45 RBC 2.09 L (4.30-5.90) m/uL Hgb 4.7 L* (13.0-17.5) gm/dL Hct 16.0 L* (39.0-53.0) % MCV 76.7 L (80.0-100.0) fL MCH 22.5 L (25.0-35.0) pg MCHC 29.3 L (31.0-37.0) g/dL RDW 21.4 H (11.5-15.5) % Lymphocytes # 0.3 L (1.0-4.8) k/uL Carbon Dioxide 20 L (22-30) mmol/L BUN 62 H (9-20) mg/dL Creatinine 3.40 H (0.66-1.25) mg/dL Glucose 130 H (74-99) mg/dL Albumin 3.4 L (3.5-5.0) g/dL Ur Specific [place] (1.001-1.035) Urine Protein (Negative) Urine Blood (Negative) Ur Leukocyte Esterase (Negative) Urine WBC (0-5) /hpf Urine WBC Clumps (None) /hpf Crossmatch See Detail 02/17/21 02/17/21 Range/Units 17:12 23:50 RBC 2.75 L (4.30-5.90) m/uL Hgb 6.9 L* D (13.0-17.5) gm/dL Hct 22.5 L (39.0-53.0) % MCV (80.0-100.0) fL MCH (25.0-35.0) pg MCHC 30.6 L (31.0-37.0) g/dL RDW 20.2 H (11.5-15.5) % Lymphocytes # 0.5 L (1.0-4.8) k/uL Carbon Dioxide (22-30) mmol/L BUN (9-20) mg/dL Creatinine (0.66-1.25) mg/dL Glucose (74-99) mg/dL Albumin (3.5-5.0) g/dL Ur Specific [place] >1.050 H (1.001-1.035) Urine Protein 2+ H (Negative) Urine Blood Moderate H (Negative) Ur Leukocyte Esterase Large H (Negative) Urine WBC >182 H (0-5) /hpf Urine WBC Clumps Many H (None) /hpf Crossmatch Microbiology - Last 24 Hours (Table) 02/17/21 17:12 Urine Culture - Preliminary Urine,Voided Diabetes panel 02/17/21 Range/Units 14:38 Sodium 138 (137-145) mmol/L Potassium 4.1 (3.5-5.1) mmol/L Chloride 106 (98-107) mmol/L Carbon Dioxide 20 L (22-30) mmol/L BUN 62 H (9-20) mg/dL Creatinine 3.40 H (0.66-1.25) mg/dL Glucose 130 H (74-99) mg/dL Calcium 8.4 (8.4-10.2) mg/dL AST 24 (17-59) U/L ALT 11 (4-49) U/L Alkaline Phosphatase 112 (38-126) U/L Total Protein 7.2 (6.3-8.2) g/dL Albumin 3.4 L (3.5-5.0) g/dL Calcium panel 02/17/21 Range/Units 14:38 Calcium 8.4 (8.4-10.2) mg/dL Albumin 3.4 L (3.5-5.0) g/dL Pituitary panel 02/17/21 Range/Units 14:38 Sodium 138 (137-145) mmol/L Potassium 4.1 (3.5-5.1) mmol/L Chloride 106 (98-107) mmol/L Carbon Dioxide 20 L (22-30) mmol/L BUN 62 H (9-20) mg/dL Creatinine 3.40 H (0.66-1.25) mg/dL Glucose 130 H (74-99) mg/dL Calcium 8.4 (8.4-10.2) mg/dL Adrenal panel 02/17/21 Range/Units 14:38 Sodium 138 (137-145) mmol/L Potassium 4.1 (3.5-5.1) mmol/L Chloride 106 (98-107) mmol/L Carbon Dioxide 20 L (22-30) mmol/L BUN 62 H (9-20) mg/dL Creatinine 3.40 H (0.66-1.25) mg/dL Glucose 130 H (74-99) mg/dL Calcium 8.4 (8.4-10.2) mg/dL Total Bilirubin 0.3 (0.2-1.3) mg/dL AST 24 (17-59) U/L ALT 11 (4-49) U/L Alkaline Phosphatase 112 (38-126) U/L Total Protein 7.2 (6.3-8.2) g/dL Albumin 3.4 L (3.5-5.0) g/dL - Imaging CT scan - abdomen: image reviewed (Bilateral hydronephrosis) Assessment and Plan Assessment: 65-year-old male admitted to the hospital with anemia, hemoglobin of 4.7 on presentation and SALUD his creatinine is 3.4 , creat was 1.7 in 2020. History of rectal cancer, treated with surgical resection and radiation approximately 10 years ago, had a recent PET scan in 10/2020 that showed evidence of recurrence, and bilateral hydronephrosis. Repeat CT on presentation showed evidence of per sistent bilateral hydronephrosis. The catheter was placed in the ER his creatinine slightly trending down to 3.28 from 3.4. At baseline he is incontinent of urine, is unknown whether this is from overflow incontinence or urge incontinence. At this time recommend keeping the Adams in place, continue to trend creatinine. We'll plan on repeating an a renal bladder ultrasound in 72 hours to assess for improvement of hydronephrosis with catheter placement. But given his history of radiation there is a concern of distal ureteral strictures as the cause of his hydronephrosis. At this time if his creatinine doesn't improve back to baseline or there is persistent Spurgeon despite catheter placement then we'll proceed with bilateral retrograde pyelograms and possible stent placement Time with Patient: Greater than 30
[2021-02-18 11:44] LABS: Calcium 8.3 mg/dL (8.4-10.2); Potassium 4.4 mmol/L (3.5-5.1)
--- NOTE | 2021-02-18 16:22 | CONS ---
CONSULTATION DATE OF SERVICE: 02/18/2021 REQUESTING PHYSICIAN: Dr. Robert Carroll. REASON FOR CONSULTATION: Rectal bleeding. HISTORY OF PRESENT ILLNESS: The patient is a 65-year-old pleasant white male who was diagnosed with recurrent rectal cancer in October of 2020. He was originally diagnosed with rectal cancer in 2011 and he underwent radiation and chemo followed by surgery. He presented with severe diarrhea of 6 weeks duration and on November 10 he underwent a colonoscopy by [facility] that revealed rectal anastomotic stricture with severe mucosal inflammation and friability and multiple biopsies done from that area showed rectal adenocarcinoma. The patient was subsequently referred to surgery and in fact has seen a surgeon at [place] and apparently was scheduled for a surgical resection on February 14. However, he was not doing well. He was feeling weak and tired and hence instead came to the emergency room and subsequently admitted to the hospital for further evaluation. At the time of admission the hospital, his hemoglobin was 4.5 g/dL. He received 3 units of PRBC transfusion. He has been having intermittent rectal bleeding for the last 3 months. He had about 3 or 4 bowel movements daily with blood and mucus in the stool. He also complains of some cramping lower abdominal pain. He denies any nausea, vomiting. No fever, chills, or night sweats. PAST MEDICAL HISTORY: Significant for recurrent rectal cancer diagnosed in October of 2021, currently being followed by surgeon in [place], history of hypertension, hypercholesteremia. MEDICATIONS: Medications at home include Cardura, lisinopril, aspirin, Lipitor, Lopressor. ALLERGIES: PENICILLIN. PAST SURGICAL HISTORY: Rectal cancer diagnosed in 2011, status post surgery with low anterior resection, history of CABG, cardiac catheterization, hernia repair. SOCIAL HISTORY: Chronic smoker. No alcohol use. FAMILY HISTORY: Mother had breast cancer. REVIEW OF SYSTEMS: CARDIOPULMONARY: No chest pain or shortness of breath. GENITOURINARY: No dysuria or hematuria. MUSCULOSKELETAL: Unremarkable. SKIN: Unremarkable. ENDOCRINE: Unremarkable. PSYCHIATRIC: Unremarkable. NEUROLOGY: Unremarkable. ENT/VISION: Unremarkable. CONSTITUTIONAL: Fatigue, weakness and weight loss. PHYSICAL EXAMINATION: GENERAL: He appears comfortable. No apparent distress. VITAL SIGNS: Stable. Blood pressure 135/68, pulse rate 80, temperature 98.4. HEENT: Examination unremarkable. Conjunctivae are pink. Sclerae anicteric. Oral cavity no lesions. NECK: No JVD or lymph node enlargement. CHEST: Clear to auscultation. HEART: Regular rate and rhythm. ABDOMEN: Soft, bowel sounds were positive, no organomegaly. EXTREMITIES: No pedal edema noted. SKIN: No rashes. NEURO: He is alert and oriented x3. No focal deficits. LABS: Labs done at the time of admission to the hospital hemoglobin is 4.7, WBC 5.2, platelets are normal. After 3 units hemoglobin 7.9 g/dL. BUN is 62, creatinine 3.40. CT of the abdomen and pelvis done in the ER yesterday did show evidence of perirectal thickening, bilateral moderate hydronephrosis. IMPRESSION: 1. Recurrent rectal cancer diagnosed in October of 2020. The patient was originally diagnosed with rectal cancer in 2011, at which time he underwent chemo radiation followed by surgery. He continues to have ongoing rectal bleeding for the last 3 months duration. Colonoscopy done by me on November 10, 2020 showed severe friability of the mucosa in the rectal anastomosis with stricture and biopsies revealed adenocarcinoma. The patient is currently being evaluated by a surgeon at [place] and he was scheduled for surgery February 14, but patient was not feeling well and hence he canceled the surgery. Now admitted with ongoing rectal bleeding and severe anemia requiring 3 units of PRBC transfusion. Most likely the bleeding is from rectal adenocarcinoma. 2. Severe symptomatic anemia secondary to gastrointestinal blood loss from rectal bleeding, status post 3 units of PRBC transfusion. 3. Acute kidney injury secondary to bilateral hydronephrosis. Urology following the patient closely. RECOMMENDATIONS: 1. Agree with PRBC transfusion. 2. No need for any endoscopy intervention at the present time. 3. Continue with symptomatic and supportive care. 4. Patient advised to contact his surgeon tomorrow to reschedule the surgery. 5. We will follow with you closely. Thank you for this consultation. MMODL / IJN: [id number] /
--- NOTE | 2021-02-18 17:16 | CONS ---
CONSULTATION REASON FOR CONSULT: Renal failure. HISTORY OF PRESENT ILLNESS: Patient is a 65-year-old male who was admitted to the hospital with complaints of increased weakness. He had dark colored stools as well. He was found to have a hemoglobin of 4.7 g/dL. Patient has been transfused packed RBCs 3 units and his hemoglobin now is at 7.9. Blood pressure has not been significantly low. It is mostly around 120s to 130s mmHg systolic. Serum creatinine was 3.28 mg/dL which is down from 3.4 yesterday. Review of previous labs shows a serum creatinine of 1.0 and 1.7 mg/dL in August of 2020. The patient denies having seen a sweet pickled fruit maker previously. However, he has been told that his renal function has been borderline. There is no history of use of nonsteroidal anti- inflammatory agents prior to admission. Patient was maintained on lisinopril. He was complaining of lightheadedness and dizziness prior to admission. The patient has a diagnosis of rectal cancer for which he was scheduled for surgery in the next 3-4 days. However, he was progressively getting weaker with ongoing bleeding, that is why he was admitted to the hospital. CT scan done yesterday showed evidence of moderate bilateral hydronephrosis. PAST MEDICAL HISTORY: Coronary artery disease, recent diagnosis of colorectal cancer, hyperlipidemia, gastroesophageal reflux disease, osteoarthritis, hypertension. PAST SURGICAL HISTORY: Coronary artery bypass surgery, cardiac catheterization, hernia repair, knee cap surgery and a partial left hip arthroplasty. SOCIAL HISTORY: Positive for smoking, alcohol abuse as well as use of marijuana. PHYSICAL EXAMINATION: On examination today blood pressure was 143/70, heart rate 85 per minute, patient is afebrile. Examination of the heart S1, S2. Examination of the lungs, bilateral breath sounds are heard. Abdomen is soft, nontender. Examination of lower extremities shows no significant edema. EDUCATION MANAGERS exam grossly intact. LABS: Show hemoglobin 7.9 sodium 139, potassium 4.3, chloride 113, CO2 17, BUN 52, creatinine 3.28. UA shows 2+ protein, more than 182 WBCs. Coronavirus PCR is negative. ASSESSMENT: 1. Acute kidney injury associated with severe anemia as well as obstructive uropathy with evidence of bilateral moderate hydronephrosis noted on CT scan. Godoy catheter was placed post hospitalization. We will continue to monitor the renal function. Currently patient has good urine output. Creatinine is slightly lower than yesterday although still quite elevated. There is probably a component of acute tubular necrosis from severe anemia as well. Concern for some degree of adhesions given the history of radiation therapy. 2. Metabolic acidosis associated with renal failure and obstructive uropathy. Add oral sodium bicarb. 3. Gastrointestinal bleed associated with underlying colorectal cancer, details not available. The patient was scheduled for surgery in the next 3-4 days per patient. 4. Acute blood loss anemia status post packed RBCs transfusion. 5. Pyuria. Urine culture is currently pending. PLAN: Continue with Godoy catheter. Appreciate Urology input. Add oral sodium bicarb. Follow up on urine cultures and continue with IV fluids. Avoid nephrotoxic agents. Thank you for this consultation. Will continue to follow the patient with you during his hospitalization. MMODL / IJN: [id number] /
[2021-02-18] MEDS: ATORVASTATIN 40 MG TAB PO SCH (20:25)
[2021-02-18] MEDS: SODIUM BICARBONATE TAB 650 MG TAB PO SCH (20:25)
[2021-02-19] MEDS: SODIUM CHLORIDE 0.9% 1,000 ML IV SCH ×2 (04:30→20:19)
[2021-02-19 07:54] LABS: Anisocytosis Slight; HCT 26.3 % (39.0-53.0); HGB 8.1 gm/dL (13.0-17.5); Hypochromasia Marked; MCH 25.2 pg (25.0-35.0); MCHC 30.8 g/dL (31.0-37.0); MCV 81.9 fL (80.0-100.0); Mean Platelet Volume 6.1; Microcytosis Slight; Platelet Count 323 k/uL (150-450); Poikilocytosis Moderate; RBC 3.22 m/uL (4.30-5.90); WBC 6.9 k/uL (3.8-10.6)
[2021-02-19 08:08] LABS: Calcium 8.2 mg/dL (8.4-10.2); Magnesium 1.8 mg/dL (1.6-2.3); Potassium 3.8 mmol/L (3.5-5.1)
[2021-02-19] MEDS: MULTIVITAMINS, THERA 1 EACH TAB PO SCH (10:14)
[2021-02-19] MEDS: METOPROLOL TARTRATE 50 MG TAB PO SCH ×2 (10:15→20:19)
[2021-02-19] MEDS: PANTOPRAZOLE 40 MG/10 ML VIAL IVP SCH ×2 (10:15→20:19)
[2021-02-19] MEDS: SODIUM BICARBONATE TAB 650 MG TAB PO SCH ×2 (10:16→20:19)
--- NOTE | 2021-02-19 12:55 | P.PN ---
Subjective Progress Note Date: 02/19/21 No acute overnight event denies any flank pain or gross hematuria. His creat this am 3.02 from 3.32. Objective - Vital Signs Vital signs: Vital Signs Temp 98 F 02/19/21 04:20 Pulse 75 02/19/21 04:20 Resp 18 02/19/21 08:00 BP 150/72 02/19/21 04:20 Pulse Ox 97 02/18/21 23:45 Intake & Output 02/18/21 02/19/21 02/19/21 18:59 06:59 18:59 Intake Total 240 920 Output Total 1999 1200 1250 Balance -1760 -1200 -330 Weight 60.8 kg Intake: Oral 240 920 Output: Urine 1999 1200 1250 Other: Voiding Method Indwelling Catheter Indwelling Catheter Indwelling Catheter # Bowel Movements 1 1 1 - Constitutional General appearance: Present: no acute distress - Genitourinary Genitourinary Comment(s): adams draining clear yellow urine - Psychiatric Psychiatric: Present: A&O x's 3 - Labs CBC & Chem 7: 02/19/21 07:24 02/19/21 07:24 Labs: Abnormal Lab Results - Last 24 Hours (Table) 02/19/21 02/19/21 Range/Units 07:24 07:24 RBC 3.22 L (4.30-5.90) m/uL Hgb 8.1 L (13.0-17.5) gm/dL Hct 26.3 L (39.0-53.0) % MCHC 30.8 L (31.0-37.0) g/dL RDW 20.0 H (11.5-15.5) % Sodium 136 L (137-145) mmol/L Chloride 109 H (98-107) mmol/L Carbon Dioxide 17 L (22-30) mmol/L BUN 42 H (9-20) mg/dL Creatinine 3.02 H (0.66-1.25) mg/dL Calcium 8.2 L (8.4-10.2) mg/dL Microbiology - Last 24 Hours (Table) 02/17/21 17:12 Urine Culture - Preliminary Urine,Voided Gram Neg Bacilli 02/17/21 17:55 Blood Culture - Preliminary Blood No Growth after 24 hours Assessment and Plan Assessment: 65-year-old male admitted to the hospital with anemia, hemoglobin of 4.7 on presentation and SALUD his creatinine is 3.4 , creat was 1.7 in 2020. This am cre at 3.02 History of rectal cancer, treated with surgical resection and radiation approximately 10 years ago, had a recent PET scan in 10/2020 that showed evidence of recurrence, and bilateral hydronephrosis. Repeat CT on presentation showed evidence of persistent bilateral hydronephrosis. The catheter was placed in the ER his creatinine slightly trending down to 3.02 from 3.4. At baseline he is incontinent of urine, is unknown whether this is from overflow incontinence or urge incontinence. -keep the Adams in place, continue to trend creatinine. Will keep NPO past MN, if creat trends up or no significant improvement then will proceed with bilateral RP possible stent placement. But if there is continued improvement in creat tomorrow will continue to trend. This was discussed with the patient and he was agreeable with the plan
--- NOTE | 2021-02-19 14:25 | PN ---
PROGRESS NOTE Patient is seen for followup for acute kidney injury. Renal function has been slowly improving although not significantly improved. Patient was admitted with a creatinine of 3.4 and hemoglobin was 4.7 on initial admission. The patient has been transfused packed RBCs. Hemoglobin is up to 8.1. Currently patient has an indwelling Godoy catheter. He was noticed to have bilateral hydronephrosis on the CAT scan. Urine output is good at about 3.2 L for 24 hours. The patient denies any previous history of kidney diseases, however, we do have a creatinine of 1.7 and 1.9 in August of 2020. Currently patient is maintained on IV fluids. PHYSICAL EXAMINATION: Patient is comfortable. Blood pressure this morning was 150/72, heart rate 75 per minute. He is afebrile. EXAMINATION OF THE HEART: S1, S2. EXAMINATION OF THE LUNGS: Bilateral breath sounds are heard. Abdomen is soft, nontender. Examination of lower extremities shows no significant edema. BLANKET MAKER exam grossly intact. LABS: Labs show sodium 136, potassium 3.8, chloride 109, CO2 is 17, BUN 32, creatinine 3.0, hemoglobin 8.1 g/dL. ASSESSMENT: 1. Acute kidney injury, acute tubular necrosis as well as obstructive uropathy with serum creatinine slowly decreasing. The patient has had a history of radiation therapy 11 years ago for colon cancer and he may have developed some retroperitoneal fibrosis and scarring. Continue with the Godoy catheter for now. Urine output is good. 2. Chronic kidney disease. Previous creatinine 1.7-1.9 in August of 2020. NKF stage 3B. 3. Metabolic acidosis associated with renal failure, maintained on oral sodium bicarb. 4. Severe anemia on admission secondary to gastrointestinal bleed. The patient has a history of recurrent colon cancer with plans for possible surgery. 5. Urinary tract infection. Urine culture growing Gram-negative bacilli, maintained on antibiotics. PLAN: Continue with antibiotics. Continue with IV fluids. Continue Godoy catheter as well as sodium bicarb tablets. Repeat labs in a.m. Avoid hypotension. The patient will need outpatient followup. MMODL / IJN: [id number] /
--- NOTE | 2021-02-19 15:07 | P.PN ---
Subjective Progress Note Date: 02/19/21 Principal diagnosis: Anemia, Rectal bleeding This is a 65-year-old gentleman who was diagnosed recently with recurrent rectal cancer in October 2020. He is supposed to follow-up with a surgeon in [place], however states he was not feeling well so canceled the appointment. He came in for rectal bleeding. Patient was seen and examined lying in bed. No acute changes through the night. He states he did have a bowel movement today however was no blood noted. Hemoglobin is stable at 8.1 he is status post 3 units of PRBC transfusion. Objective - Vital Signs Vital signs: Vital Signs Temp 98 F 02/19/21 04:20 Pulse 75 02/19/21 04:20 Resp 18 02/19/21 04:20 BP 150/72 02/19/21 04:20 Pulse Ox 97 02/18/21 23:45 Intake & Output 02/18/21 02/19/21 02/19/21 18:59 06:59 18:59 Intake Total 240 920 Output Total 2000 1200 700 Balance -1760 -1200 220 Weight 60.8 kg Intake: Oral 240 920 Output: Urine 2000 1200 700 Other: Voiding Method Indwelling Catheter Indwelling Catheter # Bowel Movements 1 1 1 - Exam General appearance: The patient is alert, oriented, appears in no acute distress. HET: Head is normocephalic and atraumatic. Conjunctiva pink. Sclera anicteric. Neck: Supple without lymphadenopathy. Abdomen: Soft, nontender, nondistended with bowel sounds. No guarding or rigidity. Extremities: Normal skin color and turgor. No pedal edema Skin: No rashes, no jaundice Neurological: No focal deficits. Alert and oriented 3. - Labs CBC & Chem 7: 02/19/21 07:24 02/19/21 07:24 Labs: Abnormal Lab Results - Last 24 Hours (Table) 02/18/21 02/19/21 02/19/21 Range/Units 11:06 07:24 07:24 RBC 3.22 L (4.30-5.90) m/uL Hgb 8.1 L (13.0-17.5) gm/dL Hct 26.3 L (39.0-53.0) % MCHC 30.8 L (31.0-37.0) g/dL RDW 20.0 H (11.5-15.5) % Sodium 136 L (137-145) mmol/L Chloride 114 H 109 H (98-107) mmol/L Carbon Dioxide 17 L 17 L (22-30) mmol/L BUN 51 H 42 H (9-20) mg/dL Creatinine 3.32 H 3.02 H (0.66-1.25) mg/dL Glucose 101 H (74-99) mg/dL Calcium 8.3 L 8.2 L (8.4-10.2) mg/dL Microbiology - Last 24 Hours (Table) 02/17/21 17:12 Urine Culture - Preliminary Urine,Voided Gram Neg Bacilli 02/17/21 17:55 Blood Culture - Preliminary Blood No Growth after 24 hours Assessment and Plan (1) Rectal cancer Narrative/Plan: This is a 65-year-old pleasant male with recurrent rectal cancer diagnosed in October 2020. The patient was originally diagnosed with rectal cancer in 2011 at which time he underwent chemoradiation followed by surgery. He continues to have ongoing rectal bleeding for the last 3 months duration. Colonoscopy done by Dr. Mccarty on 11/10/2020 showed severe friability of the mucosa in the rectal anastomosis with stricture and biopsies revealing adenocarcinoma. The patient is currently being evaluated by a surgeon in [place] he was scheduled for surgery February 14, but patient was not feeling well and hence canceled the surgery. He is now admitted with ongoing rectal bleeding and severe anemia requiring 3 units of PRBC transfusion. Most likely the bleeding is from rectal adenocarcinoma. No plans for endoscopic evaluation. Current Visit: Yes Status: Acute Code(s): C20 - MALIGNANT NEOPLASM OF RECTUM SNOMED Code(s): 588762923 (2) Anemia Narrative/Plan: Patient has severe symptomatic anemia secondary to gastrointestinal blood loss from rectal bleeding and is status post 3 units of PRBC transfusion Current Visit: No Status: Acute Code(s): D64.9 - ANEMIA, UNSPECIFIED SNOMED Code(s): 266304811 Plan: 1. Supportive care 2. No plans for any endoscopic intervention at the present time 3. CBC daily, transfuse for hemoglobin less than 7 4. Patient is scheduled for cystoscopy with possible bilateral stents tomorrow with urology 5. Patient to contact surgeon and reschedule surgery as soon as possible Thank you for this consultation we will continue to follow Dr. Disla I agree with the dictator's note, documented as a scribe by Lena Felix.
--- NOTE | 2021-02-19 17:15 | P.PN ---
Subjective Progress Note Date: 02/19/21 Principal diagnosis: Acute blood loss anemia Mr. Jimenes is a 65-year-old male with a past medical history of coronary artery disease, hypertension, hyperlipidemia, colon cancer, hepatitis C admitted to the hospital for dark tarry stools . Patient was found to have severe anemia with hemoglobin of 4.7 and he received 3 units of PRBCs. He had urine analysis showing hematuria and urine culture is positive for gram-negative bacilli. Patient had a CAT scan of the abdomen showing bilateral hydronephrosis and perirectal thickening with possibility of tumor involvement. Nephrology, GI and urology currently on board and following the patient closely. On 02/19/2021 -was seen and examined at bedside. He was lying comfortably in bed appears to be no acute distress. Patient still reports dark colored stool. Hemoglobin from this morning is 8.1. Patient was apparently diagnosed with recurrence of rectal cancer and was supposed to follow up with general surgery and never followed up with them. On reviewing the labs from this morning's hemoglobin is 8.1, creatinine is 3.02. On review of systems: CONSTITUTIONAL: No fever, no malaise, no fatigue. CARDIOVASCULAR: No chest pain, orthopnea, PND, no palpitations, no syncope. PULMONARY: No shortness of breath, no cough, no hemoptysis. GASTROINTESTINAL: No abdominal pain, no nausea or vomiting,positive for dark colored stool Active Medications Acetaminophen (Acetaminophen Tab 325 Mg Tab) 650 mg PO Q6HR PRN PRN Reason: Mild Pain or Fever > 100.5 Hydrocodone Bitart/Acetaminophen (Hydrocodone/Apap 5-325mg 1 Each Tab) 1 each PO Q4HR PRN PRN Reason: Moderate Pain Atorvastatin Calcium (Atorvastatin 40 Mg Tab) 40 mg PO HS [facility] Last Admin: 02/18/21 20:25 Dose: 40 mg Documented by: Sodium Chloride (Saline 0.9%) 1,000 mls @ 100 mls/hr IV .Q10H [facility] Last Admin: 02/19/21 04:30 Dose: 100 mls/hr Documented by: Ceftriaxone Sodium 1 gm/ (Sodium Chloride) 50 mls @ 100 mls/hr IVPB Q24HR [facility] Last Admin: 02/19/21 10:14 Dose: 100 mls/hr Documented by: Metoprolol Tartrate (Metoprolol Tartrate 50 Mg Tab) 50 mg PO BID [facility] Last Admin: 02/19/21 10:15 Dose: 50 mg Documented by: Multivitamins (Multivitamins, Thera 1 Each Tab) 1 each PO DAILY [facility] Last Admin: 02/19/21 10:14 Dose: 1 each Documented by: Naloxone HCl (Naloxone 0.4 Mg/Ml 1 Ml Vial) 0.2 mg IV Q2M PRN PRN Reason: Opioid Reversal Ondansetron HCl (Ondansetron 4 Mg/2 Ml Vial) 4 mg IVP Q8HR PRN PRN Reason: Nausea And Vomiting Pantoprazole Sodium (Pantoprazole 40 Mg/10 Ml Vial) 40 mg IVP BID [facility] Last Admin: 02/19/21 10:15 Dose: 40 mg Documented by: Sodium Bicarbonate (Sodium Bicarbonate Tab 650 Mg Tab) 650 mg PO BID [facility] Last Admin: 02/19/21 10:16 Dose: 650 mg Documented by: Tramadol HCl (Tramadol 50 Mg Tab) 50 mg PO Q6H PRN PRN Reason: Moderate Pain Objective - Vital Signs Vital signs: Vital Signs Temp 98 F 02/19/21 04:20 Pulse 75 02/19/21 04:20 Resp 18 02/19/21 08:00 BP 150/72 02/19/21 04:20 Pulse Ox 97 02/18/21 23:45 Intake & Output 02/18/21 02/19/21 02/19/21 18:59 06:59 18:59 Intake Total 240 1340 Output Total 2000 1200 1250 Balance -1760 -1200 90 Weight 60.8 kg Intake: Oral 240 1340 Output: Urine 1999 1200 1250 Other: Voiding Method Indwelling Catheter Indwelling Catheter Indwelling Catheter # Bowel Movements 1 1 1 - Exam PHYSICAL EXAMINATION: GENERAL: The patient is alert and oriented x3, not in any acute distress. Emaciated HEENT: Pupils are round and equally reacting to light. EOMI. No scleral icterus. Does have conjunctival pallor. Normocephalic, atraumatic. No pharyngeal erythema. No thyromegaly. CARDIOVASCULAR: S1 and S2 present. No murmurs, rubs, or gallops. PULMONARY: Chest is clear to auscultation, no wheezing or crackles. ABDOMEN: Soft, tenderness in the lower abdomen, nondistended, normoactive bowel sounds. MUSCULOSKELETAL: No joint swelling or deformity. EXTREMITIES: No cyanosis, clubbing, or pedal edema. NEUROLOGICAL: Gross neurological examination did not reveal any focal deficits. SKIN: No rashes. - Labs CBC & Chem 7: 02/20/21 07:06 02/20/21 07:06 Labs: Abnormal Lab Results - Last 24 Hours (Table) 02/19/21 02/19/21 Range/Units 07:24 07:24 RBC 3.22 L (4.30-5.90) m/uL Hgb 8.1 L (13.0-17.5) gm/dL Hct 26.3 L (39.0-53.0) % MCHC 30.8 L (31.0-37.0) g/dL RDW 20.0 H (11.5-15.5) % Sodium 136 L (137-145) mmol/L Chloride 109 H (98-107) mmol/L Carbon Dioxide 17 L (22-30) mmol/L BUN 42 H (9-20) mg/dL Creatinine 3.02 H (0.66-1.25) mg/dL Calcium 8.2 L (8.4-10.2) mg/dL Microbiology - Last 24 Hours (Table) 02/17/21 17:12 Urine Culture - Preliminary Urine,Voided Gram Neg Bacilli 02/17/21 17:55 Blood Culture - Preliminary Blood No Growth after 24 hours Assessment and Plan Assessment: Assessment Acute blood loss anemia-possible GI bleed Bilateral hydronephrosis Acute kidney injury secondary to obstructive uropathy Urinary tract infection with gram-negative organisms coronary artery disease status post CABG GERD Hypertension Hyperlipidemia Recurrence of rectal cancer History of hepatitis C Plan: hemoglobin has been stable around 8 continue with the Protonix, GI on board and following the patient no plans for endoscopy. Urology on board planning for cystoscopy with possible bilateral stent placement. Continue with ceftriaxone for UTI. Consult oncology as the patient has recurrence of rectal cancer. Continue with the rest of the current medication regimen. Further recommendations to follow depending on the progress of the patient.
[2021-02-19] MEDS: ATORVASTATIN 40 MG TAB PO SCH (20:19)
[2021-02-19] MEDS: ALPRAZolam 0.5 MG TAB PO PRN (23:05)
[2021-02-20] MEDS: SODIUM CHLORIDE 0.9% 1,000 ML IV SCH (02:16)
[2021-02-20] MEDS: LACTATED RINGERS 1,000 ML IV SCH (05:27)
[2021-02-20] MEDS ORDERED: fentaNYL (PF) 50 MCG/ML 2 ML AMP IV PRN (07:00)
[2021-02-20] MEDS ORDERED: HYDROmorphone 0.5 MG/0.5 ML SYRINGE IVP PRN (07:00)
[2021-02-20 08:07] LABS: Calcium 7.9 mg/dL (8.4-10.2); Potassium 3.9 mmol/L (3.5-5.1)
[2021-02-20 08:23] LABS: Anisocytosis Slight; Basophils % (A) 0 %; Eosinophils # (A) 0.4 k/uL (0-0.7); Eosinophils % (A) 6 %; HCT 25.9 % (39.0-53.0); HGB 8.1 gm/dL (13.0-17.5); Hypochromasia Marked; Lymphocytes # (A) 0.4 k/uL (1.0-4.8); Lymphocytes % (A) 5 %; MCH 25.8 pg (25.0-35.0); MCHC 31.4 g/dL (31.0-37.0); MCV 82.2 fL (80.0-100.0); Mean Platelet Volume 6.7; Microcytosis Slight; Monocytes # (A) 0.5 k/uL (0-1.0); Monocytes % (A) 8 %; Neutrophils # (A) 5.5 k/uL (1.3-7.7); Neutrophils % (A) 80 %; Platelet Count 287 k/uL (150-450); Poikilocytosis Moderate; RBC 3.15 m/uL (4.30-5.90); RDW 19.9 % (11.5-15.5); WBC 6.9 k/uL (3.8-10.6)
[2021-02-20] MEDS: METOPROLOL TARTRATE 50 MG TAB PO SCH ×2 (11:47→22:45)
[2021-02-20] MEDS: MULTIVITAMINS, THERA 1 EACH TAB PO SCH (11:48)
[2021-02-20] MEDS: SODIUM BICARBONATE TAB 650 MG TAB PO SCH ×2 (11:49→22:45)
--- NOTE | 2021-02-20 11:53 | PN ---
PROGRESS NOTE Patient is seen for followup for acute kidney injury, obstructive uropathy as well as a prerenal component. Patient was found to have bilateral hydronephrosis. He currently has an indwelling Godoy catheter and is scheduled for a cystoscopy and ureteral stent placement. 1. History of colorectal cancer with previous history of radiation therapy with possibility of retroperitoneal fibrosis and ureteral obstruction. 2. Gastrointestinal bleed on initial admission, status post packed RBCs transfusion. 3. Metabolic acidosis maintained on IV bicarb. Etiology underlying renal failure and obstructive uropathy. PLAN: Continue with oral sodium bicarb tablets. Continue with the IV bicarb as well. Repeat labs in a.m. I agree with the plans for cystoscopy and stent placement. MMODL / IJN: [id number] /
[2021-02-20] MEDS: PANTOPRAZOLE 40 MG/10 ML VIAL IVP SCH ×2 (11:57→22:46)
--- NOTE | 2021-02-20 12:05 | P.PN ---
Subjective Progress Note Date: 02/20/21 Principal diagnosis: Anemia, Rectal bleeding Patient seen and examined. No acute changes through the night. She denies any abdominal pain, nausea, or vomiting. And a bowel movement this morning which he reports was started. No active bleeding. He is scheduled for cystoscopy today with urology. Hemoglobin is stable at 8.1. Objective - Vital Signs Vital signs: Vital Signs Temp 97.8 F 02/20/21 11:42 Pulse 81 02/20/21 11:42 Resp 18 02/20/21 11:42 BP 172/83 02/20/21 11:42 Pulse Ox 100 02/20/21 11:42 Intake & Output 02/19/21 02/20/21 02/20/21 18:59 06:59 18:59 Intake Total 1580 10 Output Total 1924 1999 Balance -345 -1989 Weight 63.5 kg Intake: IV 10 Invasive Line 1 10 Oral 1580 Output: Urine 1924 1999 Other: Voiding Method Indwelling Catheter Indwelling Catheter Indwelling Catheter # Bowel Movements 1 3 1 - Exam General appearance: The patient is alert, oriented, appears in no acute distress. HET: Head is normocephalic and atraumatic. Conjunctiva pink. Sclera anicteric. Neck: Supple without lymphadenopathy. Abdomen: Soft, nontender, nondistended with bowel sounds. No guarding or rigidity. Extremities: Normal skin color and turgor. No pedal edema Skin: No rashes, no jaundice Neurological: No focal deficits. Alert and oriented 3. - Labs CBC & Chem 7: 02/20/21 07:06 02/20/21 07:06 Labs: Abnormal Lab Results - Last 24 Hours (Table) 02/20/21 02/20/21 Range/Units 07:06 07:06 RBC 3.15 L (4.30-5.90) m/uL Hgb 8.1 L (13.0-17.5) gm/dL Hct 25.9 L (39.0-53.0) % RDW 19.9 H (11.5-15.5) % Lymphocytes # 0.4 L (1.0-4.8) k/uL Chloride 113 H (98-107) mmol/L Carbon Dioxide 15 L (22-30) mmol/L BUN 38 H (9-20) mg/dL Creatinine 2.89 H (0.66-1.25) mg/dL Glucose 112 H (74-99) mg/dL Calcium 7.9 L (8.4-10.2) mg/dL Microbiology - Last 24 Hours (Table) 02/17/21 17:55 Blood Culture - Preliminary Blood No Growth after 48 hours 02/17/21 17:12 Urine Culture - Final Urine,Voided Escherichia coli Assessment and Plan (1) Rectal cancer Narrative/Plan: This is a 65-year-old pleasant male with recurrent rectal cancer diagnosed in October 2020. The patient was originally diagnosed with rectal cancer in 2011 at which time he underwent chemoradiation followed by surgery. He continues to have ongoing rectal bleeding for the last 3 months duration. Colonoscopy done by Dr. Mccarty on 11/10/2020 showed severe friability of the mucosa in the rectal anastomosis with stricture and biopsies revealing adenocarcinoma. The patient is currently being evaluated by a surgeon in [place] he was scheduled for surgery February 14, but patient was not feeling well and hence canceled the surgery. He is now admitted with ongoing rectal bleeding and severe anemia requiring 3 units of PRBC transfusion. Most likely the bleeding is from rectal adenocarcinoma. No plans for endoscopic evaluation. No further rectal bleeding, hemoglobin stable. Current Visit: Yes Status: Acute Code(s): C20 - MALIGNANT NEOPLASM OF RECTUM SNOMED Code(s): 838716554 (2) Anemia Narrative/Plan: Patient has severe symptomatic anemia secondary to gastrointestinal blood loss from rectal bleeding and is status post 3 units of PRBC transfusion. No further rectal bleeding, hemoglobin stable. Current Visit: No Status: Acute Code(s): D64.9 - ANEMIA, UNSPECIFIED SNOMED Code(s): 002327848 Plan: 1. Supportive care 2. No plans for any endoscopic intervention at the present time 3. CBC daily, transfuse for hemoglobin less than 7 4. Patient is scheduled for cystoscopy with possible bilateral stents today with urology 5. Patient to contact surgeon and reschedule surgery as soon as possible Thank you for this consultation we will sign off at this time Dr. Disla I agree with the dictator's note, documented as a scribe by Lena Felix.
--- NOTE | 2021-02-20 13:07 | P.PN ---
Subjective Progress Note Date: 02/20/21 Principal diagnosis: Acute blood loss anemia Mr. Jimenes is a 65-year-old male with a past medical history of coronary artery disease, hypertension, hyperlipidemia, colon cancer, hepatitis C admitted to the hospital for dark tarry stools . Patient was found to have severe anemia with hemoglobin of 4.7 and he received 3 units of PRBCs. He had urine analysis showing hematuria and urine culture is positive for gram-negative bacilli. Patient had a CAT scan of the abdomen showing bilateral hydronephrosis and perirectal thickening with possibility of tumor involvement. Nephrology, GI and urology currently on board and following the patient closely. On 02/19/2021 - was seen and examined at bedside. He was lying comfortably in bed appears to be no acute distress. Patient still reports dark colored stool. Hemoglobin from this morning is 8.1. Patient was apparently diagnosed with recurrence of rectal cancer and was supposed to follow up with general surgery and never followed up with them. On reviewing the labs from this morning's hemoglobin is 8.1, creatinine is 3.02. On 02/20/2021 - patient was seen and examined at bedside. Patient still complains of dark-colored stool. No bright red blood per rectum. Hemoglobin has been stable around 8.1. Patient still complains of lower abdominal discomfort. Patient is scheduled for cystoscopy with possible bilateral stent placement today by urology. His creatinine is been trending down today this at 2.89. He is on ceftriaxone for his UTI as her urine cultures are positive for E. coli. On review of systems: CONSTITUTIONAL: No fever, no malaise, no fatigue. CARDIOVASCULAR: No chest pain, orthopnea, PND, no palpitations, no syncope. PULMONARY: No shortness of breath, no cough, no hemoptysis. GASTROINTESTINAL: no nausea or vomiting,positive for dark colored stool Active Medications Acetaminophen (Acetaminophen Tab 325 Mg Tab) 650 mg PO Q6HR PRN PRN Reason: Mild Pain or Fever > 100.5 Hydrocodone Bitart/Acetaminophen (Hydrocodone/Apap 5-325mg 1 Each Tab) 1 each PO Q4HR PRN PRN Reason: Moderate Pain Alprazolam (Alprazolam 0.5 Mg Tab) 0.5 mg PO BID PRN PRN Reason: Anxiety Last Admin: 02/19/21 23:05 Dose: 0.5 mg Documented by: Atorvastatin Calcium (Atorvastatin 40 Mg Tab) 40 mg PO HS [facility] Last Admin: 02/19/21 20:19 Dose: 40 mg Documented by: Fentanyl Citrate (Fentanyl (Pf) 50 Mcg/Ml 2 Ml Amp) 50 mcg IV Q3M PRN PRN Reason: Pain Control Stop: 02/20/21 23:00 Hydromorphone HCl (Hydromorphone 0.5 Mg/0.5 Ml Syringe) 0.5 mg IVP Q5M PRN PRN Reason: Pain Control Stop: 02/20/21 23:00 Ceftriaxone Sodium 1 gm/ (Sodium Chloride) 50 mls @ 100 mls/hr IVPB Q24HR [facility] Last Admin: 02/20/21 11:56 Dose: 100 mls/hr Documented by: Lactated Ringer's (Lactated Ringers) 1,000 mls @ 20 mls/hr IV .Q24H [facility] Last Admin: 02/20/21 05:27 Dose: 20 mls/hr Documented by: Sodium Bicarbonate 150 ml/ (Dextrose/Water) 1,150 mls @ 75 mls/hr IV .[id number] [facility] Metoprolol Tartrate (Metoprolol Tartrate 50 Mg Tab) 50 mg PO BID [facility] Last Admin: 02/20/21 11:47 Dose: 50 mg Documented by: Multivitamins (Multivitamins, Thera 1 Each Tab) 1 each PO DAILY [facility] Last Admin: 02/20/21 11:48 Dose: 1 each Documented by: Naloxone HCl (Naloxone 0.4 Mg/Ml 1 Ml Vial) 0.2 mg IV Q2M PRN PRN Reason: Opioid Reversal Ondansetron HCl (Ondansetron 4 Mg/2 Ml Vial) 4 mg IVP Q8HR PRN PRN Reason: Nausea And Vomiting Pantoprazole Sodium (Pantoprazole 40 Mg/10 Ml Vial) 40 mg IVP BID [facility] Last Admin: 02/20/21 11:57 Dose: 40 mg Documented by: Sodium Bicarbonate (Sodium Bicarbonate Tab 650 Mg Tab) 650 mg PO BID [facility] Last Admin: 02/20/21 11:49 Dose: 650 mg Documented by: Tramadol HCl (Tramadol 50 Mg Tab) 50 mg PO Q6H PRN PRN Reason: Moderate Pain Objective - Vital Signs Vital signs: Vital Signs Temp 97.8 F 02/20/21 11:42 Pulse 81 02/20/21 11:42 Resp 18 02/20/21 11:42 BP 172/83 02/20/21 11:42 Pulse Ox 100 02/20/21 11:42 Intake & Output 02/19/21 02/20/21 02/20/21 18:59 06:59 18:59 Intake Total 1580 10 Output Total 1924 1999 Balance -345 -1989 Weight 63.5 kg Intake: IV 10 Invasive Line 1 10 Oral 1580 Output: Urine 1924 1999 Other: Voiding Method Indwelling Catheter Indwelling Catheter Indwelling Catheter # Bowel Movements 1 3 1 - Exam PHYSICAL EXAMINATION: GENERAL: The patient is alert and oriented x3, not in any acute distress. Emaciated HEENT: Pupils are round and equally reacting to light. EOMI. No scleral icterus. Does have conjunctival pallor. CARDIOVASCULAR: S1 and S2 present. No murmurs, rubs, or gallops. PULMONARY: Chest is clear to auscultation, no wheezing or crackles. ABDOMEN: Soft, tenderness in the lower abdomen, nondistended, normoactive bowel sounds. MUSCULOSKELETAL: No joint swelling or deformity. EXTREMITIES: No cyanosis, clubbing, or pedal edema. NEUROLOGICAL: Gross neurological examination did not reveal any focal deficits. - Labs CBC & Chem 7: 02/20/21 07:06 02/20/21 07:06 Labs: Abnormal Lab Results - Last 24 Hours (Table) 02/20/21 02/20/21 Range/Units 07:06 07:06 RBC 3.15 L (4.30-5.90) m/uL Hgb 8.1 L (13.0-17.5) gm/dL Hct 25.9 L (39.0-53.0) % RDW 19.9 H (11.5-15.5) % Lymphocytes # 0.4 L (1.0-4.8) k/uL Chloride 113 H (98-107) mmol/L Carbon Dioxide 15 L (22-30) mmol/L BUN 38 H (9-20) mg/dL Creatinine 2.89 H (0.66-1.25) mg/dL Glucose 112 H (74-99) mg/dL Calcium 7.9 L (8.4-10.2) mg/dL Microbiology - Last 24 Hours (Table) 02/17/21 17:55 Blood Culture - Preliminary Blood No Growth after 48 hours 02/17/21 17:12 Urine Culture - Final Urine,Voided Escherichia coli Assessment and Plan Assessment: Assessment Acute blood loss anemia-possible GI bleed Bilateral hydronephrosis - due to possible retroperitoneal fibrosis Acute kidney injury secondary to obstructive uropathy Urinary tract infection with gram-negative organisms coronary artery disease status post CABG GERD Hypertension Hyperlipidemia Recurrence of rectal cancer History of hepatitis C Plan: hemoglobin has been stable around 8 continue with the Protonix, GI on board and following the patient no plans for endoscopy. Urology on board planning for cystoscopy with possible bilateral stent placement today. Patient's creatinine has been trending down. Nephrology on board. Continue with ceftriaxone for UTI. Consulted oncology as the patient has recurrence of rectal cancer and needs follow up. Continue with the rest of the current medication regimen. Further recommendations to follow depending on the progress of the patient.
[2021-02-20] MEDS: ALPRAZolam 0.5 MG TAB PO PRN (14:17)
--- NOTE | 2021-02-20 16:49 | P.CONS ---
History of Present Illness - Reason for Consult Consult date: 02/20/21 malignancy hx and anemia Requesting physician: Lena Monahan - Chief Complaint symptomatic anemia - History of Present Illness Mr Jimenes is known dr. Mina for treatment of colon cancer. He initially presenting with h/o loose stools, bleeding in the stool, appetite and wt loss ( 15-16 lbs) over 5-7 weeks. He was seen by Dr Liz and had a colonoscopy on 06/26 with detection of a near obstructing mass in the rectosigmoid area. He had a CT which revealed no evidence of metastatic disease. He had resection on 07/13/12 with a good post-op course. The pathology was consistent with a T2N0 rectal cancer. The pt completed adjuvant chemo-radiation with Xeloda in 09/11. patient also had a history of chronic hepatitis C, specifically no megaly, as well as history of prostate cancer. as above the patient was last seen in the office in 12/[address] scans at that time revealing no evidence of metastatic disease. He was then placed on surveillance with recommendation for periodic office visits and scans, as well as colonoscopies. However he did not follow-up in the office after 12/13. -The patient was referre in 12/21, and seen on 12/26/20. It appears that follow- up in general after his last visit here has been somewhat spotty. He did have C T scans done in 2015 that were negative. The patient states that in March 2020 he developed persistent loose bowel movements, along with abdominal cramping involving the entire abdomen, as well as the perianal area. Symptoms were slowly progressive in nature. There appeared to be worsened by eating. He lost about 40 pounds in weight. He ultimately sought attention for the same, and had a scope in 11/10/20. This showed anastomotic stricture about 3-4 cm from the anal worse. A pediatric scope was advanced beyond that until about 20 cm, but could not be advance further. With an upper endoscope, the colon was evaluated up to the hepatic flexure but not further. And the biopsies were done from the descending and transverse colon. As to how to stricture was located from about 3 cm up in about 70 cm from the anal verge. Mucosa was quite friable around 7 cm from anal verge which was biopsied. There was also evidence of severe scarring in the distal rectum consistent with radiation proctitis. Biopsies from the hepatic flexure and descending colon were negative. Biopsy from 15 cm showed also an inflamed granulation tissue. Biopsy from the 7 cm I will area did show evidence of adenocarcinoma in a background of inflammation. The patient had a PET scan on 11/18/21 that showed abnormal uptake in the surgical bed in the rectosigmoid 11 with SUV of 6.2. There was a lung nodule, 8-9 mm in the left upper lobe with SUV of only 0.74. Bilateral hydronephrosis was seen. There was some uptake along the right colon that is felt to be physiologic. CT of the abdomen and pelvis in 09/19 had shown moderate bilateral hydronephrosis and hydroureter. There was some splenic enlargement at 16 cm. Echocardiogram in 09/19 had showed normal LV function and mild to moderate TR, and moderate MR. CT anterior chest in 08/20 had shown a nonspecific left upper lobe nodule and no evidence of PE. CT of the brain and C-spine 08/20 was consistent with mild cerebral atrophy and a small lacunar infarct in the anterior left IC. He was last seen December 2020: at that time Dr. Mina stated - the patient is being seen for a new diagnosis of adenocarcinoma in the region of the anastomotic stricture in his distal rectum. He is having symptoms associated with the same. PET scan did not show any obvious evidence of metastatic disease. - The pathology, the results of imaging studies, and implications were discussed in detail. Patient was advised that in the absence of obvious metastatic disease, usually the treatment for rectal cancer would include additional local staging with pelvic MRI or EUS, followed by chemoradiation for locally advanced disease and then surgery. However in this patient, it is highly unlikely that he will be candidate for any additional conventional radiation given the site of recurrence. This was discussed with the surgical service and with GI. In this situation it is most appropriate that he be evaluated for surgical resection. - The patient was quite anxious to avoid a colostomy. It was discussed with him that this may not be possible with surgery in his situation, given his prior treatments, and the location of the recurrence. He has been referred to colorectal surgery, Dr. Lucio, with appointment scheduled for 01/01/21. We will await his opinion. - There is some concern for locally advanced disease given development of bilateral hydronephrosis. This, however, could also be due to progressive fibrosis. Check labs today, including CBC, CMP, CEA and iron studies. Patient thinks that he has been referred to a "kidney doctor". I will check to ensure that he has had an urology referral. the patient is found to have low iron store s, he will be supplemented with IV iron. - If there is concern for locally disease that could preclude upfront surgery, then we will need to discuss with colorectal surgery about cytoreduction with ch emotherapy alone, or potential for utilizing proton beam radiation. - Case was also discussed with radiation oncology, to review that her prior treatment thompson and confirm if the patient can receive any further conventional IMR T or not. we will let me know after reviewing their records. He now presents to the emergency department with chief complaint of light hea dedness, abdominal pain, and diarrhea. His hemoglobin was 4.[address] scan was performed in ED and showed bilateral hydronephrosis. For his rectal cancer he underwent colon resection and radiation approximetely 10 years ago. Although after seeing Dr. Mina in December to review PET done in 10/2020, there was concern for recurrence and he was referred to outside for colorectal surgery (see above). He has been having blood dark stools, today improved. Denies any dysuria or gross hematuria. He was suppose to follow-up with surgeon last week however was "too tired" to undergo surgery, therefore he presented to hospital. Past Medical History Past Medical History: Coronary Artery Disease (CAD), Cancer, GERD/Reflux, Hyperlipidemia, Hypertension, Osteoarthritis (OA) Additional Past Medical History / Comment(s): POSSIBLE COLITIS . "COLON CANCER", oCC TROUBLE SWALLOWING, BROKEN RT LEG IN PAST. Hepatitis C positive, History of Any Multi-Drug Resistant Organisms: None Reported Past Surgical History: Bowel Resection, Coronary Bypass/CABG, Heart Catheteriza tion, Hernia Repair, Orthopedic Surgery Additional Past Surgical History / Comment(s): RT LEG, LT KNEE SX D/R "BROKEN KNEE CAP", PARTIAL LT HIP REPLACEMENT Past Anesthesia/Blood Transfusion Reactions: Previous Problems w/ Anesthesia Additional Past Anesthesia/Blood Transfusion Reaction / Comm: TOOK LONGER WAKING UP Past Psychological History: Depression Additional Psychological History / Comment(s): PT STATED HE LIVES WITH HIS NEICE AND COUSIN IN A SINGLE LEVEL HOME THAT HAS 3 PORCH STEPS. 1 PET CAT. NO OUTSIDE SERVICES RECEIVED. NO MEDICAL EQUIPMENT. PT WORKS A [employer] 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 Smoking Status: Current every day smoker Past Alcohol Use History: None Reported Additional Past Alcohol Use History / Comment(s): history of alcohol abuse QUIT AT AGE 39. STARTED SMOKING AT AGE 14 SMOKED 1PPD Past Drug Use History: Marijuana Additional Drug Use History / Comment(s): Heroin - patient states last time was 2009. MARIJUANA DAILY - Past Family History Mother Family Medical History: Cancer Additional Family Medical History / Comment(s): BREAST CANCER Father Family Medical History: Congestive Heart Failure (CHF), Coronary Artery Disease (CAD), Myocardial Infarction (GA) Additional Family Medical History / Comment(s): Father of myocardial infarction in his 50s Medications and Allergies Home Medications Medication Instructions Recorded Confirmed Type Doxazosin [Cardura] 4 mg PO DAILY 08/10/20 02/17/21 History Multivitamins, Thera [Multivitamin 1 tab PO DAILY 08/10/20 02/17/21 History (formulary)] lisinopriL 40 mg PO DAILY 08/10/20 02/17/21 History Aspirin 81 mg PO DAILY #30 chewable 08/12/20 02/17/21 Rx Atorvastatin Calcium [Lipitor] 40 mg PO HS #30 tablet 08/12/20 02/17/21 Rx Metoprolol Tartrate [Lopressor] 50 mg PO BID #60 tab 08/12/20 02/17/21 Rx Allergies Allergy/AdvReac Type Severity Reaction Status Date / Time Penicillins Allergy Rash/Hives Verified 02/17/21 19:43 Physical Exam Vitals: Vital Signs Temp Pulse Resp BP Pulse Ox 02/20/21 14:32 98.4 F 83 18 171/85 02/20/21 11:42 97.8 F 81 18 172/83 100 02/20/21 10:52 77 18 166/73 02/20/21 09:00 81 20 02/20/21 08:00 97.5 F L 82 20 165/80 98 02/20/21 04:00 97.8 F 83 17 166/87 98 02/20/21 01:50 17 02/19/21 23:40 97.9 F 80 18 154/85 98 02/19/21 20:00 97.5 F L 88 18 166/78 98 Intake and Output 03/02/20/21 02/20/21 06:59 14:59 22:59 Output Total 1999 Balance -1999 Output: Urine 1999 Other: Voiding Method Indwelling Catheter Indwelling Catheter # Bowel Movements 3 1 Weight 63.5 kg - Constitutional General appearance: cooperative, no acute distress - EENT Eyes: EOMI, PERRLA ENT: NA/AT - Neck Neck: normal ROM - Respiratory Respiratory: bilateral: diminished - Cardiovascular Rhythm: regularly irregular - Gastrointestinal General gastrointestinal: soft, tenderness - Integumentary Integumentary: pale - Neurologic Neurologic: CNII-XII intact - Musculoskeletal Musculoskeletal: generalized weakness - Psychiatric Psychiatric: A&O x's 3, appropriate affect Results CBC & Chem 7: 02/20/21 07:06 02/20/21 07:06 Labs: Abnormal Lab Results - Last 24 Hours (Table) 02/20/21 02/20/21 Range/Units 07:06 07:06 RBC 3.15 L (4.30-5.90) m/uL Hgb 8.1 L (13.0-17.5) gm/dL Hct 25.9 L (39.0-53.0) % RDW 19.9 H (11.5-15.5) % Lymphocytes # 0.4 L (1.0-4.8) k/uL Chloride 113 H (98-107) mmol/L Carbon Dioxide 15 L (22-30) mmol/L BUN 38 H (9-20) mg/dL Creatinine 2.89 H (0.66-1.25) mg/dL Glucose 112 H (74-99) mg/dL Calcium 7.9 L (8.4-10.2) mg/dL Microbiology - Last 24 Hours (Table) 02/17/21 17:55 Blood Culture - Preliminary Blood No Growth after 48 hours 02/17/21 17:12 Urine Culture - Final Urine,Voided Escherichia coli CT scan - abdomen: report reviewed CT scan - pelvis: report reviewed Assessment and Plan (1) Acute kidney injury Current Visit: Yes Status: Acute Code(s): N17.9 - ACUTE KIDNEY FAILURE, UNSPECIFIED SNOMED Code(s): 28033969 (2) Hydronephrosis Current Visit: Yes Status: Acute Code(s): N13.30 - UNSPECIFIED HYDRONEPHROSIS SNOMED Code(s): 26356286 (3) Rectal cancer Current Visit: Yes Status: Acute Code(s): C20 - MALIGNANT NEOPLASM OF RECTUM SNOMED Code(s): 153759422 (4) Symptomatic anemia Current Visit: Yes Status: Acute Code(s): D64.9 - ANEMIA, UNSPECIFIED SNOMED Code(s): 871800052 Plan: Unable to perform staging CTs due to kidney function, therefore will assess without contrast Replace PRBC hemoglobin less than 7, control bleeding and plan for patient to follow-up with Surgeon that was scheduled outpatient prior to presentation here. Consider transfer if needed Check pre-transfused Iron levels for Iron infusion Physician aattest: I have completed the full history and physical and agree with above dictation, dictated as a scribe.
[2021-02-20] MEDS ORDERED: IV FLUID CONTINUATION 800 ML IV ONE (19:13)
--- NOTE | 2021-02-20 20:13 | CT ---
EXAMINATION TYPE: CT chest wo con DATE OF EXAM: 02/20/2021 COMPARISON: 11/18/2020 and prior. HISTORY: Restage. History colon cancer. CT DLP: 252.4 mGycm. Automated Exposure Control for Dose Reduction was Utilized. TECHNIQUE: CT scan of the thorax is performed without IV contrast. FINDINGS: LUNGS: There is a 1.2 cm left upper lobe nodule (previously measured 9 mm). There is a 5 mm right upp er lobe nodule. There are additional multiple smaller nodules in the right upper middle lobes measuri ng up to 3 mm, increased in size and number. There is also a new 4 mm right lower lobe nodule. There are small bilateral pleural effusions with adjacent small opacities. There is small consolidation in the left lower lobe no pneumothorax. MEDIASTINUM: Lack of IV contrast is noted to limit evaluation for mediastinal and especially hilar ad enopathy. There are scattered small to borderline-enlarged mediastinal lymph nodes. No cardiomegaly or pericardial effusion is seen. OTHER: No additional significant abnormality is seen. IMPRESSION: Several bilateral pulmonary nodules increased in size and number compared to prior PET/CT and concern ing for progression of metastatic disease. Small bilateral pleural effusions with adjacent atelectasis. Additional small left lower lobe consoli dation, correlate clinically for superimposed infection.
[2021-02-20] MEDS ORDERED: IOPAMIDOL-370 50ML BTL MISCELLANE ONE (20:49)
--- NOTE | 2021-02-20 21:32 | P.PN ---
Subjective Progress Note Date: 02/20/21 No acute overnight event denies any flank pain or gross hematuria. His creat this am 2.89 from 3.02. Discussed with him he hasn't been significant improvement in his creatinine, next step is to to proceed with bilateral ureteral stent placements Objective - Vital Signs Vital signs: Vital Signs Temp 97.9 F 02/20/21 18:58 Pulse 81 02/20/21 18:58 Resp 16 02/20/21 18:58 BP 179/92 02/20/21 18:58 Pulse Ox 96 02/20/21 18:58 Intake & Output 02/20/21 02/20/21 02/21/21 06:59 18:59 06:59 Intake Total 10 700 Output Total 1999 1400 200 Balance -1989 -1399 Weight 63.5 kg Intake: IV 10 700 Invasive Line 1 10 Output: Urine 1999 1400 200 Other: Voiding Method Indwelling Catheter Indwelling Catheter # Bowel Movements 3 1 - Constitutional General appearance: Present: no acute distress - Gastrointestinal General gastrointestinal: Present: soft. Absent: distended - Psychiatric Psychiatric: Present: A&O x's 3 - Labs CBC & Chem 7: 02/20/21 07:06 02/20/21 07:06 Labs: Abnormal Lab Results - Last 24 Hours (Table) 02/20/21 02/20/21 Range/Units 07:06 07:06 RBC 3.15 L (4.30-5.90) m/uL Hgb 8.1 L (13.0-17.5) gm/dL Hct 25.9 L (39.0-53.0) % RDW 19.9 H (11.5-15.5) % Lymphocytes # 0.4 L (1.0-4.8) k/uL Chloride 113 H (98-107) mmol/L Carbon Dioxide 15 L (22-30) mmol/L BUN 38 H (9-20) mg/dL Creatinine 2.89 H (0.66-1.25) mg/dL Glucose 112 H (74-99) mg/dL Calcium 7.9 L (8.4-10.2) mg/dL Microbiology - Last 24 Hours (Table) 02/17/21 17:55 Blood Culture - Preliminary Blood No Growth after 72 hours 02/17/21 17:12 Urine Culture - Final Urine,Voided Escherichia coli Assessment and Plan Assessment: 65-year-old male admitted to the hospital with anemia, hemoglobin of 4.7 on presentation and SALUD his creatinine is 3.4 , creat was 1.7 in 2020. This am creat 2.89 History of rectal cancer, treated with surgical resection and radiation approximately 10 years ago, had a recent PET scan in 10/2020 that shawn wed evidence of recurrence, and bilateral hydronephrosis. Repeat CT on presentation showed evidence of persistent bilateral hydronephrosis. No significant improvement with bladder decompression correction of the anemia. Discussed with him the next visit proceed with cystoscopy with bilateral retr ograde possible stent placement. He was agreeable with this plan
--- NOTE | 2021-02-20 21:42 | P.OP ---
Date of Procedure: 02/20/21 Preoperative Diagnosis: Bilateral hydronephrosis Postoperative Diagnosis: Bilateral hydronephrosis, bilateral ureteral strictures Procedure(s) Performed: Cystoscopy, bilateral retrograde pyelogram, ureteral balloon dilations, and stent placement Implants: 7-Haitian by 26 cm on the right, 6-Haitian by 26 cm on the left Anesthesia: CLARICE Surgeon: Vu Israel Estimated Blood Loss (ml): 5 Pathology: none sent Condition: stable Disposition: PACU Indications for Procedure: This is a 65-year-old male with history of rectal cancer, status post surgical resection and external beam radiation therapy approximately 10 years ago. He had evidence of recurrence of his rectal cancer. Patient presented with acute kidney injury and acute blood loss anemia. CT was obtained and that time that showed evidence of bilateral hydronephrosis, a Godoy catheter was placed on admission, and anemia was corrected. He has not had significant improvement in his creatinine despite that. Discussed with him the next step is to proceed with bilateral retrograde pyelograms and possible stent placement. Discussed with him the risk which includes but not limited to bleeding, infection, injury to ureter. Discussed also with him that there is a potential that he might not have improvement in creatinine even with stent placement. Discussed with him that if his creatinine successfully improves with stent placement, then he might require chronic stent changes. Discussed with him stents need to be changed every 3-4 months, if it stays longer than that, then there is risk of encrustation. He understood all the risk and agreed to proceed Operative Findings: Bilateral distal ureteral strictures with severe hydroureteronephrosis proximal to that Description of Procedure: Patient was brought to the operating room, general anesthesia was induced. He was prepped and draped in sterile fashion and placed in dorsal lithotomy position. Cystoscopy fitted with a 22-Haitian sheath was inserted per urethra, cystoscopy was performed which showed no abnormality within the bladder. Attention was then carried to the right ureteral orifice, I was able to intubated with a 6-Haitian open-ended catheter, retrograde pyelogram showed a distal ureteral stricture measured approximately 3 centimeters with severe hydroureteronephrosis proximal to that. I attempted to advance a sensor wire through the catheter but resistance was met. At this time I switched to an angled sensor but was still unsuccessful. At this time I switched to a 0.025 Glidewire and I was able to advance it past the area of narrowing and into the collecting system. Next catheter was passed over the wire, retrograde pyelogram was performed which confirmed the wire was indeed in the collecting system. Retrograde pyelogram did show severe hydronephrosis, with torturous proximal ureter. At this time a sensor wire was advanced through the catheter and the catheter was removed with the wire in place. Next a ureteral balloon dilator was passed over the wire and the area of stricture was dilated under fluoroscopy using the ureteral balloon dilator. Next a 7-Haitian by 26 cm stent was passed over the wire, the proximal curl was visualized on fluoroscopy and the distal curl was visualized using the cystoscope. Attention was then carried to the left ureteral orifice, which was intubated with a 6-Haitian open-ended catheter, retrograde pyelogram was performed which showed that 3 cm distal ureteral stricture with(severe proximal hydroureteronephrosis . The area of stricture was similar to the right side. A wire was advanced through the catheter and the catheter was removed with the wire in place. Next a ureteral balloon dilator was passed over the wire and the area of stricture was dilated under fluoroscopy using the ureteral balloon dilator. The balloon dilator was removed and a 6-Haitian by 26 cm stent was passed over the wire, the proximal curl was visualized on fluoroscopy and the distal curl was visualized using cystoscope. The bladder was emptied at the end of the case. an 18-Haitian Godoy was placed and the balloon was inflated with 10 mL. The patient was awakened from anesthesia and taken to recovery in stable condition
[2021-02-20] MEDS: DEXTROSE 5% IN WATER 1,000 ML with SODIUM BICARB (1 MEQ/ML) 150 ML IV SCH (22:29)
[2021-02-20] MEDS: ATORVASTATIN 40 MG TAB PO SCH (22:45)
[2021-02-21] MEDS: DEXTROSE 5% IN WATER 1,000 ML with SODIUM BICARB (1 MEQ/ML) 150 ML IV SCH (00:52)
[2021-02-21] MEDS: LACTATED RINGERS 1,000 ML IV SCH (04:07)
[2021-02-21 04:33] LABS: Ferritin 89.9 ng/mL (22.0-322.0)
[2021-02-21 04:58] LABS: % Iron Saturation 5.51 (15.00-50.00)
--- NOTE | 2021-02-21 08:11 | FL ---
Fluoroscopy INDICATION: Pain FINDINGS: Fluoroscopy time: 1 minute 44 seconds. Images obtained: 1. IMPRESSIONS: 1. Documentation of fluoroscopy.
[2021-02-21] MEDS ORDERED: ALPRAZolam 0.5 MG TAB PO PRN (09:35)
[2021-02-21 10:13] LABS: Calcium 7.9 mg/dL (8.4-10.2); Potassium 3.4 mmol/L (3.5-5.1)
[2021-02-21 10:48] LABS: Anisocytosis Moderate; Basophils % (A) 0 %; Eosinophils # (A) 0.1 k/uL (0-0.7); Eosinophils % (A) 1 %; HCT 25.3 % (39.0-53.0); HGB 8.2 gm/dL (13.0-17.5); Hypochromasia Marked; Lymphocytes # (A) 0.4 k/uL (1.0-4.8); Lymphocytes % (A) 5 %; MCH 26.1 pg (25.0-35.0); MCHC 32.3 g/dL (31.0-37.0); MCV 80.8 fL (80.0-100.0); Mean Platelet Volume 6.9; Microcytosis Slight; Monocytes # (A) 0.6 k/uL (0-1.0); Monocytes % (A) 7 %; Neutrophils # (A) 6.9 k/uL (1.3-7.7); Neutrophils % (A) 86 %; Platelet Count 309 k/uL (150-450); Poikilocytosis Moderate; RBC 3.13 m/uL (4.30-5.90); RDW 20.1 % (11.5-15.5)
[2021-02-21] MEDS: METOPROLOL TARTRATE 50 MG TAB PO SCH ×2 (10:51→20:48)
[2021-02-21] MEDS: SODIUM BICARBONATE TAB 650 MG TAB PO SCH ×2 (10:52→20:49)
[2021-02-21] MEDS: MULTIVITAMINS, THERA 1 EACH TAB PO SCH (10:52)
[2021-02-21] MEDS: PANTOPRAZOLE 40 MG/10 ML VIAL IVP SCH ×2 (11:06→20:49)
--- NOTE | 2021-02-21 11:24 | P.PN ---
Subjective Progress Note Date: 02/21/21 Principal diagnosis: progressive cancer, SALUD, ANemia Status post cystoscopy and stent placement for bilateral hydronephrosis, CT chest with bilateral increasing pulmonary nodules, Iron saturation 5% - IV Iron ordered Objective - Vital Signs Vital signs: Vital Signs Temp 99.3 F 02/21/21 03:45 Pulse 92 02/21/21 08:00 Resp 19 02/21/21 08:00 BP 172/84 02/21/21 07:38 Pulse Ox 95 02/21/21 07:38 Intake & Output 02/20/21 02/21/21 02/21/21 18:59 06:59 18:59 Intake Total 710 250 Output Total 1400 1200 1100 Balance -1400 -490 -850 Weight 63 kg Intake: IV 710 10 Invasive Line 3 10 10 Oral 240 Output: Urine 1400 1200 1100 Other: Voiding Method Indwelling Catheter Indwelling Catheter Indwelling Catheter # Bowel Movements 1 1 - Exam - Constitutional General appearance: cooperative, no acute distress - EENT Eyes: EOMI, PERRLA ENT: NA/AT - Neck Neck: normal ROM - Respiratory Respiratory: bilateral: diminished - Cardiovascular Rhythm: regularly irregular - Gastrointestinal General gastrointestinal: soft, tenderness - Integumentary Integumentary: pale - Neurologic Neurologic: CNII-XII intact - Musculoskeletal Musculoskeletal: generalized weakness - Psychiatric Psychiatric: A&O x's 3, appropriate affect - Labs CBC & Chem 7: 02/21/21 09:06 02/21/21 09:06 Labs: Abnormal Lab Results - Last 24 Hours (Table) 02/20/21 02/21/21 02/21/21 Range/Units 07:06 09:06 09:06 RBC 3.13 L (4.30-5.90) m/uL Hgb 8.2 L (13.0-17.5) gm/dL Hct 25.3 L (39.0-53.0) % RDW 20.1 H (11.5-15.5) % Lymphocytes # 0.4 L (1.0-4.8) k/uL Sodium 136 L (137-145) mmol/L Potassium 3.4 L (3.5-5.1) mmol/L Carbon Dioxide 17 L (22-30) mmol/L BUN 33 H (9-20) mg/dL Creatinine 2.63 H (0.66-1.25) mg/dL Glucose 190 H (74-99) mg/dL Calcium 7.9 L (8.4-10.2) mg/dL Iron 14 L (65-175) ug/dL % Saturation 5.51 L (15.00-50.00) Microbiology - Last 24 Hours (Table) 02/17/21 17:55 Blood Culture - Preliminary Blood No Growth after 72 hours Assessment and Plan (1) Acute kidney injury Current Visit: Yes Status: Acute Code(s): N17.9 - ACUTE KIDNEY FAILURE, UNSPECIFIED SNOMED Code(s): 68729825 (2) Hydronephrosis Current Visit: Yes Status: Acute Code(s): N13.30 - UNSPECIFIED HYDRONEPHROSIS SNOMED Code(s): 81628542 (3) Rectal cancer Current Visit: Yes Status: Acute Code(s): C20 - MALIGNANT NEOPLASM OF RECTUM SNOMED Code(s): 522562880 (4) Symptomatic anemia Current Visit: Yes Status: Acute Code(s): D64.9 - ANEMIA, UNSPECIFIED SNOMED Code(s): 890572866 Plan: Unable to perform staging CTs due to kidney function, therefore CT chest without contrast and reveals worsening bilateral pulmonary nodules concerning for metastatic disease. Replace PRBC hemoglobin less than 7, control bleeding and plan for patient to follow-up with Surgeon that was scheduled outpatient prior to presentation here. Consider transfer if needed Check pre-transfused Iron levels for Iron infusion, which are decreased saturation 5% - IV Iron ordered x3 days Physician aattest: I have completed the full history and physical and agree with above dictation, dictated as a scribe.
--- NOTE | 2021-02-21 11:28 | PN ---
PROGRESS NOTE Patient is seen for followup for acute kidney injury. He is currently being considered for discharge. No significant complaints today. PHYSICAL EXAMINATION: Blood pressure was 172/84, heart rate 92 per minute. He is afebrile. EXAMINATION OF THE HEART: S1, S2. EXAMINATION OF THE LUNGS: Bilateral breath sounds are heard. Abdomen is soft, nontender. Examination of lower extremities shows no evidence of edema. [employer] exam grossly intact. LABS: Labs show sodium 136, potassium 3.4, chloride 106, CO2 of 17, BUN 33, creatinine 2.63. ASSESSMENT: 1. Acute kidney injury mostly obstructive uropathy currently improved. The patient is status post cystoscopy and bilateral ureteral stent placement. 2. Hypokalemia, status post replacement. 3. History of colon cancer with radiation therapy. 4. Obstructive uropathy with bilateral hydronephrosis, status post cystoscopy and bilateral ureteral stent placement. PLAN: Patient can be discharged follow up as outpatient in about 2 weeks time. Continue to avoid NSAIDs post discharge. MMODL / IJN: [id number] /
--- NOTE | 2021-02-21 11:34 | PN ---
PROGRESS NOTE DATE OF SERVICE: 02/20/2021 Patient is seen for followup for acute kidney injury mostly obstructive uropathy. He is scheduled for cystoscopy today. He was found to have bilateral hydronephrosis. Patient has an indwelling Godoy catheter. Serum creatinine has been slowly decreasing. PHYSICAL EXAMINATION: On examination today, blood pressure was 172/94, heart rate of 80 per minute. Patient is afebrile. EXAMINATION OF THE HEART: S1, S2. EXAMINATION OF THE LUNGS: Bilateral breath sounds are heard. Abdomen is soft, nontender. Examination of lower extremities shows no evidence of edema. [employer] APPRAISER exam grossly intact. LABS: Labs show sodium 138, potassium 3.9, chloride 113, CO2 is 15, BUN 38, creatinine 2.89, hemoglobin 8.1 g/dL. ASSESSMENT: 1. Acute kidney injury obstructive uropathy status post Godoy catheter placement, going for cystoscopy and possible stent placement today. 2. Metabolic acidosis, maintained on oral sodium bicarb and patient is also on IV bicarb. 3. Colon cancer with history of radiation therapy previously. 4. Hypertension, uncontrolled. PLAN: Continue IV bicarb as well as oral sodium bicarb. Patient will need to continue with oral sodium bicarb once he is discharged. Follow up as outpatient. Repeat labs in a.m. Avoid nephrotoxic agents. Again, the date of service on this dictation is for 02/20/2021. MMODL / IJN: [id number] /
--- NOTE | 2021-02-21 11:49 | US ---
EXAMINATION TYPE: US kidneys/renal and bladder DATE OF EXAM: 02/21/2021 COMPARISON: 05/01/2015 CLINICAL HISTORY: f/u SALUD. Exam done portable. EXAM MEASUREMENTS: Right Kidney: 10.3 x 4.3 x 5.2 cm Left Kidney: 10.3 x 5.3 x 5.0 cm Right Kidney: hydronephrosis, small 1.0cm cortical cystic lesion medial mid pole, inferior pole limit ed by overlying bowel gas Left Kidney: hydronephrosis, inferior pole limited by overlying bowel gas Bladder: not distended, adams catheter Hydronephrosis is an interval finding comparison 2014 IMPRESSION: 1. Bilateral mild hydronephrosis
--- NOTE | 2021-02-21 16:16 | P.PN ---
Subjective Progress Note Date: 02/21/21 No acute overnight events, underwent bilateral stent placements yesterday, creatinine is 2.63 from 2.89. Having good urine output Objective - Vital Signs Vital signs: Vital Signs Temp 98.7 F 02/21/21 11:36 Pulse 73 02/21/21 11:36 Resp 18 02/21/21 11:36 BP 164/82 02/21/21 11:36 Pulse Ox 95 02/21/21 11:36 Intake & Output 02/20/21 02/21/21 02/21/21 18:59 06:59 18:59 Intake Total 710 480 Output Total 1400 1200 1900 Balance -1400 490 -1420 Weight 63 kg Intake: IV 710 20 Invasive Line 3 10 20 Oral 460 Output: Urine 1400 1200 1900 Other: Voiding Method Indwelling Catheter Indwelling Catheter Indwelling Catheter # Bowel Movements 1 1 - Constitutional General appearance: Present: no acute distress - Gastrointestinal General gastrointestinal: Present: soft. Absent: distended - Psychiatric Psychiatric: Present: A&O x's 3 - Labs CBC & Chem 7: 02/21/21 09:06 02/21/21 09:06 Labs: Abnormal Lab Results - Last 24 Hours (Table) 02/20/21 02/21/21 02/21/21 Range/Units 07:06 09:06 09:06 RBC 3.13 L (4.30-5.90) m/uL Hgb 8.2 L (13.0-17.5) gm/dL Hct 25.3 L (39.0-53.0) % RDW 20.1 H (11.5-15.5) % Lymphocytes # 0.4 L (1.0-4.8) k/uL Sodium 136 L (137-145) mmol/L Potassium 3.4 L (3.5-5.1) mmol/L Carbon Dioxide 17 L (22-30) mmol/L BUN 33 H (9-20) mg/dL Creatinine 2.63 H (0.66-1.25) mg/dL Glucose 190 H (74-99) mg/dL Calcium 7.9 L (8.4-10.2) mg/dL Iron 14 L (65-175) ug/dL % Saturation 5.51 L (15.00-50.00) Microbiology - Last 24 Hours (Table) 02/17/21 17:55 Blood Culture - Preliminary Blood No Growth after 72 hours Assessment and Plan Assessment: 65-year-old male admitted to the hospital with anemia, hemoglobin of 4.7 on presentation and SALUD his creatinine is 3.4 , creat was 1.7 in 2020. History of rectal cancer, treated with surgical resection and radiation approximately 10 years ago, had a recent PET scan in 10/2020 that showed evidence of recurrence, and bilateral hydronephrosis. Repeat CT on presentation showed evidence of persistent bilateral hydronephrosis. No significant improvement with bladder decompression correction of the anemia. Status post bilateral stent placement on February 20, creatinine is 2.63 from 2.89. Having good urine output -Continue to trend creatinine, will repeat BMP tomorrow -If creatinine continues to trend down, can remove Godoy tomorrow
--- NOTE | 2021-02-21 16:59 | P.PN ---
Subjective Progress Note Date: 02/21/21 Principal diagnosis: Acute blood loss anemia Mr. Jimenes is a 65-year-old male with a past medical history of coronary artery disease, hypertension, hyperlipidemia, colon cancer, hepatitis C admitted to the hospital for dark tarry stools . Patient was found to have severe anemia with hemoglobin of 4.7 and he received 3 units of PRBCs. He had urine analysis showing hematuria and urine culture is positive for gram-negative bacilli. Patient had a CAT scan of the abdomen showing bilateral hydronephrosis and perirectal thickening with possibility of tumor involvement. Nephrology, GI and urology currently on board and following the patient closely. On 02/19/2021 -was seen and examined at bedside. He was lying comfortably in bed appears to be no acute distress. Patient still reports dark colored stool. Hemoglobin from this morning is 8.1. Patient was apparently diagnosed with recurrence of rectal cancer and was supposed to follow up with general surgery and never followed up with them. On reviewing the labs from this morning's hemoglobin is 8.1, creatinine is 3.02. On 02/20/2021 - patient was seen and examined at bedside. Patient still complains of dark-colored stool. No bright red blood per rectum. Hemoglobin has been stable around 8.1. Patient still complains of lower abdominal discomfort. Patient is scheduled for cystoscopy with possible bilateral stent placement today by urology. His creatinine is been trending down today this at 2.89. He is on ceftriaxone for his UTI as her urine cultures are positive for E. coli. On 02/21/2021 - patient was seen and examined at the bedside. He states that he wants to go home. Patient had bilateral ureteral stents placed by urology yesterday. He denies having any abdominal pain or low back pain. No fevers or chills or rigors. Patient has good urinary output and his creatinine is 2.63 today. Godoy's catheter in place. On reviewing his labs hemoglobin is 8.2, white count of 8, platelets 309. Sodium 136, potassium 3.4, chloride 106, bicarb 17, BUN 33, creatinine 2.63. On review of systems: CONSTITUTIONAL: No fever, no malaise, no fatigue. CARDIOVASCULAR: No chest pain, orthopnea, PND, no palpitations, no syncope. PULMONARY: No shortness of breath, no cough, no hemoptysis. GASTROINTESTINAL: No abdominal pain, no nausea or vomiting,positive for dark colored stool Active Medications Acetaminophen (Acetaminophen Tab 325 Mg Tab) 650 mg PO Q6HR PRN PRN Reason: Mild Pain or Fever > 100.5 Hydrocodone Bitart/Acetaminophen (Hydrocodone/Apap 5-325mg 1 Each Tab) 1 each PO Q4HR PRN PRN Reason: Moderate Pain Last Admin: 02/21/21 02:11 Dose: 1 each Documented by: Alprazolam (Alprazolam 0.5 Mg Tab) 0.5 mg PO DAILY PRN PRN Reason: Anxiety Atorvastatin Calcium (Atorvastatin 40 Mg Tab) 40 mg PO HS [facility] Last Admin: 02/20/21 22:45 Dose: 40 mg Documented by: Ceftriaxone Sodium 1 gm/ (Sodium Chloride) 50 mls @ 100 mls/hr IVPB Q24HR [facility] Last Admin: 02/21/21 11:05 Dose: 100 mls/hr Documented by: Lactated Ringer's (Lactated Ringers) 1,000 mls @ 20 mls/hr IV .Q24H [facility] Last Admin: 02/21/21 04:07 Dose: Not Given Documented by: Sodium Bicarbonate 150 ml/ (Dextrose/Water) 1,150 mls @ 75 mls/hr IV .[id number] [facility] Last Admin: 02/21/21 00:52 Dose: Not Given Documented by: Ferric Sodium Gluconate 125 mg (/ Sodium Chloride) 110 mls @ 100 mls/hr IVPB DAILY [facility] Stop: 02/24/21 10:05 Metoprolol Tartrate (Metoprolol Tartrate 50 Mg Tab) 50 mg PO BID [facility] Last Admin: 02/21/21 10:51 Dose: 50 mg Documented by: Multivitamins (Multivitamins, Thera 1 Each Tab) 1 each PO DAILY [facility] Last Admin: 02/21/21 10:52 Dose: 1 each Documented by: Naloxone HCl (Naloxone 0.4 Mg/Ml 1 Ml Vial) 0.2 mg IV Q2M PRN PRN Reason: Opioid Reversal Ondansetron HCl (Ondansetron 4 Mg/2 Ml Vial) 4 mg IVP Q8HR PRN PRN Reason: Nausea And Vomiting Pantoprazole Sodium (Pantoprazole 40 Mg/10 Ml Vial) 40 mg IVP BID [facility] Last Admin: 02/21/21 11:06 Dose: 40 mg Documented by: Sodium Bicarbonate (Sodium Bicarbonate Tab 650 Mg Tab) 650 mg PO BID [facility] Last Admin: 02/21/21 10:52 Dose: 650 mg Documented by: Tramadol HCl (Tramadol 50 Mg Tab) 50 mg PO Q6H PRN PRN Reason: Moderate Pain Objective - Vital Signs Vital signs: Vital Signs Temp 98.7 F 02/21/21 11:36 Pulse 73 02/21/21 11:36 Resp 18 02/21/21 11:36 BP 164/82 02/21/21 11:36 Pulse Ox 95 02/21/21 11:36 Intake & Output 02/20/21 02/21/21 02/21/21 18:59 06:59 18:59 Intake Total 710 480 Output Total 1400 1200 1900 Balance -1400 -490 -1420 Weight 63 kg Intake: IV 710 20 Invasive Line 3 10 20 Oral 460 Output: Urine 1400 1200 1900 Other: Voiding Method Indwelling Catheter Indwelling Catheter Indwelling Catheter # Bowel Movements 1 1 - Exam PHYSICAL EXAMINATION: GENERAL: The patient is alert and oriented x3, not in any acute distress. Emaciated HEENT: Pupils are round and equally reacting to light. EOMI. No scleral icterus. Does have conjunctival pallor. CARDIOVASCULAR: S1 and S2 present. No murmurs, rubs, or gallops. PULMONARY: Chest is clear to auscultation, no wheezing or crackles. ABDOMEN: Soft, tenderness in the lower abdomen, nondistended, normoactive bowel sounds. Godoy's catheter in place. MUSCULOSKELETAL: No joint swelling or deformity. EXTREMITIES: No cyanosis, clubbing, or pedal edema. NEUROLOGICAL: Gross neurological examination did not reveal any focal deficits. SKIN: No rashes. - Labs CBC & Chem 7: 02/22/21 09:19 02/22/21 09:19 Labs: Abnormal Lab Results - Last 24 Hours (Table) 02/20/21 02/21/21 02/21/21 Range/Units 07:06 09:06 09:06 RBC 3.13 L (4.30-5.90) m/uL Hgb 8.2 L (13.0-17.5) gm/dL Hct 25.3 L (39.0-53.0) % RDW 20.1 H (11.5-15.5) % Lymphocytes # 0.4 L (1.0-4.8) k/uL Sodium 136 L (137-145) mmol/L Potassium 3.4 L (3.5-5.1) mmol/L Carbon Dioxide 17 L (22-30) mmol/L BUN 33 H (9-20) mg/dL Creatinine 2.63 H (0.66-1.25) mg/dL Glucose 190 H (74-99) mg/dL Calcium 7.9 L (8.4-10.2) mg/dL Iron 14 L (65-175) ug/dL % Saturation 5.51 L (15.00-50.00) Microbiology - Last 24 Hours (Table) 02/17/21 17:55 Blood Culture - Preliminary Blood No Growth after 72 hours Assessment and Plan Assessment: Assessment Acute blood loss anemia-possible GI bleed Bilateral hydronephrosis Acute kidney injury secondary to obstructive uropathy Urinary tract infection with gram-negative organisms coronary artery disease status post CABG GERD Hypertension Hyperlipidemia Recurrence of rectal cancer with possible liver metastases History of hepatitis C Moderate protein calorie malnutrition Plan: hemoglobin has been stable around 8 continue with the Protonix. Urology on board patient had bilateral ureter stent placement done on 02/20/2021. Continue with ceftriaxone for UTI for posterior urine cultures with E. coli, bl ood cultures negative. Oncology evaluated the patient for rectal cancer, they ordered a CT of the chest which was showing bilateral increasing pulmonary nodules concerning for metastatic disease. As the patient's iron saturation was low, he is being given IV iron. Continue with the rest of the current medication regimen. Further recommendations to follow depending on the progress of the patient.
[2021-02-21] MEDS: ATORVASTATIN 40 MG TAB PO SCH (20:48)
[2021-02-22 04:47] VITALS: PULSE 84
[2021-02-22] MEDS ORDERED: SODIUM FERRIC GLUCONAT-SUCROSE 125 MG in SODIUM CHLORIDE 0.9% 100 ML IVPB SCH (09:00)
[2021-02-22] MEDS: METOPROLOL TARTRATE 50 MG TAB PO SCH (09:17)
[2021-02-22] MEDS: PANTOPRAZOLE 40 MG/10 ML VIAL IVP SCH (09:18)
[2021-02-22] MEDS: SODIUM BICARBONATE TAB 650 MG TAB PO SCH (09:18)
[2021-02-22] MEDS: MULTIVITAMINS, THERA 1 EACH TAB PO SCH (09:18)
[2021-02-22] MEDS: LACTATED RINGERS 1,000 ML IV SCH (09:19)
[2021-02-22 10:17] LABS: Anisocytosis Slight; Basophils % (A) 0 %; Eosinophils # (A) 0.3 k/uL (0-0.7); Eosinophils % (A) 4 %; HCT 25.6 % (39.0-53.0); HGB 7.9 gm/dL (13.0-17.5); Hypochromasia Marked; Lymphocytes # (A) 0.4 k/uL (1.0-4.8); Lymphocytes % (A) 6 %; MCH 24.8 pg (25.0-35.0); MCHC 30.7 g/dL (31.0-37.0); MCV 80.5 fL (80.0-100.0); Mean Platelet Volume 6.3; Microcytosis Slight; Monocytes # (A) 0.4 k/uL (0-1.0); Monocytes % (A) 6 %; Neutrophils # (A) 5.6 k/uL (1.3-7.7); Neutrophils % (A) 82 %; Platelet Count 315 k/uL (150-450); Poikilocytosis Moderate; RBC 3.17 m/uL (4.30-5.90); RDW 19.7 % (11.5-15.5); WBC 6.8 k/uL (3.8-10.6)
[2021-02-22 10:34] LABS: Potassium 3.8 mmol/L (3.5-5.1)
--- NOTE | 2021-02-22 12:52 | P.PN ---
Subjective Progress Note Date: 02/22/21 Principal diagnosis: progressive cancer, SALUD, ANemia patient receiving first parental iron, he is anxious for discharge therefore ok from our standpoint to complete IV irons as outpatient Objective - Vital Signs Vital signs: Vital Signs Temp 98.6 F 02/22/21 08:00 Pulse 84 02/22/21 08:00 Resp 18 02/22/21 08:00 BP 160/84 02/22/21 08:00 Pulse Ox 97 02/22/21 08:00 Intake & Output 02/21/21 02/22/21 02/22/21 18:59 06:59 18:59 Intake Total 720 240 Output Total 2100 1750 Balance -1380 -1750 240 Weight 63.4 kg Intake: IV 20 Invasive Line 3 20 Oral 700 240 Output: Urine 2100 1750 Other: Voiding Method Indwelling Catheter Indwelling Catheter Indwelling Catheter - Exam - Constitutional General appearance: cooperative, no acute distress - EENT Eyes: EOMI, PERRLA ENT: NA/AT - Neck Neck: normal ROM - Respiratory Respiratory: bilateral: diminished - Cardiovascular Rhythm: regularly irregular - Gastrointestinal General gastrointestinal: soft, tenderness - Integumentary Integumentary: pale - Neurologic Neurologic: CNII-XII intact - Musculoskeletal Musculoskeletal: generalized weakness - Psychiatric Psychiatric: A&O x's 3, appropriate affect - Labs CBC & Chem 7: 02/22/21 09:19 02/22/21 09:19 Labs: Abnormal Lab Results - Last 24 Hours (Table) 02/22/21 02/22/21 Range/Units 09:19 09:19 RBC 3.17 L (4.30-5.90) m/uL Hgb 7.9 L (13.0-17.5) gm/dL Hct 25.6 L (39.0-53.0) % MCH 24.8 L (25.0-35.0) pg MCHC 30.7 L (31.0-37.0) g/dL RDW 19.7 H (11.5-15.5) % Lymphocytes # 0.4 L (1.0-4.8) k/uL BUN 39 H (9-20) mg/dL Creatinine 2.70 H (0.66-1.25) mg/dL Glucose 106 H (74-99) mg/dL Calcium 8.0 L (8.4-10.2) mg/dL Microbiology - Last 24 Hours (Table) 02/17/21 17:55 Blood Culture - Preliminary Blood No Growth after 96 hours Assessment and Plan (1) Acute kidney injury Current Visit: Yes Status: Acute Code(s): N17.9 - ACUTE KIDNEY FAILURE, UNSPECIFIED SNOMED Code(s): 14586569 (2) Hydronephrosis Current Visit: Yes Status: Acute Code(s): N13.30 - UNSPECIFIED HYDRONEPHROSIS SNOMED Code(s): 00209913 (3) Rectal cancer Current Visit: Yes Status: Acute Code(s): C20 - MALIGNANT NEOPLASM OF RECTUM SNOMED Code(s): 471783985 (4) Symptomatic anemia Current Visit: Yes Status: Acute Code(s): D64.9 - ANEMIA, UNSPECIFIED SNOMED Code(s): 619185167 Plan: Unable to perform staging CTs due to kidney function, therefore CT chest without contrast and reveals worsening bilateral pulmonary nodules concerning for metastatic disease. Replace PRBC hemoglobin less than 7, control bleeding and plan for patient to follow-up with Surgeon that was scheduled outpatient prior to presentation here. Consider transfer if needed Check pre-transfused Iron levels for Iron infusion, which are decreased saturation 5% - IV Iron ordered x3 days (if discharged today per medicine ok to complete as outpatient) Physician attest: I have completed the full history and physical and agree with above dictation, dictated as a scribe.
[2021-02-22 13:33] VITALS: BP 108/72; RESP 24; TEMP 98.1
[2021-02-22] MEDS ORDERED: LACTATED RINGERS 1,000 ML IV SCH (16:30)
--- NOTE | 2021-02-22 16:44 | PN ---
PROGRESS NOTE Patient is seen for followup for acute kidney injury, mostly obstructive uropathy, status post cystoscopy, bilateral ureteral stent placement. Serum creatinine had improved yesterday down to 2.6; however, today it is back up to 2.7. Patient is maintained on IV fluids. He states that his oral intake is fair. No active bleeding noted. He is maintained on IV iron as well. PHYSICAL EXAMINATION: On examination today, blood pressure was 160/84, heart rate 81 per minute. Patient is afebrile. EXAMINATION OF THE HEART: S1 and S2. EXAMINATION OF LUNGS: Decreased breath sounds at bases. ABDOMEN: Soft, non-tender. Examination of lower extremities shows no evidence of edema. 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 LABS: Sodium 137, potassium 3.8, chloride 106. CO2 is 25, BUN 39, creatinine 2.7, hemoglobin of 7.9 g/dL. ASSESSMENT: 1. Acute kidney injury with some degree of acute tubular necrosis as well as obstructive uropathy, currently with indwelling Godoy catheter and status post cystoscopy and bilateral ureteral stent placement for bilateral hydronephrosis. Creatinine had improved yesterday. However, it is back up today, possibly related to worsening anemia. Blood pressure has not been low. 2. Metabolic acidosis, maintained on oral sodium bicarb, currently improved. Will discontinue the IV bicarb. 3. Colon cancer with history of radiation therapy. 4. Hypertension. 5. Recurrence of colorectal cancer with liver metastasis. 6. Urinary tract infection with urine culture growing Escherichia coli. PLAN: Discontinue IV bicarb. Followup as outpatient for possible underlying CKD. Patient also needs to follow up with Urology. MMODL / IJN: [id number] /
--- NOTE | 2021-02-22 18:07 | P.PN ---
Subjective Progress Note Date: 02/22/21 No acute overnight events, underwent bilateral stent placements , creatinine is stable at 2.7. Having good urine output Objective - Vital Signs Vital signs: Vital Signs Temp 98.1 F 02/22/21 13:32 Pulse 84 02/22/21 13:32 Resp 24 02/22/21 13:32 BP 108/72 02/22/21 13:32 Pulse Ox 97 02/22/21 08:00 Intake & Output 02/21/21 02/22/21 02/22/21 18:59 06:59 18:59 Intake Total 720 480 Output Total 2100 1750 725 Balance -1380 -1750 -245 Weight 63.4 kg Intake: IV 20 Invasive Line 3 20 Oral 700 480 Output: Urine 2100 1750 725 Other: Voiding Method Indwelling Catheter Indwelling Catheter Indwelling Catheter # Bowel Movements 1 - Constitutional General appearance: Present: no acute distress - Labs CBC & Chem 7: 02/22/21 09:19 02/22/21 09:19 Labs: Abnormal Lab Results - Last 24 Hours (Table) 02/22/21 02/22/21 Range/Units 09:19 09:19 RBC 3.17 L (4.30-5.90) m/uL Hgb 7.9 L (13.0-17.5) gm/dL Hct 25.6 L (39.0-53.0) % MCH 24.8 L (25.0-35.0) pg MCHC 30.7 L (31.0-37.0) g/dL RDW 19.7 H (11.5-15.5) % Lymphocytes # 0.4 L (1.0-4.8) k/uL BUN 39 H (9-20) mg/dL Creatinine 2.70 H (0.66-1.25) mg/dL Glucose 106 H (74-99) mg/dL Calcium 8.0 L (8.4-10.2) mg/dL Microbiology - Last 24 Hours (Table) 02/17/21 17:55 Blood Culture - Preliminary Blood No Growth after 96 hours Assessment and Plan Assessment: 65-year-old male admitted to the hospital with anemia, hemoglobin of 4.7 on presentation and SALUD his creatinine is 3.4 , creat was 1.7 in 2019. History of rectal cancer, treated with surgical resection and radiation approximately 10 years ago, had a recent PET scan in 10/2020 that showed evidence of recurrence, and bilateral hydronephrosis. Repeat CT on presentation showed evidence of persistent bilateral hydronephrosis. No significant improvement with bladder decompression correction of the anemia. Status post bilateral stent placement on February 20, Creat is 2.7. Patient was to be discharged home -From urology standpoint Godoy can be removed, obtain a PVR after patient voids. Okay for discharge home from urology standpoint. We will plan on seeing as an outpatient in 4 weeks will repeat BMP at that time. Discussed with patient the risk of stent encrustation, and the need of either removing the stent to replacing them, discussed that the stents cannot stay for longer than 3 months. Discussed with him that eventually he will need a repeat retrograde pyelogram, If there is an improvement of hydronephrosis and renal drainage, then he can have a trial off of the stents.
--- NOTE | 2021-02-23 15:13 | P.DS ---
Providers Date of admission: 02/17/21 18:36 Expected date of discharge: 02/22/21 Attending physician: Lexie Marcus Consults: 02/17/21 17:02 Consult Physician Stat Consulting Provider: Galilea Nichols Consult Reason/Comments: Acute kidney injury Do you want consulting provider notified?: Yes 02/17/21 17:57 Consult Physician Stat Consulting Provider: Vu Israel Consult Reason/Comments: Bilateral hydronephrosis, poss ureteral tumor Do you want consulting provider notified?: Yes 02/19/21 21:43 Consult Physician Routine Consulting Provider: Dante Mina Consult Reason/Comments: Rectal Cancer Do you want consulting provider notified?: Yes Primary care physician: [place] Hospital Course: Mr. Jimenes is a 65-year-old male with a past medical history of coronary artery disease, hypertension, hyperlipidemia, colon cancer, hepatitis C admitted to the hospital for dark tarry stools . Patient was found to have severe anemia with hemoglobin of 4.7 and he received 3 units of PRBCs. He had urine analysis showing hematuria and urine culture is positive for gram-negative bacilli. Patient had a CAT scan of the abdomen showing bilateral hydronephrosis and perirectal thickening with possibility of tumor involvement. Patient had a colonoscopy done by Dr. Mccarty on 11/10/2020 showing severe friability of the mucosa in the rectal anastomosis stricture and biopsies revealing adenocarcinoma. Patient did not have a colonoscopy done during this visit. He has history of rectal carcinoma, his hemoglobin has stabilized after blood transfusion. Patient received 1 dose of IV iron therapy. Urology, nephrology, GI followed the patient closely during the hospital visit. As the patient's CT of the abdomen showing bilateral nephrosis, urology did put in bilateral uret eral stents on 02/20/2021. Postop patient's creatinine remained between 2-3. His Godoy catheter was discontinued. Patient had urine cultures positive for E. coli, he received ceftriaxone. Patient was very eager to go home, he said he would follow up with oncology. Physical examination Vitals- temperature 98.1, heart rate 84, respiratory rate 20. Blood pressure 108/72, saturating at 97% on room air. GENERAL: The patient is alert and oriented x3, not in any acute distress. Emaciated HEENT: Pupils are round and equally reacting to light. EOMI. No scleral icterus. Does have conjunctival pallor. CARDIOVASCULAR: S1 and S2 present. No murmurs, rubs, or gallops. PULMONARY: Chest is clear to auscultation, no wheezing or crackles. ABDOMEN: Soft, tenderness in the lower abdomen, nondistended, normoactive bowel sounds. Godoy's catheter in place. MUSCULOSKELETAL: No joint swelling or deformity. EXTREMITIES: No cyanosis, clubbing, or pedal edema. NEUROLOGICAL: Gross neurological examination did not reveal any focal deficits. SKIN: No rashes. DISCHARGE DIAGNOSIS Acute blood loss anemia-possible GI bleed History of rectal carcinoma Bilateral hydronephrosis Acute kidney injury secondary to obstructive uropathy UTI with E. coli Urinary tract infection with gram-negative organisms coronary artery disease status post CABG GERD Hypertension Hyperlipidemia Recurrence of rectal cancer with possible liver metastases History of hepatitis C Moderate protein calorie malnutrition FOLLOW UP: Patient is advised to follow-up with oncology to complete his IV iron therapy. I spoke with Bharati, oncology nurse, she said she would set up IV iron therapy for him. Patient is advised to complete his ciprofloxacin antibiotic course for his UTI. He is advised to follow-up with urology in 1 week. Patient left AGAINST MEDICAL ADVICE, without picking up his medications. More than 35 minutes spent with discharge of the patient. Patient Condition at Discharge: Fair Plan - Discharge Summary Discharge Rx Participant: No New Discharge Prescriptions: New Sodium Bicarbonate Tab 650 mg PO BID #60 tab Ciprofloxacin HCl [Cipro] 500 mg PO BID 1 Days #14 tab Continue lisinopriL 40 mg PO DAILY Doxazosin [Cardura] 4 mg PO DAILY Multivitamins, Thera [Multivitamin (formulary)] 1 tab PO DAILY Metoprolol Tartrate [Lopressor] 50 mg PO BID #60 tab Aspirin 81 mg PO DAILY #30 chewable Atorvastatin Calcium [Lipitor] 40 mg PO HS #30 tablet Discharge Medication List Doxazosin [Cardura] 4 mg PO DAILY 08/10/20 [History] Multivitamins, Thera [Multivitamin (formulary)] 1 tab PO DAILY 08/10/20 [History] lisinopriL 40 mg PO DAILY 08/10/20 [History] Aspirin 81 mg PO DAILY #30 chewable 08/12/20 [Rx] Atorvastatin Calcium [Lipitor] 40 mg PO HS #30 tablet 08/12/20 [Rx] Metoprolol Tartrate [Lopressor] 50 mg PO BID #60 tab 08/12/20 [Rx] Ciprofloxacin HCl [Cipro] 500 mg PO BID 1 Days #14 tab 02/22/21 [Rx] Sodium Bicarbonate Tab 650 mg PO BID #60 tab 02/22/21 [Rx] Follow up Appointment(s)/Referral(s): Robert Carroll DO [Primary Care Provider] - 1-2 days Discharge Disposition: Left Against Medical Advice
== END 2021-02-22 16:19 | disposition left against medical advice (07) | DRG 660 ==
LOC: EC 13:48 → 3SCARD 18:36
PROVIDERS: ADMIT Hospitalist; ATTEND Hospitalist
PROC: 30233N1 Transfusion of Nonautologous Red Blood Cells into Peripheral Vein, Percutaneous Approach (ICD-10-PCS; 2021-02-17)
PROC: 0T788DZ Dilation of Bilateral Ureters with Intraluminal Device, Via Natural or Artificial Opening Endoscopic (ICD-10-PCS; principal; 2021-02-20 18:15)
PROC: BT141ZZ Fluoroscopy of Kidneys, Ureters and Bladder using Low Osmolar Contrast (ICD-10-PCS; principal; 2021-02-20 18:15)
DX: N13.6 Pyonephrosis (principal); C19 Malignant neoplasm of rectosigmoid junction; D62 Acute posthemorrhagic anemia; K92.2 Gastrointestinal hemorrhage, unspecified; E87.2 Acidosis; E44.0 Moderate protein-calorie malnutrition; C78.7 Secondary malignant neoplasm of liver and intrahepatic bile duct; N17.0 Acute kidney failure with tubular necrosis; B96.20 Unspecified Escherichia coli [E. coli] as the cause of diseases classified elsewhere; B18.2 Chronic viral hepatitis C; Z20.822 Contact with and (suspected) exposure to COVID-19; I12.9 Hypertensive chronic kidney disease with stage 1 through stage 4 chronic kidney disease, or unspecified chronic kidney disease; N18.32 Chronic kidney disease, stage 3b; E87.6 Hypokalemia; Z68.20 Body mass index [BMI] 20.0-20.9, adult; K62.7 Radiation proctitis; I08.1 Rheumatic disorders of both mitral and tricuspid valves; I25.10 Atherosclerotic heart disease of native coronary artery without angina pectoris; K21.9 Gastro-esophageal reflux disease without esophagitis; E78.5 Hyperlipidemia, unspecified; E78.00 Pure hypercholesterolemia, unspecified; R32 Unspecified urinary incontinence; R13.10 Dysphagia, unspecified; R91.1 Solitary pulmonary nodule; R31.9 Hematuria, unspecified; R16.1 Splenomegaly, not elsewhere classified; M19.90 Unspecified osteoarthritis, unspecified site; F17.210 Nicotine dependence, cigarettes, uncomplicated; Z71.6 Tobacco abuse counseling; F10.11 Alcohol abuse, in remission; Z53.29 Procedure and treatment not carried out because of patient's decision for other reasons; Z79.82 Long term (current) use of aspirin; Z79.899 Other long term (current) drug therapy; Z85.46 Personal history of malignant neoplasm of prostate; Z87.81 Personal history of (healed) traumatic fracture; Z90.49 Acquired absence of other specified parts of digestive tract; Z95.1 Presence of aortocoronary bypass graft; Z87.19 Personal history of other diseases of the digestive system; Z96.642 Presence of left artificial hip joint; Z86.59 Personal history of other mental and behavioral disorders; Z92.3 Personal history of irradiation; Z92.21 Personal history of antineoplastic chemotherapy; Z98.890 Other specified postprocedural states; Z88.0 Allergy status to penicillin; Z80.3 Family history of malignant neoplasm of breast; Z82.49 Family history of ischemic heart disease and other diseases of the circulatory system; Y84.2 Radiological procedure and radiotherapy as the cause of abnormal reaction of the patient, or of later complication, without mention of misadventure at the time of the procedure; Z86.73 Personal history of transient ischemic attack (TIA), and cerebral infarction without residual deficits
CPT/HCPCS: 36415; 71250; 74176; 74420; 76770; 80048; 80053; 81001; 82728; 83540; 83550; 83605; 83690; 83735; 84100; 84484; 85025; 85027; 85610; 85730; 86850; 86900; 86901; 86920; 87040; 87077; 87086; 87186; 87635; 93005; 99285

== ENCOUNTER 2021-03-19 17:59 | Observation (INO) | payer MEDICARE, OTHER ==
[2021-03-19] MEDS ORDERED: SODIUM CHLORIDE 0.9% 1,000 ML IV STA (18:57)
[2021-03-19] MEDS ORDERED: SODIUM CHLORIDE 0.9% 500 ML 500 ML IV STA (19:02)
--- NOTE | 2021-03-19 19:02 | ED ---
General Adult HPI - General Chief complaint: Shortness of Breath Stated complaint: racing heart Time Seen by Provider: 03/19/21 18:31 Source: patient, family, RN notes reviewed Mode of arrival: wheelchair Limitations: physical limitation - History of Present Illness Initial comments: Patient is a pleasant 65-year-old male presenting to the emergency Department with palpitations. Onset of symptoms was a couple hours ago. Patient does have mild cough and mild soreness of breath. Patient was in the hospital last week with problems with kidney infection and did have a urostomy tube placed. Patient does have history of colon cancer and is planning on having surgery in the near future for this. No fevers at home. Patient does have exertional dys pnea. Patient does feel fatigued. Patient is currently on IV antibiotics through a PICC line. - Related Data Home Medications Medication Instructions Recorded Confirmed Doxazosin [Cardura] 4 mg PO DAILY 08/10/20 03/19/21 Multivitamins, Thera [Multivitamin 1 tab PO DAILY 08/10/20 03/19/21 (formulary)] lisinopriL 40 mg PO DAILY 08/10/20 03/19/21 ALPRAZolam [Xanax] 0.25 mg PO BID PRN 03/19/21 03/19/21 Atorvastatin Calcium [Lipitor] 40 mg PO DAILY 03/19/21 03/19/21 Calcium Acetate [Phoslo] 667 mg PO BID 03/19/21 03/19/21 Ergocalciferol (Vitamin D2) 1,250 mcg PO MO 03/19/21 03/19/21 [Drisdol (50,000 Iu)] Fluconazole [Diflucan] 100 mg PO DAILY 03/19/21 03/19/21 HYDROcodone/APAP 5-325MG [[place] 1 tab PO BID PRN 03/19/21 03/19/21 5-325] Metoprolol Tartrate [Lopressor] 100 mg PO BID 03/19/21 03/19/21 Tamsulosin HCl [Flomax] 0.4 mg PO DAILY 03/19/21 03/19/21 cloNIDine HCL 0.2 mg PO HS 03/19/21 03/19/21 Previous Rx's Medication Instructions Recorded Aspirin 81 mg PO DAILY #30 chewable 08/12/20 Sodium Bicarbonate Tab 650 mg PO BID #60 tab 02/22/21 Allergies Allergy/AdvReac Type Severity Reaction Status Date / Time Penicillins Allergy Rash/Hives Verified 02/17/21 19:43 Review of Systems ROS Statement: Those systems with pertinent positive or pertinent negative responses have been documented in the HPI. ROS Other: All systems not noted in ROS Statement are negative. Constitutional: Denies: chills Eyes: Denies: eye pain ENT: Denies: as per HPI Respiratory: Reports: cough Cardiovascular: Reports: palpitations. Denies: chest pain Endocrine: Reports: fatigue Gastrointestinal: Denies: abdominal pain Genitourinary: Denies: dysuria Musculoskeletal: Denies: back pain Skin: Denies: rash Neurological: Denies: weakness Past Medical History Past Medical History: Coronary Artery Disease (CAD), Cancer, Heart Failure, GERD/Reflux, Hyperlipidemia, Hypertension, Osteoarthritis (OA) Additional Past Medical History / Comment(s): POSSIBLE COLITIS . COLON CANCER, TROUBLE SWALLOWING, BROKEN RT LEG IN PAST. Hepatitis C positive, History of Any Multi-Drug Resistant Organisms: None Reported Past Surgical History: Bowel Resection, Coronary Bypass/CABG, Heart Catheterization, Hernia Repair, Orthopedic Surgery Additional Past Surgical History / Comment(s): RT LEG, LT KNEE SX D/R "BROKEN KNEE CAP", PARTIAL LT HIP REPLACEMENT Past Anesthesia/Blood Transfusion Reactions: Previous Problems w/ Anesthesia Additional Past Anesthesia/Blood Transfusion Reaction / Comment(s): TOOK LONGER WAKING UP Past Psychological History: Depression Smoking Status: Current every day smoker Past Alcohol Use History: None Reported Past Drug Use History: Marijuana - Past Family History Mother Family Medical History: Cancer Additional Family Medical History / Comment(s): BREAST CANCER Father Family Medical History: Congestive Heart Failure (CHF), Coronary Artery Disease (CAD), Myocardial Infarction (AL) Additional Family Medical History / Comment(s): Father of myocardial infarction in his 50s General Exam Limitations: no limitations, physical limitation General appearance: alert, in no apparent distress Head exam: Present: normocephalic Eye exam: Present: normal appearance Neck exam: Present: normal inspection Respiratory exam: Present: normal lung sounds bilaterally Cardiovascular Exam: Present: tachycardia, normal heart sounds Expanded Peripheral pulses: 2+: Radial (R), Radial (L) GI/Abdominal exam: Present: soft. Absent: tenderness Extremities exam: Present: normal inspection Neurological exam: Present: alert Psychiatric exam: Present: normal affect, normal mood Skin exam: Present: normal color Course Vital Signs 03/19/21 03/19/21 03/19/21 18:11 18:36 20:00 Temperature 96.9 F L Pulse Rate 148 H 140 H 135 H Respiratory 18 20 18 Rate Blood Pressure 67/40 103/60 92/64 O2 Sat by Pulse 98 97 98 Oximetry 03/19/21 03/19/21 03/19/21 20:19 21:00 22:05 Temperature Pulse Rate 78 80 Respiratory 134 H 18 18 Rate Blood Pressure 99/66 111/66 114/64 O2 Sat by Pulse 98 98 98 Oximetry - Reevaluation(s) Reevaluation #1: 03/19/21 20:57 Repeat EKG shows SVT with a rate of 134. QRS 80. QT 344. QTC 5:15. Normal axis. Inferior Q waves. Septal Q waves. No acute ST change. 03/19/21 21:20 EKG #3 showed normal sinus rhythm with a rate of 78. [place] 168. QRS 68. QT 406. QTc 462. Normal axis. Septal Q waves. No acute ST change. EKG Findings - EKG Comments: EKG Findings:: Supraventricular tachycardia with rate of 141. QRS 70. QT 332. QTC 508. Normal axis. Inferior Q waves. No acute ST change. Procedures - Procedures Initial comment: Chemical cardioversion with adenosine. No complications. Patient did go from SVT to normal sinus rhythm. Medical Decision Making - Lab Data Result diagrams: 03/19/21 19:02 03/19/21 19:02 Lab Results 03/19/21 03/19/21 03/19/21 Range/Units 19:02 19:02 19:02 WBC 11.2 H (3.8-10.6) k/uL RBC 4.08 L (4.30-5.90) m/uL Hgb 10.6 L (13.0-17.5) gm/dL Hct 33.2 L (39.0-53.0) % MCV 81.4 (80.0-100.0) fL MCH 26.1 (25.0-35.0) pg MCHC 32.1 (31.0-37.0) g/dL RDW 18.9 H (11.5-15.5) % Plt Count 455 H (150-450) k/uL MPV 6.8 Neutrophils % 78 % Lymphocytes % 10 % Monocytes % 5 % Eosinophils % 5 % Basophils % 1 % Neutrophils # 8.7 H (1.3-7.7) k/uL Lymphocytes # 1.1 (1.0-4.8) k/uL Monocytes # 0.6 (0-1.0) k/uL Eosinophils # 0.6 (0-0.7) k/uL Basophils # 0.1 (0-0.2) k/uL Hypochromasia Slight Anisocytosis Slight Microcytosis Slight PT 10.4 (9.0-12.0) sec INR 1.0 (<1.2) APTT 23.9 (22.0-30.0) sec Sodium 141 (137-145) mmol/L Potassium 5.4 H (3.5-5.1) mmol/L Chloride 108 H (98-107) mmol/L Carbon Dioxide 21 L (22-30) mmol/L Anion Gap 12 mmol/L BUN 82 H (9-20) mg/dL Creatinine 3.53 H (0.66-1.25) mg/dL Est GFR (CKD-EPI)AfAm 20 (>60 ml/min/1.73 sqM) Est GFR (CKD-EPI)NonAf 17 (>60 ml/min/1.73 sqM) Glucose 155 H (74-99) mg/dL Calcium 9.4 (8.4-10.2) mg/dL Magnesium 1.7 (1.6-2.3) mg/dL Total Bilirubin 0.4 (0.2-1.3) mg/dL AST 66 H (17-59) U/L ALT 46 (4-49) U/L Alkaline Phosphatase 185 H (38-126) U/L Troponin I (0.000-0.034) ng/mL NT-Pro-B Natriuret Pep pg/mL Total Protein 8.2 (6.3-8.2) g/dL Albumin 4.0 (3.5-5.0) g/dL TSH 2.330 (0.465-4.680) mIU/L Free T4 0.95 (0.78-2.19) ng/dL Free T3 pg/mL 4.2 (2.8-5.3) pg/ml Coronavirus (PCR) (Not Detectd) 03/19/21 03/19/21 03/19/21 Range/Units 19:02 19:03 19:47 WBC (3.8-10.6) k/uL RBC (4.30-5.90) m/uL Hgb (13.0-17.5) gm/dL Hct (39.0-53.0) % MCV (80.0-100.0) fL MCH (25.0-35.0) pg MCHC (31.0-37.0) g/dL RDW (11.5-15.5) % Plt Count (150-450) k/uL MPV Neutrophils % % Lymphocytes % % Monocytes % % Eosinophils % % Basophils % % Neutrophils # (1.3-7.7) k/uL Lymphocytes # (1.0-4.8) k/uL Monocytes # (0-1.0) k/uL Eosinophils # (0-0.7) k/uL Basophils # (0-0.2) k/uL Hypochromasia Anisocytosis Microcytosis PT (9.0-12.0) sec INR (<1.2) APTT (22.0-30.0) sec Sodium (137-145) mmol/L Potassium (3.5-5.1) mmol/L Chloride (98-107) mmol/L Carbon Dioxide (22-30) mmol/L Anion Gap mmol/L BUN (9-20) mg/dL Creatinine (0.66-1.25) mg/dL Est GFR (CKD-EPI)AfAm (>60 ml/min/1.73 sqM) Est GFR (CKD-EPI)NonAf (>60 ml/min/1.73 sqM) Glucose (74-99) mg/dL Calcium (8.4-10.2) mg/dL Magnesium (1.6-2.3) mg/dL Total Bilirubin (0.2-1.3) mg/dL AST (17-59) U/L ALT (4-49) U/L Alkaline Phosphatase (38-126) U/L Troponin I 0.013 (0.000-0.034) ng/mL NT-Pro-B Natriuret Pep 6360 pg/mL Total Protein (6.3-8.2) g/dL Albumin (3.5-5.0) g/dL TSH (0.465-4.680) mIU/L Free T4 (0.78-2.19) ng/dL Free T3 pg/mL (2.8-5.3) pg/ml Coronavirus (PCR) Not Detected (Not Detectd) - Radiology Data Radiology results: image reviewed (Chest x-ray shows some chronic interstitial changes. No acute process.) Critical Care Time Critical Care Time: Yes Total Critical Care Time: 33 Disposition Clinical Impression: SVT (supraventricular tachycardia), ARF (acute renal failure) Disposition: ADMITTED IP TO THIS HOSP Is patient prescribed a controlled substance at d/c from ED?: No Referrals: Robert Carroll DO [Primary Care Provider] - 1-2 days Decision Time: 22:29
[2021-03-19 19:22] LABS: Anisocytosis Slight; Basophils # (A) 0.1 k/uL (0-0.2); Basophils % (A) 1 %; Eosinophils # (A) 0.6 k/uL (0-0.7); Eosinophils % (A) 5 %; HCT 33.2 % (39.0-53.0); HGB 10.6 gm/dL (13.0-17.5); Hypochromasia Slight; Lymphocytes # (A) 1.1 k/uL (1.0-4.8); Lymphocytes % (A) 10 %; MCH 26.1 pg (25.0-35.0); MCHC 32.1 g/dL (31.0-37.0); MCV 81.4 fL (80.0-100.0); Mean Platelet Volume 6.8; Microcytosis Slight; Monocytes # (A) 0.6 k/uL (0-1.0); Monocytes % (A) 5 %; Neutrophils # (A) 8.7 k/uL (1.3-7.7); Neutrophils % (A) 78 %; Platelet Count 455 k/uL (150-450); RBC 4.08 m/uL (4.30-5.90); RDW 18.9 % (11.5-15.5); WBC 11.2 k/uL (3.8-10.6)
[2021-03-19 19:28] LABS: Calcium 9.4 mg/dL (8.4-10.2); Magnesium 1.7 mg/dL (1.6-2.3); Potassium 5.4 mmol/L (3.5-5.1); Total Bilirubin 0.4 mg/dL (0.2-1.3); Total Protein 8.2 g/dL (6.3-8.2)
[2021-03-19 19:45] LABS: T4, Free (Free Thyroxine) 0.95 ng/dL (0.78-2.19)
--- NOTE | 2021-03-19 20:19 | XR ---
EXAMINATION TYPE: XR chest 2V DATE OF EXAM: 03/19/2021 CLINICAL HISTORY: dysrhythmia. Chest pain. Short of breath. TECHNIQUE: Frontal and lateral view of the chest. COMPARISON: 08/10/2020 chest radiograph FINDINGS: Sternotomy wires. The cardiomediastinal silhouette is within normal limits for size. Pulmo nary vasculature is normal. Chronic interstitial coarsening. Multifocal subtle interstitial opacities bilaterally appear similar to 08/10/2020. No pleural effusion, or pneumothorax seen. Degenerative young nges of the spine. IMPRESSION: 1. No acute cardiopulmonary process. 2. Chronic interstitial changes of the lungs appear similar to 08/10/2020.
[2021-03-19 20:32] LABS: Partial Thromboplastin Time 23.9 sec (22.0-30.0); Prothrombin Time 10.4 sec (9.0-12.0)
[2021-03-19] MEDS ORDERED: HYDROmorphone 1 MG/ML 1 ML SYRINGE IVP STA (20:41)
[2021-03-19] MEDS ORDERED: ADENOSINE 3 MG/ML 2 ML VIAL IVP STA (21:00)
[2021-03-19] MEDS ORDERED: NALOXONE 0.4 MG/ML 1 ML VIAL IV PRN (22:30)
[2021-03-19] MEDS: SODIUM CHLORIDE 0.9% 1,000 ML IV SCH (23:48)
--- NOTE | 2021-03-19 23:50 | XR ---
EXAMINATION TYPE: XR KUB DATE OF EXAM: 03/19/2021 COMPARISON: NONE HISTORY: Renal failure. Abdominal pain TECHNIQUE: 2 views supine FINDINGS: There is right side nephrostomy tube. There is left side ureteral stent in uncertain locati on. This stent appears looped on itself over the left paraspinal region at the L3-4 level. There is left hip prosthesis. There is right side double-J ureteral stent which appears to be in reas onable good position. There is no sign of intestinal obstruction or pneumoperitoneum. Fecal pattern is normal. There are va scular calcifications over the left kidney. IMPRESSION: Possible malposition of the upper end of left side ureteral stent. Nonacute abdomen. IMPRESSION:
[2021-03-19] MEDS: HYDROmorphone 1 MG/ML 1 ML SYRINGE IVP PRN (23:58)
[2021-03-20 00:20] LABS: Appearance,Urine Cloudy (Clear); Bacteria,Urine Occasional /hpf; Bilirubin,Urine Negative (Negative); Blood,Urine Moderate (Negative); Color,Urine Light Yellow; Glucose,Urine (UA) Negative (Negative); Ketones,Urine Negative (Negative); Leukocyte Esterase,Urine Large (Negative); Mucus,Urine Rare /hpf; Nitrite,Urine Negative (Negative); PH, Urine 6.5 (5.0-8.0); Protein,Urine 1+ (Negative); RBC,Urine 62 /hpf (0-5); Specific Gravity,Urine 1.007 (1.001-1.035); Urobilinogen,Urine <2.0 mg/dL (<2.0); WBC,Urine >182 /hpf (0-5)
[2021-03-20] MEDS: HYDROmorphone 1 MG/ML 1 ML SYRINGE IVP PRN ×3 (03:12→13:12)
[2021-03-20 04:52] LABS: Albumin 3.4 g/dL (3.5-5.0); Calcium 8.9 mg/dL (8.4-10.2); Potassium 5.5 mmol/L (3.5-5.1); Total Bilirubin 0.3 mg/dL (0.2-1.3); Total Protein 7.3 g/dL (6.3-8.2)
[2021-03-20 05:57] LABS: Anisocytosis Slight; Basophils # (A) 0.1 k/uL (0-0.2); Basophils % (A) 1 %; Eosinophils # (A) 0.3 k/uL (0-0.7); Eosinophils % (A) 2 %; HCT 29.1 % (39.0-53.0); HGB 9.2 gm/dL (13.0-17.5); Hypochromasia Marked; Lymphocytes # (A) 0.8 k/uL (1.0-4.8); Lymphocytes % (A) 6 %; MCH 26.6 pg (25.0-35.0); MCHC 31.6 g/dL (31.0-37.0); MCV 84.1 fL (80.0-100.0); Mean Platelet Volume 6.9; Microcytosis Slight; Monocytes # (A) 0.7 k/uL (0-1.0); Monocytes % (A) 5 %; Neutrophils # (A) 11.1 k/uL (1.3-7.7); Neutrophils % (A) 85 %; Platelet Count 329 k/uL (150-450); RBC 3.46 m/uL (4.30-5.90); WBC 13.1 k/uL (3.8-10.6)
--- NOTE | 2021-03-20 07:20 | US ---
EXAMINATION TYPE: US kidneys/renal and bladder DATE OF EXAM: 03/20/2021 COMPARISON: 02/21/2021 CLINICAL HISTORY: 65 year-old male acute renal failure. Per XR report, patient has right nephrostomy tube and left ureteral stent. TECHNIQUE: Multiple sonographic kidneys and bladder are obtained. FINDINGS: EXAM MEASUREMENTS: Right Kidney: 9.9 x 5.5 x 4.5 cm Left Kidney: 9.9 x 4.7 x 4.4 cm Right Kidney: Mild pelvicaliectasis remains, slightly improved from 02/21/2021. Cyst at the lower pole measures 1.7 x 1.3 x 1.5 cm. Left Kidney: Mild left-sided hydronephrosis remains. Bladder: Partially distended but with the anterior wall thickened up to 1.5 cm. The distal end of the left-sided ureteral stent is noted. Bilateral Jets seen: No *Spleen is borderline in size at 13.6 cm in length. IMPRESSION: 1. Mild residual pelvicaliectasis/hydronephrosis on the right, slightly improved from 02/21/2021. 2. Mild hydronephrosis persists on the left, similar to prior. 3. Thickening of the anterior bladder wall up to 1.5 cm. Further clinical correlation recommended as to potential etiologies such as cystitis, chronic hypertrophy, or neoplasm. 4. Distal aspect of a left ureteral stent seen within the bladder.
--- NOTE | 2021-03-20 07:37 | P.GSCN ---
History of Present Illness Consult date: 03/20/21 History of present illness: 65-year-old gentleman who returned to the hospital for supraventricular tachycardia. The patient was in the hospital recently with a urine infection of bilateral hydronephrosis and renal failure. He has a diagnosis of rectal cancer and apparently there is surgery to be performed in the future. Dr. Israel is bilateral ureteral catheters and a right nephrostomy tube was also placed a. The patient left the hospital AGAINST MEDICAL ADVICE only to return because of the SVT. We are asked see the patient to. The patient is not having any real problems with the nephrostomy tube or the ureteral catheters. He states that he starting to pass urine. Review of Systems All systems: negative - Constitutional Denies fever, Denies weight loss - EENT Eyes: denies blurred vision Ears, nose, mouth and throat: Denies dysphagia - Cardiovascular Denies chest pain, Denies shortness of breath - Respiratory Denies cough, Denies 7 - Gastrointestinal Reports as per HPI - Genitourinary Denies dysuria, Denies hematuria - Integumentary Denies rash, Denies unusual bruising - Neurological Denies headaches, Denies syncope - Hematologic/Lymphatic Denies easy bleeding, Denies easy bruising Past Medical History Past Medical History: Coronary Artery Disease (CAD), Cancer, Heart Failure, GERD/Reflux, Hyperlipidemia, Hypertension, Osteoarthritis (OA) Additional Past Medical History / Comment(s): POSSIBLE COLITIS . COLON CANCER, TROUBLE SWALLOWING, BROKEN RT LEG IN PAST. Hepatitis C positive, History of Any Multi-Drug Resistant Organisms: None Reported Past Surgical History: Bowel Resection, Coronary Bypass/CABG, Heart C atheterization, Hernia Repair, Orthopedic Surgery Additional Past Surgical History / Comment(s): RT LEG, LT KNEE SX D/R "BROKEN KNEE CAP", PARTIAL LT HIP REPLACEMENT Past Anesthesia/Blood Transfusion Reactions: Previous Problems w/ Anesthesia Additional Past Anesthesia/Blood Transfusion Reaction / Comm: TOOK LONGER WAKING UP Past Psychological History: Depression Smoking Status: Current every day smoker Past Alcohol Use History: None Reported Past Drug Use History: Marijuana - Past Family History Mother Family Medical History: Cancer Additional Family Medical History / Comment(s): BREAST CANCER Father Family Medical History: Congestive Heart Failure (CHF), Coronary Artery Disease (CAD), Myocardial Infarction ([place]) Additional Family Medical History / Comment(s): Father of myocardial infarction in his 50s Medications and Allergies Home Medications Medication Instructions Recorded Confirmed Type Doxazosin [Cardura] 4 mg PO DAILY 08/10/20 03/19/21 History Multivitamins, Thera [Multivitamin 1 tab PO DAILY 08/10/20 03/19/21 History (formulary)] lisinopriL 40 mg PO DAILY 08/10/20 03/19/21 History Aspirin 81 mg PO DAILY #30 chewable 08/12/20 03/19/21 Rx Sodium Bicarbonate Tab 650 mg PO BID #60 tab 02/22/21 03/19/21 Rx ALPRAZolam [Xanax] 0.25 mg PO BID PRN 03/19/21 03/19/21 History Atorvastatin Calcium [Lipitor] 40 mg PO DAILY 03/19/21 03/19/21 History Calcium Acetate [Phoslo] 667 mg PO BID 03/19/21 03/19/21 History Ergocalciferol (Vitamin D2) 1,250 mcg PO MO 03/19/21 03/19/21 History [Drisdol (50,000 Iu)] Fluconazole [Diflucan] 100 mg PO DAILY 03/19/21 03/19/21 History HYDROcodone/APAP 5-325MG [[place] 1 tab PO BID PRN 03/19/21 03/19/21 History 5-325] Metoprolol Tartrate [Lopressor] 100 mg PO BID 03/19/21 03/19/21 History Tamsulosin HCl [Flomax] 0.4 mg PO DAILY 03/19/21 03/19/21 History cloNIDine HCL 0.2 mg PO HS 03/19/21 03/19/21 History Allergies Allergy/AdvReac Type Severity Reaction Status Date / Time Penicillins Allergy Rash/Hives Verified 02/17/21 19:43 Surgical - Exam Vital Signs Temp Pulse Resp BP Pulse Ox 96.9 F L 148 H 18 67/40 98 03/19/21 18:11 03/19/21 18:11 03/19/21 18:11 03/19/21 18:11 03/19/21 18:11 - General The patient is disheveled and somewhat chronically ill-appearing - Eyes PERRL - ENT no hearing loss - Respiratory normal expansion, normal respiratory effort - Abdomen Abdomen: soft, non tender - Psychiatric oriented to time, oriented to person, oriented to place, speech is normal, memory intact Results - Labs 03/20/21 04:01 03/20/21 04:01 Abnormal Lab Results - Last 24 Hours (Table) 03/19/21 03/19/21 03/19/21 Range/Units 19:02 19:02 23:06 WBC 11.2 H (3.8-10.6) k/uL RBC 4.08 L (4.30-5.90) m/uL Hgb 10.6 L (13.0-17.5) gm/dL Hct 33.2 L (39.0-53.0) % RDW 18.9 H (11.5-15.5) % Plt Count 455 H (150-450) k/uL Neutrophils # 8.7 H (1.3-7.7) k/uL Lymphocytes # (1.0-4.8) k/uL Potassium 5.4 H (3.5-5.1) mmol/L Chloride 108 H (98-107) mmol/L Carbon Dioxide 21 L (22-30) mmol/L BUN 82 H (9-20) mg/dL Creatinine 3.53 H (0.66-1.25) mg/dL Glucose 155 H (74-99) mg/dL AST 66 H (17-59) U/L Alkaline Phosphatase 185 H (38-126) U/L Albumin (3.5-5.0) g/dL Urine Protein 1+ H (Negative) Urine Blood Moderate H (Negative) Ur Leukocyte Esterase Large H (Negative) Urine RBC 62 H (0-5) /hpf Urine WBC >182 H (0-5) /hpf Urine Bacteria Occasional H (None) /hpf Urine Mucus Rare H (None) /hpf 03/20/21 03/20/21 Range/Units 04:01 04:01 WBC 13.1 H (3.8-10.6) k/uL RBC 3.46 L (4.30-5.90) m/uL Hgb 9.2 L (13.0-17.5) gm/dL Hct 29.1 L (39.0-53.0) % RDW 19.0 H (11.5-15.5) % Plt Count (150-450) k/uL Neutrophils # 11.1 H (1.3-7.7) k/uL Lymphocytes # 0.8 L (1.0-4.8) k/uL Potassium 5.5 H (3.5-5.1) mmol/L Chloride 112 H (98-107) mmol/L Carbon Dioxide 18 L (22-30) mmol/L BUN 77 H (9-20) mg/dL Creatinine 3.33 H (0.66-1.25) mg/dL Glucose 130 H (74-99) mg/dL AST (17-59) U/L Alkaline Phosphatase 157 H (38-126) U/L Albumin 3.4 L (3.5-5.0) g/dL Urine Protein (Negative) Urine Blood (Negative) Ur Leukocyte Esterase (Negative) Urine RBC (0-5) /hpf Urine WBC (0-5) /hpf Urine Bacteria (None) /hpf Urine Mucus (None) /hpf Diabetes panel 03/19/21 03/20/21 Range/Units 19: 04:01 Sodium 141 138 (137-145) mmol/L Potassium 5.4 H 5.5 H (3.5-5.1) mmol/L Chloride 108 H 112 H (98-107) mmol/L Carbon Dioxide 21 L 18 L (22-30) mmol/L BUN 82 H 77 H (9-20) mg/dL Creatinine 3.53 H 3.33 H (0.66-1.25) mg/dL Glucose 155 H 130 H (74-99) mg/dL Calcium 9.4 8.9 (8.4-10.2) mg/dL AST 66 H 49 (17-59) U/L ALT 46 36 (4-49) U/L Alkaline Phosphatase 185 H 157 H (38-126) U/L Total Protein 8.2 7.3 (6.3-8.2) g/dL Albumin 4.0 3.4 L (3.5-5.0) g/dL Thyroid panel 03/19/21 Range/Units 19:02 TSH 2.330 (0.465-4.680) mIU/L Calcium panel 03/19/21 03/20/21 Range/Units 19: 04:01 Calcium 9.4 8.9 (8.4-10.2) mg/dL Albumin 4.0 3.4 L (3.5-5.0) g/dL Pituitary panel 03/19/21 03/20/21 Range/Units 19:02 04:01 Sodium 141 138 (137-145) mmol/L Potassium 5.4 H 5.5 H (3.5-5.1) mmol/L Chloride 108 H 112 H (98-107) mmol/L Carbon Dioxide 21 L 18 L (22-30) mmol/L BUN 82 H 77 H (9-20) mg/dL Creatinine 3.53 H 3.33 H (0.66-1.25) mg/dL Glucose 155 H 130 H (74-99) mg/dL Calcium 9.4 8.9 (8.4-10.2) mg/dL TSH 2.330 (0.465-4.680) mIU/L Adrenal panel 03/19/21 03/20/21 Range/Units 19:02 04:01 Sodium 141 138 (137-145) mmol/L Potassium 5.4 H 5.5 H (3.5-5.1) mmol/L Chloride 108 H 112 H (98-107) mmol/L Carbon Dioxide 21 L 18 L (22-30) mmol/L BUN 82 H 77 H (9-20) mg/dL Creatinine 3.53 H 3.33 H (0.66-1.25) mg/dL Glucose 155 H 130 H (74-99) mg/dL Calcium 9.4 8.9 (8.4-10.2) mg/dL Total Bilirubin 0.4 0.3 (0.2-1.3) mg/dL AST 66 H 49 (17-59) U/L ALT 46 36 (4-49) U/L Alkaline Phosphatase 185 H 157 H (38-126) U/L Total Protein 8.2 7.3 (6.3-8.2) g/dL Albumin 4.0 3.4 L (3.5-5.0) g/dL - Imaging Abdominal x-ray: report reviewed, image reviewed Assessment and Plan Assessment: Impression: Supra-ventricular tachycardia, 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 Recommendations: I discussed with the patient the importance of following up with Dr. Israel to make sure the stents are changed and the nephrostomy tube dealt with in the future so that they don't become calcified. There is nothing further urologic we'll do. At this point time it does not appear that the renal function is change much with the placement of the stents. This would go more with a chronic obstruction due to the rectal carcinoma.
[2021-03-20] MEDS ORDERED: PANTOPRAZOLE 40 MG/10 ML VIAL IV SCH (09:00)
[2021-03-20] MEDS ORDERED: HYDROcodone/APAP 5-325MG 1 EACH TAB PO PRN (09:25)
[2021-03-20] MEDS ORDERED: ALPRAZolam 0.25 MG TAB PO PRN (09:25)
[2021-03-20] MEDS ORDERED: CALCIUM ACETATE 667 MG TAB PO SCH (09:30)
[2021-03-20] MEDS ORDERED: FLUCONAZOLE 100 MG TAB PO SCH (09:30)
[2021-03-20] MEDS ORDERED: MULTIVITAMINS, THERA 1 EACH TAB PO SCH (09:30)
[2021-03-20] MEDS ORDERED: ASPIRIN 81 MG PO SCH (09:30)
[2021-03-20] MEDS ORDERED: SODIUM BICARBONATE TAB 650 MG TAB PO SCH (09:30)
[2021-03-20] MEDS ORDERED: ATORVASTATIN 40 MG TAB PO SCH (09:30)
[2021-03-20] MEDS ORDERED: lisinopriL 20 MG TAB PO SCH (09:30)
[2021-03-20] MEDS ORDERED: TAMSULOSIN 0.4 MG CAP.ER.24H PO SCH (09:30)
[2021-03-20] MEDS: DOXAZOSIN 4 MG TAB PO SCH ×2 (10:05→10:06)
--- NOTE | 2021-03-20 10:41 | P.CRDCN ---
History of Present Illness Consult date: 03/20/21 Chief complaint: Palpitation History of present illness: This is a very pleasant 65-year-old gentleman with a past medical history significant for coronary artery disease and prior coronary artery bypass grafting, SVT and status post ablation, hypertension, dyslipidemia, history of chronic kidney disease, as well as a recent diagnosis of rectal cancer presented again to the emergency department complaining of palpitation and heart racing. The patient was admitted recently to [facility] with UTI and he was diagnosed with bilateral hydronephrosis. He was seen by the urology service and at that point he underwent bilateral ureteral catheter and the right nephrostomy she will replacement. He was also found to be in heart failure and he was started on diuretics. Unfortunately he was discharged AGAINST MEDICAL ADVICE. He stated that for the last 24 hours he has been experiencing symptoms of heart racing/fluttering associated with dizziness but no presyncope or syncope. No symptoms of chest pain or chest discomfort or shortness of breath. He stated that he has been seen by a visiting nurse and he was told "don't take these medication". So unfortunately the patient was not taking any of the AV jackson lenoor agents including metoprolol tartrate at 100 mg by mouth daily. Because of the heart racing and fluttering he decided to come to the emergency department where he was found to be in narrow complex tachycardia consistent with SVT. Carotid massage was performed and the patient converted to normal sinus mechanism. He has been maintaining normal sinus mechanism. I'm going to start him on Toprol-XL at 25 mg by mouth daily. At home he was on metoprolol tartrate at 100 mg by mouth twice a day but today his pressure has been marginal. I will hold lisinopril at this point. Otherwise I would continue and restart him back on the rest of his medications. His creatinine is elevated. Potassium is also borderline elevated. Chest x-ray showed chronic changes with cardiomegaly. He also was seen by the urology service and an ultrasound was performed and showed bilateral hydronephrosis. Past Medical History Past Medical History: Coronary Artery Disease (CAD), Cancer, Heart Failure, GERD/Reflux, Hyperlipidemia, Hypertension, Osteoarthritis (OA) Additional Past Medical History / Comment(s): POSSIBLE COLITIS . COLON CANCER, TROUBLE SWALLOWING, BROKEN RT LEG IN PAST. Hepatitis C positive, History of Any Multi-Drug Resistant Organisms: None Reported Past Surgical History: Bowel Resection, Coronary Bypass/CABG, Heart Catheterization, Hernia Repair, Orthopedic Surgery Additional Past Surgical History / Comment(s): RT LEG, LT KNEE SX D/R "BROKEN KNEE CAP", PARTIAL LT HIP REPLACEMENT Past Anesthesia/Blood Transfusion Reactions: Previous Problems w/ Anesthesia Additional Past Anesthesia/Blood Transfusion Reaction / Comment(s): TOOK LONGER WAKING UP Past Psychological History: Depression Smoking Status: Current every day smoker Past Alcohol Use History: None Reported Past Drug Use History: Marijuana - Past Family History Mother Family Medical History: Cancer Additional Family Medical History / Comment(s): BREAST CANCER Father Family Medical History: Congestive Heart Failure (CHF), Coronary Artery Disease (CAD), Myocardial Infarction ([place]) Additional Family Medical History / Comment(s): Father of myocardial infarction in his 50s Medications and Allergies Home Medications Medication Instructions Recorded Confirmed Type Doxazosin [Cardura] 4 mg PO DAILY 08/10/20 03/19/21 History Multivitamins, Thera [Multivitamin 1 tab PO DAILY 08/10/20 03/19/21 History (formulary)] lisinopriL 40 mg PO DAILY 08/10/20 03/19/21 History Aspirin 81 mg PO DAILY #30 chewable 08/12/20 03/19/21 Rx Sodium Bicarbonate Tab 650 mg PO BID #60 tab 02/22/21 03/19/21 Rx ALPRAZolam [Xanax] 0.25 mg PO BID PRN 03/19/21 03/19/21 History Atorvastatin Calcium [Lipitor] 40 mg PO DAILY 03/19/21 03/19/21 History Calcium Acetate [Phoslo] 667 mg PO BID 03/19/21 03/19/21 History Ergocalciferol (Vitamin D2) 1,250 mcg PO MO 03/19/21 03/19/21 History [Drisdol (50,000 Iu)] Fluconazole [Diflucan] 100 mg PO DAILY 03/19/21 03/19/21 History HYDROcodone/APAP 5-325MG [[place] 1 tab PO BID PRN 03/19/21 03/19/21 History 5-325] Metoprolol Tartrate [Lopressor] 100 mg PO BID 03/19/21 03/19/21 History Tamsulosin HCl [Flomax] 0.4 mg PO DAILY 03/19/21 03/19/21 History cloNIDine HCL 0.2 mg PO HS 03/19/21 03/19/21 History Allergies Allergy/AdvReac Type Severity Reaction Status Date / Time Penicillins Allergy Rash/Hives Verified 02/17/21 19:43 Physical Exam Vitals: Vital Signs Temp Pulse Resp BP Pulse Ox 03/20/21 10:13 83 16 109/68 97 03/20/21 09:15 84 03/20/21 08:42 140 H 19 97/62 97 03/20/21 06:45 145 H 98 03/20/21 06:20 97/64 03/20/21 01:00 82 18 113/83 98 03/19/21 22:05 80 18 114/64 98 03/19/21 21:00 78 18 111/66 98 03/19/21 20:19 134 H 99/66 98 03/19/21 20:00 135 H 18 92/64 98 03/19/21 18:36 140 H 20 103/60 97 03/19/21 18:11 96.9 F L 148 H 18 67/40 98 Intake and Output 03/19/21 03/20/21 03/20/21 22:59 06:59 14:59 Other: Weight 59.874 kg - Constitutional General appearance: no acute distress - Respiratory Respiratory: bilateral: diminished - Cardiovascular Rhythm: regular Heart sounds: normal: S1, S2 Results 03/20/21 04:01 03/20/21 04:01 Cardiac Enzymes 03/19/21 03/19/21 03/20/21 Range/Units 19:02 19:02 04:01 AST 66 H 49 (17-59) U/L Troponin I 0.013 (0.000-0.034) ng/mL Coagulation 03/19/21 Range/Units 19:02 PT 10.4 (9.0-12.0) sec APTT 23.9 (22.0-30.0) sec CBC 03/19/21 03/20/21 Range/Units 19:02 04:01 WBC 11.2 H 13.1 H (3.8-10.6) k/uL RBC 4.08 L 3.46 L (4.30-5.90) m/uL Hgb 10.6 L 9.2 L (13.0-17.5) gm/dL Hct 33.2 L 29.1 L (39.0-53.0) % Plt Count 455 H 329 (150-450) k/uL Comprehensive Metabolic Panel 03/19/21 03/20/21 Range/Units 19:02 04:01 Sodium 141 138 (137-145) mmol/L Potassium 5.4 H 5.5 H (3.5-5.1) mmol/L Chloride 108 H 112 H (98-107) mmol/L Carbon Dioxide 21 L 18 L (22-30) mmol/L BUN 82 H 77 H (9-20) mg/dL Creatinine 3.53 H 3.33 H (0.66-1.25) mg/dL Glucose 155 H 130 H (74-99) mg/dL Calcium 9.4 8.9 (8.4-10.2) mg/dL AST 66 H 49 (17-59) U/L ALT 46 36 (4-49) U/L Alkaline Phosphatase 185 H 157 H (38-126) U/L Total Protein 8.2 7.3 (6.3-8.2) g/dL Albumin 4.0 3.4 L (3.5-5.0) g/dL Current Medications Generic Name Dose Route Start Last Admin Trade Name Freq PRN Reason Stop Dose Admin Hydrocodone Bitart/Acetaminophen 1 each 03/20/21 09:25 Hydrocodone/Apap 5-325mg 1 Each Tab PO BID PRN Pain Alprazolam 0.25 mg 03/20/21 09:25 Alprazolam 0.25 Mg Tab PO BID PRN Anxiety Aspirin 81 mg 03/20/21 09:30 03/20/21 10:06 Aspirin 81 Mg PO 81 mg DAILY SOM Administration Atorvastatin Calcium 40 mg 03/20/21 09:30 03/20/21 10:06 Atorvastatin 40 Mg Tab PO 40 mg DAILY SOM Administration Calcium Acetate 667 mg 03/20/21 09:30 03/20/21 10:06 Calcium Acetate 667 Mg Tab PO 667 mg BID SOM Administration Clonidine 0.2 mg 03/20/21 21:00 Clonidine Hcl 0.2 Mg Tab PO HS SOM Doxazosin Mesylate 4 mg 03/20/21 09:30 03/20/21 10:06 Doxazosin 4 Mg Tab PO 4 mg DAILY SOM Administration Ergocalciferol 1,250 mcg 03/26/21 09:00 Ergocalciferol 1,250 Mcg (50,000 Iu) Capsule PO MO SOM Fluconazole 100 mg 03/20/21 09:30 03/20/21 10:07 Fluconazole 100 Mg Tab PO 100 mg DAILY SOM Administration Hydromorphone HCl 1 mg 03/19/21 22:30 03/20/21 06:20 Hydromorphone 1 Mg/Ml 1 Ml Syringe IVP 1 mg Q3HR PRN Administration Severe Pain Sodium Chloride 1,000 mls @ 120 mls/hr 03/19/21 22:30 03/19/21 23:48 Saline 0.9% IV Not Given .Q8H20M SOM Ceftriaxone Sodium 1 gm/ 50 mls @ 100 mls/hr 03/20/21 10:15 Sodium Chloride IVPB Q24HR SOM Metoprolol Succinate 25 mg 03/21/21 09:00 Metoprolol Succinate (Er) 25 Mg Tab.Er.24h PO DAILY SOM Multivitamins 1 each 03/20/21 09:30 03/20/21 10:06 Multivitamins, Thera 1 Each Tab PO 1 each DAILY SOM Administration Naloxone HCl 0.2 mg 03/19/21 22:30 Naloxone 0.4 Mg/Ml 1 Ml Vial IV Q2M PRN Opioid Reversal Pantoprazole Sodium 40 mg 03/20/21 09:00 03/20/21 10:07 Pantoprazole 40 Mg/10 Ml Vial IV 40 mg DAILY SOM Administration Sodium Bicarbonate 650 mg 03/20/21 09:30 03/20/21 10:07 Sodium Bicarbonate Tab 650 Mg Tab PO 650 mg BID SOM Administration Tamsulosin HCl 0.4 mg 03/20/21 09:30 03/20/21 10:06 Tamsulosin 0.4 Mg Cap.Er.24h PO 0.4 mg DAILY SOM Administration Intake and Output 03/19/21 03/20/21 03/20/21 22:59 06:59 14:59 Other: Weight 59.874 kg 03/20/21 04:01 03/20/21 04:01 Assessment and Plan Assessment: Assessment #1 SVT and the patient converted to normal sinus mechanism #2 coronary artery disease seems to be stable #3 chronic renal failure #4 status post right nephrostomy #5 rectal cancer #6 multiple comorbid conditions Plan #1 hold the lisinopril in view of the margin a low blood pressure #2 start the patient on Toprol-XL at 25 mg by mouth daily #3 monitor the kidney function and electrolytes #4 avoid any nephrotoxic medication #5 avoid any potassium supplement #6 obtain an echocardiogram Follow-up with the patient
--- NOTE | 2021-03-20 13:00 | ECHOF ---
Referral Reason:hypotension MEASUREMENTS -------- HEIGHT: 175.3 cm WEIGHT: 59.9 kg BP: 112/68 RVIDd: 3.4 cm (< 3.3) IVSd: 1.5 cm (0.6 - 1.1) LVIDd: 5.0 cm (3.9 - 5.3) LVPWd: 1.5 cm (0.6 - 1.1) IVSs: 2.0 cm LVIDs: 3.9 cm LVPWs: 1.6 cm LA Diam: 4.8 cm (2.7 - 3.8) LAESV Index (A-L): 68.69 ml/m Ao Diam: 3.8 cm (2.0 - 3.7) AV Cusp: 1.9 cm (1.5 - 2.6) MV EXCURSION: 18.742 mm (> 18.000) MV EF SLOPE: 49 mm/s (70 - 150) EPSS: 1.5 cm MV E Saroj: 1.32 m/s MV DecT: 148 ms MV A Saroj: 0.90 m/s MV E/A Ratio: 1.47 RAP: 5.00 mmHg RVSP: 30.01 mmHg FINDINGS -------- Sinus rhythm. This was a technically good study. The left ventricular size is normal. There is moderate concentric left ventricular hypertrophy. O verall left ventricular systolic function is mild-moderately impaired with, an EF between 40 - 45 %. Basal inferior LV wall motion is hypokinetic. Basal inferoseptal LV wall motion is hypokinetic. The right ventricle is mildly enlarged. LA is severely dilated >40 ml/m2 The right atrium is normal in size. Interatrial and interventricular septum intact. Aortic valve is trileaflet and is mildly thickened. The mitral valve leaflets are mildly thickened. Mild mitral annular calcification present. Modera te mitral regurgitation is present. Mild tricuspid regurgitation present. Right ventricular systolic pressure is normal at < 35 mmHg. Trace/mild (physiologic) pulmonic regurgitation. The aortic root is dilated measuring 3.8cm. Normal inferior vena cava with normal inspiratory collapse consistent with estimated right atrial pre ssure of 5 mmHg. There is no pericardial effusion. CONCLUSIONS -------- 1. The left ventricular size is normal. 2. There is moderate concentric left ventricular hypertrophy. 3. Overall left ventricular systolic function is mild-moderately impaired with, an EF between 40 - 45 %. 4. Basal inferior LV wall motion is hypokinetic. 5. Basal inferoseptal LV wall motion is hypokinetic. 6. The right ventricle is mildly enlarged. 7. LA is severely dilated >40 ml/m2 8. Aortic valve is trileaflet and is mildly thickened. 9. The mitral valve leaflets are mildly thickened. 10. Mild mitral annular calcification present. 11. Moderate mitral regurgitation is present. 12. Mild tricuspid regurgitation present. 13. Trace/mild (physiologic) pulmonic regurgitation. 14. The aortic root is dilated measuring 3.8cm. 15. There is no pericardial effusion. MODELING AGENT: Mandy Domingo RDCS
[2021-03-20] MEDS: SODIUM CHLORIDE 0.9% 1,000 ML IV SCH (13:10)
[2021-03-20 16:57] VITALS: BP 119/64; PULSE 75; RESP 18; TEMP 97.7
[2021-03-20] MEDS ORDERED: cloNIDine HCL 0.2 MG TAB PO SCH (21:00)
--- NOTE | 2021-03-20 22:07 | P.CONS ---
History of Present Illness - Reason for Consult Consult date: 03/20/21 Oncologic Care Requesting physician: Kunal Valdes - Chief Complaint Palpitations and dizziness - History of Present Illness Pleasant WM presenting with h/o loose stools, bleeding in the stool, appetite and wt loss ( 15-16 lbs) over 5-7 weeks. He was seen by Dr Liz and had a colonoscopy on 06/26 with detection of a near obstructing mass in the rectosigmoid area. He had a CT which revealed no evidence of metastatic disease. He had resection on 07/13/12 with a good post-op course. The pathology was consistent with a T2N0 rectal cancer. The pt completed adjuvant chemo-radiation with Xeloda in 09/11. patient also had a history of chronic hepatitis C, specifically no megaly, as well as history of prostate cancer. as above the patient was last seen in the office in 12/[address] scans at that time revealing no evidence of metastatic disease. He was then placed on surveillance with recommendation for periodic office visits and scans, as well as colonoscopies. However he did not follow-up in the office after 12/13. -The patient was referre in 12/21, and seen on 12/26/20. It appears that follow- up in general after his last visit here has been somewhat spotty. He did have CT scans done in 2015 that were negative. The patient states that in March 2020 he developed persistent loose bowel movements, along with abdominal cramping involving the entire abdomen, as well as the perianal area. Symptoms were slowly progressive in nature. There appeared to be worsened by eating. He lost about 40 pounds in weight. He ultimately sought attention for the same, and had a scope in 11/10/20. This showed anastomotic stricture about 3-4 cm from the anal worse. A pediatric scope was advanced beyond that until about 20 cm, but could not be advance further. With an upper endoscope, the colon was evaluated up to the hepatic flexure but not further. And the biopsies were done from the descending and transverse colon. As to how to stricture was located from about 3 cm up in about 70 cm from the anal verge. Mucosa was quite friable around 7 cm from anal verge which was biopsied. There was also evidence of severe scarring in the distal rectum consistent with radiation proctitis. Biopsies from the hepatic flexure and descending colon were negative. Biopsy from 15 cm showed also an inflamed granulation tissue. Biopsy from the 7 cm I will area did show evidence of adenocarcinoma in a background of inflammation. The patient had a PET scan on 11/18/21 that showed abnormal uptake in the surgical bed in the rectosigmoid 11 with SUV of 6.2. There was a lung nodule, 8-9 mm in the left upper lobe with SUV of only 0.74. Bilateral hydronephrosis was seen. There was some uptake along the right colon that is felt to be physiologic. CT of the abdomen and pelvis in 09/19 had shown moderate bilateral hydronephrosis and hydroureter. There was some splenic enlargement at 16 cm. Echocardiogram in 09/19 had showed normal LV function and mild to moderate TR, and moderate MR. CT anterior chest in 08/20 had shown a nonspecific left upper lobe nodule and no evidence of PE. CT of the brain and C-spine 08/20 was consistent with mild cerebral atrophy and a small lacunar infarct in the anterior left IC He was last seen by Dr. Mina in December to this year and at that time: the patient is being seen for a new diagnosis of adenocarcinoma in the region of the anastomotic stricture in his distal rectum. He is having symptoms associated with the same. PET scan did not show any obvious evidence of metastatic disease. - The pathology, the results of imaging studies, and implications were discussed in detail. Patient was advised that in the absence of obvious metastatic disease, usually the treatment for rectal cancer would include additional local staging with pelvic MRI or EUS, followed by chemoradiation for locally advanced disease and then surgery. However in this patient, it is highly unlikely that he will be candidate for any additional conventional radiation given the site of recurrence. This was discussed with the surgical service and with GI. In this situation it is most appropriate that he be evaluated for surgical resection. - The patient was quite anxious to avoid a colostomy. It was discussed with him that this may not be possible with surgery in his situation, given his prior treatments, and the location of the recurrence. He has been referred to colorectal surgery, Dr. Lucio, with appointment scheduled for 01/01/21. We will await his opinion. - There is some concern for locally advanced disease given development of bilateral hydronephrosis. This, however, could also be due to progressive fibrosis. Check labs today, including CBC, CMP, CEA and iron studies. Patient thinks that he has been referred to a "kidney doctor". I will check to ensure that he has had an urology referral. the patient is found to have low iron stores, he will be supplemented with IV iron. - If there is concern for locally disease that could preclude upfront surgery, then we will need to discuss with colorectal surgery about cytoreduction with chemotherapy alone, or potential for utilizing proton beam radiation. - Case was also discussed with radiation oncology, to review that her prior treatment thompson and confirm if the patient can receive any further conventional IMR T or not. we will let me know after reviewing their records. He has not followed up in office since this time. He was apparently admitted recently to [facility] with UTI and bilateral hydronephrosis. He was seen by the urology service bilateral ureteral catheter and the right nephrostomy. He was also found to be in heart failure, although he left hospital against medical advice. He now presents to [facility] with symptoms of palpitations and associated dizziness. He has not been adherent to his prescribed medications at home, he states is because his visiting nurse told him not to take them. On admission he was tachycardic/SVT. Cardiology has seen and evaluated patient. Chest x-ray showed chronic changes with cardiomegaly. He also was seen by the urology service and an ultrasound was performed and showed bilateral h Review of Systems All systems: negative Constitutional: Reports as per HPI Past Medical History Past Medical History: Coronary Artery Disease (CAD), Cancer, Heart Failure, GERD/Reflux, Hyperlipidemia, Hypertension, Osteoarthritis (OA) Additional Past Medical History / Comment(s): POSSIBLE COLITIS . COLON CANCER, TROUBLE SWALLOWING, BROKEN RT LEG IN PAST. Hepatitis C positive, History of Any Multi-Drug Resistant Organisms: None Reported Past Surgical History: Bowel Resection, Coronary Bypass/CABG, Heart Cathete rization, Hernia Repair, Orthopedic Surgery Additional Past Surgical History / Comment(s): RT LEG, LT KNEE SX D/R "BROKEN KNEE CAP", PARTIAL LT HIP REPLACEMENT Past Anesthesia/Blood Transfusion Reactions: Previous Problems w/ Anesthesia Additional Past Anesthesia/Blood Transfusion Reaction / Comm: TOOK LONGER WAKING UP Past Psychological History: Depression Smoking Status: Current every day smoker Past Alcohol Use History: None Reported Past Drug Use History: Marijuana - Past Family History Mother Family Medical History: Cancer Additional Family Medical History / Comment(s): BREAST CANCER Father Family Medical History: Congestive Heart Failure (CHF), Coronary Artery Disease (CAD), Myocardial Infarction ([place]) Additional Family Medical History / Comment(s): Father of myocardial infarction in his 50s Medications and Allergies Home Medications Medication Instructions Recorded Confirmed Type Doxazosin [Cardura] 4 mg PO DAILY 08/10/20 03/19/21 History Multivitamins, Thera [Multivitamin 1 tab PO DAILY 08/10/20 03/19/21 History (formulary)] lisinopriL 40 mg PO DAILY 08/10/20 03/19/21 History Aspirin 81 mg PO DAILY #30 chewable 08/12/20 03/19/21 Rx Sodium Bicarbonate Tab 650 mg PO BID #60 tab 02/22/21 03/19/21 Rx ALPRAZolam [Xanax] 0.25 mg PO BID PRN 03/19/21 03/19/21 History Atorvastatin Calcium [Lipitor] 40 mg PO DAILY 03/19/21 03/19/21 History Calcium Acetate [PhosLo] 667 mg PO BID 03/19/21 03/19/21 History Ergocalciferol (Vitamin D2) 1,250 mcg PO MO 03/19/21 03/19/21 History [Drisdol (50,000 Iu)] Fluconazole [Diflucan] 100 mg PO DAILY 03/19/21 03/19/21 History HYDROcodone/APAP 5-325MG [Newberry 1 tab PO BID PRN 03/19/21 03/19/21 History 5-325] Tamsulosin HCl [Flomax] 0.4 mg PO DAILY 03/19/21 03/19/21 History cloNIDine HCL 0.2 mg PO HS 03/19/21 03/19/21 History Metoprolol Succinate (ER) [Toprol 25 mg PO DAILY #30 tab.er.24h 03/20/21 Rx XL] Allergies Allergy/AdvReac Type Severity Reaction Status Date / Time Penicillins Allergy Rash/Hives Verified 02/17/21 19:43 Physical Exam Vitals: Vital Signs Temp Pulse Resp BP Pulse Ox 03/20/21 11:59 97.9 F 84 16 118/83 99 03/20/21 10:13 83 16 109/68 97 03/20/21 09:15 84 03/20/21 08:42 140 H 19 97/62 97 03/20/21 06:45 145 H 98 03/20/21 06:20 97/64 03/20/21 01:00 82 18 113/83 98 03/19/21 22:05 80 18 114/64 98 03/19/21 21:00 78 18 111/66 98 03/19/21 20:19 134 H 99/66 98 03/19/21 20:00 135 H 18 92/64 98 03/19/21 18:36 140 H 20 103/60 97 03/19/21 18:11 96.9 F L 148 H 18 67/40 98 Intake and Output 03/19/21 03/20/21 03/20/21 22:59 06:59 14:59 Other: Weight 59.874 kg Chronically ill appearing - Constitutional General appearance: cooperative - EENT Eyes: poor dentition ENT: hard of hearing, NA/AT - Respiratory Respiratory: bilateral: diminished, wheezing (expiratory) - Cardiovascular Rhythm: irregularly irregular - Gastrointestinal General gastrointestinal: soft - Integumentary Integumentary: pale - Musculoskeletal Musculoskeletal: generalized weakness - Psychiatric Psychiatric: A&O x's 3, appropriate affect Results CBC & Chem 7: 03/20/21 04:01 03/20/21 04:01 Labs: Abnormal Lab Results - Last 24 Hours (Table) 03/19/21 03/19/21 03/19/21 Range/Units 19:02 19:02 23:06 WBC 11.2 H (3.8-10.6) k/uL RBC 4.08 L (4.30-5.90) m/uL Hgb 10.6 L (13.0-17.5) gm/dL Hct 33.2 L (39.0-53.0) % RDW 18.9 H (11.5-15.5) % Plt Count 455 H (150-450) k/uL Neutrophils # 8.7 H (1.3-7.7) k/uL Lymphocytes # (1.0-4.8) k/uL Potassium 5.4 H (3.5-5.1) mmol/L Chloride 108 H (98-107) mmol/L Carbon Dioxide 21 L (22-30) mmol/L BUN 82 H (9-20) mg/dL Creatinine 3.53 H (0.66-1.25) mg/dL Glucose 155 H (74-99) mg/dL AST 66 H (17-59) U/L Alkaline Phosphatase 185 H (38-126) U/L Albumin (3.5-5.0) g/dL Urine Protein 1+ H (Negative) Urine Blood Moderate H (Negative) Ur Leukocyte Esterase Large H (Negative) Urine RBC 62 H (0-5) /hpf Urine WBC >182 H (0-5) /hpf Urine Bacteria Occasional H (None) /hpf Urine Mucus Rare H (None) /hpf 03/20/21 03/20/21 Range/Units 04:01 04:01 WBC 13.1 H (3.8-10.6) k/uL RBC 3.46 L (4.30-5.90) m/uL Hgb 9.2 L (13.0-17.5) gm/dL Hct 29.1 L (39.0-53.0) % RDW 19.0 H (11.5-15.5) % Plt Count (150-450) k/uL Neutrophils # 11.1 H (1.3-7.7) k/uL Lymphocytes # 0.8 L (1.0-4.8) k/uL Potassium 5.5 H (3.5-5.1) mmol/L Chloride 112 H (98-107) mmol/L Carbon Dioxide 18 L (22-30) mmol/L BUN 77 H (9-20) mg/dL Creatinine 3.33 H (0.66-1.25) mg/dL Glucose 130 H (74-99) mg/dL AST (17-59) U/L Alkaline Phosphatase 157 H (38-126) U/L Albumin 3.4 L (3.5-5.0) g/dL Urine Protein (Negative) Urine Blood (Negative) Ur Leukocyte Esterase (Negative) Urine RBC (0-5) /hpf Urine WBC (0-5) /hpf Urine Bacteria (None) /hpf Urine Mucus (None) /hpf Microbiology - Last 24 Hours (Table) 03/19/21 23:06 Urine Culture - Preliminary Urine,Voided Assessment and Plan Plan: Bilateral Hydronephrosis: - Urology FOllowing SVT/Symptomatic Palpitations: - Cardiology Following Adenocarcinoma at site of anastamosis: - He is to follow-up with Dr. ALamo He has "no showed" or canncelled last two appointments. We will request records from [facility] and attempt to schedule follow-up regarding this recurrence and recommendations to follow. Physician Attest; I have completed the full history and physical and agree with above dictation, dictated as a ascribe
--- NOTE | 2021-03-20 23:55 | P.HPIM ---
History of Present Illness H&P Date: 03/20/21 Chief Complaint: Palpitations. Mr. Jimenes is a 65-year-old male with a past medical history of coronary artery disease, hypertension, hyperlipidemia, colon cancer, hepatitis C and recent bilateral ureteral stent placement on 02/20/2021 presents to ER with complaints of palpitations. Patient was complaining of palpitations 2 hours prior to hospital arrival. Associate with shortness of breath and mild cough. Patient was recently admitted to the hospital due to ureteral infection, infection and was placed on urostomy tube. Patient is currently on antibiotic course with daptomycin. Patient does have a history of colon cancer and rectal cancer is scheduled for surgery as an outpatient. Patient denies any fever or chills. No headache or dizziness or lightheadedness. Patient was admitted to the hospital from 02/17/2021 to 02/22/2021.Patient had a colonoscopy done by Dr. Mccarty on 11/10/2020 showing severe friability of the mucosa in the rectal anastomosis stricture and biopsies revealing adenocarcinoma.patient's CT of the abdomen showing bilateral nephrosis, urology did put in bilateral ureteral stents on 02/20/2021. Postop patient's creatinine remained between 2-3. Patient left AGAINST MEDICAL ADVICE during previous admission. Chest x-ray showed no acute cardiopulmonary process. Chronic interstitial changes of the lung apices similar. EKG showed supraventricular tachycardia Ultrasound abdomen showed mild residual pelvicalyceal ectasis, hydronephrosis on the right slightly improved from 02/21/2021 Mild hydronephrosis persists on the left. Thickening of the anterior bladder wall up to 1.5 cm. Distal aspect of the left ureteral stent seen. Within the bladder. KUB x-ray showed possible malposition of the upper end of the left side ureteral stent. Laboratory data WBC 11.2 hemoglobin 10.6 and platelets 435 sodium 141, potassium 5.4, BUN of 82 and creatinine 3.53 AST 66 ALT 46 alk phos 195 proBNP 6360 TSH 2.3 and urinalysis showed large leuk esterase elevated RBCs and WBCs. COVID-19 PCR not detected. Review of Systems Constitutional: Patient denies any fever or chills . No generalized weakness or weight loss. Abdomen: Patient denied nausea vomiting and diarrhea and abdominal pain. Palpitations Cardiovascular: Patient denies any chest pain or short of breath no palpitations. Respiratory: patient denied any cough or sputum production. No shortness of breath Neurologic: Patient denied any numbness or tingling headache. Musculoskeletal: Patient denies any complaints of joint swelling or deformity. Skin: Negative Psychiatric: Negative Endocrine: No heat or cold intolerance. No recent weight gain. Genitourinary: No dysuria or hematuria. All other 14 point ROS negative except the above Past Medical History Past Medical History: Coronary Artery Disease (CAD), Cancer, Heart Failure, GERD/Reflux, Hyperlipidemia, Hypertension, Osteoarthritis (OA) Additional Past Medical History / Comment(s): POSSIBLE COLITIS . COLON CANCER, TROUBLE SWALLOWING, BROKEN RT LEG IN PAST. Hepatitis C positive, History of Any Multi-Drug Resistant Organisms: None Reported Past Surgical History: Bowel Resection, Coronary Bypass/CABG, Heart Catheterization, Hernia Repair, Orthopedic Surgery Additional Past Surgical History / Comment(s): RT LEG, LT KNEE SX D/R "BROKEN KNEE CAP", PARTIAL LT HIP REPLACEMENT Past Anesthesia/Blood Transfusion Reactions: Previous Problems w/ Anesthesia Additional Past Anesthesia/Blood Transfusion Reaction / Comment(s): TOOK LONGER WAKING UP Past Psychological History: Depression Smoking Status: Current every day smoker Past Alcohol Use History: None Reported Past Drug Use History: Marijuana - Past Family History Mother Family Medical History: Cancer Additional Family Medical History / Comment(s): BREAST CANCER Father Family Medical History: Congestive Heart Failure (CHF), Coronary Artery Disease (CAD), Myocardial Infarction ([place]) Additional Family Medical History / Comment(s): Father of myocardial infarction in his 50s Medications and Allergies Home Medications Medication Instructions Recorded Confirmed Type Doxazosin [Cardura] 4 mg PO DAILY 08/10/20 03/19/21 History Multivitamins, Thera [Multivitamin 1 tab PO DAILY 08/10/20 03/19/21 History (formulary)] lisinopriL 40 mg PO DAILY 08/10/20 03/19/21 History Aspirin 81 mg PO DAILY #30 chewable 08/12/20 03/19/21 Rx Sodium Bicarbonate Tab 650 mg PO BID #60 tab 02/22/21 03/19/21 Rx ALPRAZolam [Xanax] 0.25 mg PO BID PRN 03/19/21 03/19/21 History Atorvastatin Calcium [Lipitor] 40 mg PO DAILY 03/19/21 03/19/21 History Calcium Acetate [PhosLo] 667 mg PO BID 03/19/21 03/19/21 History Ergocalciferol (Vitamin D2) 1,250 mcg PO MO 03/19/21 03/19/21 History [Drisdol (50,000 Iu)] Fluconazole [Diflucan] 100 mg PO DAILY 03/19/21 03/19/21 History HYDROcodone/APAP 5-325MG [Coyote 1 tab PO BID PRN 03/19/21 03/19/21 History 5-325] Tamsulosin HCl [Flomax] 0.4 mg PO DAILY 03/19/21 03/19/21 History cloNIDine HCL 0.2 mg PO HS 03/19/21 03/19/21 History Metoprolol Succinate (ER) [Toprol 25 mg PO DAILY #30 tab.er.24h 03/20/21 Rx XL] Allergies Allergy/AdvReac Type Severity Reaction Status Date / Time Penicillins Allergy Rash/Hives Verified 02/17/21 19:43 Physical Exam Vitals: Vital Signs Temp Pulse Resp BP Pulse Ox 03/20/21 08:42 140 H 19 97/62 97 03/20/21 06:45 145 H 98 03/20/21 06:20 97/64 03/20/21 01:00 82 18 113/83 98 03/19/21 22:05 80 18 114/64 98 03/19/21 21:00 78 18 111/66 98 03/19/21 20:19 134 H 99/66 98 03/19/21 20:00 135 H 18 92/64 98 03/19/21 18:36 140 H 20 103/60 97 03/19/21 18:11 96.9 F L 148 H 18 67/40 98 Intake and Output 03/19/21 03/20/21 03/20/21 22:59 06:59 14:59 Other: Weight 59.874 kg GENERAL: The patient is alert and oriented x3, not in any acute distress. Emaciated HEENT: Pupils are round and equally reacting to light. EOMI. No scleral icterus. Does have conjunctival pallor. CARDIOVASCULAR: S1 and S2 present. No murmurs, rubs, or gallops. PULMONARY: Chest is clear to auscultation, no wheezing or crackles. ABDOMEN: Soft, tenderness in the lower abdomen, nondistended, normoactive bowel sounds.Nephrostomy tubes in place. MUSCULOSKELETAL: No joint swelling or deformity. EXTREMITIES: No cyanosis, clubbing, or pedal edema. NEUROLOGICAL: Gross neurological examination did not reveal any focal deficits. SKIN: No rashes. Intact. Results CBC & Chem 7: 03/20/21 04:01 03/20/21 04:01 Labs: Abnormal Lab Results - Last 24 Hours (Table) 03/19/21 03/19/21 03/19/21 Range/Units 19:02 19:02 23:06 WBC 11.2 H (3.8-10.6) k/uL RBC 4.08 L (4.30-5.90) m/uL Hgb 10.6 L (13.0-17.5) gm/dL Hct 33.2 L (39.0-53.0) % RDW 18.9 H (11.5-15.5) % Plt Count 455 H (150-450) k/uL Neutrophils # 8.7 H (1.3-7.7) k/uL Lymphocytes # (1.0-4.8) k/uL Potassium 5.4 H (3.5-5.1) mmol/L Chloride 108 H (98-107) mmol/L Carbon Dioxide 21 L (22-30) mmol/L BUN 82 H (9-20) mg/dL Creatinine 3.53 H (0.66-1.25) mg/dL Glucose 155 H (74-99) mg/dL AST 66 H (17-59) U/L Alkaline Phosphatase 185 H (38-126) U/L Albumin (3.5-5.0) g/dL Urine Protein 1+ H (Negative) Urine Blood Moderate H (Negative) Ur Leukocyte Esterase Large H (Negative) Urine RBC 62 H (0-5) /hpf Urine WBC >182 H (0-5) /hpf Urine Bacteria Occasional H (None) /hpf Urine Mucus Rare H (None) /hpf 03/20/21 03/20/21 Range/Units 04:01 04:01 WBC 13.1 H (3.8-10.6) k/uL RBC 3.46 L (4.30-5.90) m/uL Hgb 9.2 L (13.0-17.5) gm/dL Hct 29.1 L (39.0-53.0) % RDW 19.0 H (11.5-15.5) % Plt Count (150-450) k/uL Neutrophils # 11.1 H (1.3-7.7) k/uL Lymphocytes # 0.8 L (1.0-4.8) k/uL Potassium 5.5 H (3.5-5.1) mmol/L Chloride 112 H (98-107) mmol/L Carbon Dioxide 18 L (22-30) mmol/L BUN 77 H (9-20) mg/dL Creatinine 3.33 H (0.66-1.25) mg/dL Glucose 130 H (74-99) mg/dL AST (17-59) U/L Alkaline Phosphatase 157 H (38-126) U/L Albumin 3.4 L (3.5-5.0) g/dL Urine Protein (Negative) Urine Blood (Negative) Ur Leukocyte Esterase (Negative) Urine RBC (0-5) /hpf Urine WBC (0-5) /hpf Urine Bacteria (None) /hpf Urine Mucus (None) /hpf Thrombosis Risk Factor Assmnt - DVT/VTE Prophylaxis DVT/VTE Prophylaxis: Pharmacologic Prophylaxis ordered Assessment and Plan Assessment: Palpitations secondary to SVT. Heart rate improved now. History of rectal carcinoma Status post stent placement and nephrostomy tubes. Bilateral hydronephrosis Acute chronic renal disease stage IV with creatinine level 2-3 at baseline. Mild hyperkalemia with potassium 5.4 Elevated proBNP level 6360 without evidence of CHF. Abnormal urine sample. Urine culture was sent. coronary artery disease status post CABG GERD Hypertension Hyperlipidemia Recurrence of rectal cancer with possible liver metastases History of hepatitis C Moderate protein calorie malnutrition DVT prophylaxis. Plan: Patient is recommended IV hydration and monitor renal function. Heart rate is improved currently. Patient was started on Toprol-XL 25 mg by mouth daily. Blood pressure medications clonidine and lisinopril is on hold. Cardiology and neurology and oncology was consulted for evaluation. 2D echocardiogram was ordered. Continue with antibiotic course involving daptomycin which he has been on that currently at home. Follow-up urine culture report. Further recommendations based on clinical course. Prognosis guarded. Time with Patient: Greater than 30
[2021-03-21] MEDS ORDERED: METOPROLOL SUCCINATE (ER) 25 MG TAB.ER.24H PO SCH (09:00)
[2021-03-21] MEDS ORDERED: PANTOPRAZOLE 40 MG TABLET PO SCH (09:00)
[2021-03-26] MEDS ORDERED: ERGOCALCIFEROL 1,250 MCG (50,000 IU) CAPSULE PO SCH (09:00)
== END 2021-03-20 18:51 | disposition home health service (06) ==
LOC: EC 17:59 → 6NMEDSUR 22:30
PROVIDERS: ADMIT Hospitalist; ATTEND Hospitalist
DX: I47.1 Supraventricular tachycardia (principal); N13.30 Unspecified hydronephrosis; N17.9 Acute kidney failure, unspecified; I13.0 Hypertensive heart and chronic kidney disease with heart failure and stage 1 through stage 4 chronic kidney disease, or unspecified chronic kidney disease; I50.9 Heart failure, unspecified; N18.4 Chronic kidney disease, stage 4 (severe); C20 Malignant neoplasm of rectum; R82.90 Unspecified abnormal findings in urine; I25.10 Atherosclerotic heart disease of native coronary artery without angina pectoris; K21.9 Gastro-esophageal reflux disease without esophagitis; E78.5 Hyperlipidemia, unspecified; B18.2 Chronic viral hepatitis C; E87.5 Hyperkalemia; E44.0 Moderate protein-calorie malnutrition; R06.09 Other forms of dyspnea; Y84.2 Radiological procedure and radiotherapy as the cause of abnormal reaction of the patient, or of later complication, without mention of misadventure at the time of the procedure; K62.7 Radiation proctitis; F32.9 Major depressive disorder, single episode, unspecified; F17.200 Nicotine dependence, unspecified, uncomplicated; Z88.0 Allergy status to penicillin; Z79.899 Other long term (current) drug therapy; Z79.82 Long term (current) use of aspirin; Z95.1 Presence of aortocoronary bypass graft; Z90.49 Acquired absence of other specified parts of digestive tract; Z96.642 Presence of left artificial hip joint; Z85.048 Personal history of other malignant neoplasm of rectum, rectosigmoid junction, and anus; Z93.6 Other artificial openings of urinary tract status; Z20.822 Contact with and (suspected) exposure to COVID-19; Z80.3 Family history of malignant neoplasm of breast; Z82.49 Family history of ischemic heart disease and other diseases of the circulatory system; Z95.5 Presence of coronary angioplasty implant and graft
CPT/HCPCS: 96376 ×2; 96361; 96365; 96367; 96375 ×2; 99285; 36415; 93005 ×2; 93306; 84439; 84481; 83880; 80053 ×2; 83735; 84443; 84484; 85025 ×2; 85610; 85730; 81001; 87086; 87635; 71046; 74018; 76770; G0378 ×2; J0696; J0153; J0878; J1170 ×2; C9113

== ENCOUNTER → 2021-04-18 | Outpatient (CLI) | payer MEDICARE, OTHER ==
[2021-04-18 15:31] LABS: Partial Thromboplastin Time 23.3 sec (22.0-30.0); Prothrombin Time 10.4 sec (9.0-12.0)
== END | disposition home or self-care (01) ==
LOC: LABT 14:07
PROVIDERS: ATTEND Radiology Vascular & Interventional Radiology
DX: Z01.812 Encounter for preprocedural laboratory examination (principal)
CPT/HCPCS: 82565; 84520; 85610; 85730